=== PATIENT | female | born 1970 | race Caucasian/White ===

== ENCOUNTER 2017-07-05 11:29 | Emergency (ER) | payer BC, OTHER ==
[~2017-07-05 11:29] MED LIST: GARL400T4 PO; GLC/500 PO; LEVO1INJ13 PO; LISI-729 PO; LPT20 PO; MULT-506 PO; VALA500T60 PO
[2017-07-05 11:33] VITALS: TEMP 36.8
[2017-07-05] MEDS ORDERED: ACETAMINOPHEN 500 MG TAB PO STA (11:54)
[2017-07-05] MEDS ORDERED: SODIUM CHLORIDE 0.9% 1000ML 1,000 ML IV STA (11:54)
[2017-07-05] MEDS ORDERED: LISI-729 PO (12:00)
[2017-07-05] MEDS ORDERED: FOLI1TAB8 PO (12:01)
[2017-07-05] MEDS ORDERED: LEVO100T PO (12:01)
[2017-07-05] MEDS ORDERED: ASPCH81X PO (12:01)
[2017-07-05 12:15] LABS: BASO % 0.4 %; BASO ABS # 0.05 K/uL (0-0.2); EOS % 0.8 %; EOS ABS # 0.09 K/uL (0-0.5); HEMATOCRIT 42.1 % (37-47); HEMOGLOBIN 14.3 g/dL (12.0-16.0); IG# 0.04 K/uL (0.00-0.02); LYMPH % 15.7 %; LYMPH ABS # 1.85 K/uL (1.2-3.4); MEAN CELL VOLUME 88.1 fL (80-100); MEAN CORPUSCULAR HEMOGLOBIN 29.9 pg (25-34); MEAN PLATELET VOLUME 10.2 fL (7.4-10.4); MONO % 5.1 %; NEUT % 77.7 %; NEUT ABS # 9.19 K/uL (1.4-6.5); PLATELET COUNT 314 K/uL (130-400); RED CELL DISTRIBUTION WIDTH SD 45.4 fL (36.4-46.3); WHITE BLOOD COUNT 11.82 K/uL (4.8-10.8)
[2017-07-05 12:22] LABS: ALBUMIN 3.8 gm/dl (3.4-5.0); ALT/SGPT 35 U/L (12-78); AST/SGOT 23 U/L (15-37); BLOOD UREA NITROGEN 13 mg/dl (7-18); CARBON DIOXIDE 26 mmol/L (21-32); CREATININE 0.96 mg/dl (0.60-1.20); GLUCOSE 140 mg/dl (70-99); POTASSIUM 3.9 mmol/L (3.5-5.1); SODIUM 136 mmol/L (136-145)
[2017-07-05 12:23] LABS: INR 0.9 (0.9-1.1)
--- NOTE | 2017-07-05 12:31 | DIAGNOSTIC IMAGING REPORT ---
CT HEAD WITHOUT CONTRAST (CT) CLINICAL HISTORY: Head pain status post trauma COMPARISON STUDY: 02/21/2014 TECHNIQUE: Axial CT of the brain is performed from the vertex to the skull base. IV contrast was not administered for this examination. A dose lowering technique was utilized adhering to the principles of ALARA. CT DOSE: FINDINGS: No intra or extra-axial mass lesions are visualized. There is no CT evidence of acute cortical infarction. There is no evidence of midline shift. There is no acute hemorrhage. No calvarial fractures are visualized. There are postsurgical changes of an occipital craniotomy. Multiple surgical clips are visualized within the region of the foramen magnum. There are postsurgical changes of a midline cerebellar resection. There is no evidence of pathologic ventricular dilatation. There is a nasal bone fracture. IMPRESSION: 1. No acute intracranial findings. 2. Postsurgical changes within the posterior fossa with evidence of midline cerebellar resection/encephalomalacia 3. Nasal bone fracture Electronically signed by: Daniel Farah M.D. 07/05/2017 12:29 PM Dictated Date/Time: 07/05/2017 12:25 PM
[2017-07-05 12:33] LABS: ALKALINE PHOSPHATASE 77 U/L (45-117); PHOSPHORUS 3.3 mg/dl (2.5-4.9); TOTAL PROTEIN 7.8 gm/dl (6.4-8.2)
--- NOTE | 2017-07-05 12:33 | DIAGNOSTIC IMAGING REPORT ---
CT OF THE CERVICAL SPINE CLINICAL HISTORY: Neck pain status post trauma COMPARISON STUDY: No previous studies for comparison. CT DOSE: 1498.17 mGy.cm TECHNIQUE: CT scan of the cervical spine was performed from the skull base to the thoracic inlet. Images are reviewed in the axial, sagittal, and coronal planes. IV contrast was not administered for this examination. A dose lowering technique was utilized adhering to the principles of ALARA. FINDINGS: There are postsurgical changes within the posterior fossa. There is evidence for prior occipital craniotomy and midline cerebellar resection. The visualized portions of the lung apices reveal no evidence of pneumothorax. There is a reversal of the normal cervical lordosis. 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 There are multilevel degenerative changes. No acute fractures or traumatic subluxations are visualized. IMPRESSION: 1. No acute fractures or traumatic subluxations 2. Postsurgical changes in the posterior fossa 3. 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 Moderate multilevel degenerative change Electronically signed by: Daniel Farah M.D. 07/05/2017 12:32 PM Dictated Date/Time: 07/05/2017 12:30 PM
--- NOTE | 2017-07-05 12:37 | DIAGNOSTIC IMAGING REPORT ---
CT FACIAL BONES-MXILLOFAC WITHOUT CT DOSE: CLINICAL HISTORY: Facial pain status post trauma COMPARISON STUDY: No previous studies for comparison. TECHNIQUE: Helical images were acquired in the transverse plane. The study was reviewed and analyzed on the independent 3-D workstation. A dose lowering technique was utilized adhering to the principles of ALARA. The pterygoid plates appear intact. The zygomatic arches appear intact. The globes appear intact. There is no evidence of orbital emphysema. The orbital de la rosa and floor appear intact. The mandibular condyles appear intact. There is a nasal septal fracture. There is nasal septal deviation to the right. There are bilateral nasal bone fractures. The right nasal bone fracture demonstrates 2.5 mm of depression. IMPRESSION: 1. Nasal septal fracture. Nasal septal deviation to the right 2. Nasal bone fractures Electronically signed by: Daniel Farah M.D. 07/05/2017 12:35 PM Dictated Date/Time: 07/05/2017 12:32 PM
[2017-07-05] MEDS ORDERED: KETOROLAC TROMETHAMINE 30 MG/ML VIAL IV STA (13:09)
--- NOTE | 2017-07-05 13:33 | DIAGNOSTIC IMAGING REPORT ---
R ELBOW MIN 3 VIEWS ROUTINE CLINICAL HISTORY: Right elbow pain status post trauma COMPARISON: None DISCUSSION: There is displacement of the anterior humeral fat pad. There is a nondisplaced radial head fracture. There are small bony/calcific densities projected anterior to the distal humerus. These are of uncertain etiology and chronicity. There is an antecubital venous catheter. IMPRESSION: 1. Acute nondisplaced radial head fracture 2. Calcific/bony densities projected anterior to the distal humerus. These are of uncertain etiology and chronicity. Electronically signed by: Daniel Farah M.D. 07/05/2017 1:32 PM Dictated Date/Time: 07/05/2017 1:30 PM
--- NOTE | 2017-07-05 13:39 | DIAGNOSTIC IMAGING REPORT ---
L ELBOW MIN 3 VIEWS ROUTINE CLINICAL HISTORY: Left elbow pain status post trauma COMPARISON: None DISCUSSION: There is displacement of the anterior posterior humeral fat pads. There is an equivocal nondisplaced radial neck impaction. There is no evidence for soft tissue swelling. IMPRESSION: 1. Hemarthrosis 2. Equivocal nondisplaced radial neck impaction fracture Electronically signed by: Daniel Farah M.D. 07/05/2017 1:38 PM Dictated Date/Time: 07/05/2017 1:36 PM
[2017-07-05 14:22] VITALS: BP 188/111; PULSE 84; O2SAT 96
--- NOTE | 2017-07-05 15:23 | EMERGENCY ROOM VISIT NOTE ---
History First contact with patient: 11:47 Chief Complaint: FALL Stated Complaint: FALL ON FACE/NOSE History of Present Illness The patient is a 47 year old female who presents to the Emergency Room with complaints of injuries after she fell while walking to her mailbox. The patient does not recall if she lost consciousness. 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 The patient reports that she has been having increased balance problems over the past week. The patient complains mostly of nose/facial pain and bilateral elbow pain, left worse than right. Tetanus immunization is up-to-date. She denies any significant headache, neck pain or back pain. She rates her discomfort a 3 out of 10. Review of Systems HEENT: Denies dizziness, visual problems, hearing loss, tinnitus. Denies difficulty swallowing or oral lesions. PULMONARY: Denies cough, shortness of breath, sputum production or hemoptysis. CARDIOVASCULAR: Denies chest pain, palpitations, dyspnea on exertion, orthopnea or peripheral edema. GASTROINTESTINAL: Denies diarrhea, constipation, nausea, vomiting, or abdominal pain. GENITOURINARY: Denies dysuria, frequency, urgency or nocturia. NEUROLOGIC: See HPI. MUSCULOSKELETAL: Denies history of joint tenderness/swelling. SKIN: Denies rashes or lesions. PSYCHIATRIC: Denies history of depression or mental illness. ENDOCRINE: History of type 2 diabetes and hypothyroidism. Past Medical/Surgical History Medical Problems: (1) brain tumor surgery (2) Prediabetes Medical Problems: (1) brain tumor surgery (2) Hemangioma Intracranial (3) Hypertension Nos (4) Hypothyroidism Nos (5) Prediabetes (6) Type 2 diabetes mellitus Family History Cancer Diabetes mellitus Hypertension Kidney stones Social History Smoking Status: Never Smoker Alcohol Use: occasionally Marital Status: Housing Status: lives alone Occupation Status: employed Current/Historical Medications Scheduled Aspirin (Aspirin Chewable), 81 MG PO DAILY Folic Acid (Folvite), 1 MG PO DAILY Levothyroxine Sodium (Synthroid), 100 MCG PO DAILY Lisinopril (Prinivil), 5 MG PO DAILY Metformin Hcl (Glucophage), 500 MG PO DAILY Multivitamin (Multivitamin), 1 TAB PO DAILY Physical Exam Vital Signs Date Time Temp Pulse Resp B/P (MAP) Pulse Ox O2 Delivery O2 Flow Rate FiO2 07/05/17 14:22 84 16 188/111 96 07/05/17 13:39 83 18 182/96 95 Room Air 07/05/17 13:05 83 18 199/110 95 Room Air 07/05/17 13:03 85 18 222/111 95 Room Air 07/05/17 11:33 36.8 91 20 172/100 95 Room Air Physical Exam CONSTITUTIONAL: Healthy and well nourished. Alert and oriented X 3 with positive affect. GCS 15. Patient does not appear in any acute distress. HEENT: Examination shows notable edema and abrasions of the nose. Examination shows no septal hematomas. Mild septal deviation is noted. Pupils equal, round and reactive. No subconjunctival hemorrhage, raccoon's eyes, hemotympanum or branham sign. NECK: Full active range of motion without discomfort. RESPIRATORY: Clear to auscultation bilaterally with no wheezing, crackles, rhonchi or stridor. CARDIOVASCULAR: Regular rate and rhythm with no murmurs, rubs or gallops. GASTROINTESTINAL: Bowel sounds present in all quadrants. Soft and nontender to palpation. MUSCULOSKELETAL: Examination shows discomfort with range of motion of bilateral elbows, left worse than right. She has no focal tenderness through the shoulders or wrists. She has superficial abrasions to the hands. Patient has no tenderness to palpation through the thoracolumbar spine or lower extremities. Distal pulses are intact. INTEGUMENTARY: No rash or other significant dermatologic conditions noted. NEUROLOGIC: Cranial nerves II-XII grossly intact. No focal neurologic deficits noted. Negative pronator drift. Medical Decision & Procedures ER Provider Diagnostic Interpretation: My interpretation of an ECG shows a normal sinus rhythm of [address] elevation.. Noncontrast CT of the head, facial bones and cervical spine shows nasal bone and septum fractures. Prior craniotomy with surgical changes noted. There is no obvious evidence for intracranial bleed or cervical spine fractures. Radiologist reports are as follows: CT HEAD WITHOUT CONTRAST (CT) CLINICAL HISTORY: Head pain status post trauma COMPARISON STUDY: 02/21/2014 TECHNIQUE: Axial CT of the brain is performed from the vertex to the skull base. IV contrast was not administered for this examination. A dose lowering technique was utilized adhering to the principles of ALARA. CT DOSE: FINDINGS: No intra or extra-axial mass lesions are visualized. There is no CT evidence of acute cortical infarction. There is no evidence of midline shift. There is no acute hemorrhage. No calvarial fractures are visualized. There are postsurgical changes of an occipital craniotomy. Multiple surgical clips are visualized within the region of the foramen magnum. There are postsurgical changes of a midline cerebellar resection. There is no evidence of pathologic ventricular dilatation. There is a nasal bone fracture. IMPRESSION: 1. No acute intracranial findings. 2. Postsurgical changes within the posterior fossa with evidence of midline cerebellar resection/encephalomalacia 3. Nasal bone fracture CT OF THE CERVICAL SPINE CLINICAL HISTORY: Neck pain status post trauma COMPARISON STUDY: No previous studies for comparison. CT DOSE: 1498.17 mGy.cm TECHNIQUE: CT scan of the cervical spine was performed from the skull base to the thoracic inlet. Images are reviewed in the axial, sagittal, and coronal planes. IV contrast was not administered for this examination. A dose lowering technique was utilized adhering to the principles of ALARA. FINDINGS: There are postsurgical changes within the posterior fossa. There is evidence for prior occipital craniotomy and midline cerebellar resection. The visualized portions of the lung apices reveal no evidence of pneumothorax. There is a reversal of the normal cervical lordosis. 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 There are multilevel degenerative changes. No acute fractures or traumatic subluxations are visualized. IMPRESSION: 1. No acute fractures or traumatic subluxations 2. Postsurgical changes in the posterior fossa 3. 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 Moderate multilevel degenerative change CT FACIAL BONES-MXILLOFAC WITHOUT CT DOSE: CLINICAL HISTORY: Facial pain status post trauma COMPARISON STUDY: No previous studies for comparison. TECHNIQUE: Helical images were acquired in the transverse plane. The study was reviewed and analyzed on the independent 3-D workstation. A dose lowering technique was utilized adhering to the principles of ALARA. The pterygoid plates appear intact. The zygomatic arches appear intact. The globes appear intact. There is no evidence of orbital emphysema. The orbital de la rosa and floor appear intact. The mandibular condyles appear intact. There is a nasal septal fracture. There is nasal septal deviation to the right. There are bilateral nasal bone fractures. The right nasal bone fracture demonstrates 2.5 mm of depression. IMPRESSION: 1. Nasal septal fracture. Nasal septal deviation to the right 2. Nasal bone fractures My interpretation of right elbow x-ray shows a radial head fracture. No dislocation noted. Radiologist report is as follows: R ELBOW MIN 3 VIEWS ROUTINE CLINICAL HISTORY: Right elbow pain status post trauma COMPARISON: None DISCUSSION: There is displacement of the anterior humeral fat pad. There is a nondisplaced radial head fracture. There are small bony/calcific densities projected anterior to the distal humerus. These are of uncertain etiology and chronicity. There is an antecubital venous catheter. IMPRESSION: 1. Acute nondisplaced radial head fracture 2. Calcific/bony densities projected anterior to the distal humerus. These are of uncertain etiology and chronicity. My interpretation of left elbow x-ray shows an equivocal radial neck impaction fracture. No dislocation noted. Radiologist report is as follows: L ELBOW MIN 3 VIEWS ROUTINE CLINICAL HISTORY: Left elbow pain status post trauma COMPARISON: None DISCUSSION: There is displacement of the anterior posterior humeral fat pads. There is an equivocal nondisplaced radial neck impaction. There is no evidence for soft tissue swelling. IMPRESSION: 1. Hemarthrosis 2. Equivocal nondisplaced radial neck impaction fracture Laboratory Results 07/05/17 11:50 Red Blood Count 4.78, Mean Corpuscular Volume 88.1, Mean Corpuscular Hemoglobin 29.9, Mean Corpuscular Hemoglobin Concent 34.0, Mean Platelet Volume 10.2, Neutrophils (%) (Auto) 77.7, Lymphocytes (%) (Auto) 15.7, Monocytes (%) (Auto) 5.1, Eosinophils (%) (Auto) 0.8, Basophils (%) (Auto) 0.4, Neutrophils # (Auto) 9.19, Lymphocytes # (Auto) 1.85, Monocytes # (Auto) 0.60, Eosinophils # (Auto) 0.09, Basophils # (Auto) 0.05 07/05/17 11:50 Test 07/05/17 11:50 White Blood Count 11.82 K/uL (4.8-10.8) Red Blood Count 4.78 M/uL (4.2-5.4) Hemoglobin 14.3 g/dL (12.0-16.0) Hematocrit 42.1 % (37-47) Mean Corpuscular Volume 88.1 fL (80-100) Mean Corpuscular Hemoglobin 29.9 pg (25-34) Mean Corpuscular Hemoglobin Concent 34.0 g/dl (32-36) Platelet Count 314 K/uL (130-400) Mean Platelet Volume 10.2 fL (7.4-10.4) Neutrophils (%) (Auto) 77.7 % Lymphocytes (%) (Auto) 15.7 % Monocytes (%) (Auto) 5.1 % Eosinophils (%) (Auto) 0.8 % Basophils (%) (Auto) 0.4 % Neutrophils # (Auto) 9.19 K/uL (1.4-6.5) Lymphocytes # (Auto) 1.85 K/uL (1.2-3.4) Monocytes # (Auto) 0.60 K/uL (0.11-0.59) Eosinophils # (Auto) 0.09 K/uL (0-0.5) Basophils # (Auto) 0.05 K/uL (0-0.2) RDW Standard Deviation 45.4 fL (36.4-46.3) RDW Coefficient of Variation 14.0 % (11.5-14.5) Immature Granulocyte % (Auto) 0.3 % Immature Granulocyte # (Auto) 0.04 K/uL (0.00-0.02) Prothrombin Time 9.7 SECONDS (9.0-12.0) Prothromb Time International Ratio 0.9 (0.9-1.1) Activated Partial Thromboplast Time 25.0 SECONDS (21.0-31.0) Partial Thromboplastin Ratio 1.0 Anion Gap 6.0 mmol/L (3-11) Estimated GFR () 81.1 Estimated GFR (Non- 69.9 BUN/Creatinine Ratio 13.1 (10-20) Calcium Level 9.0 mg/dl (8.5-10.1) Phosphorus Level 3.3 mg/dl (2.5-4.9) Magnesium Level 1.9 mg/dl (1.8-2.4) Total Bilirubin 0.6 mg/dl (0.2-1) Direct Bilirubin 0.1 mg/dl (0-0.2) Aspartate Amino Transf (AST/SGOT) 23 U/L (15-37) Alanine Aminotransferase (ALT/SGPT) 35 U/L (12-78) Alkaline Phosphatase 77 U/L (45-117) Troponin I < 0.015 ng/ml (0-0.045) Total Protein 7.8 gm/dl (6.4-8.2) Albumin 3.8 gm/dl (3.4-5.0) Thyroid Stimulating Hormone (TSH) 2.870 uIu/ml (0.300-4.500) The above labs were reviewed. Medications Administered Medications (Trade) Dose Ordered Sig/John Route Start Time Stop Time Status Last Admin Dose Admin Acetaminophen (Tylenol Tab) 1,000 mg NOW STAT PO 07/05/17 11:54 07/05/17 11:57 DC 07/05/17 12:01 1,000 MG Sodium Chloride 1,000 ml @ 999 mls/hr Q1H1M STAT IV 07/05/17 11:54 07/05/17 12:54 DC 07/05/17 11:54 999 MLS/HR Ketorolac Tromethamine (Toradol Inj) 30 mg NOW STAT IV 07/05/17 13:09 07/05/17 13:11 DC 07/05/17 13:20 30 MG ED Course Patient history and physical exam were performed. Nurse's notes were reviewed. Vital signs were reviewed, showing an elevated blood pressure in triage. The patient was administered Tylenol for pain at her request. IV access was established, and labs were drawn, reviewed and grossly normal except for mild leukocytosis. An ECG was performed and was normal. CT of the head, facial bones and cervical spine shows nasal bone fractures with no other acute findings. Bilateral elbow x-rays were performed, showing a left radial neck fracture, and right radial head fracture. Findings were discussed with the patient. Because the patient will need her arms to use a walker for ambulation, and arm sling was applied as needed for comfort. The patient was administered Toradol 30 mg IVP for additional pain relief. The patient was encouraged to follow-up with ENT within the next 72 hours for recheck. She was also instructed to follow-up with orthopedics within the next 3-5 days for further orthopedic reevaluation. The patient is currently visiting from [place], and does not know when she will return home. She also reports that her insurance may not cover local follow-up. The patient was encouraged to call her insurance provider for further guidance. She was provided contact information for Dr. Bates, local ENT and Dr. 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 The patient refused any prescription analgesics, and was happy with plan of care, rating her pain a 4 out of 10 at the conclusion of my exam. The patient was also instructed to follow-up with her PCP for blood pressure recheck. The patient reports that she has had recent change in dosing of her lisinopril. Medical Decision Medication Reconcilliation Current Medication List: was personally reviewed by me Blood Pressure Screening Patient's blood pressure: Elevated blood pressure Blood pressure disposition: Referred to PCP Impression Primary Impression: Nasal bone fracture Additional Impressions: Fracture of radial neck, left, closed Fracture of radial head, right, closed Fall Departure Information Dispostion Home / Self-Care Forms HOME CARE DOCUMENTATION FORM, IMPORTANT VISIT INFORMATION Patient Instructions [facility] Problem Qualifiers Primary Impression: Nasal bone fracture Encounter type: initial encounter Fracture type: closed Qualified Codes: S02.2XXA - Fracture of nasal bones, initial encounter for closed fracture Additional Impressions: Fracture of radial neck, left, closed Encounter type: initial encounter Fracture alignment: nondisplaced Qualified Codes: S52.135A - Nondisplaced fracture of neck of left radius, initial encounter for closed fracture Fracture of radial head, right, closed Encounter type: initial encounter Fracture alignment: nondisplaced Qualified Codes: S52.124A - Nondisplaced fracture of head of right radius, initial encounter for closed fracture Fall Encounter type: initial encounter Qualified Codes: W19.XXXA - Unspecified fall, initial encounter
== END 2017-07-05 14:26 | disposition home or self-care (01) ==
LOC: C.EDB 11:30 → C.EDA 14:26
DX: S02.2XXA Fracture of nasal bones, initial encounter for closed fracture (principal); S52.132A Displaced fracture of neck of left radius, initial encounter for closed fracture; S52.124A Nondisplaced fracture of head of right radius, initial encounter for closed fracture; W18.30XA Fall on same level, unspecified, initial encounter; Y92.009 Unspecified place in unspecified non-institutional (private) residence as the place of occurrence of the external cause; S00.31XA Abrasion of nose, initial encounter; S60.512A Abrasion of left hand, initial encounter; S60.511A Abrasion of right hand, initial encounter; R03.0 Elevated blood-pressure reading, without diagnosis of hypertension; E11.9 Type 2 diabetes mellitus without complications; E03.9 Hypothyroidism, unspecified; Z85.841 Personal history of malignant neoplasm of brain; Z82.49 Family history of ischemic heart disease and other diseases of the circulatory system; Z79.82 Long term (current) use of aspirin; Z79.84 Long term (current) use of oral hypoglycemic drugs; Z79.899 Other long term (current) drug therapy

== ENCOUNTER 2022-11-19 21:18 | Inpatient (IN) ==
--- NOTE | 2022-11-19 22:37 | CT Scan Report ---
CT SCAN OF THE BRAIN WITHOUT IV CONTRAST CLINICAL HISTORY: Dizziness. Loss of balance. COMPARISON STUDY: CT of the brain dated 07/05/2017. TECHNIQUE: Unenhanced axial CT scan of the brain is performed from the vertex to the skull base. A d ose lowering technique was utilized adhering to the principles of ALARA. CT DOSE: 547.75 mGy.cm FINDINGS: Brain parenchyma: Postsurgical changes noted in the posterior fossa. Cerebellar encephalomalacia is u nchanged from previous. There is no hemorrhage, mass effect, or evidence of acute territorial ischemi a by CT criteria. Martinez-white matter differentiation is preserved. No extra-axial fluid collection is seen. Ventricles, sulci, cisterns: Normal in configuration. Intracranial vasculature: The visualized intracranial vasculature at the skull base is normal in appe arance. Calvarium: There is postoperative change from occipital craniectomy. No destructive calvarial lesion is seen. Sinuses and mastoids: The visualized paranasal sinuses are clear. The mastoid air cells are well pneu matized. Orbits: The bony orbits are grossly intact. IMPRESSION: Chronic/postsurgical changes as above with no hemorrhage, mass effect, or evidence of acu te territorial ischemia by CT criteria. ACT 112: Negative or not required by law. Electronically signed by: Star Jha M.D. 11/19/2022 10:35 PM
[2022-11-19 22:40] LABS: Basophils # (auto) 0.07 K/uL (0.00-0.20); Basophils % (auto) 0.6 %; Eosinophils # (auto) 0.15 K/uL (0.00-0.50); Eosinophils % (auto) 1.3 %; Hematocrit (blood only) 43.2 % (37.0-47.0); Hemoglobin 14.5 g/dl (12.0-16.0); Immature Granulocytes # (auto) 0.03 K/uL (0.01-0.20); Immature Granulocytes % (auto) 0.3 %; Lymphocytes # (auto) 4.34 K/uL (1.20-3.40); Mean Corpuscular Hemoglobin 28.8 pg (25.0-34.0); Mean Corpuscular Hgb Conc 33.6 g/dL (32.0-36.0); Mean Corpuscular Volume 85.9 fL (80.0-100.0); Mean Platelet Volume 10.6 fL (9.4-12.4); Monocytes # (auto) 0.67 K/uL (0.11-0.59); Monocytes % (auto) 5.9 %; Neutrophils # (auto) 6.16 K/uL (1.40-6.50); Neutrophils % (auto) 53.9 %; Platelet Count 298 K/uL (130-400); RDW Coefficient of Variation 14.2 % (11.5-14.5); RDW Standard Deviation 43.8 fL (36.4-46.3); Red Blood Count 5.03 M/uL (4.20-5.40); White Blood Count 11.42 K/ul (4.8-10.8)
[2022-11-19 22:52] LABS: Albumin Globulin Ratio 1.8 (0.9-2); Albumin Level 4.3 gm/dl (3.4-5.0); BUN Creatinine Ratio 27.7 (10-20); Bilirubin,Total 0.6 mg/dl (0.2-1.0); Calcium 9.5 mg/dl (8.6-10.3); Creatinine Clr Calc Pharmacy 86.1 ml/min; Est GFR (African American) 93.3 ml/min; Est GFR (Non-African American) 80.5 ml/min; Globulin 2.4 gm/dl (2.5-4.0); Potassium 3.6 mmol/L (3.5-5.1); Total Protein 6.7 gm/dl (6.0-8.3)
[2022-11-19 23:00] LABS: Troponin I High Sensitivity 4.7 pg/ml (0-14)
[2022-11-19] MEDS ORDERED: SODIUM CHLORIDE 0.9% 1000ML 1,000 ML IV SCH (23:00)
--- NOTE | 2022-11-19 23:07 | Emergency Department Note ---
History of Present Illness General Chief complaint: Dizziness Stated complaint: LIGHT HEADED, LOSS OF BALANCE Time Seen by Provider: 11/19/22 22:46 History of Present Illness This is a 52-year-old female presenting to the emergency department for evaluation of lightheadedness and difficulty ambulating. Patient states that her symptoms began yesterday morning, roughly 36 hours prior to arrival. She took a nap in the afternoon, and woke up last evening feeling fairly normal. When the patient woke today she had return of the lightheadedness. She has a fairly significant neurologic history in the past. When the patient was 9 years old she had surgery for brain cancer with subsequent radiation. She did have a stroke in 2016 and is on a baby aspirin. Patient had been living in the [facility] with her , until he 6 months ago. She is transitioning to the [facility] where she has additional family, and has yet to establish with a family doctor, although she is scheduled to see [facility]. Patient has not had fevers or chills. She did have a fall yesterday. There is some ambulatory dysfunction at baseline and she uses a walker. She feels some increased weakness in her left leg compared to normal. She is able to move as normal, although she does have some baseline dysfunction. No new medication changes. She rates her discomfort a 2/10. Home Medications Medication Instructions Recorded Confirmed Type valacyclovir 500 mg tablet 500 mg PO DAILY 07/30/18 11/19/22 History aspirin 81 mg tablet,delayed 81 mg PO DAILY 11/19/22 11/19/22 History release atorvastatin 40 mg tablet 40 mg PO DAILY 11/19/22 11/19/22 History donepezil 10 mg tablet 10 mg PO DAILY 11/19/22 11/19/22 History dulaglutide 4.5 mg/0.5 mL 3 mg subcut WK 11/19/22 11/19/22 History subcutaneous pen injector (Trulicity) empagliflozin 10 mg tablet 10 mg PO DAILY 11/19/22 11/19/22 History (Jardiance) escitalopram oxalate 20 mg tablet 20 mg PO DAILY 11/19/22 11/19/22 History levothyroxine 112 mcg tablet 112 mcg PO DAILYBB 11/19/22 11/19/22 History multivitamin 1 tab PO DAILY 11/19/22 11/19/22 History Allergies Allergy/AdvReac Type Severity Reaction Status Date / Time No Known Allergies Allergy Verified 11/19/22 23:51 Past Med/Surg History Medical History (Updated 11/20/22 @ 05:29 by Donnie Donahue PA-C) Acute CVA (cerebrovascular accident) Prediabetes Type 2 diabetes mellitus Surgical History H/O brain surgery Family History Other No pertinent family history Social History Smoking Status: Unknown if ever smoked Preferred Language: Citizen Of [place] Feels Safe at Home: Yes Review of Systems A total of 10 systems reviewed and were otherwise negative Physical Exam Vital Signs Vital Signs - 24 hr 11/19/22 21:20 11/19/22 22:13 11/19/22 22:37 Temperature 36.4 C L Temperature Source Temporal Artery Scan Pulse Rate 80 76 Pulse Rate from SpO2 Sensor Respiratory Rate 16 16 Respiratory Effort / Characteristics Non-Labored Spontaneous Respiratory Depth Normal Blood Pressure 149/102 H Blood Pressure Mean 117 Pulse Oximetry 95 94 95 Oxygen Delivery Method Room Air Room Air Room Air Sepsis Recent Fever Within 48 Hours No Sepsis New/Unexplained Change in Mental Status N/A Sepsis Action Taken by Nursing No Action Required 11/19/22 22:46 11/19/22 23:00 11/19/22 23:30 Temperature Temperature Source Pulse Rate 77 75 79 Pulse Rate from SpO2 Sensor Respiratory Rate 19 21 Respiratory Effort / Characteristics Respiratory Depth Blood Pressure Blood Pressure Mean Pulse Oximetry 97 95 Oxygen Delivery Method Room Air Room Air Sepsis Recent Fever Within 48 Hours Sepsis New/Unexplained Change in Mental Status Sepsis Action Taken by Nursing 11/20/22 00:39 11/20/22 01:00 11/20/22 01:30 Temperature Temperature Source Pulse Rate 77 71 73 Pulse Rate from SpO2 Sensor Respiratory Rate 19 18 17 Respiratory Effort / Characteristics Respiratory Depth Blood Pressure 132/86 157/86 H 158/92 H Blood Pressure Mean 101 109 114 Pulse Oximetry 91 93 Oxygen Delivery Method Room Air Room Air Sepsis Recent Fever Within 48 Hours Sepsis New/Unexplained Change in Mental Status Sepsis Action Taken by Nursing 11/20/22 02:58 11/20/22 03:00 Temperature Temperature Source Pulse Rate 70 66 Pulse Rate from SpO2 Sensor 69 68 Respiratory Rate 21 16 Respiratory Effort / Characteristics Respiratory Depth Blood Pressure 150/95 H 139/94 Blood Pressure Mean 113 109 Pulse Oximetry 93 93 Oxygen Delivery Method Room Air Room Air Sepsis Recent Fever Within 48 Hours Sepsis New/Unexplained Change in Mental Status Sepsis Action Taken by Nursing VITALS: Vitals are noted on the nurse's note and reviewed by myself. Vital signs stable. GENERAL: Chronically ill-appearing white female who is in no acute distress HEAD: Normocephalic atraumatic. HEART: Regular rate and rhythm without murmurs gallops or rubs. LUNGS: Clear to auscultation bilaterally without wheezes, rales or rhonchi. No retractions or accessory muscle use. ABDOMEN: Positive normal bowel sounds x 4. Soft, nontender, without masses or organomegaly. No guarding or rebound tenderness. MUSCULOSKELETAL: No muscle atrophy, erythema, or edema noted. NEURO: Patient was alert and oriented to person place and time. Course Administered Medications Discontinued Medications Gadobutrol (Gadobutrol 65ml Vial) 9 ml IV ONCE ONE Stop: 11/20/22 00:17 Last Admin: 11/20/22 00:16 Dose: 9 ml Documented By: ED Sodium Chloride (Nss 1000ml) 1,000 mls @ 999 mls/hr IV .Q1H1M QUITA Stop: 11/20/22 00:00 Last Infusion: 11/20/22 01:33 Dose: 0 mls/hr Documented By: Admin: 11/19/22 22:59 Dose: 999 mls/hr Documented By: NEGRO Lorazepam (Lorazepam 2 Mg/1 Ml Vial) 1 mg IV NOW STA Stop: 11/19/22 23:34 Last Admin: 11/19/22 23:46 Dose: 1 mg Documented By: NEGRO Medical Decision Making Differential Diagnosis Differential diagnosis: Etiologies such as benign positional vertigo, labrynthitis, dehydration, hypovolemia, anemia, tumor, infection, hypoglycemia, electrolyte abnormalities, cardiac sources, toxicological sources, central neurologic process, as well as others were entertained. Laboratory Data 11/19/22 21:59 11/19/22 21:59 Lab Results 11/19/22 11/19/22 11/19/22 Range/Units 21:59 21:59 21:59 WBC 11.42 H (4.8-10.8) K/ul RBC 5.03 (4.20-5.40) M/uL Hgb 14.5 (12.0-16.0) g/dl Hct 43.2 (37.0-47.0) % MCV 85.9 (80.0-100.0) fL MCH 28.8 (25.0-34.0) pg MCHC 33.6 (32.0-36.0) g/dL RDW Std Deviation 43.8 (36.4-46.3) fL RDW Coeff of Ananya 14.2 (11.5-14.5) % Plt Count 298 (130-400) K/uL MPV 10.6 (9.4-12.4) fL Immature Gran % (Auto) 0.3 % Neut % (Auto) 53.9 % Lymph % (Auto) 38.0 % Windsor % (Auto) 5.9 % Eos % (Auto) 1.3 % Baso % (Auto) 0.6 % Neut # (Auto) 6.16 (1.40-6.50) K/uL Lymph # (Auto) 4.34 H (1.20-3.40) K/uL Windsor # (Auto) 0.67 H (0.11-0.59) K/uL Eos # (Auto) 0.15 (0.00-0.50) K/uL Baso # (Auto) 0.07 (0.00-0.20) K/uL Immature Gran # (Auto) 0.03 (0.01-0.20) K/uL PT 9.9 (9.0-12.0) Seconds INR 0.9 (0.9-1.1) APTT 26.2 (21.0-31.0) Seconds PTT Ratio 0.9 Sodium 139 (136-145) mmol/L Potassium 3.6 (3.5-5.1) mmol/L Chloride 103 (98-107) mmol/L Carbon Dioxide 26 (21-32) mmol/L Anion Gap 10 (3-11) BUN 23 (6-23) mg/dl Creatinine 0.83 (0.6-1.2) mg/dl Est Cr Clr Drug Dosing 86.1 ml/min Est GFR ( Amer) 93.3 ml/min Est GFR (Non-Af Amer) 80.5 ml/min BUN/Creatinine Ratio 27.7 H (10-20) Glucose 128 H (70-99(Fasting)) mg/dl Calcium 9.5 (8.6-10.3) mg/dl Magnesium 2.2 (1.7-2.4) mg/dl Total Bilirubin 0.6 (0.2-1.0) mg/dl AST 18 (13-39) U/L ALT 14 (7-52) U/L Alkaline Phosphatase 89 (34-104) U/L Troponin I High Sens 4.7 (0-14) pg/ml Total Protein 6.7 (6.0-8.3) gm/dl Albumin 4.3 (3.4-5.0) gm/dl Globulin 2.4 L (2.5-4.0) gm/dl Albumin/Globulin Ratio 1.8 (0.9-2) TSH (0.300-4.500) uIu/ml Urine Color Urine Appearance (Clear) Urine pH (4.5-7.5) Ur Specific Sanford (1.000-1.030) Urine Protein (Negative) Urine Glucose (UA) (Negative) Urine Ketones (Negative) Urine Blood (Negative) Urine Nitrite (Negative) Urine Bilirubin (Negative) Urine Urobilinogen (Negative) Ur Leukocyte Esterase (Negative) Ethyl Alcohol mg/dL (<10.0) mg/dl Anaplasma Smear Babesia Smear Lyme Disease IgG Ab (Negative) Lyme Disease IgM Ab (Negative) 11/19/22 11/19/22 11/19/22 Range/Units 21:59 22:56 23:25 WBC (4.8-10.8) K/ul RBC (4.20-5.40) M/uL Hgb (12.0-16.0) g/dl Hct (37.0-47.0) % MCV (80.0-100.0) fL MCH (25.0-34.0) pg MCHC (32.0-36.0) g/dL RDW Std Deviation (36.4-46.3) fL RDW Coeff of Ananya (11.5-14.5) % Plt Count (130-400) K/uL MPV (9.4-12.4) fL Immature Gran % (Auto) % Neut % (Auto) % Lymph % (Auto) % [place] % (Auto) % Eos % (Auto) % Baso % (Auto) % Neut # (Auto) (1.40-6.50) K/uL Lymph # (Auto) (1.20-3.40) K/uL [place] # (Auto) (0.11-0.59) K/uL Eos # (Auto) (0.00-0.50) K/uL Baso # (Auto) (0.00-0.20) K/uL Immature Gran # (Auto) (0.01-0.20) K/uL PT (9.0-12.0) Seconds INR (0.9-1.1) APTT (21.0-31.0) Seconds PTT Ratio Sodium (136-145) mmol/L Potassium (3.5-5.1) mmol/L Chloride (98-107) mmol/L Carbon Dioxide (21-32) mmol/L Anion Gap (3-11) BUN (6-23) mg/dl Creatinine (0.6-1.2) mg/dl Est Cr Clr Drug Dosing ml/min Est GFR ( Amer) ml/min Est GFR (Non-Af Amer) ml/min BUN/Creatinine Ratio (10-20) Glucose (70-99(Fasting)) mg/dl Calcium (8.6-10.3) mg/dl Magnesium (1.7-2.4) mg/dl Total Bilirubin (0.2-1.0) mg/dl AST (13-39) U/L ALT (7-52) U/L Alkaline Phosphatase (34-104) U/L Troponin I High Sens (0-14) pg/ml Total Protein (6.0-8.3) gm/dl Albumin (3.4-5.0) gm/dl Globulin (2.5-4.0) gm/dl Albumin/Globulin Ratio (0.9-2) TSH (0.300-4.500) uIu/ml Urine Color Urine Appearance (Clear) Urine pH (4.5-7.5) Ur Specific [place] (1.000-1.030) Urine Protein (Negative) Urine Glucose (UA) (Negative) Urine Ketones (Negative) Urine Blood (Negative) Urine Nitrite (Negative) Urine Bilirubin (Negative) Urine Urobilinogen (Negative) Ur Leukocyte Esterase (Negative) Ethyl Alcohol mg/dL < 10.0 (<10.0) mg/dl Anaplasma Smear See Comment Babesia Smear See Comment Lyme Disease IgG Ab Negative (Negative) Lyme Disease IgM Ab Equivocal A (Negative) 11/19/22 11/20/22 Range/Units Unknown 02:47 WBC (4.8-10.8) K/ul RBC (4.20-5.40) M/uL Hgb (12.0-16.0) g/dl Hct (37.0-47.0) % MCV (80.0-100.0) fL MCH (25.0-34.0) pg MCHC (32.0-36.0) g/dL RDW Std Deviation (36.4-46.3) fL RDW Coeff of Ananya (11.5-14.5) % Plt Count (130-400) K/uL MPV (9.4-12.4) fL Immature Gran % (Auto) % Neut % (Auto) % Lymph % (Auto) % [place] % (Auto) % Eos % (Auto) % Baso % (Auto) % Neut # (Auto) (1.40-6.50) K/uL Lymph # (Auto) (1.20-3.40) K/uL [place] # (Auto) (0.11-0.59) K/uL Eos # (Auto) (0.00-0.50) K/uL Baso # (Auto) (0.00-0.20) K/uL Immature Gran # (Auto) (0.01-0.20) K/uL PT (9.0-12.0) Seconds INR (0.9-1.1) APTT (21.0-31.0) Seconds PTT Ratio Sodium (136-145) mmol/L Potassium (3.5-5.1) mmol/L Chloride (98-107) mmol/L Carbon Dioxide (21-32) mmol/L Anion Gap (3-11) BUN (6-23) mg/dl Creatinine (0.6-1.2) mg/dl Est Cr Clr Drug Dosing ml/min Est GFR ( Amer) ml/min Est GFR (Non-Af Amer) ml/min BUN/Creatinine Ratio (10-20) Glucose (70-99(Fasting)) mg/dl Calcium (8.6-10.3) mg/dl Magnesium (1.7-2.4) mg/dl Total Bilirubin (0.2-1.0) mg/dl AST (13-39) U/L ALT (7-52) U/L Alkaline Phosphatase (34-104) U/L Troponin I High Sens (0-14) pg/ml Total Protein (6.0-8.3) gm/dl Albumin (3.4-5.0) gm/dl Globulin (2.5-4.0) gm/dl Albumin/Globulin Ratio (0.9-2) TSH 2.061 (0.300-4.500) uIu/ml Urine Color Yellow Urine Appearance Clear (Clear) Urine pH 7.0 (4.5-7.5) Ur Specific Sanford 1.031 H (1.000-1.030) Urine Protein Negative (Negative) Urine Glucose (UA) 3+ H (Negative) Urine Ketones Negative (Negative) Urine Blood Negative (Negative) Urine Nitrite Negative (Negative) Urine Bilirubin Negative (Negative) Urine Urobilinogen Negative (Negative) Ur Leukocyte Esterase Negative (Negative) Ethyl Alcohol mg/dL (<10.0) mg/dl Anaplasma Smear Babesia Smear Lyme Disease IgG Ab (Negative) Lyme Disease IgM Ab (Negative) Imaging Data Radiologist's Impression: Head CT 11/19/22 21:24 CT SCAN OF THE BRAIN WITHOUT IV CONTRAST CLINICAL HISTORY: Dizziness. Loss of balance. COMPARISON STUDY: CT of the brain dated 07/05/2017. TECHNIQUE: Unenhanced axial CT scan of the brain is performed from the vertex to the skull base. A dose lowering technique was utilized adhering to the principles of ALARA. CT DOSE: 547.75 mGy.cm FINDINGS: Brain parenchyma: Postsurgical changes noted in the posterior fossa. Cerebellar encephalomalacia is unchanged from previous. There is no hemorrhage, mass effect, or evidence of acute territorial ischemia by CT criteria. Martinez-white matter differentiation is preserved. No extra-axial fluid collection is seen. Ventricles, sulci, cisterns: Normal in configuration. Intracranial vasculature: The visualized intracranial vasculature at the skull base is normal in appearance. Calvarium: There is postoperative change from occipital craniectomy. No d estructive calvarial lesion is seen. Sinuses and mastoids: The visualized paranasal sinuses are clear. The mastoid air cells are well pneumatized. Orbits: The bony orbits are grossly intact. IMPRESSION: Chronic/postsurgical changes as above with no hemorrhage, mass effect, or evidence of acute territorial ischemia by CT criteria. ACT 112: Negative or not required by law. Electronically signed by: Star Jha M.D. 11/19/2022 10:35 PM Brain MRI 11/19/22 23:03 Exam(s): MRI HEAD W/WO Contrast IV Amt: 9cc gadavist EXAM: MR Head Without and With Intravenous Contrast CLINICAL HISTORY: Reason for exam: Dizzy. Old hx Cancer and stroke. TECHNIQUE: Magnetic resonance images of the head/brain without and with intravenous contrast in multiple planes. CONTRAST: Patient received 9cc gadavist of IV contrast COMPARISON: CT brain 11/19/2022. MRI dated 02/22/2014. FINDINGS: Brain: Petechial hemorrhage demonstrated along the cerebellum, likely postsurgical. Small focus of hemorrhage within the left occipital lobe by the posterior corpus callosum, unchanged. Mild generalized brain atrophy. Redemonstrated encephalomalacia within the central portion of the cerebellum with posterior basilar postoperative changes. Ventricles: Unremarkable. No ventriculomegaly. Bones/joints: Unremarkable. Soft tissues: Unremarkable. No abnormal enhancement of intracranial structures to suggest intracranial lesion. Sinuses: Unremarkable as visualized. No acute sinusitis. Mastoid air cells: Unremarkable as visualized. No mastoid effusion. Orbits: Unremarkable as visualized. IMPRESSION: 1. Postoperative changes of the cerebellum with small petechial old hemorrhage at the level of the cerebellum and left occipital lobe, overall stable study in the interval. 2. No focally enhancing lesion to suggest recurrent neoplasm. Electronically signed by: Raisa Dempsey MD 11/20/22 01:16 AM MDM Narrative Physical exam and history were performed. Nursing notes, EMR, and Medication List were personally reviewed. No social concerns were identified as barriers to patients care. Patient appears to have dizziness bringing her to the ER. Patient has history of brain cancer and stroke in the past. IV access was established and labs were obtained. Patient was seen during a period of very high ER volume and acuity with extended wait times. Nursing protocol order have been performed and some of these are available for my review at the time of patient encounter. Patient's blood work is as above and was reviewed. She does not have a significantly elevated white blood cell count, gross anemia, bandemia, or significant electrolyte imbalance. Transaminases are not diagnostic. Alcohol is negative. Urine is with glucose but no distinct evidence of infection. TSH shows euthyroid state. Troponin x1 is negative. Magnesium is normal. CT scan of the head was performed and reviewed by myself and radiology showing no acute process. Case was discussed with my attending physician who remained involved in care decision making. Patient has concerning past history and is describing worsening dizziness and difficulty ambulating over the past 36 hours. MRI with and without was performed of the brain, and has results as above. She does not have distinct acute process, but does have chronic findings. Overall the patient does not appear well for discharge home. She does not have a strong baseline to begin with, and does not have outpatient resources as she recently moved to the area. Ambulatory status is difficult to determine as the patient has such difficulty with the dizziness. Case was discussed with the on- call hospitalist who agreed to evaluate the patient here in the ER. Please see their dictation for further patient course, plan, disposition. The chart was completed utilizing [employer] Speech Voice Recognition Software. Grammatical errors, random word insertions, pronoun errors, and incomplete sentences are an occasional consequence of this system due to software limitations, ambient noise, and hardware issues. Any formal questions or concerns about the content, text, or information contained within the body of this dictation should be directly addressed to the provider for clarification. . Impression & Plan Dizziness, Ambulatory dysfunction Discharge Plan Visit Data Chief Complaint: Dizziness Stated Complaint: LIGHT HEADED, LOSS OF BALANCE ED Provider: Hector Goode ED Midlevel Provider: Donnie Donahue Discharge Problem: Dizziness, Ambulatory dysfunction Patient Disposition: Admitted As Inpatient Discharge Instructions Interventions: ED Discharge Assessment Last Done: 11/20/22 04:04
[2022-11-19 23:08] LABS: INR 0.9 (0.9-1.1); Partial Thromboplastin Ratio 0.9; Partial Thromboplastin Time 26.2 Seconds (21.0-31.0); Prothrombin Time 9.9 Seconds (9.0-12.0)
[2022-11-19] MEDS ORDERED: LORazepam 2 MG/1 ML VIAL IV STA (23:33)
[2022-11-19 23:38] LABS: Lyme Ab IgG w/WB Rflx Negative (Negative)
[2022-11-19 23:43] LABS: Lyme Ab IgM w/WB Rflx Equivocal (Negative)
[2022-11-20] MEDS ORDERED: GADOBUTROL 65ML VIAL IV ONE (00:16)
--- NOTE | 2022-11-20 01:17 | Magnetic Resonance Report ---
Exam(s): MRI HEAD W/WO Contrast IV Amt: 9cc gadavist EXAM: MR Head Without and With Intravenous Contrast CLINICAL HISTORY: Reason for exam: Dizzy. Old hx Cancer and stroke. TECHNIQUE: Magnetic resonance images of the head/brain without and with intravenous contrast in multiple planes. CONTRAST: Patient received 9cc gadavist of IV contrast COMPARISON: CT brain 11/19/2022. MRI dated 02/22/2014. FINDINGS: Brain: Petechial hemorrhage demonstrated along the cerebellum, likely postsurgical. Small focus of hemorrhage within the left occipital lobe by the posterior corpus callosum, unchanged. Mild generalized brain atrophy. Redemonstrated encephalomalacia within the central portion of the cerebellum with posterior basilar postoperative changes. Ventricles: Unremarkable. No ventriculomegaly. Bones/joints: Unremarkable. Soft tissues: Unremarkable. No abnormal enhancement of intracranial structures to suggest intracranial lesion. Sinuses: Unremarkable as visualized. No acute sinusitis. Mastoid air cells: Unremarkable as visualized. No mastoid effusion. Orbits: Unremarkable as visualized. IMPRESSION: 1. Postoperative changes of the cerebellum with small petechial old hemorrhage at the level of the cerebellum and left occipital lobe, overall stable study in the interval. 2. No focally enhancing lesion to suggest recurrent neoplasm. Electronically signed by: Raisa Dempsey MD 11/20/22 01:16 AM
[2022-11-20 02:03] LABS: Magnesium 2.2 mg/dl (1.7-2.4)
[2022-11-20 03:01] LABS: Appearance Urine Clear (Clear); Bilirubin Urine Negative (Negative); Blood Urine Negative (Negative); Color Urine Yellow; Glucose Urine UA 3+ (Negative); Ketones Urine Negative (Negative); Leukocyte Esterase Urine Negative (Negative); Nitrite Urine Negative (Negative); Protein Urine Negative (Negative); Specific Gravity Urine 1.031 (1.000-1.030); Urobilinogen Urine Negative (Negative)
--- NOTE | 2022-11-20 03:11 | History & Physical Report ---
Date of Service November 20, 2022 Assessment & Plan (1) Dizziness: Plan: 52 year old female w/ PmHx brain tumor at age 9 s/p resection and radiation, CVA in 2016, T2DM, depression admitted for dizziness. Dizziness/Hx CVA/Hx brain surgery: -History of brain tumor, surgery + radiation at age 9. History of CVA 2016. -CT head and MRI brain without any acute abnormalities - less likely stroke. -Will order Tick panel to r/o infectious etiology. -Ordered EEG due to significant past neuro history. -PT/OT consulted for eval and treat. -blood work otherwise unremarkable. -Continue home baby aspirin, atorvastatin. -Continue to trend CBC, BMP. T2DM: -Unknown A1c status, patient on Jardiance and Trulicity. -Pending A1c. -Hold home meds. 15U lantus BID based on weight. SSI. -ACHS glucose checks. HTN: -BP within normal limits during stay. Continue to monitor. Hypothyroidism: -Continue home levothyroxine. Depression: -Continue home escitalopram. F/E/N/GI: T2DM carb count DVT Prophylaxis: SCD Code status: DNR/DNI Dispo: Med/tele (2) H/O brain surgery: (3) Type 2 diabetes mellitus: (4) Hypertension: (5) Depression: History of Present Illness Chief Complaint: dizziness lightheadedness Primary Care Provider: HERMAN PCP Kacey is a 52 year old female w/ PmHx brain tumor at age 9 s/p resection and radiation, CVA in 2016, T2DM, depression coming in to the ED for dizziness and lightheadedness for a few days. Patient states that on Friday she started to get dizzy and lightheaded out of no where. She was not doing anything in particular when it occurred. Friday she was okay but this morning she started feeling the dizziness and lightheadedness onset again. It has been constant for her since the recent onset. She denies fevers, chills, shortness of breath, chest pain, cough, congestion, diarrhea, nausea, vomiting, headaches, dysuria. She states that the dizziness and lightheadedness has caused her to fall a few times over the past few days however she did not lose consciousness or hit her head. In the ED she had a CT of the head which was negative for acute processes. Brain MRI was negative for any acute processes. WBC 11.42, otherwise unremarkable blood work. She was given 1mg ativan, 1L NSS in the ED. Allergies Allergy/AdvReac Type Severity Reaction Status Date / Time No Known Allergies Allergy Verified 11/19/22 23:51 Home Medications Medication Instructions Recorded Confirmed Type valacyclovir 500 mg tablet 500 mg PO DAILY 07/30/18 11/19/22 History aspirin 81 mg tablet,delayed 81 mg PO DAILY 11/19/22 11/19/22 History release atorvastatin 40 mg tablet 40 mg PO DAILY 11/19/22 11/19/22 History donepezil 10 mg tablet 10 mg PO DAILY 11/19/22 11/19/22 History dulaglutide 4.5 mg/0.5 mL 3 mg subcut WK 11/19/22 11/19/22 History subcutaneous pen injector (Trulicity) empagliflozin 10 mg tablet 10 mg PO DAILY 11/19/22 11/19/22 History (Jardiance) escitalopram oxalate 20 mg tablet 20 mg PO DAILY 11/19/22 11/19/22 History levothyroxine 112 mcg tablet 112 mcg PO DAILYBB 11/19/22 11/19/22 History multivitamin 1 tab PO DAILY 11/19/22 11/19/22 History Past Med/Surg History Medical History (Updated 11/20/22 @ 05:29 by Donnie Donahue PA-C) Acute CVA (cerebrovascular accident) Prediabetes Type 2 diabetes mellitus Surgical History H/O brain surgery Family History Other No pertinent family history Social History Smoking Status: Former smoker Hx Alcohol Use: Yes Alcohol type: wine Hx Substance Use: No Preferred Language: Cypriot 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 Physical Exam Constitutional: WD/WN, vitals as above Eyes: PERRL, conjunctivae normal, anicteric sclerae ENMT: external ear and nose normal, oropharynx normal TM normal bilaterally with good cone of light. Mild wax accumulation. Respiratory: normal respiratory effort, lungs clear to auscultation Cardiovascular: RRR, no murmur, no edema Gastrointestinal (Abdomen): normal bowel sounds, soft, nontender, no hepatosplenomegaly Musculoskeletal: no cyanosis or clubbing, extremities motor strength 5/5 Skin: no rashes, warm and dry Neurologic: PERRL, EOMI, accommodation nl, no face palsy, no dysarthria No sensory deficits. CN 2-12 in tact. Psychiatric: A+Ox3, euthymic affect Results & Data Results & Data Vital Signs (Past 12 Hours) Vital Signs Temp Pulse Resp BP Pulse Ox O2 Del Method 11/20/22 01:30 73 17 158/92 H 11/20/22 01:00 71 18 157/86 H 93 Room Air 11/20/22 00:39 77 19 132/86 91 Room Air 11/19/22 23:30 79 21 95 Room Air 11/19/22 23:00 75 19 97 Room Air 11/19/22 22:46 77 11/19/22 22:37 76 16 95 Room Air 11/19/22 22:13 94 Room Air 11/19/22 21:20 36.4 C L 80 16 149/102 H 95 Room Air Supervising Physician Co-Signing Physician Notes Attending addendum: I have physically seen this patient, have supervised the medical residents activities, and agree with the H&P unless as otherwise noted. Assessment and Plan: Dizziness/history of CVA in 2016/brain surgery at age 9- CT head NECK: No neck pain, stiffness, or limitation of motion. MRI brain negative for acute changes Order tick panel Order EEG Consult PT/OT Aspirin 81 mg daily Consult neurology Lyme serologies- IgM positive, IgG negative, with Western blot pending Doxycycline 100 mg p.o. twice daily until Western blot returns Diabetes mellitus continue Jardiance, hold Trulicity Check hemoglobin A1c Continue Lantus glargine 15 units subcu twice daily SSI Hypothyroidism- Continue levothyroxine Remaining orders and notations as noted Resident Activity Tracking Resident Involvement: Resident Care Provided Care Provided: Adult Hospital Medicine
[2022-11-20] MEDS ORDERED: CARBOHYDRATES FOR HYPOGLYCEMIA PO PRN (04:05)
[2022-11-20] MEDS ORDERED: ACETAMINOPHEN 325 MG TAB PO PRN (04:05)
[2022-11-20] MEDS ORDERED: DEXTROSE 50% 50 ML SYRINGE IV PRN (04:05)
[2022-11-20] MEDS ORDERED: GLUCOSE 10 TAB/TUBE PO PRN (04:05)
[2022-11-20] MEDS ORDERED: GLUCAGON FOR INJ 1 MG VIAL SQ PRN (04:05)
[2022-11-20] MEDS ORDERED: GLUCOSE 40% GEL 15 GM TUBE PO PRN (04:05)
[2022-11-20] MEDS ORDERED: ONDANSETRON INJ 2 MG/ML 2 ML VIAL IV PRN (04:05)
[2022-11-20 07:11] LABS: Basophils # (auto) 0.06 K/uL (0.00-0.20); Basophils % (auto) 0.6 %; Eosinophils # (auto) 0.21 K/uL (0.00-0.50); Eosinophils % (auto) 2.2 %; Hematocrit (blood only) 39.8 % (37.0-47.0); Hemoglobin 12.9 g/dl (12.0-16.0); Immature Granulocytes # (auto) 0.03 K/uL (0.01-0.20); Immature Granulocytes % (auto) 0.3 %; Lymphocytes # (auto) 3.92 K/uL (1.20-3.40); Lymphocytes % (auto) 40.8 %; Mean Corpuscular Hemoglobin 28.5 pg (25.0-34.0); Mean Corpuscular Hgb Conc 32.4 g/dL (32.0-36.0); Mean Corpuscular Volume 88.1 fL (80.0-100.0); Mean Platelet Volume 10.8 fL (9.4-12.4); Monocytes # (auto) 0.65 K/uL (0.11-0.59); Monocytes % (auto) 6.8 %; Neutrophils # (auto) 4.73 K/uL (1.40-6.50); Neutrophils % (auto) 49.3 %; Platelet Count 246 K/uL (130-400); RDW Coefficient of Variation 14.4 % (11.5-14.5); Red Blood Count 4.52 M/uL (4.20-5.40)
[2022-11-20 07:33] LABS: BUN Creatinine Ratio 26.7 (10-20); Calcium 8.9 mg/dl (8.6-10.3); Creatinine Clr Calc Pharmacy 95.3 ml/min; Est GFR (African American) 105.5 ml/min; Potassium 3.8 mmol/L (3.5-5.1)
[2022-11-20 07:38] LABS: Estimated Average Glucose 134 mg/dl; Hemoglobin A1C 6.3 % (4.5-5.6)
[2022-11-20] MEDS: INSULIN ASPART PER UNIT CHARGE SC SCH ×4 (07:46→20:39)
[2022-11-20] MEDS: LEVOTHYROXINE SODIUM 112 MCG TABLET PO SCH (07:48)
[2022-11-20] MEDS: ESCITALOPRAM OXALATE 20 MG TAB PO SCH (07:49)
[2022-11-20] MEDS: ATORVASTATIN 40 MG TAB PO SCH (07:49)
[2022-11-20] MEDS: valACYclovir HCL 500 MG TABLET PO SCH (07:49)
[2022-11-20] MEDS: ASPIRIN 81 MG ECTAB PO SCH (07:49)
[2022-11-20] MEDS: DONEPEZIL HCL 10 MG TAB PO SCH (08:00)
[2022-11-20] MEDS: LANTUS PER UNIT CHARGE SQ SCH ×2 (08:04→20:39)
--- OUTSIDE RECORDS SUMMARY | 2022-11-20 09:20 | External Medical Summary | Summary of Care ---
Author Name Unknown Organization [place] [address] Care Team Providers Care Cellar Worker Name Role Phone Elizabeth aBltazar MD Primary Care Provider Reason for Visit * Reason Onset Date Comments Insurance 11/15/2021 Insurance Referr al Encounter Details Date Type Department Care Team Description 11/15/2021 Telephone Neurology, [place] [address] [address] Alexia Solitario, Familia Covarrubias PA-C [address] [address] Insurance (Insurance Referral) Allergies No known active allergiesdocumented as of this encounter (statuses as of 11/15/2021) Medications Medication Sig Dispensed Refills Start Date End Date Status ISELA CONTOUR NEXT TEST STRP twice daily 60 Strip 11 03/02/2014 Active EASY TOUCH LANCING DEVICE MISC As directed 0 03/23/2014 Active EASY TOUCH LANCETS 30G/TWIST MISC As directed 0 03/23/2014 Active ASPIRIN EC LO-DOSE 81 MG PO TBECIndications:Bra instem stroke (HCC) 1 TABLET DAILY 1 Tab 0 03/29/2014 Active MULTIPLE VITAMIN PO TABS 1 tablet daily 0 Active Lisinopril-Hydrochl orothiazide 20-12.5 MG per tabletIndications:H TN, goal below 140/90 Take 1 Tab by mouth daily. 90 Tab 3 11/04/2017 Active metFORMIN (GLUCOPHAGE) 500 MG TabletIndications:T ype 2 diabetes mellitus with hemoglobin A1c goal of less than 7.0% (HCC) TAKE Two TABLETs BY MOUTH TWICE DAILY WITH MORNING AND EVENING MEALS 360 Tab 3 11/04/2017 Active Additional Information Patient not taking. Reported on 11/15/2021 valACYclovir (VALTREX) 500 MG TabletIndications:H erpes simplex virus infection Take 1 Tab by mouth daily. 90 Tab 3 11/04/2017 Active Additional Information Patient not taking. Reported on 11/15/2021 levothyroxine (LEVOXYL) 100 MCG TabletIndications:H ypothyroidism take 1 tablet by mouth once daily AT LEAST 30 MINUTES PRIOR TO BREAKFAST OR OTHER MEDICATIONS 90 Tab 3 11/04/2017 Active folic acid 1 MG Tablet 0 03/28/2019 Active Colestipol HCl (COLESTID) 1 g Tablet Take 2 g by mouth 2 times a day. 0 Active tolterodine (DETROL) 2 MG Tablet Take 1 Tab by mouth 2 times a day. 60 Tab 3 05/21/2019 Active Additional Information Patient not taking. Reported on 01/26/2020 Escitalopram Oxalate 20 MG Oral Tablet (Lexapro) Take 1 Tab by mouth daily. 90 Tab 3 07/25/2020 Active Donepezil HCl 10 MG Oral Tablet (Aricept) Take with largest meal of the day. 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 documented as of this encounter (statuses as of 11/15/2021) Resolved Problems Problem Noted Date Resolved Date Obesity, Class II, BMI 35-39.9, isolated (see ac tual BMI) 06/30/2012 12/26/2016 Overview: BMI= 38.27 06/30/12 Irritant hand dermatitis 06/30/2012 018 Elevated blood pressure, situational 06/30/2012 05/13/2017 Hypothyroidism 02/06/2004 06/30/2012 documented as of this encounter (statuses as of 11/15/2021) Immunizations Name Administration Dates Next Due Pneumococcal Polysaccharide PPV23 (Pneumovax) 04/09/2017 Seasonal Influenza, Quadriva lent, No Preserve, IM 01/06/2015 Seasonal Influenza, Split, I IV3, With Preserve, Inj 01/05/2017,12/29/2013,12/16/2012,11/27,02/18/2011 TD - Tetanus/Diptheria (ADULT) 02/06/2004 TDAP (age 10 and older)(Boostrix) 11/28/2011 documented as of this encounter Social History Tobacco Use Types Packs/Day Years Used Date Never Smoker Smokeless Tobacco: Never Used Alcohol Use Standard Drinks/Week Comments Yes 0 (1 standard drink = 0.6 oz pur e alcohol) very very rare Sex Assigned at Date Recorded Not on file Job Start Date Occupation Industry Not on file Not on file Not on file documented as of this encounter Functional Status Functional Status Response Date of Assess ment Are you deaf or do you have serious difficulty h earing? No 04/11/2014 Are you blind or do you have serious difficulty seeing, even when wearing glasses? No 04/11/2014 Do you have serious difficul ty walking or climbing stairs? (5 years old or older) No 04/11/2014 Do you have difficulty dress ing or bathing? (5 years old or older) No 04/11/2014 Because of a physical, menta l, or emotional condition, do you have difficulty doing errands alone such as visiting a doctor s office or shopping? (15 years old or older) No 04/11/19 15 Cognitive Status Response Date of Assessm ent Because of a physical, menta l, or emotional condition, do you have serious difficulty concentrating, remembering, or making decisions? (5 years old or older Yes 04/11/2014 documented as of this encounter Miscellaneous Notes * Telephone Encounter - ALLYSON Cabezas - 11/15/2021 2:20 PM EDT Kacey came into the office today and stated that she only had [employer]. I called #[phone] asked for a call back to see if we could get a referral for the patients appointment. If someone calls back please transfer them to me at ext. [phone] so I can ask them about how they found out she had Medicare since patient stated she does not have medicare. ALLYSON Cabezas 11/15/2021 2:22 PM * Telephone Encounter - ALLYSON Cabezas - 11/15/2021 11:08 AM EDT Received a phone call from [facility]. Angie let me know that Medicare was now her primary insurance so even if she was to place a referral it would be rejected. ALLYSON Cabezas 11/15/2021 11:09 AM * Telephone Encounter - ALLYSON Cabezas - 11/15/2021 10:21 AM EDT Faxed a request to [facility] for an expedited insurance referral for patients appointment on 11/15/2021. #[phone] ALLYSON Cabezas 11/15/2021 10:22 AM documented in this encounter Plan of Treatment Health Maintenance Due Date Last Done Comments COVID-19 Vaccine (#1) 1969 DIABETES-EYE EXAM 1987 Hepatitis C Screening 1987 Cologuard: Ages 45-75 2014 Colonoscopy: Ages 45-75 2014 Colorectal Cancer Screening (Colonoscopy 10 Years; Sigmoidoscopy 5 Years; Cologuard 3 Years; FOBT 1 Year): Ages 45-75 2014 FOBT: Ages 45-75 2014 Sigmoidoscopy: Ages 45-75 2014 DIABETES-HGBA1C EVERY 6 MONTHS 01/09/2018 07/10/2017, 04/11/2017, 06/10/2016, Additional history exists DIABETES-FOOT EXAM 04/09/2018 04/09/2017, 0 04/26/2014, 06/29/2013 Pneumococcal Vaccine: Pediatrics (0 to 5 Years) and At-Risk Patients (6 to 64 Years) (2 - PCV) 04/09/2018 04/09/2017 Alb / Creat Ratio 04/11/2018 04/11/2017, , 01/06/2015, Additional history exists TSH FOR THYROID MEDICATION MONITORING YEARLY 07/05/2018 07/05/2017, 04/11/2017, 09/18/2015, Additional history exists Yearly B-12 07/10/2018 07/10/2017 Depression Screening, Annual for Pts 12 and Over 09/19/2018 09/19/2017 Mammogram 2019 Zoster Vaccines (1 of 2) 2019 GFR - Renal Function 07/31/2019 07/30/2018, 08/01/2017, 07/05/2017, Additional history exists PAP SMEAR-EVERY 3 YRS,AGES 21-65 05/13/2020 05/13/2017, 04/20/2013, 12/18/2011 (Done elsewhere), Additional history exists Influenza Vaccine (FLU shot) (#1) 2021 01/05/2017, 01/06/2015, 12/29/2013, Additional history exists DTaP,Tdap,and Td Vaccines (2 - Td or Tdap) 11/27/2021 11/28/2011, 02/06/2004 GARDASIL-HPV IMMUNIZATION SERIES Aged Out No longer eligible based on patient's age to complete this topic MENINGOCOCCAL (MENACTRA/MENVEO) Aged Out No longer eligible based on patient's age to complete this topic documented as of this encounter Implants Not on filedocumented as of this encounter Advance Directives Documents on File Type Date Recorded 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
--- OUTSIDE RECORDS SUMMARY | 2022-11-20 09:20 | External Medical Summary | Summary of Care ---
Author Name Unknown Organization [place] [address] Care Team Providers Care Photoresist Contact Printer Name Role Phone Elizabeth Baltazar MD Primary Care Provider Reason for Visit * Reason Onset Date Comments Insurance 11/15/2021 Insurance Referr al Encounter Details Date Type Department Care Team Description 11/15/2021 Telephone Neurology, [place] [address] [address] Alexia Solitario, Familia Covarrubias PA-C [address] [address] Insurance (Insurance Referral) Allergies No known active [...] EVENING MEALS 360 Tab 3 11/04/2017 Active valACYclovir (VALTREX) 500 MG TabletIndications:H erpes simplex virus infection Take 1 Tab by mouth daily. 90 Tab 3 11/04/2017 Active levothyroxine (LEVOXYL) 100 MCG TabletIndications:H ypothyroidism take [...] goal below 140/90 04/26/2014 Heterozygous MTHFR mutation [id number] 04/25 Prothrombin gene mutation 03/29/2014 Heterozygous MTHFR [...] AM EDT Received a phone call from [facility]. Angie let me know that Medicare was now her primary insurance so even if she was to place a referral it would be rejected. ALLYSON Cabezas 11/15/2021 11:09 AM * Telephone Encounter - ALLYSON Cabezas - 11/15/2021 10:21 AM EDT Faxed a request to [facility] for an expedited insurance referral for patients appointment on 11/15/2021. 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 Expl anation Advanced Directive service a rizwan default Advanced Directive Advanced Directive Advanced Directive Advanced Directive Advanced Directive Advanced Directive Advanced Directive Advanced Directive Advanced Directive Advanced Directive Advanced Directive Advanced Directive Advanced Directive Advanced Directive Advanced Directive Advanced Directive Advanced Directive Advanced Directive Advanced Directive Care Teams Photoresist Contact Printer Relationship Specialty Start Date End Date Elizabeth Baltazar MD [address] [facility] [address] [address] PCP - General Internal Medicine 12/15/18 documented as of this encounter
--- OUTSIDE RECORDS SUMMARY | 2022-11-20 09:20 | External Medical Summary | Summary of Care ---
Author Name Unknown Organization [place] [address] Care Team Providers Care Heel Sander Name Role Phone Elizabeth Baltazar MD Primary Care Provider Reason for Visit * Reason Onset Date Comments Medication Refill 10/04/2021 Donepezil 10mg Encounter Details Date Type Department Care Team Description 10/04/2021 Refill NeurologyAlejandra [address] [address] Colopy, Anand Adhikari MD [address] [address] Allergies No known active allergiesdocumented as of this encounter (statuses as of 02/07/2022) Medications Medication Sig Dispensed Refills Start Date End Date Status ISELA CONTOUR NEXT TEST STRP twice daily 60 Strip 11 03/02/2014 Active EASY TOUCH LANCING DEVICE MISC As directed 0 03/23/2014 Active EASY TOUCH LANCETS 30G/TWIST MISC As directed 0 03/23/2014 Active ASPIRIN EC LO-DOSE 81 MG PO TBECIndications :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HCC) 1 TABLET DAILY 1 Tab 0 03/29/2014 Active MULTIPLE VITAMIN PO TABS 1 tablet daily 0 Activ e Lisinopril-Hydr ochlorothiazide 20-12.5 MG per tabletIndicatio ns:HTN, goal below 140/90 Take 1 Tab by mouth daily. 90 Tab 3 11/04/2017 Active metFORMIN (GLUCOPHAGE) 500 MG TabletIndicatio ns:Type 2 diabetes mellitus with hemoglobin A1c goal of less than 7.0% ([facility]) TAKE Two TABLETs BY MOUTH TWICE DAILY WITH MORNING AND EVENING MEALS 360 Tab 3 11/04/2017 Active Additional Information Patient not taking.Reported on 11/15/2021 valACYclovir (VALTREX) 500 MG TabletIndicatio ns:Herpes simplex virus infection Take 1 Tab by mouth daily. 90 Tab 3 11/04/2017 Active Additional Information Patient not taking.Reported on 11/15/2021 levothyroxine (LEVOXYL) 100 MCG TabletIndicatio ns:Hypothyroidi sm take 1 tablet by mouth once daily [...] 3 05/21/2019 Active Additional Information Patient not taking.Reported on 01/26/2020 Escitalopram Oxalate 20 MG Oral Tablet (Lexapro) Take 1 Tab by mouth daily. 90 Tab 3 07/25/2020 Active Donepezil HCl 10 MG Oral Tablet (Aricept) Take with largest meal of the day. 90 Tab 3 07/25/2020 10/05/19 22 Discontinued Donepezil HCl 10 MG Oral Tablet (Aricept) Take with largest meal of the day. 90 Tablet 3 10/04/2021 11/16/19 22 Discontinued(Ref ill) documented as of this encounter (statuses as of 02/07/2022) Active Problems Problem Noted Date Gait instability 08/04/2017 Repeated falls 08/04/2017 Deviated nasal septum 07/11/2017 Nasal bone fracture 07/11/2017 Adjustment disorder with depressed mood 10/24/2015 HTN, goal below 140/90 04/26/2014 Heterozygous MTHFR mutation [id number] 04/25 Prothrombin gene mutation 03/29/2014 Heterozygous MTHFR [...] as of this encounter (statuses as of 02/07/2022) Resolved Problems Problem Noted Date Resolved Date Obesity, Class II, BMI 35-39.9, isolated (see ac tual BMI) 06/30/2012 12/26/2016 Overview: BMI= 38.27 06/30/12 Irritant hand dermatitis 06/30/2012 018 Elevated blood pressure, situational 06/30/2012 05/13/2017 Hypothyroidism 02/06/2004 06/30/2012 documented as of this encounter (statuses as of 02/07/2022) Immunizations Name Administration Dates Next Due Pneumococcal Polysaccharide PPV23 (Pneumovax) 04/09/2017 Seasonal Influenza, Quadriva lent, No Preserve, IM 01/06/2015 Seasonal Influenza, Split, I IV3, With Preserve, Inj 01/05/2017,12/29/2013,12/16/2012,11/27,02/18/2011 TDAP (age 10 and older)(Boostrix) 11/28/2011 documented as of this encounter Social History Tobacco Use Types Packs/Day Years Used Date Smoking Tobacco: Never Smokeless Tobacco: Never Alcohol Use Standard Drinks/Week Comments Yes 0 [...] encounter Miscellaneous Notes * Telephone Encounter - Miller Cobb PA-C - 10/04/2021 11:35 AM EDTSigned Prescriptions: Disp Refills Donepezil HCl 10 MG Oral Tablet (Aricept) 90 Tab*3 Sig: Take with largest meal of the day. Authorizing Provider: MILLER COBB * Telephone Encounter - Selena Thomas [facility] - 10/04/2021 11:01 AM EDT Did you pend patient's preferred pharmacy and medication before forwarding?yes Pharmacy: [facility] [address] Pending Prescriptions: Disp Refills Donepezil HCl 10 MG Oral Tablet (Aricept) 90 Tab*3 Sig: Take with largest meal of the day. Last Visit: 01/26/2020 (in office), 07/25/2020 (telemedicine) Next Visit: 11/15/2021 If no future appointments scheduled, and last appointment is greater than a year ago, please schedule patient for a follow-up appointment Last date the medication was ordered: 07/25/2020 Is this request for a controlled substance?No Urine Drug Screen:No results found for this or any previous visit. Patient Phone Numbers Labs: Lab Results Component Value Date/Time CREAT 0.90 07/30/2018 12:00 AM CREAT 0.8 08/01/2017 01:11 PM POTASSIUM 3.9 07/05/2017 12:00 AM POTASSIUM 4.1 04/11/2017 08:52 AM TSH 2.870 07/05/2017 12:00 AM TSH 4.65 (H) 04/11/2017 08:52 AM LDLCALC 136 (H) 04/11/2017 08:52 AM LDLDIRECT NOT APPLICABLE 04/11/2017 08:52 AM LDLDIRECT 128 11/28/2011 10:11 AM ALT 36 (H) 04/11/2017 08:52 AM HGBA1C 6.6 (H) 07/10/2017 11:13 AM * Telephone Encounter - ALLYSON Phillips - 10/04/2021 10:53 AM EDT Kacey called into the office today for a refill. She is out of medication. Donepezil HCl 10 MG Oral Tablet (Aricept) 90 Tab 3 07/25/2020 Sig: Take with largest meal of the day. Last visit: 07/25/2020 Next visit: 11/15/2021 - [facility] [address] ALLYSON Casey 10/04/2021 10:53 AM documented in this encounter Plan of [...] this topic documented as of this encounter Medical Devices Not on filedocumented as of this encounter Care Teams Heel Sander Relationship Specialty Start Date End Date Elizabeth Baltazar MD [address] [place] [address] PCP - General Internal Medicine 12/15/18 documented as of this encounter
--- OUTSIDE RECORDS SUMMARY | 2022-11-20 09:20 | External Medical Summary | Summary of Care ---
Author Name Unknown Organization [place] [address] Care Team Providers Care Coding Validator Name Role Phone Elizabeth Baltazar MD Primary Care Provider Reason for Visit * Reason Comments Return Neuro Encounter Details Date Type Department Care Team Description 11/15/2021 Office Visit Neurology, [address] [address] Alexia Solitario, Familia Covarrubias PA-C [address] [phone] Memory changes* Allergies No known active allergiesdocumented as of this encounter (statuses as of 11/15/2021) Medications Medication Sig Dispensed Refills Start Date End Date Status ISELA CONTOUR NEXT TEST STRP twice daily 60 Strip 11 03/02/2014 Active EASY TOUCH LANCING DEVICE MISC As directed 0 03/23/2014 Active EASY TOUCH LANCETS 30G/TWIST MISC As directed 0 03/23/2014 Active ASPIRIN EC LO-DOSE 81 MG PO TBECIndications:Br ainstem stroke (HCC) 1 TABLET DAILY 1 Tab 0 03/29/2014 Active MULTIPLE VITAMIN PO TABS 1 tablet daily 0 Active Lisinopril-Hydroch lorothiazide 20-12.5 MG per tabletIndications: HTN, goal below 140/90 Take 1 Tab by mouth daily. 90 Tab 3 11/04/2017 Active metFORMIN (GLUCOPHAGE) 500 MG TabletIndications: Type 2 diabetes mellitus with hemoglobin A1c goal of less than 7.0% ([facility]) TAKE Two TABLETs BY MOUTH TWICE DAILY WITH MORNING AND EVENING MEALS 360 Tab 3 11/04/2017 Active Additional Information Patient not taking. Reported on 11/15/2021 valACYclovir (VALTREX) 500 MG TabletIndications: Herpes simplex virus infection Take 1 Tab by mouth daily. 90 Tab 3 11/04/2017 Active Additional Information Patient not taking. Reported on 11/15/2021 levothyroxine (LEVOXYL) 100 MCG TabletIndications: Hypothyroidism take 1 tablet by mouth once daily [...] mouth daily. 90 Tab 3 07/25/2020 Active Jardiance 10 MG Oral Tablet 10 mg daily . 0 08/15/2021 Active Trulicity 3 MG/0.5ML Subcutaneous Solution Pen-injector 3 mg once a week . 0 10/16/2021 Active Atorvastatin Calcium 40 MG Oral Tablet (Lipitor) 40 mg in the morning. 0 09/04/2021 Active Donepezil HCl 10 MG Oral Tablet (Aricept)Indicatio ns:Memory changes Take with largest meal of the day. 90 Tablet 3 11/15/2021 Active Donepezil HCl 10 MG Oral Tablet (Aricept) Take with largest meal of the day. 90 Tablet 3 10/04/2021 2 Discontinue d(Refill) Synthroid 112 MCG Oral Tablet 112 mcg daily . 0 08/15/2021 2 Discontinue d(Medicatio n/Dose Changed) documented as of this encounter (statuses as of 11/15/2021) Active Problems Problem Noted Date Gait instability 08/04/2017 Repeated falls 08/04/2017 Deviated nasal septum 07/11/2017 Nasal bone fracture 07/11/2017 Adjustment disorder with depressed mood 10/24/2015 HTN, goal below 140/90 04/26/2014 Heterozygous MTHFR mutation [id number] 04/25 Prothrombin gene mutation 03/29/2014 Heterozygous MTHFR [...] on file documented as of this encounter Last Filed Vital Signs Vital Sign Reading Time Taken Comments Blood Pressure 124/86 11/15/2021 2:05 PM EDT Pulse 95 11/15/2021 2:05 PM EDT Temperature - - Respiratory Rate - - Oxygen Saturation 98% 11/15/2021 2:05 PM EDT Inhaled Oxygen Concentration - - Weight 106.3 kg (234 lb 6.4 oz) 11/15/2021 2:05 PM EDT Height - - Body Mass Index 40.23 01/26/2020 3:42 PM EST documented in this encounter Functional Status Functional Status Response [...] Yes 04/11/2014 documented as of this encounter Progress Notes * Familia Hale Jr., PA-C - 11/15/2021 2:38 PM EDT NEUROLOGY OUTPATIENT PROGRESS NOTE CC: " Follow up" HISTORY OF PRESENT ILLNESS: Kacey Jay is a 51 year old year old female with a past medical history of hypothyroidism, diabetes mellitus type 2, 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 Patient is present during this clinic visit without a family member. According to the patient she continues to have some memory issues but it is stable from a year ago. Patient states she does memorygames on her phone but does not do crossword puzzles or Sudoku. She continues to take Aricept 10 mgdaily with no side effects. 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 Diverticulosis DM type 2, goal A1c below 7 05/27/2013 Elevated blood pressure, situational 06/30/2012 Hypothyroidism Obstructive sleep apnea Prothrombin gene mutation (HCC) 03/29/2014 Stroke (HCC) Type 2 diabetes mellitus with hemoglobin A1c goal of less than 7.0% ([facility]) 05/27/2013 ICD-10 update of inactive term PAST SURGICAL HISTORY: Past Surgical History: Procedure Laterality Date ENDOMETRIAL CRYOABLATION US GUIDED nl bx MISCELLANEOUS ORDER ([facility] ONLY) 1979, 1980 removal of benign brain tumor MISCELLANEOUS ORDER ([facility] ONLY) 1987 removal of dermoid cyst left ovary PAP SCREEN 11/28 [facility] SOCIAL HISTORY: Social History Tobacco Use Smoking status: Never Smoker Smokeless tobacco: Never Used Vaping Use Vaping Use: Never used Substance Use Topics Alcohol use: Yes Comment: very very rare Drug use: No REVIEW OF SYSTEMS: Constitutional: No fatigue, No weight loss, No weight gain, No fever and No night sweats HEENT: No eye disease/injury, No vision loss, No hearing loss, No sore throat and No nasal drainage Respiratory: No cough, No shortness of breath, No sleep apnea, No wheezing and No exposure to TB Cardiovascular: No chest pain, No palpitations, No pain in extremities and No swelling of leg/feet Gastrointestinal: No abdominal pain, No constipation, No diarrhea, No rectal bleeding, No nausea, No vomiting and Positive for heartburn Musculoskeletal: No muscle weakness, No joint pain, No neck pain and Positive for back pain Dermatologic: No pruritis, No rash and No open sores/wounds Neuro/Psych: No unsteadiness, No insomnia, No anxiety/depression, No seizure, No tremors, No doublevision, No stroke, No head injury, No numbness and No headaches Endocrine: No extreme appetite, No excessive thirst, No excessive urination, No intolerance to heat/cold and No diabetes Hematologic: No easy bruising and No tendency to bleeding Immunologic: No environmental allergies CURRENT MEDICATIONS: Current Outpatient Medications Medication Sig Dispense Refill ISELA CONTOUR NEXT TEST STRP twice daily 60 Strip 11 EASY TOUCH LANCING DEVICE MISC As directed EASY TOUCH LANCETS 30G/TWIST MISC As directed ASPIRIN EC LO-DOSE 81 MG PO TBEC 1 TABLET DAILY 1 Tab 0 MULTIPLE VITAMIN PO TABS 1 tablet daily Lisinopril-Hydrochlorothiazide 20-12.5 MG per tablet Take 1 Tab by mouth daily. 90 Tab 3 levothyroxine (LEVOXYL) 100 MCG Tablet take 1 tablet by mouth once daily AT LEAST 30 MINUTES PRIOR TO BREAKFAST OR OTHER MEDICATIONS 90 Tab 3 folic acid 1 MG Tablet Colestipol HCl (COLESTID) 1 g Tablet Take 2 g by mouth 2 times a day. Escitalopram Oxalate 20 MG Oral Tablet (Lexapro) Take 1 Tab by mouth daily. 90 Tab 3 Jardiance 10 MG Oral Tablet 10 mg daily . Trulicity 3 MG/0.5ML Subcutaneous Solution Pen-injector 3 mg once a week . Atorvastatin Calcium 40 MG Oral Tablet (Lipitor) 40 mg in the morning. Donepezil HCl 10 MG Oral Tablet (Aricept) Take with largest meal of the day. 90 Tablet 3 metFORMIN (GLUCOPHAGE) 500 MG Tablet TAKE Two TABLETs BY MOUTH TWICE DAILY WITH MORNING AND EVENING MEALS (Patient not taking: Reported on 11/15/2021 ) 360 Tab 3 valACYclovir (VALTREX) 500 MG Tablet Take 1 Tab by mouth daily. (Patient not taking: Reported on 11/15/2021 ) 90 Tab 3 tolterodine (DETROL) 2 MG Tablet Take 1 Tab by mouth 2 times a day. (Patient not taking: Reported on 01/26/2020) 60 Tab 3 No current facility-administered medications for this visit. ALLERGIES: Review of patient's allergies indicates: No Known Allergies FAMILY HISTORY: Family History Problem Relation Age of Onset Cancer Grandmother (Maternal) colon Cancer Grandfather (Maternal) unknown type Diabetes Aunt (Unspecified) several great aunts Diabetes Aunt (Unspecified) maternal aunt Stroke Grandfather (Paternal) Other (aortic aneurysm) Grandmother (Paternal) PHYSICAL EXAMINATION: BP 124/86 | Pulse 95 | Wt 106.3 kg (234 lb 6.4 oz) | SpO2 98% | BMI 40.23 kg/m | BSA 2.19 m GENERAL EXAMINATION: The patient is alert, comfortable and cooperative with exam. Patient's appearance is consistent with stated age. Head is normocephalic and atraumatic. Neck is supple without bruits or lymphadenopathy. Lungs are clear. Heart rate and rhythm are regular. Abdomen is soft and non-tender. Extremities are without cyanosis or edema. Skin is intact without rashes or legions. NEUROLOGICAL EXAMINATION: MENTAL STATUS: Alert and orientated x3, well spoken, fluent and appropriate with no aphasia or dysarthria with also repetition intact. The patient follows all commands, simple crossed and complex. CRANIAL NERVES: Visual zayas are full to confrontation. Visual acuity is grossly intact. Pupils are equal and reactive to light and accomodation. EOM are intact. Sensation to V1-V3 is intact. Jaw movement is intact and symmetrical. Face appears symmetrical and bilaterally. Hearing is intact to finger rub bilaterally. Palate elevates symmetrically and tongue is midline. Trapezoids and SCM musclesare full power. MOTOR: Tone is normal. There is no pronator drift. Fine finger movements are intact and symmetrical. Strength is symmetrical and 5/5 bilaterally. SENSATION: Symmmetrical and intact to light touch UE and LE bilaterally. REFLEXES: Deep tendon reflexes are symmetrical. CEREBELLAR: [id number] and [id number] are intact. GAIT AND STATION: Gait is normal base. LABS AND IMAGING: All labs were reviewed in the EMR. IMPRESSION AND PLAN: Kacey Jay is a 51 year old year old female with a past medical history of hypothyroidism, diabetes mellitus type 2, 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 Memory changes (Primary) Stable. Etiology secondary to radiation for brain tumor. Radiological changes noted on MRI of the brain. Continue Aricept 10 mg daily to help improve memory. Follow-up in 1 year. - Donepezil HCl 10 MG Oral Tablet (Aricept); Take with largest meal of the day. Follow Up: Return in about 1 year (around 11/15/2022) for Clinic Visit. | For: Clinic Visit I spent 15 minutes with patient, [id number]. I spent , 15 minutes preparing to see the patient and review of the prior records that are available in the system. The majority of the time was spent, obtaining history, documenting in chart, reviewing medications, counseling and educating the patient. Reviewed medications that the patient had been on in past. I did medication reconciliation, ordered medication, updated treatment plan, I did coordinating of care. Total time spent in patient's caretoday - 30 minutes. documented in this encounter Nursing Notes * ALEJANDRO Pizano - 11/15/2021 2:10 PM EDT BP 124/86 | Pulse 95 | Wt 106.3 kg (234 lb 6.4 oz) | SpO2 98% | BMI 40.23 kg/m | BSA 2.19 m REVIEW OF SYSTEMS: Constitutional: No fatigue, No weight loss, No weight gain, No fever and No night sweats HEENT: No eye disease/injury, No vision loss, No hearing loss, No sore throat and No nasal drainage Respiratory: No cough, No shortness of breath, No sleep apnea, No wheezing and No exposure to TB Cardiovascular: No chest pain, No palpitations, No pain in extremities and No swelling of leg/feet Gastrointestinal: No abdominal pain, No constipation, No diarrhea, No rectal bleeding, No nausea, No vomiting and Positive for heartburn Musculoskeletal: No muscle weakness, No joint pain, No neck pain and Positive for back pain Dermatologic: No pruritis, No rash and No open sores/wounds Neuro/Psych: No unsteadiness, No insomnia, No anxiety/depression, No seizure, No tremors, No doublevision, No stroke, No head injury, No numbness and No headaches Endocrine: No extreme appetite, No excessive thirst, No excessive urination, No intolerance to heat/cold and No diabetes Hematologic: No easy bruising and No tendency to bleeding Immunologic: No environmental allergies ALEJANDRO Pizano 11/15/2021 2:14 PM documented in this encounter Plan of Treatment [...] Not on filedocumented as of this encounter Visit Diagnoses Diagnosis Memory changes- Primary Memory loss documented in this encounter Advance Directives Documents on File Type Date Recorded Patient Business Change Manager Expl anation Advanced Directive service a rizwan default Advanced Directive Advanced Directive Advanced Directive Advanced Directive Advanced Directive Advanced Directive Advanced Directive Advanced Directive Advanced Directive Advanced Directive Advanced Directive Advanced Directive Advanced Directive Advanced Directive Advanced Directive Advanced Directive Advanced Directive Advanced Directive Advanced Directive Care Teams Coding Validator Relationship Specialty Start Date End Date Elizabeth Baltazar MD [address] [place] [id number] PCP - General Internal Medicine 12/15/18 documented as of this encounter
--- OUTSIDE RECORDS SUMMARY | 2022-11-20 09:21 | External Medical Summary | Summary of Care ---
Author Name Unknown Organization [place] [address] Care Team Providers Care Tile Layer Name Role Phone Elizabeth Baltazar MD Primary Care Provider Reason for Visit * Reason Onset Date Comments Insurance 11/15/2021 Insurance Referr al Encounter Details Date Type Department Care Team Description 11/15/2021 Telephone Neurology, [place] [address] [address] Alexia Solitario, Familia Covarrubias PA-C [address] [phone] Insurance (Insurance Referral) Allergies No known active [...] goal below 140/90 04/26/2014 Heterozygous MTHFR mutation [id number] 04/25 Prothrombin gene mutation 03/29/2014 Heterozygous MTHFR [...] 10:21 AM EDT Faxed a request to [facility] for an expedited insurance referral for patients appointment on 11/15/2021. #[phone] ALLYSON Cabezas 11/15/2021 10:22 AM documented in this encounter Plan of Treatment Upcoming Encounters Date Type Specialty Care Team Description 11/15/2021 Office Visit Neurology Alexia Solitario, Familia Covarrubias PA-C [address] [place] [phone] Health Maintenance Due Date Last Done Comments [...] Documents on File Type Date Recorded Patient Law Firm Partner Expl anation Advanced Directive service a rizwan default Advanced Directive Advanced Directive Advanced Directive Advanced Directive Advanced Directive Advanced Directive Advanced Directive Advanced Directive Advanced Directive Advanced Directive Advanced Directive Advanced Directive Advanced Directive Advanced Directive Advanced Directive Advanced Directive Advanced Directive Advanced Directive Advanced Directive Care Teams Tile Layer Relationship Specialty Start Date End Date Elizabeth Baltazar MD [address] [place] [address] PCP - General Internal Medicine 12/15/18 documented as of this encounter
--- OUTSIDE RECORDS SUMMARY | 2022-11-20 09:21 | External Medical Summary | Summary of Care ---
Author Name Unknown Organization [place] [address] Care Team Providers Care Tool Drawing Checker Name Role Phone Elizabeth Baltazar MD Primary Care Provider Encounter Details Date Type Department Care Team Description 09/19/2020 Orders Only Outcomes Research Department [address] [place] [address] Iain Galdamez CHRA [facility] Other*[id number] Allergies No Known Active Allergiesdocumented as of this encounter (statuses as of 09/19/2020) Medications Medication Sig Dispensed Refills Start Date [...] Information Patient not taking. Reported on 01/26/2020 Donepezil HCl 10 MG Oral Tablet (Aricept) Take with largest meal of the day. 90 Tab 3 07/25/2020 Active Escitalopram Oxalate 20 MG Oral Tablet (Lexapro) Take 1 Tab by mouth daily. 90 Tab 3 07/25/2020 Active documented as of this encounter (statuses as of 09/19/2020) Active Problems Problem Noted Date Gait instability 08/04/2017 Repeated falls 08/04/2017 Deviated nasal septum 07/11/2017 Nasal bone fracture 07/11/2017 Adjustment disorder with depressed mood 10/24/2015 HTN, goal below 140/90 04/26/2014 Heterozygous MTHFR mutation [id number] 04/25 Prothrombin gene mutation 03/29/2014 Heterozygous MTHFR [...] as of this encounter (statuses as of 09/19/2020) Resolved Problems Problem Noted Date Resolved Date Obesity, Class II, BMI 35-39.9, isolated (see ac tual BMI) 06/30/2012 12/26/2016 Overview: BMI= 38.27 06/30/12 Irritant hand dermatitis 06/30/2012 018 Elevated blood pressure, situational 06/30/2012 05/13/2017 Hypothyroidism 02/06/2004 06/30/2012 documented as of this encounter (statuses as of 09/19/2020) Immunizations Name Administration Dates Next Due Pneumococcal Polysaccharide PPV23 (Pneumovax) 04/09/2017 Seasonal Influenza, Quadriva lent, No Preserve, IM 01/06/2015 Seasonal Influenza, Split, I IV3, With Preserve, Inj 01/05/2017,12/29/2013,12/16/2012,11/27,02/18/2011 TD - Tetanus/Diptheria (ADULT) 02/06/2004 TDAP (age 10 and older)(Boostrix) 11/28/2011 documented as of this encounter Social History Tobacco Use Types Packs/Day Years Used Date Never Smoker Smokeless Tobacco: Never Used Alcohol Use Drinks/Week oz/Week Comments Yes very very rare Sex Assigned at Date [...] Yes 04/11/2014 documented as of this encounter Plan of Treatment Scheduled Orders Name Type Priority Associated Diagnoses Orde r Schedule MYCODE SUBSEQUENT ADULT Lab Routine [facility] Other*[id number] Every 6 Months for 2 Occurrences starting 09/19/2020 until 10/09/2021 Health Maintenance Due Date Last Done Comments COVID-19 Vaccine (1) 1981 DIABETES-EYE EXAM 1987 BREAST CANCER SCREENING DISCUSSION YEARLY AGES 40-75 2009 *DEPRESSION SCREENING,ANNUAL FOR PTS 12 AND OVER 09/02/2017 DIABETES-HGBA1C EVERY 6 MONTHS 01/09/2018 07/10/2017, 04/11/2017, 06/10/2016, Additional history exists DIABETES-FOOT EXAM 04/09/2018 04/09/2017, 0 04/26/2014, 06/29/2013 Yearly B-12 07/10/2018 07/10/2017 *TSH FOR THYROID MEDICATION MONITORING YEARLY 07/11/2018 Zoster Vaccines (1 of 2) 2019 *COLORECTAL CANCER SCREENING (COLONOSCOPY 10 YEARS; SIGMOIDOSCOPY 5 YEARS; COLOGUARD 3 YEARS; FOBT 1 YEAR),AGES 50-75 04/09/2019 *BASIC METABOLIC PANEL (BMP) FOR HTN YEARLY 08/03/2019 PAP SMEAR-EVERY 3 YRS,AGES 21-65 05/13/2020 05/13/2017, 04/20/2013, 12/18/2011 (Done elsewhere), Additional history exists Influenza Vaccine (FLU shot) (Season Ended) 2020 01/05/2017, 01/06/2015, 12/29/2013, Additional history exists DTaP,Tdap,and Td Vaccines (2 - Td) 11/27/2021 11/28/2011, 02/06/2004 Pneumococcal Vaccine: Pediatrics (0 to 5 Years) and At-Risk Patients (6 to 64 Years) (2 of 2) 2034 04/09/2017 MENINGOCOCCAL (MENACTRA/MENVEO) Aged Out No longer eligible based on patient's age to complete this topic documented as of this encounter Implants Not on filedocumented as of this encounter Visit Diagnoses Diagnosis [facility] Other*[id number] documented in this encounter Advance Directives Documents on File Type Date Recorded Patient Analytical Data Scientist Expl anation Advanced Directive service a rizwan default Advanced Directive Advanced Directive Advanced Directive Advanced Directive Advanced Directive Advanced Directive Advanced Directive Advanced Directive Advanced Directive Advanced Directive Advanced Directive Advanced Directive Advanced Directive Advanced Directive Advanced Directive Advanced Directive Advanced Directive Advanced Directive
--- OUTSIDE RECORDS SUMMARY | 2022-11-20 09:21 | External Medical Summary | Summary of Care ---
Author Name Unknown Organization [place] [address] Care Team Providers Care Jewelry Maker Name Role Phone Elizabeth Baltazar MD Primary Care Provider Encounter Details Date Type Department Care Team Description 10/18/2021 Orders Only Outcomes Research Department [address] [place] [address] Jacklyn Flores CHRA [facility] Other*[id number] Allergies No known active allergiesdocumented as of this encounter (statuses as of 10/18/2021) Medications Medication Sig Dispensed Refills Start Date End Date Status IESLA CONTOUR NEXT TEST STRP twice daily 60 [...] as of this encounter (statuses as of 10/18/2021) Active Problems Problem Noted Date Gait instability 08/04/2017 Repeated falls 08/04/2017 Deviated nasal septum 07/11/2017 Nasal bone fracture 07/11/2017 Adjustment disorder with depressed mood 10/24/2015 HTN, goal below 140/90 04/26/2014 Heterozygous MTHFR mutation [id number] 04/25 Prothrombin gene mutation 03/29/2014 Heterozygous MTHFR [...] as of this encounter (statuses as of 10/18/2021) Resolved Problems Problem Noted Date Resolved Date Obesity, Class II, BMI 35-39.9, isolated (see ac tual BMI) 06/30/2012 12/26/2016 Overview: BMI= 38.27 06/30/12 Irritant hand dermatitis 06/30/2012 018 Elevated blood pressure, situational 06/30/2012 05/13/2017 Hypothyroidism 02/06/2004 06/30/2012 documented as of this encounter (statuses as of 10/18/2021) Immunizations Name Administration Dates Next Due Pneumococcal [...] as of this encounter Plan of Treatment Upcoming Encounters Date Type Specialty Care Team Description 11/15/2021 Office Visit Neurology Aleixa Solitario, Familia Covarrubias PA-C [address] [address] Scheduled Orders Name Type Priority Associated Diagnoses Orde r Schedule MYCODE SUBSEQUENT ADULT Lab Routine [facility] Other*[id number] Every 6 Months for 2 Occurrences starting 10/18/2021 until 11/07/2022 Health Maintenance Due Date Last Done Comments COVID-19 Vaccine (#1) 1970 DIABETES-EYE EXAM 1987 RETIRED - BREAST CANCER SCREENING DISCUSSION YEARLY AGES 40-75 2009 Cologuard: Ages 45-75 2014 Colonoscopy: Ages 45-75 [...] 64 Years) (2 - PCV) 04/09/2018 04/09/2017 DIABETES-URINE ALBUMIN/CREATININE EVERY 12 MONTHS 04/11/2018 04/11/2017, 09/18/2015, 01/06/2015, Additional history exists TSH FOR THYROID MEDICATION MONITORING YEARLY 07/05/2018 07/05/2017, 04/11/2017, 09/18/2015, Additional history exists Yearly B-12 07/10/2018 07/10/2017 Depression Screening, Annual for Pts 12 and Over 09/19/2018 09/19/2017 Zoster Vaccines (1 of 2) 2019 GFR [...] this encounter Visit Diagnoses Diagnosis [facility] Other*[id number] documented in this encounter Advance Directives Documents on File Type Date Recorded Patient Assistant Center Manager Expl anation Advanced Directive service a rizwan default Advanced Directive Advanced Directive Advanced Directive Advanced Directive Advanced Directive Advanced Directive Advanced Directive Advanced Directive Advanced Directive Advanced Directive Advanced Directive Advanced Directive Advanced Directive Advanced Directive Advanced Directive Advanced Directive Advanced Directive Advanced Directive Advanced Directive Care Teams Jewelry Maker Relationship Specialty Start Date End Date Elizabeth Baltazar MD [address] [facility] [place] [id number] PCP - General Internal Medicine 12/15/18 documented as of this encounter
--- OUTSIDE RECORDS SUMMARY | 2022-11-20 09:22 | External Medical Summary | Summary of Care ---
Author Name Unknown Organization [place] [address] Care Team Providers Care Visual Education Director Name Role Phone Elizabeth Baltazar MD Primary Care Provider Reason for Visit * Evaluate & Treat - Unlimited Visits (Within 10 days (routine)) Status Reason Specialty Diagnoses / Procedures Referred By Contact Referred To Contact Pending Review Ancillary Services Required Neurology Diagnoses Ataxic Gait Procedures Eval & Treat Elizabeth Baltazar MD [address] [place] [id number] Encounter Details Date Type Department Care Team Description 07/25/2020 [facility] [address] [address] ColopyAnand MD [address] [id number] Gait instability*; Memory changes Allergies No Known Active Allergiesdocumented as of this encounter (statuses as of 07/27/2020) Medications Medication Sig Dispensed Refills Start Date End Date Status ISELA CONTOUR NEXT TEST STRP twice daily 60 Strip 11 03/02/2014 Active EASY TOUCH LANCING DEVICE MISC As directed 0 03/23/2014 Active EASY TOUCH LANCETS 30G/TWIST MISC As directed 0 03/23/2014 Active ASPIRIN EC LO-DOSE 81 MG PO TBECIndications: 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HCC) 1 TABLET DAILY 1 Tab 0 03/29/2014 Active MULTIPLE VITAMIN PO TABS 1 tablet daily 0 Active Lisinopril-[place] chlorothiazide 20-12.5 MG per tabletIndication s:HTN, goal below 140/90 Take 1 Tab by mouth daily. 90 Tab 3 11/04/2017 Active metFORMIN (GLUCOPHAGE) 500 MG TabletIndication s:Type 2 diabetes mellitus with hemoglobin A1c goal of less than 7.0% (HCC) TAKE Two TABLETs BY MOUTH TWICE DAILY WITH MORNING AND EVENING MEALS 360 Tab 3 11/04/2017 Active valACYclovir (VALTREX) 500 MG TabletIndication s:Herpes simplex virus infection Take 1 Tab by mouth daily. 90 Tab 3 11/04/2017 Active levothyroxine (LEVOXYL) 100 MCG TabletIndication s:Hypothyroidism take 1 tablet by mouth once daily [...] mouth daily. 90 Tab 3 07/25/2020 Active Escitalopram Oxalate 20 MG Oral Tablet (LEXAPRO) Take 1 Tab by mouth daily. 90 Tab 3 01/26/2020 07/25/2020 Discontinued (Refill) Donepezil HCl 10 MG Oral Tablet (Aricept) Take with largest meal of the day. 90 Tab 3 01/26/2020 07/25/2020 Discontinued (Refill) documented as of this encounter (statuses as of 07/27/2020) Active Problems Problem Noted Date Gait instability 08/04/2017 Repeated falls 08/04/2017 Deviated nasal septum 07/11/2017 Nasal bone fracture 07/11/2017 Adjustment disorder with depressed mood 10/24/2015 HTN, goal below 140/90 04/26/2014 Heterozygous MTHFR mutation [id number] 04/25 Prothrombin gene mutation 03/29/2014 Heterozygous MTHFR [...] as of this encounter (statuses as of 07/27/2020) Resolved Problems Problem Noted Date Resolved Date Obesity, Class II, BMI 35-39.9, isolated (see ac tual BMI) 06/30/2012 12/26/2016 Overview: BMI= 38.27 06/30/12 Irritant hand dermatitis 06/30/2012 018 Elevated blood pressure, situational 06/30/2012 05/13/2017 Hypothyroidism 02/06/2004 06/30/2012 documented as of this encounter (statuses as of 07/27/2020) Immunizations Name Administration Dates Next Due Pneumococcal Polysaccharide PPV23 (Pneumovax) 04/09/2017 Seasonal Influenza, Quadriva lent, No Preserve, IM 01/06/2015 Seasonal Influenza, Trivalen t, with Preserve, 3yr & Above, Split 01/05/2017,12/29/2013,12/16/2012,11/27,02/18/2011 TD - Tetanus/Diptheria (ADULT) 02/06/2004 TDAP [...] as of this encounter Progress Notes * Colopy, Anand Adhikari MD - 07/25/2020 1:51 PM EDT I was in a hospital or clinic location. After connecting through televideo, patient was verified with two unique identifiers. Patient (or authorized legal renewals representative) was then informed that this was a Telemedicine visit and being conducted confidentially over secure lines. Methods to assure confidentiality were taken. Patient acknowledged consent and understanding of privacy and security of the Telemedicine visit. The patient agreed to participate. Chief complaint: This very pleasant 50-year-old woman with radiation induced cognitive and other deficits has not been able to work because of that. Fortunately her social security disability just came through, so she is happy in relieved about that. She feels that the combination of Aricept 10 mg and escitalopram 20 mg have helped her cognition and overall how she feels, so that is an improvement too. She does not want to try to change that. On the video, she is still somewhat cognitively slowed with perhaps a little bit of dysarthria now and then. Otherwise at least on the video I do not see any clear abnormalities but this medium does not allow for full assessment. Therefore I have refilled both of these medicines for 3/12 months and am requesting follow-up in about 6 months which is her preference. Including my detailed chart review, interaction with her today and my documentation, the total timeinvolved was 22 minutes, more than half of which was spent on the video with her in discussion and coordinating care. documented in this encounter Plan of Treatment Health Maintenance Due Date Last Done Comments DIABETES-EYE EXAM 1987 BREAST CANCER SCREENING DISCUSSION [...] as of this encounter Visit Diagnoses Diagnosis Gait instability- Primary Abnormality of gait Memory changes Memory loss documented in this encounter Advance Directives Documents on File Type Date Recorded Patient Supervisor Liquid Yeast Expl anation Advanced Directive service a rizwan default Advanced Directive Advanced Directive Advanced Directive Advanced Directive Advanced Directive Advanced Directive Advanced Directive Advanced Directive Advanced Directive Advanced Directive Advanced Directive Advanced Directive Advanced Directive Advanced Directive Advanced Directive Advanced Directive Advanced Directive Advanced Directive
--- OUTSIDE RECORDS SUMMARY | 2022-11-20 09:22 | External Medical Summary | Summary of Care ---
Author Name Unknown Organization [place] [address] Care Team Providers Care School Traffic Guard Name Role Phone Elizabeth Baltazar MD Primary Care Provider Reason for Visit * Reason Onset Date Comments Appointment 07/18/2020 Rescheduling 06/24 Encounter Details Date Type Department Care Team Description 07/18/2020 Telephone Neurology, [place] [address] [address] Kalli Abdalla MD [address] [place] [address] [phone] Appointment (Rescheduling 07/21/2020) Allergies No Known Active Allergiesdocumented as of this encounter (statuses as of 07/18/2020) Medications Medication Sig Dispensed Refills Start Date [...] 01/26/2020 Escitalopram Oxalate 20 MG Oral Tablet (LEXAPRO) Take 1 Tab by mouth daily. 90 Tab 3 01/26/2020 Active Donepezil HCl 10 MG Oral Tablet (Aricept) Take with largest meal of the day. 90 Tab 3 01/26/2020 Active documented as of this encounter (statuses as of 07/18/2020) Active Problems Problem Noted Date Gait instability 08/04/2017 Repeated falls 08/04/2017 Deviated nasal septum 07/11/2017 Nasal bone fracture 07/11/2017 Adjustment disorder with depressed mood 10/24/2015 HTN, goal below 140/90 04/26/2014 Heterozygous MTHFR mutation [id number] 04/25 Prothrombin gene mutation 03/29/2014 Heterozygous MTHFR [...] as of this encounter (statuses as of 07/18/2020) Resolved Problems Problem Noted Date Resolved Date Obesity, Class II, BMI 35-39.9, isolated (see ac tual BMI) 06/30/2012 12/26/2016 Overview: BMI= 38.27 06/30/12 Irritant hand dermatitis 06/30/2012 018 Elevated blood pressure, situational 06/30/2012 05/13/2017 Hypothyroidism 02/06/2004 06/30/2012 documented as of this encounter (statuses as of 07/18/2020) Immunizations Name Administration Dates Next Due Pneumococcal [...] encounter Miscellaneous Notes * Telephone Encounter - Rosaura Murdock OSA - 07/18/2020 10:47 AM EDT I called the patient's cell phone & left a message. I apologized to her but we are needing to reschedule her appt on 07/21/[address] Abdalla having an emergency. Please offer an appt on 08/02/2020 or 08/09/2020 ALLYSON Abdullahi 07/18/2020 10:48 AM documented in this encounter Plan of Treatment Upcoming Encounters Date Type Specialty Care Team Description 07/21/2020 Office Visit Neurology Kalli Abdalla MD [address] [place] [address] [phone] 07/25/2020 Office Visit Neurology Colopy, Anand Adhikari MD [address] [place] [address] [phone] Health Maintenance Due Date Last Done Comments [...] Documents on File Type Date Recorded Patient Educational Program Assistant Expl anation Advanced Directive service a rizwan default Advanced Directive Advanced Directive Advanced Directive Advanced Directive Advanced Directive Advanced Directive Advanced Directive Advanced Directive Advanced Directive Advanced Directive Advanced Directive Advanced Directive Advanced Directive Advanced Directive Advanced Directive Advanced Directive Advanced Directive
--- OUTSIDE RECORDS SUMMARY | 2022-11-20 09:22 | External Medical Summary | Summary of Care ---
Author Name Unknown Organization [place] [address] Care Team Providers Care Packing Line Worker Name Role Phone Elizabeth Baltazar MD Primary Care Provider Reason for Visit * Reason Onset Date Comments Forms Request 04/12/2020 Disability Encounter Details Date Type Department Care Team Description 04/12/2020 Telephone Neurology[facility]jandra [address] [address] ColopyAnand MD [address] [address] [phone] Forms Request (Disability ) Allergies No Known Active Allergiesdocumented as of this encounter (statuses as of 04/17/2020) Medications Medication Sig Dispensed Refills Start Date [...] hemoglobin A1c goal of less than 7.0% ([facility]) TAKE Two TABLETs BY MOUTH [...] as of this encounter (statuses as of 04/17/2020) Active Problems Problem Noted Date Gait instability 08/04/2017 Repeated falls 08/04/2017 Deviated nasal septum 07/11/2017 Nasal bone fracture 07/11/2017 Adjustment disorder with depressed mood 10/24/2015 HTN, goal below 140/90 04/26/2014 Heterozygous MTHFR mutation [id number] 04/25 Prothrombin gene mutation 03/29/2014 Heterozygous MTHFR [...] as of this encounter (statuses as of 04/17/2020) Resolved Problems Problem Noted Date Resolved Date Obesity, Class II, BMI 35-39.9, isolated (see ac tual BMI) 06/30/2012 12/26/2016 Overview: BMI= 38.27 06/30/12 Irritant hand dermatitis 06/30/2012 018 Elevated blood pressure, situational 06/30/2012 05/13/2017 Hypothyroidism 02/06/2004 06/30/2012 documented as of this encounter (statuses as of 04/17/2020) Immunizations Name Administration Dates Next Due Pneumococcal [...] encounter Miscellaneous Notes * Telephone Encounter - Leia Wolff OSA - 04/17/2020 12:56 PM EST Form copied and in scan folder along with ALISON. Original form placed in envelope and mailed to: Halle Candyla nena NAVARRO [address] [place] [address] ALLYSON Mensah 04/17/2020 12:58 PM * Telephone Encounter - Anand Xiong MD - 04/17/2020 12:25 PM EST Residual Functional Capacity form, and social Security Disability forms completed. * Telephone Encounter - Breana Bhat MED ASSIST - 04/13/2020 11:30 AM EST I can do that form and whatever other forms are in the folder for me when I drive up to get my first coronavirus immunization shot on Friday the , so I'll be seeing you guys then. Message text * Telephone Encounter - Breana Bhat MED ASSIST - 04/12/2020 4:41 PM EST I have scanned the forms in for your review. Is this something you can complete or does she need togo for a formal Functional Capacity Eval? Please advise. Breana Bhat MED ASSIST 04/12/2020 4:42 PM * Telephone Encounter - Tricia Loco OSA - 04/12/2020 3:12 PM EST Patient stopped in the office today with a form that needs completed. Had the patient sign a ALISON. Forms placed in the Neurology folder for review. ALLYSON Parker 04/12/2020 3:14 PM documented in this encounter Plan of Treatment Upcoming Encounters Date Type Specialty Care Team Description 07/21/2020 Office Visit Neurology Kalli Abdalla MD [address] [place] [address] [phone] 07/25/2020 Office Visit Neurology Colopy, Anand Adhikari MD [address] [place] [address] [phone] Health Maintenance Due Date Last Done Comments [...] METABOLIC PANEL (BMP) FOR HTN YEARLY 08/03/2019 Influenza Vaccine (FLU shot) (#1) 2019 01/05/2017, 01/06/2015, 12/29/2013, Additional history exists PAP SMEAR-EVERY 3 YRS,AGES 21-65 05/13/2020 05/13/2017, 04/20/2013, 12/18/2011 (Done elsewhere), Additional history exists DTaP,Tdap,and Td Vaccines (2 - Td) 11/27/2021 11/28/2011, 02/06/2004 Pneumococcal Vaccine: Pediatrics (0 to 5 Years) and At-Risk Patients (6 to 64 Years) Completed 04/09/2017 MENINGOCOCCAL (MENACTRA/MENVEO) Aged Out No longer eligible based on patient's age to complete this topic documented as of this encounter Implants Not on filedocumented as of this encounter Advance Directives Documents on File Type Date Recorded Patient Tactical/Mobile Watch Officer Expl anation Advanced Directive service a rizwan default Advanced Directive Advanced Directive Advanced Directive Advanced Directive Advanced Directive Advanced Directive Advanced Directive Advanced Directive Advanced Directive Advanced Directive Advanced Directive Advanced Directive Advanced Directive Advanced Directive Advanced Directive Advanced Directive Advanced Directive
--- OUTSIDE RECORDS SUMMARY | 2022-11-20 09:22 | External Medical Summary | Summary of Care ---
Author Name Unknown Organization [place] [address] Care Team Providers Care Ramp And Cargo Supervisor Name Role Phone Elizabeth Baltazar MD Primary Care Provider Reason for Visit * Reason Onset Date Comments Appointment 07/18/2020 Rescheduling 06/24 Encounter Details Date Type Department Care Team Description 07/18/2020 Telephone Neurology, [place] [address] [address] Kalli Abdalla MD [address] [place] [address] [phone] Appointment (Rescheduling 07/21/2020) Allergies No Known Active Allergiesdocumented as of this encounter (statuses as of 07/20/2020) Medications Medication Sig Dispensed Refills Start Date [...] as of this encounter (statuses as of 07/20/2020) Active Problems Problem Noted Date Gait instability 08/04/2017 Repeated falls 08/04/2017 Deviated nasal septum 07/11/2017 Nasal bone fracture 07/11/2017 Adjustment disorder with depressed mood 10/24/2015 HTN, goal below 140/90 04/26/2014 Heterozygous MTHFR mutation [id number] 04/25 Prothrombin gene mutation 03/29/2014 Heterozygous MTHFR [...] as of this encounter (statuses as of 07/20/2020) Resolved Problems Problem Noted Date Resolved Date Obesity, Class II, BMI 35-39.9, isolated (see ac tual BMI) 06/30/2012 12/26/2016 Overview: BMI= 38.27 06/30/12 Irritant hand dermatitis 06/30/2012 018 Elevated blood pressure, situational 06/30/2012 05/13/2017 Hypothyroidism 02/06/2004 06/30/2012 documented as of this encounter (statuses as of 07/20/2020) Immunizations Name Administration Dates Next Due Pneumococcal [...] Telephone Encounter - Rosaura Murdock OSA - 07/20/2020 9:25 AM EDT I called the patient's cell phone & left a detailed message. I let Kacey know that we are needing to cancel her appt on 07/21/2020 at 11:45am as Dr. Abdalla has an emergency that he will need to be out of the office. I asked her to call the office to reschedule this appt. ALLYSON Abdullahi 07/20/2020 9:26 AM * Telephone Encounter - Rosaura Murdock, ALLYSON - 07/19/2020 10:31 AM EDT I called the patient's cell phone & left a message. I apologized to the patient but let her know that Dr. Abdalla has an emergency that he will need to be out of the office for. So we are calling toget her appt on 07/21/2020 rescheduled. ALLYSON Abdullahi 07/19/2020 10:32 AM * Telephone Encounter - Rosaura Murdock OSA [...] Encounters Date Type Specialty Care Team Description 07/25/2020 Telemedicine Neurology Colopy, Anand Adhikari MD [address] [place] [address] Health Maintenance Due Date Last Done Comments [...] Documents on File Type Date Recorded Patient Heel Blacker Expl anation Advanced Directive service a rizwan default Advanced Directive Advanced Directive Advanced Directive Advanced Directive Advanced Directive Advanced Directive Advanced Directive Advanced Directive Advanced Directive Advanced Directive Advanced Directive Advanced Directive Advanced Directive Advanced Directive Advanced Directive Advanced Directive Advanced Directive Advanced Directive
--- OUTSIDE RECORDS SUMMARY | 2022-11-20 09:22 | External Medical Summary | Summary of Care ---
Author Name Unknown Organization [place] [address] Care Team Providers Care Atmospheric Scientist Name Role Phone Elizabeth Baltazar MD Primary Care Provider Reason for Visit * Reason Onset Date Comments Appointment 07/25/2020 Follow up appoin tment Encounter Details Date Type Department Care Team Description 07/25/2020 Telephone Neurology[facility]andra [address] [address] Colopy, Anand Adhikari MD [address] [address] [phone] Appointment (Follow up appointment) Allergies No Known Active Allergiesdocumented as of this encounter (statuses as of 07/25/2020) Medications Medication Sig Dispensed Refills Start Date [...] as of this encounter (statuses as of 07/25/2020) Active Problems Problem Noted Date Gait instability 08/04/2017 Repeated falls 08/04/2017 Deviated nasal septum 07/11/2017 Nasal bone fracture 07/11/2017 Adjustment disorder with depressed mood 10/24/2015 HTN, goal below 140/90 04/26/2014 Heterozygous MTHFR mutation [id number] 04/25 Prothrombin gene mutation 03/29/2014 Heterozygous MTHFR [...] as of this encounter (statuses as of 07/25/2020) Resolved Problems Problem Noted Date Resolved Date Obesity, Class II, BMI 35-39.9, isolated (see ac tual BMI) 06/30/2012 12/26/2016 Overview: BMI= 38.27 06/30/12 Irritant hand dermatitis 06/30/2012 018 Elevated blood pressure, situational 06/30/2012 05/13/2017 Hypothyroidism 02/06/2004 06/30/2012 documented as of this encounter (statuses as of 07/25/2020) Immunizations Name Administration Dates Next Due Pneumococcal [...] encounter Miscellaneous Notes * Telephone Encounter - Jessica Robledo OSA - 07/25/2020 3:29 PM EDT Called and left a voicemail on patients phone asking for a call back so we can schedule her for a 6month follow up appointment with Dr. Xiong. ALLYSON Cabezas 07/25/2020 3:31 PM documented in this encounter Plan of [...] Documents on File Type Date Recorded Patient Instructional Leader Expl anation Advanced Directive service a rizwan default Advanced Directive Advanced Directive Advanced Directive Advanced Directive Advanced Directive Advanced Directive Advanced Directive Advanced Directive Advanced Directive Advanced Directive Advanced Directive Advanced Directive Advanced Directive Advanced Directive Advanced Directive Advanced Directive Advanced Directive Advanced Directive
--- OUTSIDE RECORDS SUMMARY | 2022-11-20 09:22 | External Medical Summary | Summary of Care ---
Author Name Unknown Organization [place] [address] Care Team Providers Care Pumping Supervisor Name Role Phone Elizabeth Baltazar MD Primary Care Provider Reason for Visit * Evaluate & Treat - Unlimited Visits (Within 10 days (routine)) Status Reason Specialty Diagnoses / Procedures Referred By Contact Referred To Contact Pending Review Ancillary Services Required Neurology Diagnoses Ataxic Gait Procedures Eval & Treat Elizabeth Baltazar MD [address] [place] [address] Encounter Details Date Type Department Care Team Description 07/25/2020 [facility] [address] [address] ColopyAnand MD [address] [id number] Gait instability*; Memory changes Allergies No Known [...] PO TABS 1 tablet daily 0 Active Lisinopril-[place] chlorothiazide 20-12.5 MG per tabletIndication s:HTN, goal [...] goal below 140/90 04/26/2014 Heterozygous MTHFR mutation [id number] 04/25 Prothrombin gene mutation 03/29/2014 Heterozygous MTHFR [...] as of this encounter Progress Notes * Anand Xiong MD - 07/25/2020 1:51 PM EDT Chief complaint: This very pleasant 50-year-old woman [...] Documents on File Type Date Recorded Patient Bead Stringer Expl anation Advanced Directive service a rizwan default Advanced Directive Advanced Directive Advanced Directive Advanced Directive Advanced Directive Advanced Directive Advanced Directive Advanced Directive Advanced Directive Advanced Directive Advanced Directive Advanced Directive Advanced Directive Advanced Directive Advanced Directive Advanced Directive Advanced Directive Advanced Directive
--- OUTSIDE RECORDS SUMMARY | 2022-11-20 09:22 | External Medical Summary | Summary of Care ---
Author Name Unknown Organization [place] [address] Care Team Providers Care Cash Register Operator Name Role Phone Elizabeth Baltazar MD Primary Care Provider Reason for Visit * Reason Onset Date Comments Appointment 07/18/2020 Rescheduling 06/24 Encounter Details Date Type Department Care Team Description 07/18/2020 Telephone Neurology, [place] [address] [address] Kalli Abdalla MD [address] [place] [address] [phone] Appointment (Rescheduling 07/21/2020) Allergies No Known Active Allergiesdocumented as of this encounter (statuses as of 07/19/2020) Medications Medication Sig Dispensed Refills Start Date [...] as of this encounter (statuses as of 07/19/2020) Active Problems Problem Noted Date Gait instability 08/04/2017 Repeated falls 08/04/2017 Deviated nasal septum 07/11/2017 Nasal bone fracture 07/11/2017 Adjustment disorder with depressed mood 10/24/2015 HTN, goal below 140/90 04/26/2014 Heterozygous MTHFR mutation [id number] 04/25 Prothrombin gene mutation 03/29/2014 Heterozygous MTHFR [...] as of this encounter (statuses as of 07/19/2020) Resolved Problems Problem Noted Date Resolved Date Obesity, Class II, BMI 35-39.9, isolated (see ac tual BMI) 06/30/2012 12/26/2016 Overview: BMI= 38.27 06/30/12 Irritant hand dermatitis 06/30/2012 018 Elevated blood pressure, situational 06/30/2012 05/13/2017 Hypothyroidism 02/06/2004 06/30/2012 documented as of this encounter (statuses as of 07/19/2020) Immunizations Name Administration Dates Next Due Pneumococcal [...] Telephone Encounter - Rosaura Murdock OSA - 07/19/2020 10:31 AM EDT I called [...] Visit Neurology Kalli Abdalla MD [address] [place] [address] [phone] 07/25/2020 Telemedicine Neurology Colopy, Anand Adhikari MD [address] [place] [address] [phone] Health Maintenance Due Date Last Done Comments [...] Documents on File Type Date Recorded Patient Tire Shop Mechanic Expl anation Advanced Directive service a rizwan default Advanced Directive Advanced Directive Advanced Directive Advanced Directive Advanced Directive Advanced Directive Advanced Directive Advanced Directive Advanced Directive Advanced Directive Advanced Directive Advanced Directive Advanced Directive Advanced Directive Advanced Directive Advanced Directive Advanced Directive Advanced Directive
--- OUTSIDE RECORDS SUMMARY | 2022-11-20 09:22 | External Medical Summary | Summary of Care ---
Author Name Unknown Organization [place] [address] Care Team Providers Care Director Dermatology Name Role Phone Elizabeth Baltazar MD Primary Care Provider Reason for Visit * Reason Onset Date Comments Durable Medical Equipment 09/30/2019 Faxed DME order with repeat mask fitting to CPO[facility] today. Encounter Details Date Type Department Care Team Description 09/30/2019 Telephone Neurology, [place] [address] [address] Kalli Abdalla MD [address] [place] [address] [phone] Durable Medical Equipment (Faxed DME order... Allergies No Known Active Allergiesdocumented as of this encounter (statuses as of 05/08/2020) Medications Medication Sig Dispensed Refills Start Date [...] PO TABS 1 tablet daily 0 Active Lisinopril-[place] chlorothiazide 20-12.5 MG per tabletIndication s:HTN, goal [...] Information Patient not taking. Reported on 01/26/2020 escitalopram (LEXAPRO) 10 MG Tablet 1 and 1/2 tabs daily 45 Tab 6 05/21/2019 0 Discontinued documented as of this encounter (statuses as of 05/08/2020) Active Problems Problem Noted Date Gait instability 08/04/2017 Repeated falls 08/04/2017 Deviated nasal septum 07/11/2017 Nasal bone fracture 07/11/2017 Adjustment disorder with depressed mood 10/24/2015 HTN, goal below 140/90 04/26/2014 Heterozygous MTHFR mutation [id number] 04/25 Prothrombin gene mutation 03/29/2014 Heterozygous MTHFR [...] as of this encounter (statuses as of 05/08/2020) Resolved Problems Problem Noted Date Resolved Date Obesity, Class II, BMI 35-39.9, isolated (see ac tual BMI) 06/30/2012 12/26/2016 Overview: BMI= 38.27 06/30/12 Irritant hand dermatitis 06/30/2012 018 Elevated blood pressure, situational 06/30/2012 05/13/2017 Hypothyroidism 02/06/2004 06/30/2012 documented as of this encounter (statuses as of 05/08/2020) Immunizations Name Administration Dates Next Due Pneumococcal [...] file Not on file Not on file COVID-19 Exposure Response Date Recorded In the last month, have you been in contact with someone who was confirmed or suspected to have Coronavirus / COVID-19? No / Unsure 10/29/2019 9:06 AM EDT documented as of this encounter Functional Status [...] encounter Miscellaneous Notes * Telephone Encounter - Selena Kinney OSA - 05/08/2020 1:58 PM EST Rc'd word from [facility] via [place] spread sheet that pt was not eligible for a mask fitting at the time of the order but pt rc'd a new mask on 02/09/20. ALLYSON Bartholomew 05/08/2020 1:59 PM * Telephone Encounter - Viviana Del Rio OSA - 09/30/2019 2:58 PM EDT Faxed DME order with repeat mask fitting to [facility]PO[facility] today. Order placed in [facility] folder for review. 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
--- OUTSIDE RECORDS SUMMARY | 2022-11-20 09:23 | External Medical Summary | Summary of Care ---
Author Name Unknown Organization [place] [address] Care Team Providers Care Ring Facer Name Role Phone Elizabeth Baltazar MD Primary Care Provider Reason for Visit * Reason Onset Date Comments Forms Request 04/12/2020 Disability Encounter Details Date Type Department Care Team Description 04/12/2020 Telephone NeurologyAlejandra [address] [address] ColopyAnand MD [address] [address] [phone] Forms Request (Disability ) Allergies No Known Active Allergiesdocumented as of this encounter (statuses as of 04/12/2020) Medications Medication Sig Dispensed Refills Start Date [...] goal of less than 7.0% ([facility]) TAKE Two TABLETs BY MOUTH TWICE [...] as of this encounter (statuses as of 04/12/2020) Active Problems Problem Noted Date Gait instability 08/04/2017 Repeated falls 08/04/2017 Deviated nasal septum 07/11/2017 Nasal bone fracture 07/11/2017 Adjustment disorder with depressed mood 10/24/2015 HTN, goal below 140/90 04/26/2014 Heterozygous MTHFR mutation [id number] 04/25 Prothrombin gene mutation 03/29/2014 Heterozygous MTHFR [...] as of this encounter (statuses as of 04/12/2020) Resolved Problems Problem Noted Date Resolved Date Obesity, Class II, BMI 35-39.9, isolated (see ac tual BMI) 06/30/2012 12/26/2016 Overview: BMI= 38.27 06/30/12 Irritant hand dermatitis 06/30/2012 018 Elevated blood pressure, situational 06/30/2012 05/13/2017 Hypothyroidism 02/06/2004 06/30/2012 documented as of this encounter (statuses as of 04/12/2020) Immunizations Name Administration Dates Next Due Pneumococcal [...] encounter Miscellaneous Notes * Telephone Encounter - Tricia Loco OSA [...] Visit Neurology Kalli Abdalla MD [address] [place] [address] [phone] 07/25/2020 Office Visit Neurology Colopy, Anand Adhikari MD [address] [place] [address] [phone] Health Maintenance Due Date Last Done Comments [...] Documents on File Type Date Recorded Patient Finisher Card Tender Expl anation Advanced Directive service a rizwan default Advanced Directive Advanced Directive Advanced Directive Advanced Directive Advanced Directive Advanced Directive Advanced Directive Advanced Directive Advanced Directive Advanced Directive Advanced Directive Advanced Directive Advanced Directive Advanced Directive Advanced Directive Advanced Directive Advanced Directive
--- OUTSIDE RECORDS SUMMARY | 2022-11-20 09:23 | External Medical Summary | Summary of Care ---
Author Name Unknown Organization [place] [address] Care Team Providers Care Automotive Sales Associate Name Role Phone Elizabeth Baltazar MD Primary Care Provider Reason for Visit * Reason Onset Date Comments Forms Request 04/12/2020 Disability Encounter Details Date Type Department Care Team Description 04/12/2020 Telephone NeurologyAlejandra [address] [address] ColopyAnand MD [address] [address] [phone] Forms Request (Disability ) Allergies No Known [...] hemoglobin A1c goal of less than 7.0% ([facility]) TAKE Two TABLETs BY MOUTH TWICE DAILY [...] goal below 140/90 04/26/2014 Heterozygous MTHFR mutation [id number] 04/25 Prothrombin gene mutation 03/29/2014 Heterozygous MTHFR [...] and mailed to: Halle Candyla nena NAVARRO [address] [place] [address] ALLYSON Mensah 04/17/2020 12:58 PM * Telephone [...] Visit Neurology Kalli Abdalla MD [address] [place] [address] [phone] 07/25/2020 Office Visit Neurology Colopy, Anand Adhikari MD [address] [place] [address] [phone] Health Maintenance Due Date Last Done Comments [...] Documents on File Type Date Recorded Patient Wire Drawer Expl anation Advanced Directive service a rizwan default Advanced Directive Advanced Directive Advanced Directive Advanced Directive Advanced Directive Advanced Directive Advanced Directive Advanced Directive Advanced Directive Advanced Directive Advanced Directive Advanced Directive Advanced Directive Advanced Directive Advanced Directive Advanced Directive Advanced Directive
--- OUTSIDE RECORDS SUMMARY | 2022-11-20 09:23 | External Medical Summary | Summary of Care ---
Author Name Unknown Organization [place] [address] Care Team Providers Care Yeast Distiller Name Role Phone Elizabeth Baltazar MD Primary Care Provider Reason for Visit * Reason Onset Date Comments Medical Records Request 04/06/2020 ReleaseP oint Encounter Details Date Type Department Care Team Description 04/06/2020 Telephone Neu[facility]Alejandra [address] [address] Colopy, Anand Adhikari MD [address] [address] [phone] Medical Records Request ([facility]) Allergies No Known Active Allergiesdocumented as of this encounter (statuses as of 04/06/2020) Medications Medication Sig Dispensed Refills Start Date [...] as of this encounter (statuses as of 04/06/2020) Active Problems Problem Noted Date Gait instability 08/04/2017 Repeated falls 08/04/2017 Deviated nasal septum 07/11/2017 Nasal bone fracture 07/11/2017 Adjustment disorder with depressed mood 10/24/2015 HTN, goal below 140/90 04/26/2014 Heterozygous MTHFR mutation [id number] 04/25 Prothrombin gene mutation 03/29/2014 Heterozygous MTHFR [...] as of this encounter (statuses as of 04/06/2020) Resolved Problems Problem Noted Date Resolved Date Obesity, Class II, BMI 35-39.9, isolated (see ac tual BMI) 06/30/2012 12/26/2016 Overview: BMI= 38.27 06/30/12 Irritant hand dermatitis 06/30/2012 018 Elevated blood pressure, situational 06/30/2012 05/13/2017 Hypothyroidism 02/06/2004 06/30/2012 documented as of this encounter (statuses as of 04/06/2020) Immunizations Name Administration Dates Next Due Pneumococcal [...] Telephone Encounter - Rosaura Murdock OSA - 04/06/2020 1:00 PM EST We received a medical records request faxed to us from [facility]. I faxed the request to [facility] medical records dept to process. Faxed to [phone] ALLYSON Abdullahi 04/06/2020 1:05 PM documented in this encounter Plan of Treatment Upcoming Encounters Date Type Specialty Care Team Description 07/21/2020 Office Visit Neurology Kalli Abdalla MD [address] [place] [address] [phone] 07/25/2020 Office Visit Neurology Colopy, Anand Adhikari MD [address] [place] [address] [phone] Health Maintenance Due Date Last Done Comments [...] Documents on File Type Date Recorded Patient Mitten Stitcher Expl anation Advanced Directive service a rizwan default Advanced Directive Advanced Directive Advanced Directive Advanced Directive Advanced Directive Advanced Directive Advanced Directive Advanced Directive Advanced Directive Advanced Directive Advanced Directive Advanced Directive Advanced Directive Advanced Directive Advanced Directive Advanced Directive Advanced Directive
--- OUTSIDE RECORDS SUMMARY | 2022-11-20 09:23 | External Medical Summary | Summary of Care ---
Author Name Unknown Organization [place] [address] Care Team Providers Care Blunger Machine Operator Name Role Phone Elizabeth Baltazar MD Primary Care Provider Reason for Visit * Reason Onset Date Comments Forms Request 04/12/2020 Disability Encounter Details Date Type Department Care Team Description 04/12/2020 Telephone NeurologyAlejandra [address] [address] ColopyAnand MD [address] [address] [phone] Forms Request (Disability ) Allergies No Known [...] goal of less than 7.0% ([facility]) TAKE Two TABLETs BY MOUTH TWICE [...] goal below 140/90 04/26/2014 Heterozygous MTHFR mutation [id number] 04/25 Prothrombin gene mutation 03/29/2014 Heterozygous MTHFR [...] encounter Miscellaneous Notes * Telephone Encounter - Breana Bhat MED [...] Visit Neurology Kalli Abdalla MD [address] [place] [address] [phone] 07/25/2020 Office Visit Neurology Colopy, Anand Adhikari MD [address] [place] [address] [phone] Health Maintenance Due Date Last Done Comments [...] Documents on File Type Date Recorded Patient Barrel Rifler Hook Expl anation Advanced Directive service a rizwan default Advanced Directive Advanced Directive Advanced Directive Advanced Directive Advanced Directive Advanced Directive Advanced Directive Advanced Directive Advanced Directive Advanced Directive Advanced Directive Advanced Directive Advanced Directive Advanced Directive Advanced Directive Advanced Directive Advanced Directive
--- OUTSIDE RECORDS SUMMARY | 2022-11-20 09:23 | External Medical Summary | Summary of Care ---
Author Name Unknown Organization [place] [address] Care Team Providers Care Coremaker Pipe Name Role Phone Elizabeth Baltazar MD Primary Care Provider Reason for Visit * Reason Onset Date Comments Forms Request 04/12/2020 Disability Encounter Details Date Type Department Care Team Description 04/12/2020 Telephone NeurologyAlejandra [address] [address] ColopyAnand MD [address] [address] [phone] Forms Request (Disability ) Allergies No Known [...] hemoglobin A1c goal of less than 7.0% ([facility]) TAKE Two TABLETs BY MOUTH [...] goal below 140/90 04/26/2014 Heterozygous MTHFR mutation [id number] 04/25 Prothrombin gene mutation 03/29/2014 Heterozygous MTHFR [...] encounter Miscellaneous Notes * Telephone Encounter - Anand Xiong MD [...] Abdalla MD [address] [place] [address] [phone] 07/25/2020 Office Visit Neurology Anand Xiong MD [address] [place] [address] [phone] Health Maintenance Due Date Last Done Comments [...] Documents on File Type Date Recorded Patient Premium Representative Expl anation Advanced Directive service a rizwan default Advanced Directive Advanced Directive Advanced Directive Advanced Directive Advanced Directive Advanced Directive Advanced Directive Advanced Directive Advanced Directive Advanced Directive Advanced Directive Advanced Directive Advanced Directive Advanced Directive Advanced Directive Advanced Directive Advanced Directive
--- OUTSIDE RECORDS SUMMARY | 2022-11-20 09:23 | External Medical Summary | Summary of Care ---
Author Name Unknown Organization [place] [address] Care Team Providers Care Groover And Turner Name Role Phone Elizabeth Baltazar MD Primary Care Provider Reason for Visit * Reason Onset Date Comments Forms Request 04/12/2020 Disability Encounter Details Date Type Department Care Team Description 04/12/2020 Telephone NeurologyAlejandra [address] [address] ColopyAnand MD [address] [address] [phone] Forms Request (Disability ) Allergies No Known Active Allergiesdocumented as of this encounter (statuses as of 04/13/2020) Medications Medication Sig Dispensed Refills Start Date [...] as of this encounter (statuses as of 04/13/2020) Active Problems Problem Noted Date Gait instability 08/04/2017 Repeated falls 08/04/2017 Deviated nasal septum 07/11/2017 Nasal bone fracture 07/11/2017 Adjustment disorder with depressed mood 10/24/2015 HTN, goal below 140/90 04/26/2014 Heterozygous MTHFR mutation [id number] 04/25 Prothrombin gene mutation 03/29/2014 Heterozygous MTHFR [...] as of this encounter (statuses as of 04/13/2020) Resolved Problems Problem Noted Date Resolved Date Obesity, Class II, BMI 35-39.9, isolated (see ac tual BMI) 06/30/2012 12/26/2016 Overview: BMI= 38.27 06/30/12 Irritant hand dermatitis 06/30/2012 018 Elevated blood pressure, situational 06/30/2012 05/13/2017 Hypothyroidism 02/06/2004 06/30/2012 documented as of this encounter (statuses as of 04/13/2020) Immunizations Name Administration Dates Next Due Pneumococcal [...] a formal Functional Capacity Eval? Please advise. MART Johnson 04/12/2020 4:42 PM * Telephone Encounter - [...] Visit Neurology Kalli Abdalla MD [address] [place] [address] [phone] 07/25/2020 Office Visit Neurology Colopy, Anand Adhikari MD [address] [place] [address] [place] [address] [phone] Health Maintenance Due Date Last Done Comments [...] Documents on File Type Date Recorded Patient Transportation Department Head Expl anation Advanced Directive service a rizwan default Advanced Directive Advanced Directive Advanced Directive Advanced Directive Advanced Directive Advanced Directive Advanced Directive Advanced Directive Advanced Directive Advanced Directive Advanced Directive Advanced Directive Advanced Directive Advanced Directive Advanced Directive Advanced Directive Advanced Directive
--- OUTSIDE RECORDS SUMMARY | 2022-11-20 09:23 | External Medical Summary | Summary of Care ---
Author Name Unknown Organization [place] [address] Care Team Providers Care Elementary Educator Name Role Phone Elizabeth Baltazar MD Primary Care Provider Reason for Visit * Reason Comments Follow Up * Evaluate & Treat - Unlimited Visits (Within 10 days (routine)) Status Reason Specialty Diagnoses / Procedures Referred By Contact Referred To Contact Authorized Specialty Services Required Diagnoses Ataxic Gait, Personal History of Benign Neoplasm of T Procedures Eval & Treat Elizabeth Baltazar MD [address] [place] [address] Anand Xiong MD [address] [address] Encounter Details Date Type Department Care Team Description 01/26/2020 Office Visit NeurologyAlejandra [address] [address] Anand Xiong MD [address] [address] [phone] Repeated falls*; Gait instability; Memory loss Allergies No Known Active Allergiesdocumented as of this encounter (statuses as of 01/26/2020) Medications Medication Sig Dispensed Refills Start Date [...] PO TABS 1 tablet daily 0 Active Lisinopril-[place] chlorothiazide 20-12.5 MG per tabletIndication s:HTN, goal [...] the day. 90 Tab 3 01/26/2020 Active escitalopram (LEXAPRO) 10 MG Tablet 1 and 1/2 tabs daily 45 Tab 6 05/21/2019 0 Discontinued documented as of this encounter (statuses as of 01/26/2020) Active Problems Problem Noted Date Gait instability 08/04/2017 Repeated falls 08/04/2017 Deviated nasal septum 07/11/2017 Nasal bone fracture 07/11/2017 Adjustment disorder with depressed mood 10/24/2015 HTN, goal below 140/90 04/26/2014 Heterozygous MTHFR mutation [id number] 04/25 Prothrombin gene mutation 03/29/2014 Heterozygous MTHFR [...] as of this encounter (statuses as of 01/26/2020) Resolved Problems Problem Noted Date Resolved Date Obesity, Class II, BMI 35-39.9, isolated (see ac tual BMI) 06/30/2012 12/26/2016 Overview: BMI= 38.27 06/30/12 Irritant hand dermatitis 06/30/2012 018 Elevated blood pressure, situational 06/30/2012 05/13/2017 Hypothyroidism 02/06/2004 06/30/2012 documented as of this encounter (statuses as of 01/26/2020) Immunizations Name Administration Dates Next Due Pneumococcal [...] Sign Reading Time Taken Comments Blood Pressure 136/84 01/26/2020 3:42 PM EST Pulse 96 01/26/2020 3:42 PM EST Temperature 36.6 C (97.9 F) 01/26/2020 3:42 PM ES T Respiratory Rate - - Oxygen Saturation 95% 01/26/2020 3:42 PM EST Inhaled Oxygen Concentration - - Weight 108.5 kg (239 lb 4.8 oz) 01/26/2020 3:42 PM EST Height 162.6 cm (5' 4") 01/26/2020 3:42 PM EST Body Mass Index 41.08 01/26/2020 3:42 PM EST documented in this [...] Notes * Colopy, Anand Adhikari MD - 01/26/2020 4:12 PM EST This very pleasant very depressed very forgetful 49-year-old woman just had detailed neuropsychological testing which showed 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 Those radiation changes are highly visible on her brain MRIs. These changes as stated previously cause her to have the inability to hold ajob because she cannot remember which he needs to remember and in addition to that she has trouble writing and speaking and of course with her balance and has trouble with bladder control all due to the same reason. I am going to try increasing her Lexapro to 20 mg daily from 15 mg and see if that helps her because evidently 15 mg has not helped her depression. Secondly for her memory I am going to try her on Aricept 10 mg because of her weight of 239 lb rather than 5 mg, but I do not out much hope of helping her post radiation problems, because scarring has resulted in her brain, and no one has any solutionto that. I asked her to print out my dictations including this 1 because it clear to me that if anyone qualifies for disability on the basis of neurological disease she is certainly such a person. Plan to see her back in about 6 months to see what if any benefit has resulted. documented in this encounter Nursing Notes * Breana Bhat MED ASSIST - 01/26/2020 3:45 PM EST Blood Pressure 136/84 (BP Site: Right Arm, BP Position: Sitting, BP Cuff Size: Regular) | Pulse 96 | Temperature 36.6 C (97.9 F) | Height (Abnormal) 1.626 m (5' 4") | Weight 108.5 kg (239 lb 4.8 oz) | Oxygen Saturation 95% | Body Mass Index 41.08 kg/m | Body Surface Area 2.21 m MART Johnson ASSIST 01/26/2020 3:46 PM documented in this encounter Plan of Treatment Upcoming Encounters Date Type Specialty Care Team Description 07/21/2020 Office Visit Neurology Kalli Abdalla MD [address] [place] [address] [phone] 07/25/2020 Office Visit Neurology Anand Xiong MD [address] [place] [address] [phone] Health Maintenance Due Date Last Done Comments [...] as of this encounter Visit Diagnoses Diagnosis Repeated falls- Primary Other symptoms involving nervous and musculoskeletal systems Gait instability Abnormality of gait Memory loss documented in this encounter Advance Directives Documents on File Type Date Recorded Patient Occupational Therapy Program Director Expl anation Advanced Directive service a rizwan default Advanced Directive Advanced Directive Advanced Directive Advanced Directive Advanced Directive Advanced Directive Advanced Directive Advanced Directive Advanced Directive Advanced Directive Advanced Directive Advanced Directive Advanced Directive Advanced Directive Advanced Directive Advanced Directive Advanced Directive
--- OUTSIDE RECORDS SUMMARY | 2022-11-20 09:24 | External Medical Summary | Summary of Care ---
Author Name Unknown Organization [facility] [address] Care Team Providers Care Gas System Operator Name Role Phone Elizabeth Baltazar MD Primary Care Provider Reason for Visit * Reason Comments NEW PATIENT Encounter Details Date Type Department Care Team Description 05/21/2019 Office Visit Neurology, [place] [address] [address] ColopyAnand MD [address] [address] [phone] Gait instability*; Adjustment disorder with depressed mood Allergies No Known Active Allergiesdocumented as of this encounter (statuses as of 01/25/2020) Medications Medication Sig Dispensed Refills Start Date [...] 3 11/04/2017 Active valACYclovir (VALTREX) 500 MG TabletIndicatio ns:Herpes simplex virus infection Take 1 Tab by mouth daily. 90 Tab 3 11/04/2017 Active levothyroxine (LEVOXYL) 100 MCG TabletIndicatio ns:Hypothyroidi sm take 1 tablet by mouth once daily AT LEAST 30 MINUTES PRIOR TO BREAKFAST OR OTHER MEDICATIONS 90 Tab 3 11/04/2017 Active folic acid 1 MG Tablet 0 03/28/2019 Active Colestipol HCl (COLESTID) 1 g Tablet Take 2 g by mouth 2 times a day. 0 Active escitalopram (LEXAPRO) 10 MG Tablet 1 and 1/2 tabs daily 45 Tab 6 05/21/2019 Active tolterodine (DETROL) 2 MG Tablet Take 1 Tab by mouth 2 times a day. 60 Tab 3 05/21/2019 Active Meloxicam 15 MG TabletIndicatio ns:Hip pain, right take 1 tablet by mouth once daily if needed for pain 90 Tab 3 11/04/2017 0 Discontinued(Pat ient preference/disco ntinuation) escitalopram (LEXAPRO) 10 MG TabletIndicatio ns:Adjustment disorder with depressed mood Take 1 Tab by mouth daily. 90 Tab 3 11/04/2017 0 Discontinued documented as of this encounter (statuses as of 01/25/2020) Active Problems Problem Noted Date Gait instability 08/04/2017 Repeated falls 08/04/2017 Deviated nasal septum 07/11/2017 Nasal bone fracture 07/11/2017 Adjustment disorder with depressed mood 10/24/2015 HTN, goal below 140/90 04/26/2014 Heterozygous MTHFR mutation [id number] 04/25 Prothrombin gene mutation 03/29/2014 Heterozygous MTHFR [...] as of this encounter (statuses as of 01/25/2020) Resolved Problems Problem Noted Date Resolved Date Obesity, Class II, BMI 35-39.9, isolated (see ac tual BMI) 06/30/2012 12/26/2016 Overview: BMI= 38.27 06/30/12 Irritant hand dermatitis 06/30/2012 018 Elevated blood pressure, situational 06/30/2012 05/13/2017 Hypothyroidism 02/06/2004 06/30/2012 documented as of this encounter (statuses as of 01/25/2020) Immunizations Name Administration Dates Next Due Pneumococcal [...] AM EDT documented as of this encounter Last Filed Vital Signs Vital Sign Reading Time Taken Comments Blood Pressure 126/80 05/21/2019 8:05 AM EST Pulse 90 05/21/2019 8:05 AM EST Temperature 37.2 C (98.9 F) 05/21/2019 8:05 AM ES T Respiratory Rate - - Oxygen Saturation 97% 05/21/2019 8:05 AM EST Inhaled Oxygen Concentration - - Weight 107 kg (236 lb) 05/21/2019 8:05 AM EST Height 162.6 cm (5' 4") 05/21/2019 8:05 AM EST Body Mass Index 40.51 05/21/2019 8:05 AM EST documented in this encounter Functional Status [...] Progress Notes * Anand Xiong MD - 05/21/2019 9:32 AM EST HISTORY OF PRESENT ILLNESS: 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 However these changes have not progressed at least from 2013 to the present with the last MRI being in last year. The manifestations of these changes consist of considerable trouble with recent memory, as well as ataxia. By virtue of great caution she has been able to avoid injuring herself in falls. However the tragedy here is that she has lost 2 jobs as a nurse and now cannot work as a nurse because her forgetfulness caused her to not renew her license in July of last year. 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 Understandably this has made her quite tearful and depressed which is evident today. She wassupposed to have neuropsych testing ordered a month ago but this was not done and she does not evenremember that that had been considered. Her significant other problems are NIDDM hypertension hyperlipidemia. 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 In addition to this she also has bioccipital headaches about every couple of days with photo and sonophobia and even occasional osmophobia with frequent nausea but no vomiting. As a young adult she used to have even more severe migraines in the same distribution. She does not have any known family history of headaches. She is followed in the [facility] here for obstructive sleep apnea and was last seen for this purpose earlier this month. Shecomplains of considerable brain fog and also feels orthostatically lightheaded/dizzy every morning after arising which gradually improves throughout the day. She is reluctant to adequately hydrate, because the radiation has also caused her to have urinary urgency, incontinence and frequency. She has never been on any inhibitory medicine for this problem. She certainly is interested in trying however. 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 Diverticulosis DM type 2, goal A1c below 7 05/27/2013 Elevated blood pressure, situational 06/30/2012 Hypothyroidism Prothrombin gene mutation ([facility]) 03/29/2014 Stroke ([facility]) Type 2 diabetes mellitus with hemoglobin A1c goal of less than 7.0% ([facility]) 05/27/2013 ICD-10 update of inactive term PAST SURGICAL HISTORY: Past Surgical History: Procedure Laterality Date ENDOMETRIAL CRYOABLATION US GUIDED nl bx MISCELLANEOUS ORDER 1979, 1980 removal of benign brain tumor MISCELLANEOUS ORDER 1987 removal of dermoid cyst left ovary PAP SCREEN 11/28 [facility] SOCIAL HISTORY: Social History Tobacco Use Smoking status: Never Smoker Smokeless tobacco: Never Used Substance Use Topics Alcohol use: Yes Comment: very very rare Drug use: No REVIEW OF SYSTEMS: Otherwise negative for headaches, dizziness, significant visual changes, substantial hearing loss, chest pain, respiratory difficulties, weakness, numbness, tingling in the extremities, constipation,diarrhea, change in stool color, urinary retention, incontinence, dysuria or hematuria. CURRENT MEDICATIONS: Current Outpatient Medications Medication Sig Dispense Refill escitalopram (LEXAPRO) 10 MG Tablet 1 and 1/2 tabs daily 45 Tab 6 tolterodine (DETROL) 2 MG Tablet Take 1 Tab by mouth 2 times a day. 60 Tab 3 Colestipol HCl (COLESTID) 1 g Tablet Take 2 g by mouth 2 times a day. folic acid 1 MG Tablet levothyroxine (LEVOXYL) 100 MCG Tablet take 1 tablet by mouth once daily AT LEAST 30 MINUTES PRIOR TO BREAKFAST OR OTHER MEDICATIONS 90 Tab 3 Lisinopril-Hydrochlorothiazide 20-12.5 MG per tablet Take 1 Tab by mouth daily. 90 Tab 3 metFORMIN (GLUCOPHAGE) 500 MG Tablet TAKE Two TABLETs BY MOUTH TWICE DAILY WITH MORNING AND EVENING MEALS 360 Tab 3 valACYclovir (VALTREX) 500 MG Tablet Take 1 Tab by mouth daily. 90 Tab 3 MULTIPLE VITAMIN PO TABS 1 tablet daily ASPIRIN EC LO-DOSE 81 MG PO TBEC 1 TABLET DAILY 1 Tab 0 EASY TOUCH LANCETS 30G/TWIST MISC As directed EASY TOUCH LANCING DEVICE MISC As directed ISELA CONTOUR NEXT TEST STRP twice daily 60 Strip 11 ALLERGIES: Review of patient's allergies indicates: No Known Allergies FAMILY HISTORY: Family History Problem Relation Age of Onset Cancer Grandmother (Maternal) colon Cancer Grandfather (Maternal) unknown type Diabetes Aunt (Unspecified) several great aunts Diabetes Aunt (Unspecified) maternal aunt Stroke Grandfather (Paternal) Other (aortic aneurysm) Grandmother (Paternal) PHYSICAL EXAMINATION: BP 126/80 | Pulse 90 | Temp 98.9 | Ht 5' 4" (1.626m) | Wt 236 lbs (107.049kg) | BMI 40.51 kg/m | BSA 2.2 m | SaO2 97% GENERAL EXAMINATION: The patient is alert, comfortable and cooperative. She has a mild URI. Patient's appearance is consistent with chronological age. Head is normocephalic and atraumatic. Neck is supple to normal head movement range of motion. extremities are without evident cyanosis or edema. Skin is intact without observed rashes or lesions. NEUROLOGICAL EXAMINATION: MENTAL STATUS: Alert and oriented x3, sufficiently well spoken, fluent and appropriate with no formof aphasia or dysarthria. The patient follows all requests, simple and complex. CRANIAL NERVES: Evidently normal to inspection. MOTOR: No evident abnormalities. SENSATION: No gross deficits. REFLEXES: Unchanged from a month ago. CEREBELLAR: The patient has no evident dysmetria. GAIT AND STATION: Gait is wide-based and clearly unstable. She has also some degree of wall directed ataxia. LABS AND IMAGING: No orders to display IMPRESSION AND PLAN: She had questions about whether not she might actually have MS rather than radiation acute and lateeffects because a lot of the symptoms do seem to overlap with those sometimes seen in multiple sclerosis. I explained to her therefore about the effects on the white matter such radiation which can mimic the chronic effects of MS. 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 She is quite tearful todayand so in order to try to improve this and also improve her memory, with the assumption being that there may be some degree of serotonergic deficit affecting her memory, then I will try increasing her Lexapro from 10 mg to 15 mg and then after 2 weeks possibly to 20 mg daily. I have carefully explained to her the need for hydration every morning and the exact reasons why this is so particularly with regard to the small vessel flow resistance that she has due to the radiation in the only part ofthe body above the heart when standing, and his relevance here. To try to assist this though I willstart her on Detrol rather than other choices, because of its lack of anticholinergic mechanism of action which in turn could cause her further memory problems while helping her bladder. At some point I will definitely want to try another medication to see if we can help the headaches and the associated brain fog that may be multifactorial in origin, but we need take no more than 1 or 2 steps at a time. She expressed understanding and satisfaction with this detailed empathic approach, which hopefully will start helping soon. Despite the occasional trouble with memory that can be seen when topiramate is a mismatch for a patient, it may be be a good choice for her to try for several reasons sp ecific to her circumstances. She had no further questions. Hopefully we will gradually be able to improve things for her. Gait instability (Primary) Adjustment disorder with depressed mood Other orders - escitalopram (LEXAPRO) 10 MG Tablet; 1 and 1/2 tabs daily - tolterodine (DETROL) 2 MG Tablet; Take 1 Tab by mouth 2 times a day. Follow Up: Return in about 4 weeks (around 06/18/2019). This chart was completed in part utilizing [employer] Speech Voice Recognition Software. Grammatical errors, random word or phrase insertions including in the middle of words, pronoun errors, and incomplete sentences are occasional occurrences in the use of this system due to software limitations, hardware issues, ambient noise or user causes. Any concerns about the content contained within the bodyof this dictation should be directly addressed to the neurologist for clarification. 45 minutes was spent for this visit. More than half of the time was spent for counseling and coordination of care. documented in this encounter Nursing Notes * Caty Clarke MED ASSIST - 05/21/2019 8:06 AM EST BP 126/80 | Pulse 90 | Temp 98.9 | Ht 5' 4" (1.626m) | Wt 236 lbs (107.049kg) | BMI 40.51 kg/m | BSA 2.2 m | SaO2 97% Patient here for gait instability. MART Cota 05/21/2019 8:07 AM documented in this encounter Plan of Treatment Upcoming Encounters Date Type Specialty Care Team Description 01/26/2020 Office Visit Neurology Anand Xiong MD [address] [place] [address] [phone] 07/21/2020 Office Visit Neurology Kalli Abdalla MD [address] [place] [address] [phone] Health Maintenance Due Date Last Done Comments [...] Diagnosis Gait instability- Primary Abnormality of gait Adjustment disorder with depressed mood documented in this encounter Advance Directives Documents on File Type Date Recorded Patient Cvicu Rn Expl anation Advanced Directive service a rizwan default Advanced Directive Advanced Directive Advanced Directive Advanced Directive Advanced Directive Advanced Directive Advanced Directive Advanced Directive Advanced Directive Advanced Directive Advanced Directive Advanced Directive Advanced Directive Advanced Directive Advanced Directive Advanced Directive
--- OUTSIDE RECORDS SUMMARY | 2022-11-20 09:24 | External Medical Summary | Summary of Care ---
Author Name Unknown Organization [place] [address] Care Team Providers Care Salesperson Pets And Pet Supplies Name Role Phone Elizabeth Baltazar MD Primary Care Provider Reason for Visit * Reason Comments Outpatient Testing Encounter Details Date Type Department Care Team Description 10/30/2019 Telephone [facility] NEUROLOGY [address] [place] [address] [id number] Ingrid Keenan MD [address] [place] [address] [phone] Outpatient Testing Allergies No Known Allergiesdocumented as of this encounter (statuses as of 11/01/2019) Medications Medication Sig Dispensed Refills Start Date [...] a day. 60 Tab 3 05/21/2019 Active documented as of this encounter (statuses as of 11/01/2019) Active Problems Problem Noted Date Gait instability 08/04/2017 Repeated falls 08/04/2017 Deviated nasal septum 07/11/2017 Nasal bone fracture 07/11/2017 Adjustment disorder with depressed mood 10/24/2015 HTN, goal below 140/90 04/26/2014 Heterozygous MTHFR mutation [id number] 04/25 Prothrombin gene mutation 03/29/2014 Heterozygous MTHFR [...] as of this encounter (statuses as of 11/01/2019) Resolved Problems Problem Noted Date Resolved Date Obesity, Class II, BMI 35-39.9, isolated (see ac tual BMI) 06/30/2012 12/26/2016 Overview: BMI= 38.27 06/30/12 Irritant hand dermatitis 06/30/2012 018 Elevated blood pressure, situational 06/30/2012 05/13/2017 Hypothyroidism 02/06/2004 06/30/2012 documented as of this encounter (statuses as of 11/01/2019) Immunizations Name Administration Dates Next Due Pneumococcal [...] file Not on file Not on file Travel History Travel Start Travel End COVID-19 Exposure Response Date Recorded In the [...] encounter Miscellaneous Notes * Telephone Encounter - Caty Clarke MED ASSIST - 11/01/2019 9:06 AM EDT Left message for patient to return call. Please relay message for patient from Dr. Krisnhan below. Thank you, Caty Clarke MED ASSIST 11/01/2019 9:08 AM * Telephone Encounter - Ingrid Keenan MD - 10/30/2019 3:15 PM EDT Please let the pt know that EEG did not show any seizures or abnormal activities. Some slowing ( which means brain generates brain wave at a slower speed) on the left was seen and could be related toprior surgery. No concerns. Thank you Ingrid Keenan MD 10/30/2019 3:16 PM documented in this encounter Plan of Treatment Upcoming Encounters Date Type Specialty Care Team Description 07/21/2020 Office Visit Neurology Kalli Abdalla MD [address] [place], [place] [id number] Health Maintenance Due Date Last Done Comments [...] Documents on File Type Date Recorded Patient Community Placement Worker Expl anation Advanced Directive service a rizwan default Advanced Directive Advanced Directive Advanced Directive Advanced Directive Advanced Directive Advanced Directive Advanced Directive Advanced Directive Advanced Directive Advanced Directive Advanced Directive Advanced Directive Advanced Directive Advanced Directive Advanced Directive
--- OUTSIDE RECORDS SUMMARY | 2022-11-20 09:24 | External Medical Summary | Summary of Care ---
Author Name Unknown Organization [place] [address] Care Team Providers Care Sales Order Clerk Name Role Phone Elizabeth Baltazar MD Primary Care Provider Reason for Visit * Reason Comments Appointment called to schedule e eg appt, lmam Encounter Details Date Type Department Care Team Description 10/13/2019 Telephone Neurophysiology, [place] [address] [place] [address] Specified, [facility] [address] [place] [address] Appointment (called to schedule eeg appt, ... Allergies No Known Allergiesdocumented as of this encounter (statuses as of 10/13/2019) Medications Medication Sig Dispensed Refills Start Date [...] hemoglobin A1c goal of less than 7.0% ([facility]) TAKE Two TABLETs BY MOUTH TWICE DAILY [...] as of this encounter (statuses as of 10/13/2019) Active Problems Problem Noted Date Gait instability 08/04/2017 Repeated falls 08/04/2017 Deviated nasal septum 07/11/2017 Nasal bone fracture 07/11/2017 Adjustment disorder with depressed mood 10/24/2015 HTN, goal below 140/90 04/26/2014 Heterozygous MTHFR mutation [id number] 04/25 Prothrombin gene mutation 03/29/2014 Heterozygous MTHFR [...] as of this encounter (statuses as of 10/13/2019) Resolved Problems Problem Noted Date Resolved Date Obesity, Class II, BMI 35-39.9, isolated (see ac fernandez BMI) 06/30/2012 12/26/2016 Overview: BMI= 38.27 06/30/12 Irritant hand dermatitis 06/30/2012 018 Elevated blood pressure, situational 06/30/2012 05/13/2017 Hypothyroidism 02/06/2004 06/30/2012 documented as of this encounter (statuses as of 10/13/2019) Immunizations Name Administration Dates Next Due Pneumococcal [...] have Coronavirus / COVID-19? No / Unsure 09/30/2019 2:18 PM EDT documented as of this encounter Functional [...] encounter Miscellaneous Notes * Telephone Encounter - Sharon Lima OSA - 10/13/2019 10:34 AM EDT called to schedule eeg appt, lmam documented in this encounter Plan of Treatment Upcoming Encounters Date Type Specialty Care Team Description 07/21/2020 Office Visit Neurology Kalli Abdalla MD [address] [place] [address] [phone] Health Maintenance Due Date Last Done Comments [...] Documents on File Type Date Recorded Patient Cooling Pipe Inspector Expl anation Advanced Directive service a rizwan default Advanced Directive Advanced Directive Advanced Directive Advanced Directive Advanced Directive Advanced Directive Advanced Directive Advanced Directive Advanced Directive Advanced Directive Advanced Directive Advanced Directive Advanced Directive Advanced Directive
--- OUTSIDE RECORDS SUMMARY | 2022-11-20 09:24 | External Medical Summary | Summary of Care ---
Author Name Unknown Organization [place] [address] Care Team Providers Care Coal Carrier Name Role Phone Elizabeth Baltazar MD Primary Care Provider Reason for Visit * Reason Onset Date Comments Outpatient Testing 10/30/2019 Encounter Details Date Type Department Care Team Description 10/30/2019 Telephone [facility] NEUROLOGY [address] [place], [place] [id number] Ingrid Keenan MD [address] [place] [address] [phone] Outpatient Testing Allergies No Known Active Allergiesdocumented as of this encounter (statuses as of 01/04/2020) Medications Medication Sig Dispensed Refills Start Date [...] goal of less than 7.0% ([facility]) TAKE Two TABLETs BY MOUTH [...] as of this encounter (statuses as of 01/04/2020) Active Problems Problem Noted Date Gait instability 08/04/2017 Repeated falls 08/04/2017 Deviated nasal septum 07/11/2017 Nasal bone fracture 07/11/2017 Adjustment disorder with depressed mood 10/24/2015 HTN, goal below 140/90 04/26/2014 Heterozygous MTHFR mutation [id number] 04/25 Prothrombin gene mutation 03/29/2014 Heterozygous MTHFR [...] as of this encounter (statuses as of 01/04/2020) Resolved Problems Problem Noted Date Resolved Date Obesity, Class II, BMI 35-39.9, isolated (see ac tual BMI) 06/30/2012 12/26/2016 Overview: BMI= 38.27 06/30/12 Irritant hand dermatitis 06/30/2012 018 Elevated blood pressure, situational 06/30/2012 05/13/2017 Hypothyroidism 02/06/2004 06/30/2012 documented as of this encounter (statuses as of 01/04/2020) Immunizations Name Administration Dates Next Due Pneumococcal [...] Assigned at Date Recorded Not on file COVID-19 Exposure Response Date [...] Encounter - Caty Clarke MED ASSIST - 01/04/2020 4:05 PM EDT Sent letter. Caty Clarke MED ASSIST 01/04/2020 4:05 PM * Telephone Encounter - Caty Clarke MED ASSIST - 12/31/2019 4:45 PM EDT Left message for patient to return call. MART Cota 12/31/2019 4:46 PM * Telephone Encounter - Caty Clarke MED ASSIST - 11/01/2019 9:06 AM EDT Left message for patient to return call. Please relay message for patient from Dr. Krishnan below. Thank you, Caty Clarke MED ASSIST [...] Visit Neurology Kalli Abdalla MD [address] [place] [address] [phone] Health Maintenance Due Date Last Done Comments [...] Documents on File Type Date Recorded Patient Control Clerk Food And Beverage Expl anation Advanced Directive service a rizwan default Advanced Directive Advanced Directive Advanced Directive Advanced Directive Advanced Directive Advanced Directive Advanced Directive Advanced Directive Advanced Directive Advanced Directive Advanced Directive Advanced Directive Advanced Directive Advanced Directive Advanced Directive
--- OUTSIDE RECORDS SUMMARY | 2022-11-20 09:24 | External Medical Summary | Summary of Care ---
Author Name Unknown Organization [place] [address] Care Team Providers Care Postdoctoral Fellow Name Role Phone Elizabeth Baltazar MD Primary Care Provider Reason for Visit * Reason Onset Date Comments Outpatient Testing 10/30/2019 Encounter Details Date Type Department Care Team Description 10/30/[address] [facility] NEUROLOGY [address] [place], [place] [id number] Ingrid Keenan MD [address] [place] [address] [phone] Outpatient Testing Allergies No Known Active Allergiesdocumented [...] goal below 140/90 04/26/2014 Heterozygous MTHFR mutation [id number] 04/25 Prothrombin gene mutation 03/29/2014 Heterozygous MTHFR [...] patient from Dr. Krishnan below. Thank you, MART Cota ASSIST 11/01/2019 9:08 AM * Telephone Encounter [...] Visit Neurology Kalli Abdalla MD [address] [place] [address] [phone] Health Maintenance Due Date Last Done Comments [...] Documents on File Type Date Recorded Patient Certified Registered Nurse Practitioner Expl anation Advanced Directive service a rizwan default Advanced Directive Advanced Directive Advanced Directive Advanced Directive Advanced Directive Advanced Directive Advanced Directive Advanced Directive Advanced Directive Advanced Directive Advanced Directive Advanced Directive Advanced Directive Advanced Directive Advanced Directive
--- OUTSIDE RECORDS SUMMARY | 2022-11-20 09:24 | External Medical Summary | Summary of Care ---
Author Name Unknown Organization [place] [address] Care Team Providers Care Telecom Manager Name Role Phone Elizabeth Baltazar MD Primary Care Provider Reason for Visit * Reason Onset Date Comments Outpatient Testing 10/30/2019 Encounter Details Date Type Department Care Team Description 10/30/2019 Telephone [facility] [address] [place], [place] [id number] Ingrid Keenan MD [address] [place] [address] [phone] Outpatient Testing Allergies No Known Active Allergiesdocumented as of this encounter (statuses as of 12/31/2019) Medications Medication Sig Dispensed Refills Start Date [...] A1c goal of less than 7.0% ([facility]) TAKE Two TABLETs BY MOUTH [...] as of this encounter (statuses as of 12/31/2019) Active Problems Problem Noted Date Gait instability 08/04/2017 Repeated falls 08/04/2017 Deviated nasal septum 07/11/2017 Nasal bone fracture 07/11/2017 Adjustment disorder with depressed mood 10/24/2015 HTN, goal below 140/90 04/26/2014 Heterozygous MTHFR mutation [id number] 04/25 Prothrombin gene mutation 03/29/2014 Heterozygous MTHFR [...] as of this encounter (statuses as of 12/31/2019) Resolved Problems Problem Noted Date Resolved Date Obesity, Class II, BMI 35-39.9, isolated (see ac tual BMI) 06/30/2012 12/26/2016 Overview: BMI= 38.27 06/30/12 Irritant hand dermatitis 06/30/2012 018 Elevated blood pressure, situational 06/30/2012 05/13/2017 Hypothyroidism 02/06/2004 06/30/2012 documented as of this encounter (statuses as of 12/31/2019) Immunizations Name Administration Dates Next Due Pneumococcal [...] Left message for patient to return call. MRAT Cota 12/31/2019 4:46 PM * Telephone Encounter [...] Visit Neurology Kalli Abdalla MD [address] [place] [address] [phone] Health Maintenance Due Date Last Done Comments [...] Documents on File Type Date Recorded Patient Color Mixer Expl anation Advanced Directive service a rizwan default Advanced Directive Advanced Directive Advanced Directive Advanced Directive Advanced Directive Advanced Directive Advanced Directive Advanced Directive Advanced Directive Advanced Directive Advanced Directive Advanced Directive Advanced Directive Advanced Directive Advanced Directive
--- OUTSIDE RECORDS SUMMARY | 2022-11-20 09:24 | External Medical Summary | Summary of Care ---
Author Name Unknown Organization [place] [address] Care Team Providers Care Index Clerk Name Role Phone Elizabeth Baltazar MD Primary Care Provider Reason for Visit * Reason Comments EEG Encounter Details Date Type Department Care Team Description 10/29/2019 NeuroDiagnostic Study Neurophysiology, [facility] [address] [place] [address] [address], Neurophys Tech2 [address] [place] [address] [phone] Arrived Allergies No Known Allergiesdocumented as of this encounter (statuses as of 10/29/2019) Medications Medication Sig Dispensed Refills Start Date [...] hemoglobin A1c goal of less than 7.0% ([facility]) TAKE Two TABLETs BY MOUTH [...] as of this encounter (statuses as of 10/29/2019) Active Problems Problem Noted Date Gait instability 08/04/2017 Repeated falls 08/04/2017 Deviated nasal septum 07/11/2017 Nasal bone fracture 07/11/2017 Adjustment disorder with depressed mood 10/24/2015 HTN, goal below 140/90 04/26/2014 Heterozygous MTHFR mutation [id number] 04/25 Prothrombin gene mutation 03/29/2014 Heterozygous MTHFR [...] as of this encounter (statuses as of 10/29/2019) Resolved Problems Problem Noted Date Resolved Date Obesity, Class II, BMI 35-39.9, isolated (see ac tual BMI) 06/30/2012 12/26/2016 Overview: BMI= 38.27 06/30/12 Irritant hand dermatitis 06/30/2012 018 Elevated blood pressure, situational 06/30/2012 05/13/2017 Hypothyroidism 02/06/2004 06/30/2012 documented as of this encounter (statuses as of 10/29/2019) Immunizations Name Administration Dates Next Due Pneumococcal [...] Visit Neurology Kalli Abdalla MD [address] [facility] [place] [address] Health Maintenance Due Date Last Done [...] Not on filedocumented as of this encounter Procedures Procedure Name Priority Date/Time Associated Diagnosis Comments EEG; AWAKE AND ASLEEP Routine 10/29/2019 Transient alteration of awareness documented in this encounter Results * EEG; AWAKE AND ASLEEP (10/29/2019) Impressions Performed At ELECTROENCEPHALOGRAM REPORT Patient: Kacey Jay Age: [age] year old Referring Provider: Anand Xiong MD Date of Study: 10/29/2019 Indication for Testin49 year old female with cognitive dysfunction; EEG to evaluate for epileptiform abnormalities and/or seizures Neuroactive Medications: Lexapro Conditions of Recording: The EEG was performed using scalp surface recording electrodes placed according to the 10/20 international system. Referential and bipolar montages were employed. Cardiac rhythm was monitored. Photic stimulation and hyperventilation were performed. Findings: The background was continuous and reactive. In the most wakeful state, the anterior posterior gradient was well-organized with a posterior dominant rhythm of 10 Hz. Background activity consisted of normal voltage alpha with intermixed faster frequencies. Drowsiness produced attenuation and diffuse slowing of the background. Stage II sleep was not achieved. During drowsiness there were several instances of subtle polymorphic theta slowing over the left mid-temporal region. There were no persistent asymmetries. There were no interictal epileptiform discharges or electrographic seizures. Activating Procedures: Photic stimulation and hyperventilation did not produce any changes in the background activity. Impression: This was a mildly abnormal EEG with the patient in the awake and drowsy states due to: 1. Subtle intermittent left temporal slowing raising the possibility of focal cerebral dysfunction in that region of non-specific etiology. No interictal epileptiform discharges or electrographic seizures were captured. 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
--- OUTSIDE RECORDS SUMMARY | 2022-11-20 09:25 | External Medical Summary | Summary of Care ---
Author Name Unknown Organization [place] [address] Care Team Providers Care Track Leader Name Role Phone Elizabeth Baltazar MD Primary Care Provider Reason for Visit * Reason Comments Other covid screening Encounter Details Date Type Department Care Team Description 09/29/2019 Telephone Neurology, [facility] [address] [address] Kalli Abdalla MD [address] [place] [address] [phone] Other (covid screening ) Allergies No Known Allergiesdocumented as of this encounter (statuses as of 09/29/2019) Medications Medication Sig Dispensed Refills Start Date [...] hemoglobin A1c goal of less than 7.0% ([facility]) TAKE Two TABLETs BY MOUTH TWICE DAILY [...] as of this encounter (statuses as of 09/29/2019) Active Problems Problem Noted Date Gait instability 08/04/2017 Repeated falls 08/04/2017 Deviated nasal septum 07/11/2017 Nasal bone fracture 07/11/2017 Adjustment disorder with depressed mood 10/24/2015 HTN, goal below 140/90 04/26/2014 Heterozygous MTHFR mutation [id number] 04/25 Prothrombin gene mutation 03/29/2014 Heterozygous MTHFR [...] as of this encounter (statuses as of 09/29/2019) Resolved Problems Problem Noted Date Resolved Date Obesity, Class II, BMI 35-39.9, isolated (see ac tual BMI) 06/30/2012 12/26/2016 Overview: BMI= 38.27 06/30/12 Irritant hand dermatitis 06/30/2012 018 Elevated blood pressure, situational 06/30/2012 05/13/2017 Hypothyroidism 02/06/2004 06/30/2012 documented as of this encounter (statuses as of 09/29/2019) Immunizations Name Administration Dates Next Due Pneumococcal [...] file Travel History Travel Start Travel End documented as of this encounter Functional Status [...] encounter Miscellaneous Notes * Telephone Encounter - Iraida Faria OSA - 09/29/2019 4:41 PM EDT Left message on voice mail asking for a call back to answer the covid screening questions. Date, time and location of appointment were left on voicemail as well as instructions. ALLYSON Mejía 09/29/2019 4:41 PM documented in this encounter Plan of Treatment Upcoming Encounters Date Type Specialty Care Team Description 09/30/2019 Office Visit Neurology Kalli Abdalla MD [address] [place] [address] Health Maintenance Due Date Last [...] Documents on File Type Date Recorded Patient Candy Counter Clerk Expl anation Advanced Directive service a rizwan default Advanced Directive Advanced Directive Advanced Directive Advanced Directive Advanced Directive Advanced Directive Advanced Directive Advanced Directive Advanced Directive Advanced Directive Advanced Directive Advanced Directive Advanced Directive Advanced Directive
--- OUTSIDE RECORDS SUMMARY | 2022-11-20 09:25 | External Medical Summary | Summary of Care ---
Author Name Unknown Organization [place] [address] Care Team Providers Care Spot Welder Body Assembly Name Role Phone Elizabeth Baltazar MD Primary Care Provider Reason for Visit * Reason Comments NEW PATIENT * Evaluate & Treat - Unlimited Visits (Within 10 days (routine)) Status Reason Specialty Diagnoses / Procedures Referred By Contact Referred To Contact Authorized Specialty Services Required Neurology Diagnoses Sleep apnea, unspecified Procedures eval and treat Kalli Abdalla MD [address] [place] [address] Encounter Details Date Type Department Care Team Description 09/30/2019 Office Visit [facility] Co[facility] [address] [place] [address] Kalli Abdalla MD [address] [place] [address] [phone] ALLYSON (obstructive sleep apnea)* Allergies No Known Allergiesdocumented as of this encounter (statuses as of 09/30/2019) Medications Medication Sig Dispensed Refills Start Date [...] as of this encounter (statuses as of 09/30/2019) Active Problems Problem Noted Date Gait instability 08/04/2017 Repeated falls 08/04/2017 Deviated nasal septum 07/11/2017 Nasal bone fracture 07/11/2017 Adjustment disorder with depressed mood 10/24/2015 HTN, goal below 140/90 04/26/2014 Heterozygous MTHFR mutation [id number] 04/25 Prothrombin gene mutation 03/29/2014 Heterozygous MTHFR [...] as of this encounter (statuses as of 09/30/2019) Resolved Problems Problem Noted Date Resolved Date Obesity, Class II, BMI 35-39.9, isolated (see ac tual BMI) 06/30/2012 12/26/2016 Overview: BMI= 38.27 06/30/12 Irritant hand dermatitis 06/30/2012 018 Elevated blood pressure, situational 06/30/2012 05/13/2017 Hypothyroidism 02/06/2004 06/30/2012 documented as of this encounter (statuses as of 09/30/2019) Immunizations Name Administration Dates Next Due Pneumococcal [...] PM EDT documented as of this encounter Last Filed Vital Signs Vital Sign Reading Time Taken Comments Blood Pressure 132/84 09/30/2019 2:33 PM EDT Pulse 77 09/30/2019 2:33 PM EDT Temperature 36.6 C (97.9 F) 09/30/2019 2:33 PM ED T Respiratory Rate - - Oxygen Saturation - - Inhaled Oxygen Concentration - - Weight 108.4 kg (239 lb) 09/30/2019 2:33 PM EDT Height 162.6 cm (5' 4") 09/30/2019 2:33 PM EDT Body Mass Index 41.02 09/30/2019 2:33 PM EDT documented in this encounter Functional Status Functional [...] as of this encounter Progress Notes * Kalli Abdalla MD - 09/30/2019 2:22 PM EDT SLEEP CLINIC [place] PAT[place] ( with [place] study [place] [address] Name: Kacey Jay Date and Time Patient was seen: 09/30/2019 at 220 p.m. CHIEF COMPLAINT Kacey Jay is a 49 year old. Patient was seen today for evaluation of Obstructive sleep apnea. Patient also sees General Neurology in our clinic for memory issues/ataxia - history of brain tumor, status post radiation therapy Patient is 20 minutes late for her appointment. Patient is current CPAP user Previous sleep studies : Because of symptoms of excessive daytime sleepiness and snorning in the past, Kacey Jay underwent diagnostic sleep study on May 07, 2019 As ordered by PCP, which showed moderate obstructive sleep apnea with an AHI of 18.4 and SPO2 Desat 85 %. CPAP titration study was recommended but canceled due to COVID 19 pandemic, patient was put on auto CPAP. Patient was set up on auto CPAP in June 2019, here for 31-90 days follow-up. Patient has been using CPAP therapy, slowly getting used to it. Using full face mask, mask leak is a major issue. She got the CPAP in mail, never got fitted for mask in person due to Covid 19 pandemic. No more snoring through the machine, notice some improvement in sleep quality and feeling more rested during the day. Denying a problem with pressure tolerability. Review of Compliance data Most recent download data showed :- Data range from August 16 to September 15, 2019 Percent days with device usage - 96.7 % Percent days with usage more than 4 hours - 73.3 % CPAP pressure - 5-20 Average AHI - 3.1 Large leak noted, average leak per day 4 hours 37 minutes She goes to bed around 10 p.m. and wake up 9 to 10 a.m. Spending a lot of time in bed. It takes 1 to 2 hours before she be able to fall sleep but once she fall sleep, no problem with maintenance. Shehas good sleep hygiene, no TV watching her eating or reading in bed, may play on phone sometimes though. She sleeps with her . Not taking any sleep medication. Feels tired during the day but no naps. No drowsy driving. Patient was screened negative for restless legs symptoms Nothing suggestive of narcolepsy either, denying any sleep attacks or sleep paralysis, no evidence of cataplexy Denying any parasomnia behaviors No concerns related to acting out in dreams No sleep walking, talking or any other sleep related behaviors Current Outpatient Medications Medication Sig Dispense Refill [...] TEST STRP twice daily 60 Strip 11 Allergies: Patient has no known allergies. 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 Diverticulosis DM type 2, goal A1c below 7 05/27/2013 Elevated blood pressure, situational 06/30/2012 Hypothyroidism Obstructive sleep apnea Prothrombin gene mutation (HCC) 03/29/2014 Stroke ([facility]) Type 2 diabetes mellitus with hemoglobin A1c goal of less than 7.0% ([facility]) 05/27/2013 ICD-10 update of inactive term Past Surgical History: Procedure Laterality Date ENDOMETRIAL CRYOABLATION US GUIDED nl bx MISCELLANEOUS ORDER 1979, 1980 removal of benign brain tumor MISCELLANEOUS ORDER 1987 removal of dermoid cyst left ovary PAP SCREEN 11/28 nl CMSA FAMILY HISTORY: Family history of sleeping disorder: Mother has restless legs and obstructive sleep apnea SOCIAL HISTORY: Marital status: Occupation: Not working No alcohol, no smoking MEDICAL REVIEW OF SYSTEMS: CONSTITUTIONAL: No weakness and No fevers, sweats, or chills , Positive for fatigue HEENT: No Eye disease, no eye injury, no vision loss, no hearing loss, no sore throat or nasal drainage PULMONARY: No cough, shortness of breath, wheezing CARDIOVASCULAR: No chest pain, palpitations, swelling in extremities GENITOURINARY: No blood in urine, no pain with urination MUSCULOSKELETAL: no Muscle weakness, no joint pain, no back pain, Positive for neck pain DERMATOLOGIC: No pruritus, no rash, no open sores/wounds NEURO/PSYCH: Positive for headaches/unsteadiness, history of stroke ENDOCRINE: No extreme appetite, no excessive thirst, intolerance to heat and cold, no excessive urination HEMATOLOGIC: Positive for easy bruising IMMUNOLOGIC: No environmental allergies PHYSICAL EXAM: Filed Vitals: 09/30/19 1433 BP: 132/84 Pulse: 77 Temp: 36.6 C (97.9 F) Weight: 108.4 kg (239 lb) Height: (Abnormal) 1.626 m (5' 4") Alert, oriented in no acute distress Constitutional: normal: well nourished, well developed, no acute distress HEENT: normal: normocephalic, atraumatic; no masses, tenderness, or adenopathy Eyes: sclera and conjunctiva normal Neck: supple, normal range of motion Oral cavity: No erythema, no exudate, narrow oropharynx with lateral narrowing, modified Mallampati3 . CV: Regular rate and rhythm Chest: Normal respiratory effort at rest, no chest wall tenderness, breath sounds, clear to auscultation. Abdomen: normal: soft, bowel sounds normal, no masses, tenderness or organomegaly Extremities: no clubbing, cyanosis, or edema, otherwise grossly normal, warm, and dry Lymph Nodes: no adenopathy, no cervical adenopathy noted Skin: warm, dry, intact Neuro: alert and oriented DIAGNOSIS ALLYSON (obstructive sleep apnea) (Primary) - DURABLE MEDICAL EQUIPMENT PLAN: Patient presented a sleep clinic for evaluation of obstructive sleep apnea. We discussed the sleep study results in details, all of her questions were answered. Patient recently started using CPAP, notice some benefits but not significant yet. Mask leak is a major concern. Advised To continue with CPAP therapy. Ordering repeat mask fitting to bring leak under control. In regards insomnia, patient has been spending too much time in bed, she was educated on principlesof sleep restriction and stimulus control, advised not to go to bed until sleepy, not to spend too much time awake in bed.Try to fall asleep schedule between midnight to 9 a.m. Follow-up in 6 months, call earlier if needed History of brain tumor, neurosurgery in 1979, Had to go through surgery again in 1980, as per patient report part of cerebellar was also resected - so struggling with gait. Also underwent radiation therapy. Stroke in 2013 - struggling with memory/balance/speech issues, not able to write legibly Patient follows general neurology in our clinic Kalli Abdalla MD 09/30/2019 2:23 PM documented in this encounter Nursing Notes * Art KelsiLENA - 09/30/2019 2:33 PM EDT BP 132/84 | Pulse 77 | Temp 97.9 | Ht 5' 4" (1.626m) | Wt 239 lbs (108.410kg) | BMI 41.02 kg/m | BSA 2.21 m Kelsi Art LPN 09/30/2019 2:23 PM documented in this encounter Plan of Treatment Upcoming Encounters Date Type Specialty Care Team Description 07/21/2020 Office Visit Neurology Kalli Abdalla MD [address] [place] [address] Health Maintenance Due Date Last [...] as of this encounter Visit Diagnoses Diagnosis ALLYSON (obstructive sleep apnea)- Primary Obstructive sleep apnea (adult) (pediatric) documented in this encounter Advance Directives Documents on File Type Date Recorded 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
--- OUTSIDE RECORDS SUMMARY | 2022-11-20 09:25 | External Medical Summary | Summary of Care ---
Author Name Unknown Organization [place] [address] Care Team Providers Care Paperboard Box Maker Name Role Phone Elizabeth Baltazar MD Primary Care Provider Reason for Visit * Reason Comments Referral Neuropsych Encounter Details Date Type Department Care Team Description 03/31/[address] [address] Ulises Cristina MD Referral (Neuropsych) Allergies No Known Allergiesdocumented as of this encounter (statuses as of 09/17/2019) Medications Medication Sig Dispensed Refills Start Date [...] mouth 2 times a day. 0 Active Meloxicam 15 MG TabletIndicatio ns:Hip pain, right take 1 tablet by mouth once daily if needed for pain 90 Tab 3 11/04/2017 0 Discontinued(Pat ient preference/disco ntinuation) escitalopram (LEXAPRO) 10 MG TabletIndicatio ns:Adjustment disorder with depressed mood Take 1 Tab by mouth daily. 90 Tab 3 11/04/2017 0 Discontinued documented as of this encounter (statuses as of 09/17/2019) Active Problems Problem Noted Date Gait instability 08/04/2017 Repeated falls 08/04/2017 Deviated nasal septum 07/11/2017 Nasal bone fracture 07/11/2017 Adjustment disorder with depressed mood 10/24/2015 HTN, goal below 140/90 04/26/2014 Heterozygous MTHFR mutation [id number] 04/25 Prothrombin gene mutation 03/29/2014 Heterozygous MTHFR [...] as of this encounter (statuses as of 09/17/2019) Resolved Problems Problem Noted Date Resolved Date Obesity, Class II, BMI 35-39.9, isolated (see ac tual BMI) 06/30/2012 12/26/2016 Overview: BMI= 38.27 06/30/12 Irritant hand dermatitis 06/30/2012 018 Elevated blood pressure, situational 06/30/2012 05/13/2017 Hypothyroidism 02/06/2004 06/30/2012 documented as of this encounter (statuses as of 09/17/2019) Immunizations Name Administration Dates Next Due Pneumococcal [...] have Coronavirus / COVID-19? No / Unsure 06/16/2019 12:17 PM EDT documented as of this encounter [...] encounter Miscellaneous Notes * Telephone Encounter - Viviana Del Rio, ALLYSON - 09/17/2019 12:51 PM EDT [phone] [facility] Neurology JOSE ROBERTO Timmons today in scheduling @ [facility], checking on appointment for patient in the Neuropsych Dept. She stated that 2 calls have been made with no response to scheduling an appointment, within a few days a letter will be sent and then records will be destroyed, records are kept for 2 months until destroyed when the patient make no attempt to schedule appointment. Notes state [place] uses [facility] for Neuropsych testing. ALLYSON Ramires 09/17/2019 12:53 PM * Telephone Encounter - Tricia Loco OSA - 07/13/2019 10:58 AM EDT Faxed a referral for Neuropsychology to [facility]. Included demographics, office notes and insurance cards. Referral sent to [facility] due to Dr Scott office being closed indefinitely due to Covid-19 ALLYSON Parker 07/13/2019 10:58 AM * Telephone Encounter - Tricia Loco OSA - 04/01/2019 10:44 AM EST I faxed the order for the barium swallow study to [facility] and the referral for Neuropsych to Dr Prescott. The pt may go where she pleases for PT, I did let her know that when she checked out the other day. ALLYSON Parker 04/01/2019 10:47 AM * Telephone Encounter - Iraida Faria OSA - 03/31/2019 2:40 PM EST Lizeth the nurse telehealth case manager at [facility] called stating that Dr Cristina ordered the patient to have PT, Barium Swallow and Cognitive testing. Lizeth states that they also referred the patient to PT at their clinic. The patient is having financial difficulties and if she goes to [facility] she will not have to pay a copay for the PT. Lizeth is also asking where the patient was referred for the cognitive testing and the barium swallow. Please call Lizeth back at [phone]. Lizeth states that they refer patients to Dr Prescott for thecognitive testing. 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
--- OUTSIDE RECORDS SUMMARY | 2022-11-20 09:25 | External Medical Summary | Summary of Care ---
Author Name Unknown Organization [place] [address] Care Team Providers Care Corporate Training Manager Name Role Phone Elizabeth Baltazar MD Primary Care Provider Reason for Visit * Reason Comments Durable Medical Equipment Faxed DME orde r with repeat mask fitting to CPO2 today. Encounter Details Date Type Department Care Team Description 09/30/2019 Telephone Neurology, [place] [address] [address] Kalli Abdalla MD [address] [place] [address] [phone] Durable Medical Equipment (Faxed DME order... Allergies No Known Allergiesdocumented as of this [...] goal below 140/90 04/26/2014 Heterozygous MTHFR mutation [id number] 04/25 Prothrombin gene mutation 03/29/2014 Heterozygous MTHFR [...] Notes * Telephone Encounter - Viviana Del Rio OSA - 09/30/2019 2:58 PM EDT Faxed DME order with repeat mask fitting to CPO2 today. Order placed in [employer] folder for review. ALLYSON Ramires 09/30/2019 2:59 PM documented in this encounter Plan of Treatment Upcoming Encounters Date Type Specialty Care Team Description 07/21/2020 Office Visit Neurology Kalli Abdalla MD [address] [facility] [id number] Health Maintenance Due Date Last Done Comments [...] Documents on File Type Date Recorded Patient Separator Tender Expl anation Advanced Directive service a rizwan default Advanced Directive Advanced Directive Advanced Directive Advanced Directive Advanced Directive Advanced Directive Advanced Directive Advanced Directive Advanced Directive Advanced Directive Advanced Directive Advanced Directive Advanced Directive Advanced Directive
--- OUTSIDE RECORDS SUMMARY | 2022-11-20 09:25 | External Medical Summary | Summary of Care ---
Author Name Unknown Organization [place] [address] Care Team Providers Care Folder Tier Name Role Phone Elizabeth Baltazar MD Primary Care Provider Reason for Visit * Reason Comments Referral Neuropsych Encounter Details Date Type Department Care Team Description 03/31/[address] [address] Ulises Cristina MD Referral (Neuropsych) [...] goal below 140/90 04/26/2014 Heterozygous MTHFR mutation [id number] 04/25 Prothrombin gene mutation 03/29/2014 Heterozygous MTHFR [...] Rio, ALLYSON - 09/17/2019 12:51 PM EDT Patient has an appointment scheduled @ [facility] on 09/30/2019. ALLYSON Ramires 09/17/2019 12:53 PM * Telephone Encounter - Tricia Loco OSA - 07/13/2019 10:58 AM EDT Faxed a referral for Neuropsychology to [facility]. Included demographics, office notes and insurance cards. Referral sent to [facility] due to Dr [place] office being closed [...] 03/31/2019 2:40 PM EST Lizeth the nurse telephonic case manager at [facility] called stating that Dr Cristina ordered the patient to have PT, Barium Swallow and Cognitive testing. Lizeth states that they also referred the patient to PT at their clinic. The patient is having financial difficulties and if she goes to [facility] she will not have to pay a copay for the PT. Lizeth is also asking where the patient was referred for the cognitive testing and the barium swallow. Please call Lizeth back at [phone]. Lizeth states that they refer patients to Dr [place] for thecognitive testing. ALLYSON Mejía 03/31/2019 2:44 PM documented in this encounter Plan of Treatment Upcoming Encounters Date Type Specialty Care Team Description 09/30/2019 Office Visit Neurology Kalli Abdalla MD [address] [place], [place] [id number] Health Maintenance Due Date Last Done Comments [...] Documents on File Type Date Recorded Patient Customer Service Representative Teacher Expl anation Advanced Directive service a rizwan default Advanced Directive Advanced Directive Advanced Directive Advanced Directive Advanced Directive Advanced Directive Advanced Directive Advanced Directive Advanced Directive Advanced Directive Advanced Directive Advanced Directive Advanced Directive Advanced Directive
--- OUTSIDE RECORDS SUMMARY | 2022-11-20 09:25 | External Medical Summary | Summary of Care ---
Author Name Unknown Organization [place] [address] Care Team Providers Care Rubber Stamp Dies Inspector Name Role Phone Elizabeth Baltazar MD Primary Care Provider Reason for Visit * Reason Comments Durable Medical Equipment download Encounter Details Date Type Department Care Team Description 08/04/2019 Telephone Neurology, [place] [address] [address] Kalli Abdalla MD [address] [place] [address] [phone] Durable Medical Equipment (download ) Allergies No Known Allergiesdocumented as of this encounter (statuses as of 09/16/2019) Medications Medication Sig Dispensed Refills Start Date [...] goal of less than 7.0% ([facility]) TAKE Two TABLETs BY MOUTH [...] as of this encounter (statuses as of 09/16/2019) Active Problems Problem Noted Date Gait instability 08/04/2017 Repeated falls 08/04/2017 Deviated nasal septum 07/11/2017 Nasal bone fracture 07/11/2017 Adjustment disorder with depressed mood 10/24/2015 HTN, goal below 140/90 04/26/2014 Heterozygous MTHFR mutation [id number] 04/25 Prothrombin gene mutation 03/29/2014 Heterozygous MTHFR [...] as of this encounter (statuses as of 09/16/2019) Resolved Problems Problem Noted Date Resolved Date Obesity, Class II, BMI 35-39.9, isolated (see ac tual BMI) 06/30/2012 12/26/2016 Overview: BMI= 38.27 06/30/12 Irritant hand dermatitis 06/30/2012 018 Elevated blood pressure, situational 06/30/2012 05/13/2017 Hypothyroidism 02/06/2004 06/30/2012 documented as of this encounter (statuses as of 09/16/2019) Immunizations Name Administration Dates Next Due Pneumococcal [...] encounter Miscellaneous Notes * Telephone Encounter - Kelsi Art LPN - 09/16/2019 12:08 PM EDT Download printed for upcoming appt 09/30/2019. Kelsi Art LPN 09/16/2019 12:08 PM * Telephone Encounter - Venus Brooks OSA - 08/19/2019 12:51 PM EDT Printed download from [employer] ([facility])for upcoming appointment 08/30/19; given to Leia. ALLYSON Hernandez 08/19/2019 12:51 PM * Telephone Encounter - Kay Napoles OSA - 08/04/2019 9:58 AM EDT Request for DL faxed to [facility] for pts upcoming appt 08/30/2019. ALLYSON Mehta 08/04/2019 9:58 AM documented in this encounter Plan of Treatment Upcoming Encounters Date Type Specialty Care Team Description 09/30/2019 Office Visit Neurology Kalli Abdalla MD [address] [facility] [place] [id number] Health Maintenance Due Date Last Done Comments [...] Documents on File Type Date Recorded Patient Operations/Dispatch Expl anation Advanced Directive service a rizwan default Advanced Directive Advanced Directive Advanced Directive Advanced Directive Advanced Directive Advanced Directive Advanced Directive Advanced Directive Advanced Directive Advanced Directive Advanced Directive Advanced Directive Advanced Directive Advanced Directive
--- OUTSIDE RECORDS SUMMARY | 2022-11-20 09:25 | External Medical Summary | Summary of Care ---
Author Name Unknown Organization [place] [address] Care Team Providers Care Tile And Marble Installer Name Role Phone Elizabeth Baltazar MD Primary Care Provider Reason for Visit * Reason Comments Other day f/u ov not es Encounter Details Date Type Department Care Team Description 10/04/2019 Telephone Neurology, [place] [address] [address] Kalli Abdalla MD [address] [place] [address] [phone] Other ( day f/u ov notes) Allergies No Known Allergiesdocumented as of this encounter (statuses as of 10/04/2019) Medications Medication Sig Dispensed Refills Start Date [...] as of this encounter (statuses as of 10/04/2019) Active Problems Problem Noted Date Gait instability 08/04/2017 Repeated falls 08/04/2017 Deviated nasal septum 07/11/2017 Nasal bone fracture 07/11/2017 Adjustment disorder with depressed mood 10/24/2015 HTN, goal below 140/90 04/26/2014 Heterozygous MTHFR mutation [id number] 04/25 Prothrombin gene mutation 03/29/2014 Heterozygous MTHFR [...] as of this encounter (statuses as of 10/04/2019) Resolved Problems Problem Noted Date Resolved Date Obesity, Class II, BMI 35-39.9, isolated (see ac tual BMI) 06/30/2012 12/26/2016 Overview: BMI= 38.27 06/30/12 Irritant hand dermatitis 06/30/2012 018 Elevated blood pressure, situational 06/30/2012 05/13/2017 Hypothyroidism 02/06/2004 06/30/2012 documented as of this encounter (statuses as of 10/04/2019) Immunizations Name Administration Dates Next Due Pneumococcal [...] Telephone Encounter - Selena Kinney OSA - 10/04/2019 2:37 PM EDT Faxing f/u ov notes dtd 09/30/19 since pt was set up on cpap 07/08/19 to CPO2. Faxing to: [phone] ALLYSON Bartholomew 10/04/2019 2:38 PM documented in this encounter Plan of Treatment Upcoming Encounters Date Type Specialty Care Team Description 07/21/2020 Office Visit Neurology Kalli Abdalla MD [address] [facility] [place] [address] Health Maintenance Due Date Last [...] Documents on File Type Date Recorded Patient Getter Filler Expl anation Advanced Directive service a rizwan default Advanced Directive Advanced Directive Advanced Directive Advanced Directive Advanced Directive Advanced Directive Advanced Directive Advanced Directive Advanced Directive Advanced Directive Advanced Directive Advanced Directive Advanced Directive Advanced Directive
--- OUTSIDE RECORDS SUMMARY | 2022-11-20 09:26 | External Medical Summary | Summary of Care ---
Author Name Unknown Organization [place] [address] Care Team Providers Care Construction Safety Manager Name Role Phone Elizabeth Baltazar MD Primary Care Provider Reason for Visit * Reason Comments Durable Medical Equipment download Encounter Details Date Type Department Care Team Description 08/04/2019 Telephone Neurology, [place] [address] [address] Kalli Abdalla MD [address] [place] [address] [phone] Durable Medical Equipment (download ) Allergies No Known Allergiesdocumented as of this encounter (statuses as of 08/19/2019) Medications Medication Sig Dispensed Refills Start Date [...] hemoglobin A1c goal of less than 7.0% ([facility]) TAKE Two TABLETs BY MOUTH TWICE DAILY [...] as of this encounter (statuses as of 08/19/2019) Active Problems Problem Noted Date Gait instability 08/04/2017 Repeated falls 08/04/2017 Deviated nasal septum 07/11/2017 Nasal bone fracture 07/11/2017 Adjustment disorder with depressed mood 10/24/2015 HTN, goal below 140/90 04/26/2014 Heterozygous MTHFR mutation [id number] 04/25 Prothrombin gene mutation 03/29/2014 Heterozygous MTHFR [...] as of this encounter (statuses as of 08/19/2019) Resolved Problems Problem Noted Date Resolved Date Obesity, Class II, BMI 35-39.9, isolated (see ac tual BMI) 06/30/2012 12/26/2016 Overview: BMI= 38.27 06/30/12 Irritant hand dermatitis 06/30/2012 018 Elevated blood pressure, situational 06/30/2012 05/13/2017 Hypothyroidism 02/06/2004 06/30/2012 documented as of this encounter (statuses as of 08/19/2019) Immunizations Name Administration Dates Next Due Pneumococcal [...] encounter Miscellaneous Notes * Telephone Encounter - Venus Brooks OSA - 08/19/2019 12:51 PM EDT Printed download from [employer] ([facility])for upcoming appointment 08/30/19; given to Leia. ALLYSON Hernandez 08/19/2019 12:51 PM * Telephone Encounter - Kay Napoles OSA - 08/04/2019 9:58 AM EDT Request for DL faxed to [facility] for pts upcoming appt 08/30/2019. ALLYSON Mehta 08/04/2019 9:58 AM documented in this encounter Plan of Treatment Upcoming Encounters Date Type Specialty Care Team Description 08/30/2019 Office Visit Neurology Kalli Abdalla MD [address] [facility] [address] [phone] Health Maintenance Due Date Last Done Comments [...] Documents on File Type Date Recorded Patient Autographer Expl anation Advanced Directive service a rizwan default Advanced Directive Advanced Directive Advanced Directive Advanced Directive Advanced Directive Advanced Directive Advanced Directive Advanced Directive Advanced Directive Advanced Directive Advanced Directive Advanced Directive Advanced Directive Advanced Directive
--- OUTSIDE RECORDS SUMMARY | 2022-11-20 09:26 | External Medical Summary | Summary of Care ---
Author Name Unknown Organization [place] [address] Care Team Providers Care Header Dock Name Role Phone Elizabeth Baltazar MD Primary Care Provider Encounter Details Date Type Department Care Team Description 08/25/2019 Orders Only Outcomes Research Department [address] [place] [address] Iain Galdamez CHRA [facility] Other*[id number] Allergies No Known Allergiesdocumented as of this encounter (statuses as of 08/25/2019) Medications Medication Sig Dispensed Refills Start Date [...] as of this encounter (statuses as of 08/25/2019) Active Problems Problem Noted Date Gait instability 08/04/2017 Repeated falls 08/04/2017 Deviated nasal septum 07/11/2017 Nasal bone fracture 07/11/2017 Adjustment disorder with depressed mood 10/24/2015 HTN, goal below 140/90 04/26/2014 Heterozygous MTHFR mutation [id number] 04/25 Prothrombin gene mutation 03/29/2014 Heterozygous MTHFR [...] as of this encounter (statuses as of 08/25/2019) Resolved Problems Problem Noted Date Resolved Date Obesity, Class II, BMI 35-39.9, isolated (see ac tual BMI) 06/30/2012 12/26/2016 Overview: BMI= 38.27 06/30/12 Irritant hand dermatitis 06/30/2012 018 Elevated blood pressure, situational 06/30/2012 05/13/2017 Hypothyroidism 02/06/2004 06/30/2012 documented as of this encounter (statuses as of 08/25/2019) Immunizations Name Administration Dates Next Due Pneumococcal [...] Visit Neurology Kalli Abdalla MD [address] [facility] [place] [address] Scheduled Orders Name Type Priority Associated Diagnoses Orde r Schedule MYCODE SUBSEQUENT ADULT Lab Routine [facility] Other*[id number] Every 6 Months for 2 Occurrences starting 08/25/2019 until 09/13/2020 Health Maintenance Due Date Last Done Comments [...] this encounter Visit Diagnoses Diagnosis [facility] Other*[id number] documented in this encounter Advance Directives Documents on File Type Date Recorded Patient It Security Project Manager Expl anation Advanced Directive service a rizwan default Advanced Directive Advanced Directive Advanced Directive Advanced Directive Advanced Directive Advanced Directive Advanced Directive Advanced Directive Advanced Directive Advanced Directive Advanced Directive Advanced Directive Advanced Directive Advanced Directive
--- OUTSIDE RECORDS SUMMARY | 2022-11-20 09:26 | External Medical Summary | Summary of Care ---
Author Name Unknown Organization [place] [address] Care Team Providers Care Excavating Machine Operator Name Role Phone Elizabeth Baltazar MD Primary Care Provider Reason for Visit * Reason Comments Durable Medical Equipment download Encounter Details Date Type Department Care Team Description 08/04/2019 Telephone Neurology, [place] [address] [address] Kalli Abdalla MD [address] [place] [address] [phone] Durable Medical Equipment (download ) Allergies No Known Allergiesdocumented as of this encounter (statuses as of 08/04/2019) Medications Medication Sig Dispensed Refills Start Date [...] hemoglobin A1c goal of less than 7.0% ([facility]) TAKE Two TABLETs BY MOUTH [...] as of this encounter (statuses as of 08/04/2019) Active Problems Problem Noted Date Gait instability 08/04/2017 Repeated falls 08/04/2017 Deviated nasal septum 07/11/2017 Nasal bone fracture 07/11/2017 Adjustment disorder with depressed mood 10/24/2015 HTN, goal below 140/90 04/26/2014 Heterozygous MTHFR mutation [id number] 04/25 Prothrombin gene mutation 03/29/2014 Heterozygous MTHFR [...] as of this encounter (statuses as of 08/04/2019) Resolved Problems Problem Noted Date Resolved Date Obesity, Class II, BMI 35-39.9, isolated (see ac tual BMI) 06/30/2012 12/26/2016 Overview: BMI= 38.27 06/30/12 Irritant hand dermatitis 06/30/2012 018 Elevated blood pressure, situational 06/30/2012 05/13/2017 Hypothyroidism 02/06/2004 06/30/2012 documented as of this encounter (statuses as of 08/04/2019) Immunizations Name Administration Dates Next Due Pneumococcal [...] encounter Miscellaneous Notes * Telephone Encounter - Kay Napoles OSA - 08/04/2019 9:58 AM EDT Request for DL faxed to [facility] for pts upcoming appt 08/30/2019. ALLYSON Mehta 08/04/2019 9:58 AM documented in this encounter Plan of Treatment Upcoming Encounters Date Type Specialty Care Team Description 08/30/2019 Office Visit Neurology Kalli Abdalla MD [address] [place] [address] [phone] Health Maintenance Due Date Last Done Comments [...] Documents on File Type Date Recorded Patient Stock Mixer Expl anation Advanced Directive service a rizwan default Advanced Directive Advanced Directive Advanced Directive Advanced Directive Advanced Directive Advanced Directive Advanced Directive Advanced Directive Advanced Directive Advanced Directive Advanced Directive Advanced Directive Advanced Directive Advanced Directive
--- OUTSIDE RECORDS SUMMARY | 2022-11-20 09:26 | External Medical Summary | Summary of Care ---
Author Name Unknown Organization [place] [address] Care Team Providers Care Expeditionary Force Combat Skills Name Role Phone Elizabeth Baltazar MD Primary Care Provider Reason for Visit * Reason Comments Advice dizziness and blurre d vision Encounter Details Date Type Department Care Team Description 08/02/2019 Telephone [place] [address] [address] Colopy, Anand Adhikari MD [address] [address] [phone] Advice (dizziness and blurred vision ) Allergies No Known Allergiesdocumented as of this encounter (statuses as of 08/10/2019) Medications Medication Sig Dispensed Refills Start Date [...] hemoglobin A1c goal of less than 7.0% ([facility]) TAKE Two TABLETs BY MOUTH TWICE DAILY [...] as of this encounter (statuses as of 08/10/2019) Active Problems Problem Noted Date Gait instability 08/04/2017 Repeated falls 08/04/2017 Deviated nasal septum 07/11/2017 Nasal bone fracture 07/11/2017 Adjustment disorder with depressed mood 10/24/2015 HTN, goal below 140/90 04/26/2014 Heterozygous MTHFR mutation [id number] 04/25 Prothrombin gene mutation 03/29/2014 Heterozygous MTHFR [...] as of this encounter (statuses as of 08/10/2019) Resolved Problems Problem Noted Date Resolved Date Obesity, Class II, BMI 35-39.9, isolated (see ac fernandez BMI) 06/30/2012 12/26/2016 Overview: BMI= 38.27 06/30/12 Irritant hand dermatitis 06/30/2012 018 Elevated blood pressure, situational 06/30/2012 05/13/2017 Hypothyroidism 02/06/2004 06/30/2012 documented as of this encounter (statuses as of 08/10/2019) Immunizations Name Administration Dates Next Due Pneumococcal [...] encounter Miscellaneous Notes * Telephone Encounter - Bianca Lerner OSA - 08/10/2019 2:31 PM EDT Pt called stating she received a VM from Breana Rascon asking that she call her back which she believes may be an old message that she did not delete from last week (pt is deleting the message today). Pt is asking if Breana Rascon left her a message today that she call her back otherwise she'll assume it was last weeks message. [phone] ALLYSON Mcmullen 08/10/2019 2:33 PM * Telephone Encounter - Iraida Faria OSA - 08/04/2019 9:27 AM EDT Kacey called back and I relayed the message below. She will wait to hear from scheduling to get theEEG scheduled. ALLYSON Mejía 08/04/2019 9:27 AM * Telephone Encounter - Breana Bhat MED ASSIST - 08/04/2019 8:27 AM EDT Left a message asking patient to return a call to the office , when she calls back please relay Dr Welch's message below, once thet start scheduling outpatient testing she will receive the call to schedule the EEG. MART Johnson 08/04/2019 8:30 AM No, the brain MRI from 12/10 showed it CANNOT be a brain tumor. Instead, I'll order an EEG. * Addendum Note - Anand Welch MD - 08/03/2019 5:32 PM EDT Addended by: ANAND WELCH on: 08/03/2019 05:32 PM Modules accepted: Orders * Telephone Encounter - Iraida Faria OSA - 08/02/2019 2:22 PM EDT Patient called stating that she has been feeling dizzy in the mornings and also having blurred vision. She states that these symptoms are the same as before her brain tumor surgery back in 1979. She called her PCP and they recommend going to the ER. The patient states now that she has been up for afew hours she is feeling better. She would like to know what Dr Welch recommends. Please call [phone] is [address] that Dr Welch is not in the office. ALLYSON Mejía 08/02/2019 2:25 PM documented in this encounter Plan of Treatment Upcoming Encounters Date Type Specialty Care Team Description 08/30/2019 Office Visit Neurology Kalli Abdalla MD [address] [place] [address] [phone] Scheduled Orders Name Type Priority Associated Diagnoses Orde r Schedule EEG; AWAKE AND ASLEEP Procedures Routine Dizziness Ordered: 08/03/2019 Health Maintenance Due Date Last Done Comments [...] as of this encounter Visit Diagnoses Diagnosis Dizziness- Primary Dizziness and giddiness documented in this encounter Advance Directives Documents on File Type Date Recorded Patient Mailing Specialist Expl anation Advanced Directive service a rizwan default Advanced Directive Advanced Directive Advanced Directive Advanced Directive Advanced Directive Advanced Directive Advanced Directive Advanced Directive Advanced Directive Advanced Directive Advanced Directive Advanced Directive Advanced Directive Advanced Directive
--- OUTSIDE RECORDS SUMMARY | 2022-11-20 09:26 | External Medical Summary | Summary of Care ---
Author Name Unknown Organization [place] [address] Care Team Providers Care Dragger Out Name Role Phone Elizabeth Baltazar MD Primary Care Provider Reason for Visit * Reason Comments Other Covid screening Encounter Details Date Type Department Care Team Description 08/27/2019 Telephone Neurology, [place] [address] [address] Kalli Abdalla MD [address] [place] [address] [phone] Other (Covid screening ) Allergies No Known Allergiesdocumented as of this encounter (statuses as of 08/27/2019) Medications Medication Sig Dispensed Refills Start Date [...] hemoglobin A1c goal of less than 7.0% ([facility]) TAKE Two TABLETs BY MOUTH [...] as of this encounter (statuses as of 08/27/2019) Active Problems Problem Noted Date Gait instability 08/04/2017 Repeated falls 08/04/2017 Deviated nasal septum 07/11/2017 Nasal bone fracture 07/11/2017 Adjustment disorder with depressed mood 10/24/2015 HTN, goal below 140/90 04/26/2014 Heterozygous MTHFR mutation [id number] 04/25 Prothrombin gene mutation 03/29/2014 Heterozygous MTHFR [...] as of this encounter (statuses as of 08/27/2019) Resolved Problems Problem Noted Date Resolved Date Obesity, Class II, BMI 35-39.9, isolated (see ac tual BMI) 06/30/2012 12/26/2016 Overview: BMI= 38.27 06/30/12 Irritant hand dermatitis 06/30/2012 018 Elevated blood pressure, situational 06/30/2012 05/13/2017 Hypothyroidism 02/06/2004 06/30/2012 documented as of this encounter (statuses as of 08/27/2019) Immunizations Name Administration Dates Next Due Pneumococcal [...] Telephone Encounter - Iraida Faria OSA - 08/27/2019 5:05 PM EDT Called patient and left a message on voice mail stating that I was calling to ask the covid screening questions prior to her appointment on 08/29. I asked for a call back. ALLYSON Mejía 08/27/2019 5:07 PM documented in this encounter Plan of Treatment Upcoming Encounters Date Type Specialty Care Team Description 08/30/2019 Office Visit Neurology Kalli Abdalla MD [address] [facility] [place] [address] Health Maintenance Due Date Last Done [...] Documents on File Type Date Recorded Patient Golf Professional Expl anation Advanced Directive service a rizwan default Advanced Directive Advanced Directive Advanced Directive Advanced Directive Advanced Directive Advanced Directive Advanced Directive Advanced Directive Advanced Directive Advanced Directive Advanced Directive Advanced Directive Advanced Directive Advanced Directive
--- OUTSIDE RECORDS SUMMARY | 2022-11-20 09:26 | External Medical Summary | Summary of Care ---
Author Name Unknown Organization [place] [address] Care Team Providers Care Fire Supervisor Name Role Phone Elizabeth Baltazar MD Primary Care Provider Reason for Visit * Reason Comments Referral request [employer] /Hum[employer] ins referral david Kimberly @ [facility] Encounter Details Date Type Department Care Team Description 08/19/2019 Telephone Neurology, [place] [address] [address] Kalli Abdalla MD [address] [place] [address] [phone] Referral (request [employer]/Humana Phyllis... Allergies No Known Allergiesdocumented as of this [...] goal below 140/90 04/26/2014 Heterozygous MTHFR mutation [id number] 04/25 Prothrombin gene mutation 03/29/2014 Heterozygous MTHFR [...] Encounter - Viviana Del Rio, ALLYSON - 08/19/2019 11:15 AM EDT DAVID Harris RN @ [facility] @ [phone] requesting an insurance referral [facility] CX for appt with Dr Abdalla for Sleep Apnea on 08/30/2019. She stated she was putting in the request today. 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
--- OUTSIDE RECORDS SUMMARY | 2022-11-20 09:27 | External Medical Summary | Summary of Care ---
Author Name Unknown Organization [place] [address] Care Team Providers Care Principal Law Clerk Name Role Phone Elizabeth Baltazar MD Primary Care Provider Reason for Visit * Reason Comments Advice dizziness and blurre d vision Encounter Details Date Type Department Care Team Description 08/02/2019 Telephone NeurologyAlejandra [address] [address] Colopy, Anand Adhikari MD [address] [address] [phone] Advice (dizziness and blurred vision ) Allergies [...] hemoglobin A1c goal of less than 7.0% ([facility]) TAKE Two TABLETs BY MOUTH TWICE [...] goal below 140/90 04/26/2014 Heterozygous MTHFR mutation [id number] 04/25 Prothrombin gene mutation 03/29/2014 Heterozygous MTHFR [...] when she calls back please relay Dr Xiong's message below, once thet start scheduling outpatient testing she will receive the call to schedule the EEG. MART Johnson ASSIST 08/04/2019 8:30 AM No, the brain MRI from 12/10 showed it CANNOT be a brain tumor. Instead, I'll order an EEG. * Addendum Note - Anand Xiong MD - 08/03/2019 5:32 PM EDT Addended by: ANAND XIONG on: 08/03/2019 05:32 PM Modules accepted: Orders [...] She would like to know what Dr Xiong recommends. Please call [phone] Xiong is not in the office. 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
--- OUTSIDE RECORDS SUMMARY | 2022-11-20 09:27 | External Medical Summary | Summary of Care ---
Author Name Unknown Organization [place] [address] Care Team Providers Care Business Law Instructor Name Role Phone Elizabeth Baltazar MD Primary Care Provider Reason for Visit * Reason Comments Advice dizziness and blurre d vision Encounter Details Date Type Department Care Team Description 08/02/2019 Telephone NeurologyAlejandra [address] [address] Colopy, Anand Adhikari MD [address] [address] [phone] Advice (dizziness and blurred vision ) Allergies [...] goal below 140/90 04/26/2014 Heterozygous MTHFR mutation [id number] 04/25 Prothrombin gene mutation 03/29/2014 Heterozygous MTHFR [...] as of this encounter Miscellaneous Notes * Addendum Note - Colopy, Anand Adhikari MD - 08/03/2019 5:32 PM EDT Addended [...] know what Dr Xiong recommends. Please call [phone] is [address] Xiong is not in the office. ALLYSON Mejía 08/02/2019 2:25 PM documented in this encounter Plan of Treatment Upcoming Encounters Date Type Specialty Care Team Description 08/30/2019 Office Visit Neurology Kalli Abdalla MD [address] [place], [place] [id number] Scheduled Orders Name Type Priority Associated Diagnoses [...] Documents on File Type Date Recorded Patient Technical Staff Assistant Expl anation Advanced Directive service a rizwan default Advanced Directive Advanced Directive Advanced Directive Advanced Directive Advanced Directive Advanced Directive Advanced Directive Advanced Directive Advanced Directive Advanced Directive Advanced Directive Advanced Directive Advanced Directive Advanced Directive
--- OUTSIDE RECORDS SUMMARY | 2022-11-20 09:27 | External Medical Summary | Summary of Care ---
Author Name Unknown Organization [facility] [address] Care Team Providers Care Regulatory Scientist Name Role Phone Elizabeth Baltazar MD Primary Care Provider Reason for Visit * Reason Comments Advice dizziness and blurre d vision Encounter Details Date Type Department Care Team Description 08/02/2019 Telephone NeurologyAle[facility]andra [address] [address] Colopy, Anand Adhikari MD [address] [address] [phone] Advice (dizziness and blurred vision ) Allergies [...] hemoglobin A1c goal of less than 7.0% ([facility]) TAKE Two TABLETs BY MOUTH [...] goal below 140/90 04/26/2014 Heterozygous MTHFR mutation [id number] 04/25 Prothrombin gene mutation 03/29/2014 Heterozygous MTHFR [...] Miscellaneous Notes * Telephone Encounter - Breana Bhat, MED ASSIST - 08/04/2019 8:27 AM EDT Left a message asking patient to return a call to the office , when she calls back please relay Dr Xiong's message below, once thet start scheduling outpatient testing she will receive the call to schedule the EEG. Breana Bhat MED ASSIST 08/04/2019 8:30 AM No, the brain [...] know what Dr Xiong recommends. Please call [phone] Patient is aware that [address] Xiong is not in the office. 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
--- OUTSIDE RECORDS SUMMARY | 2022-11-20 09:27 | External Medical Summary | Summary of Care ---
Author Name Unknown Organization [place] [address] Care Team Providers Care Smoked Meat Preparer Name Role Phone Elizabeth Baltazar MD Primary Care Provider Reason for Visit * Reason Comments Advice dizziness and blurre d vision Encounter Details Date Type Department Care Team Description 08/02/2019 Telephone NeurologyAle[facility]andra [address] [address] Colopy, Anand Adhikari MD [address] [address] [phone] Advice (dizziness and blurred vision ) Allergies [...] hemoglobin A1c goal of less than 7.0% ([facility]) TAKE Two TABLETs BY MOUTH [...] goal below 140/90 04/26/2014 Heterozygous MTHFR mutation [id number] 04/25 Prothrombin gene mutation 03/29/2014 Heterozygous MTHFR [...] Class II, BMI 35-39.9, isolated (see ac fenrandez BMI) 06/30/2012 12/26/2016 Overview: BMI= 38.27 06/30/12 [...] know what Dr Xiong recommends. Please call [phone] Patient is aware that Dr Xiong is not in the office. 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
--- OUTSIDE RECORDS SUMMARY | 2022-11-20 09:27 | External Medical Summary | Summary of Care ---
Author Name Unknown Organization [place] [address] Care Team Providers Care Centrifugal Spinner Name Role Phone Elizabeth Baltazar MD Primary Care Provider Reason for Visit * Reason Comments Advice dizziness and blurre d vision Encounter Details Date Type Department Care Team Description 08/02/2019 Telephone NeurologyAlejandra [address] [address] Colopy, Anand Adhikari MD [address] [address] [phone] Advice (dizziness and blurred vision ) Allergies No Known Allergiesdocumented as of this encounter (statuses as of 08/02/2019) Medications Medication Sig Dispensed Refills Start Date [...] goal of less than 7.0% ([facility]) TAKE Two TABLETs BY MOUTH TWICE [...] as of this encounter (statuses as of 08/02/2019) Active Problems Problem Noted Date Gait instability 08/04/2017 Repeated falls 08/04/2017 Deviated nasal septum 07/11/2017 Nasal bone fracture 07/11/2017 Adjustment disorder with depressed mood 10/24/2015 HTN, goal below 140/90 04/26/2014 Heterozygous MTHFR mutation [id number] 04/25 Prothrombin gene mutation 03/29/2014 Heterozygous MTHFR [...] as of this encounter (statuses as of 08/02/2019) Resolved Problems Problem Noted Date Resolved Date Obesity, Class II, BMI 35-39.9, isolated (see ac fernandez BMI) 06/30/2012 12/26/2016 Overview: BMI= 38.27 06/30/12 Irritant hand dermatitis 06/30/2012 018 Elevated blood pressure, situational 06/30/2012 05/13/2017 Hypothyroidism 02/06/2004 06/30/2012 documented as of this encounter (statuses as of 08/02/2019) Immunizations Name Administration Dates Next Due Pneumococcal [...] know what Dr Xiong recommends. Please call [phone] Patient is aware that [address] Xiong is not in the office. ALLYSON Mejía 08/02/2019 2:25 PM documented in this encounter Plan of Treatment Upcoming Encounters Date Type Specialty Care Team Description 08/30/2019 Office Visit Neurology Kalli Abdalla MD [address] [place] [address] [phone] Health Maintenance Due Date Last Done Comments [...] 3 YEARS; FOBT 1 YEAR),AGES 50-75 04/09/2019 Influenza Vaccine (FLU shot) (Season Ended) 2019 [...] Documents on File Type Date Recorded Patient Artifacts Conservator Expl anation Advanced Directive service a rizwan default Advanced Directive Advanced Directive Advanced Directive Advanced Directive Advanced Directive Advanced Directive Advanced Directive Advanced Directive Advanced Directive Advanced Directive Advanced Directive Advanced Directive Advanced Directive Advanced Directive
--- OUTSIDE RECORDS SUMMARY | 2022-11-20 09:27 | External Medical Summary | Summary of Care ---
Author Name Unknown Organization [place] [address] Care Team Providers Care Red Lead Burner Name Role Phone Elizabeth Baltazar MD Primary Care Provider Reason for Visit * Reason Comments Advice dizziness and blurre d vision Encounter Details Date Type Department Care Team Description 08/02/2019 Telephone NeurologyAlejandra [address] [address] Colopy, Anand Adhikari MD [address] [address] [phone] Advice (dizziness and blurred vision ) Allergies No Known Allergiesdocumented as of this encounter (statuses as of 08/03/2019) Medications Medication Sig Dispensed Refills Start Date [...] as of this encounter (statuses as of 08/03/2019) Active Problems Problem Noted Date Gait instability 08/04/2017 Repeated falls 08/04/2017 Deviated nasal septum 07/11/2017 Nasal bone fracture 07/11/2017 Adjustment disorder with depressed mood 10/24/2015 HTN, goal below 140/90 04/26/2014 Heterozygous MTHFR mutation [id number] 04/25 Prothrombin gene mutation 03/29/2014 Heterozygous MTHFR [...] as of this encounter (statuses as of 08/03/2019) Resolved Problems Problem Noted Date Resolved Date Obesity, Class II, BMI 35-39.9, isolated (see ac fernandez BMI) 06/30/2012 12/26/2016 Overview: BMI= 38.27 06/30/12 Irritant hand dermatitis 06/30/2012 018 Elevated blood pressure, situational 06/30/2012 05/13/2017 Hypothyroidism 02/06/2004 06/30/2012 documented as of this encounter (statuses as of 08/03/2019) Immunizations Name Administration Dates Next Due Pneumococcal [...] know what Dr Xiong recommends. Please call [phone] Patient is aware that [address] Xiong is not in the office. ALLYSON Mejía 08/02/2019 2:25 PM documented in this encounter Plan of Treatment Upcoming Encounters Date Type Specialty Care Team Description 08/30/2019 Office Visit Neurology Kalli Abdalla MD [address] [place], [place] [id number] Scheduled Orders Name Type Priority Associated Diagnoses [...] Documents on File Type Date Recorded Patient Town Planner Expl anation Advanced Directive service a rizwan default Advanced Directive Advanced Directive Advanced Directive Advanced Directive Advanced Directive Advanced Directive Advanced Directive Advanced Directive Advanced Directive Advanced Directive Advanced Directive Advanced Directive Advanced Directive Advanced Directive
--- OUTSIDE RECORDS SUMMARY | 2022-11-20 09:27 | External Medical Summary | Summary of Care ---
Author Name Unknown Organization [place] [address] Care Team Providers Care Filter Washer Name Role Phone Elizabeth Baltazar MD Primary Care Provider Reason for Visit * Reason Comments Referral referrals Encounter Details Date Type Department Care Team Description 03/31/[address] [address] Ulises Cristina MD Referral (referrals) Allergies No Known Allergiesdocumented as of this encounter (statuses as of 07/13/2019) Medications Medication Sig Dispensed Refills Start Date [...] as of this encounter (statuses as of 07/13/2019) Active Problems Problem Noted Date Gait instability 08/04/2017 Repeated falls 08/04/2017 Deviated nasal septum 07/11/2017 Nasal bone fracture 07/11/2017 Adjustment disorder with depressed mood 10/24/2015 HTN, goal below 140/90 04/26/2014 Heterozygous MTHFR mutation [id number] 04/25 Prothrombin gene mutation 03/29/2014 Heterozygous MTHFR [...] as of this encounter (statuses as of 07/13/2019) Resolved Problems Problem Noted Date Resolved Date Obesity, Class II, BMI 35-39.9, isolated (see ac tual BMI) 06/30/2012 12/26/2016 Overview: BMI= 38.27 06/30/12 Irritant hand dermatitis 06/30/2012 018 Elevated blood pressure, situational 06/30/2012 05/13/2017 Hypothyroidism 02/06/2004 06/30/2012 documented as of this encounter (statuses as of 07/13/2019) Immunizations Name Administration Dates Next Due Pneumococcal [...] EDT Faxed a referral for Neuropsychology to [facility] [place]. Included demographics, office notes and insurance cards. Referral sent to [facility] [place] due to Dr Scott office being closed [...] 03/31/2019 2:40 PM EST Lizeth the nurse case resolution specialist at [facility] called stating that Dr Cristina ordered the patient to have PT, Barium Swallow and Cognitive testing. Lizeth states that they also referred the patient to PT at their clinic. The patient is having financial difficulties and if she goes to [facility] she will not have to pay a copay for the PT. Lizeth is also asking where the patient was referred for the cognitive testing and the barium swallow. Please call Lizeth back at [phone]. Lizeth states that they refer patients to Dr Prescott for thecognitive testing. ALLYSON Mejía 03/31/2019 2:44 PM documented in this encounter Plan of Treatment Upcoming Encounters Date Type Specialty Care Team Description 08/30/2019 Office Visit Neurology Kalli Abdalla MD [address] [place] [address] [phone] Health Maintenance Due Date Last Done Comments DIABETES-EYE EXAM 1987 BREAST CANCER SCREENING DISCUSSION YEARLY AGES 40-75 2009 *DEPRESSION SCREENING,ANNUAL FOR PTS 12 AND OVER 09/02/2017 DIABETES-HGBA1C EVERY 6 MONTHS 01/09/2018 07/10/2017, 04/11/2017, 06/10/2016, Additional history exists DIABETES-FOOT EXAM 04/09/2018 04/09/2017, 0 04/26/2014, 06/29/2013 Yearly B-12 07/10/2018 07/10/2017 *TSH FOR THYROID MEDICATION MONITORING YEARLY 07/11/2018 Influenza Vaccine (FLU shot) (#1) 2018 01/05/2017, 01/06/2015, 12/29/2013, Additional history exists Zoster Vaccines (1 of 2) 2019 *COLORECTAL CANCER SCREENING (COLONOSCOPY 10 YEARS; SIGMOIDOSCOPY 5 YEARS; COLOGUARD 3 YEARS; FOBT 1 YEAR),AGES 50-75 04/09/2019 PAP SMEAR-EVERY 3 YRS,AGES 21-65 05/13/2020 05/13/2017, [...] Documents on File Type Date Recorded Patient Platinumsmith Expl anation Advanced Directive service a rizwan default Advanced Directive Advanced Directive Advanced Directive Advanced Directive Advanced Directive Advanced Directive Advanced Directive Advanced Directive Advanced Directive Advanced Directive Advanced Directive Advanced Directive Advanced Directive Advanced Directive
--- OUTSIDE RECORDS SUMMARY | 2022-11-20 09:27 | External Medical Summary | Summary of Care ---
Author Name Unknown Organization [place] [address] Care Team Providers Care Web Production Designer Name Role Phone Elizabeth Baltazar MD Primary Care Provider Reason for Visit * Reason Comments Advice dizziness and blurre d vision Encounter Details Date Type Department Care Team Description 08/02/2019 Telephone NeurologyAlejandra [address] [address] Colopy, Anand Adhikari MD [address] [address] [phone] Advice (dizziness and blurred vision ) Allergies No Known Allergiesdocumented as of this encounter (statuses as of 08/02/2019) Medications Medication Sig Dispensed Refills Start Date End Date Status ISEAL CONTOUR NEXT TEST STRP twice daily 60 [...] A1c goal of less than 7.0% ([facility]) TAKE Two TABLETs BY [...] goal below 140/90 04/26/2014 Heterozygous MTHFR mutation [id number] 04/25 Prothrombin gene mutation 03/29/2014 Heterozygous MTHFR [...] know what Dr Xiong recommends. Please call [phone] Patient is [address] Xiong is not in the office. ALLYSON Mejía 08/02/2019 2:25 PM documented in this encounter Plan of Treatment Upcoming Encounters Date Type Specialty Care Team Description 08/30/2019 Office Visit Neurology Kalli Abdalla MD [address] [place] [address] [phone] Health Maintenance Due Date Last Done Comments [...] Documents on File Type Date Recorded Patient Project Manager/Design Manager Expl anation Advanced Directive service a rizwan default Advanced Directive Advanced Directive Advanced Directive Advanced Directive Advanced Directive Advanced Directive Advanced Directive Advanced Directive Advanced Directive Advanced Directive Advanced Directive Advanced Directive Advanced Directive Advanced Directive
--- OUTSIDE RECORDS SUMMARY | 2022-11-20 09:27 | External Medical Summary | Summary of Care ---
Author Name Unknown Organization [place] [address] Care Team Providers Care Loading Dock Helper Name Role Phone lEizabeth Baltazar MD Primary Care Provider Reason for Visit * Reason Comments Order Request ata/juventino Encounter Details Date Type Department Care Team Description 06/30/2019 Telephone Neurology, [place] [address] [place] [address] [facility], [facility] [address] [place] [address] Order Request (ata/juventino) Allergies No Known Allergiesdocumented as of this encounter (statuses as of 07/02/2019) Medications Medication Sig Dispensed Refills Start Date [...] as of this encounter (statuses as of 07/02/2019) Active Problems Problem Noted Date Gait instability 08/04/2017 Repeated falls 08/04/2017 Deviated nasal septum 07/11/2017 Nasal bone fracture 07/11/2017 Adjustment disorder with depressed mood 10/24/2015 HTN, goal below 140/90 04/26/2014 Heterozygous MTHFR mutation [id number] 04/25 Prothrombin gene mutation 03/29/2014 Heterozygous MTHFR [...] as of this encounter (statuses as of 07/02/2019) Resolved Problems Problem Noted Date Resolved Date Obesity, Class II, BMI 35-39.9, isolated (see ac tual BMI) 06/30/2012 12/26/2016 Overview: BMI= 38.27 06/30/12 Irritant hand dermatitis 06/30/2012 018 Elevated blood pressure, situational 06/30/2012 05/13/2017 Hypothyroidism 02/06/2004 06/30/2012 documented as of this encounter (statuses as of 07/02/2019) Immunizations Name Administration Dates Next Due Pneumococcal [...] encounter Miscellaneous Notes * Telephone Encounter - Stephanie Brown OSA - 07/02/2019 11:58 AM EDT Pt returning call. Pt has been seeing Dr. Xiong. Pt stated she is not seeing Dr. Lewis's team anymore * Telephone Encounter - Rosy Ley PA-C - 06/30/2019 1:42 PM EDT Appears that patient had MRI brain in November 2018 for an acute issues which was noted to be stable. Won't need another MRI until 2 years from that date. Patient can be reached out to in order to see if she would like to be scheduled for a visit, but noimaging needed at this time. Rosy Ley PA-C 06/30/19 1:43 PM * Telephone Encounter - Melba Frye OSA - 06/30/2019 1:35 PM EDT Pt due for 2 year f/u with mango ley - please advise if MRI order is needed and place if neededprior to scheduling. 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
--- OUTSIDE RECORDS SUMMARY | 2022-11-20 09:28 | External Medical Summary | Summary of Care ---
Author Name Unknown Organization [place] [address] Care Team Providers Care Facilities Operator Name Role Phone Elizabeth Baltazar MD Primary Care Provider Reason for Visit * Reason Comments Other Advising of Sleep St udy Cancellation/Recommendation of Beginning Auto Cpap Therapy Encounter Details Date Type Department Care Team Description 06/16/2019 Telephone NeurologyAlejandra [address] [id number] Maricel Abdalla MD [address] [place], [place] [id number] Other (Advising of Sleep Study Cancellatio... 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 04/25 Prothrombin gene mutation 03/29/2014 Heterozygous MTHFR [...] as of this encounter (statuses as of 06/17/2019) Resolved Problems Problem Noted Date Resolved Date Obesity, Class II, BMI 35-39.9, isolated (see ac tual BMI) 06/30/2012 12/26/2016 Overview: BMI= 38.27 06/30/12 Irritant hand dermatitis 06/30/2012 018 Elevated blood pressure, situational 06/30/2012 05/13/2017 Hypothyroidism 02/06/2004 06/30/2012 documented as of this encounter (statuses as of 06/17/2019) Immunizations Name Administration Dates Next Due Pneumococcal [...] Telephone Encounter - Selena Kinney OSA - 06/17/2019 9:46 AM EDT Faxing DME order for new auto cpap set up, DME company flow sheet, demographics, insurance information, ov notes dtd 06/03/18 (prior to sleep study-provided by pt's PCP-Dr Baltazar) & diagnostic sleep study dtd 05/07/19 to [facility]. ALLYSON Bartholomew 06/17/2019 9:49 AM * Addendum Note - Maricel Abdalla MD - 06/16/2019 3:10 PM EDT Addended by: MARICEL ABDALLA on: 06/16/2019 03:10 PM Modules accepted: Orders * Telephone Encounter - Selena Kinney OSA - 06/16/2019 1:56 PM EDT Pt returned my call and we were able to discuss that the sleep study that is scheduled for 06/23/19 will be cancelled to the COVID-[address] Abdalla is recommending that she begin auto cpap therapy, skipping the recommended sleep study. Pt was ok with this. We discussed DME companies that are par with her insurance company. Pt selected [facility]. Advised that an order would be written and that order along with all the necessary documents would be faxed to [facility] where they will do insurance verification/authorization. Pt verified her insurance as [employer]. Pt understood and will wait to hear from [facility]. I will request that an order be written for pt to begin auto cpap therapy at [facility]. I will let our sleep lab know to cancel the scheduled sleep study on 06/23/19. ALLYSON Bartholomew 06/16/2019 2:10 PM * Telephone Encounter - Selena Kinney OSA - 06/16/2019 10:45 AM EDT Called and left a message for pt. Calling pt about the sleep study that is scheduled on 06/23/19 at our sleep study. I also want to discuss with pt the recommendation of provider who read her first study for her to begin auto cpap therapy. Basically skipping this recommended study and beginning auto cpap therapy. Did not give any details so I just gave my # for pt to return my call. 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
--- OUTSIDE RECORDS SUMMARY | 2022-11-20 09:28 | External Medical Summary | Summary of Care ---
Author Name Unknown Organization [place] [address] Care Team Providers Care Can Machine Operator Name Role Phone Elizabeth Baltazar MD Primary Care Provider Reason for Visit * Reason Comments FYI DME set-up Encounter Details Date Type Department Care Team Description 06/21/2019 Telephone Sleep Lab, [place] [address] [facility], [address] [place] [address] [place], [facility] [address] [place] [address] [phone] FYI (DME set-up) Allergies No Known Allergiesdocumented as of this encounter (statuses as of 06/21/2019) Medications Medication Sig Dispensed Refills Start Date [...] as of this encounter (statuses as of 06/21/2019) Active Problems Problem Noted Date Gait instability 08/04/2017 Repeated falls 08/04/2017 Deviated nasal septum 07/11/2017 Nasal bone fracture 07/11/2017 Adjustment disorder with depressed mood 10/24/2015 HTN, goal below 140/90 04/26/2014 Heterozygous MTHFR mutation [id number] 04/25 Prothrombin gene mutation 03/29/2014 Heterozygous MTHFR [...] as of this encounter (statuses as of 06/21/2019) Resolved Problems Problem Noted Date Resolved Date Obesity, Class II, BMI 35-39.9, isolated (see ac tual BMI) 06/30/2012 12/26/2016 Overview: BMI= 38.27 06/30/12 Irritant hand dermatitis 06/30/2012 018 Elevated blood pressure, situational 06/30/2012 05/13/2017 Hypothyroidism 02/06/2004 06/30/2012 documented as of this encounter (statuses as of 06/21/2019) Immunizations Name Administration Dates Next Due Pneumococcal [...] encounter Miscellaneous Notes * Telephone Encounter - Reshma Moore OSA - 06/21/2019 7:32 AM EDT Pt LM on sleep lab VM on Saturday 06/17 regarding her DME set-up. She stated that her mother received a phone call and wanted to make sure that we had the correct phone # for her. The phone number on her chart is matching. Not sure how her mother would have received a call, but just wanted to give youthe heads up. 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
--- OUTSIDE RECORDS SUMMARY | 2022-11-20 09:28 | External Medical Summary | Summary of Care ---
Author Name Unknown Organization [place] [address] Care Team Providers Care Stand In Name Role Phone Elizabeth Baltazar MD Primary Care Provider Reason for Visit * Reason Comments Order Request ata/[email or web address] Encounter Details Date Type Department Care Team Description 06/30/2019 Telephone Neurology, [place] [address] [place] [address] [facility], [facility] [address] [place] [address] Order Request (ata/juventino) Allergies No Known Allergiesdocumented as of this encounter (statuses as of 06/30/2019) Medications Medication Sig Dispensed Refills Start Date [...] as of this encounter (statuses as of 06/30/2019) Active Problems Problem Noted Date Gait instability 08/04/2017 Repeated falls 08/04/2017 Deviated nasal septum 07/11/2017 Nasal bone fracture 07/11/2017 Adjustment disorder with depressed mood 10/24/2015 HTN, goal below 140/90 04/26/2014 Heterozygous MTHFR mutation [id number] 04/25 Prothrombin gene mutation 03/29/2014 Heterozygous MTHFR [...] as of this encounter (statuses as of 06/30/2019) Resolved Problems Problem Noted Date Resolved Date Obesity, Class II, BMI 35-39.9, isolated (see ac tual BMI) 06/30/2012 12/26/2016 Overview: BMI= 38.27 06/30/12 Irritant hand dermatitis 06/30/2012 018 Elevated blood pressure, situational 06/30/2012 05/13/2017 Hypothyroidism 02/06/2004 06/30/2012 documented as of this encounter (statuses as of 06/30/2019) Immunizations Name Administration Dates Next Due Pneumococcal [...] encounter Miscellaneous Notes * Telephone Encounter - Rosy Ley PA-C [...] Visit Neurology Kalli Abdalla MD [address] [facility] [place] [phone] Health Maintenance Due Date Last Done Comments [...] on File Type Date Recorded Patient It Support Consultant Expl anation Advanced Directive service a rizwan default Advanced Directive Advanced Directive Advanced Directive Advanced Directive Advanced Directive Advanced Directive Advanced Directive Advanced Directive Advanced Directive Advanced Directive Advanced Directive Advanced Directive Advanced Directive Advanced Directive
--- OUTSIDE RECORDS SUMMARY | 2022-11-20 09:28 | External Medical Summary | Summary of Care ---
Author Name Unknown Organization [place] [address] Care Team Providers Care Alum Plant Operator Name Role Phone Elizabeth Baltazar MD Primary Care Provider Reason for Visit * Reason Comments Appointment Encounter Details Date Type Department Care Team Description 06/25/2019 Telephone NeurologyAlejandra [address] [address] ColopyAnand MD [address] [address] Appointment Allergies No Known Allergiesdocumented as of this encounter (statuses as of 06/25/2019) Medications Medication Sig Dispensed Refills Start Date [...] as of this encounter (statuses as of 06/25/2019) Active Problems Problem Noted Date Gait instability 08/04/2017 Repeated falls 08/04/2017 Deviated nasal septum 07/11/2017 Nasal bone fracture 07/11/2017 Adjustment disorder with depressed mood 10/24/2015 HTN, goal below 140/90 04/26/2014 Heterozygous MTHFR mutation [id number] 04/25 Prothrombin gene mutation 03/29/2014 Heterozygous MTHFR [...] as of this encounter (statuses as of 06/25/2019) Resolved Problems Problem Noted Date Resolved Date Obesity, Class II, BMI 35-39.9, isolated (see ac tual BMI) 06/30/2012 12/26/2016 Overview: BMI= 38.27 06/30/12 Irritant hand dermatitis 06/30/2012 018 Elevated blood pressure, situational 06/30/2012 05/13/2017 Hypothyroidism 02/06/2004 06/30/2012 documented as of this encounter (statuses as of 06/25/2019) Immunizations Name Administration Dates Next Due Pneumococcal [...] encounter Miscellaneous Notes * Telephone Encounter - Ayah Chery OSA - 06/25/2019 10:27 AM EDT Patient returned office call to reschedule 07/05/[address] Xiong to a phone appointment. She asked that we cancel her appointment for now. She has no concerns. She will call in the future if anything new comes up. ALLYSON Villagomez 06/25/2019 10:28 AM documented in this encounter Plan of Treatment Upcoming Encounters Date Type Specialty Care Team Description 08/30/2019 Office Visit Neurology Kalli Abdalla MD [address] [facility] [place] [address] [phone] Health Maintenance Due Date Last Done Comments [...] Documents on File Type Date Recorded Patient District Or District Office Director Expl anation Advanced Directive service a rizwan default Advanced Directive Advanced Directive Advanced Directive Advanced Directive Advanced Directive Advanced Directive Advanced Directive Advanced Directive Advanced Directive Advanced Directive Advanced Directive Advanced Directive Advanced Directive Advanced Directive
--- OUTSIDE RECORDS SUMMARY | 2022-11-20 09:29 | External Medical Summary | Summary of Care ---
Author Name Unknown Organization [place] [address] Care Team Providers Care Supervisor Prep Name Role Phone Elizabeth Baltazar MD Primary Care Provider Reason for Visit * Reason Comments Test Results PSG results Encounter Details Date Type Department Care Team Description 05/10/2019 Telephone Sleep Lab, [place] [address] [facility], [address] [place] [address] [place], [facility] [address] [facility] [address] [place] [address] [phone] Test Results (PSG results) Allergies No Known Allergiesdocumented as of this encounter (statuses as of 05/10/2019) Medications Medication Sig Dispensed Refills Start Date [...] EVENING MEALS 360 Tab 3 11/04/2017 Active Meloxicam 15 MG TabletIndications:H ip pain, right take 1 tablet by mouth once daily if needed for pain 90 Tab 3 11/04/2017 Active valACYclovir (VALTREX) 500 MG TabletIndications:H erpes simplex virus infection Take 1 Tab by mouth daily. 90 Tab 3 11/04/2017 Active levothyroxine (LEVOXYL) 100 MCG TabletIndications:H ypothyroidism take 1 tablet by mouth once daily AT LEAST 30 MINUTES PRIOR TO BREAKFAST OR OTHER MEDICATIONS 90 Tab 3 11/04/2017 Active escitalopram (LEXAPRO) 10 MG TabletIndications:A djustment disorder with depressed mood Take 1 Tab by mouth daily. 90 Tab 3 11/04/2017 Active folic acid 1 MG Tablet 0 03/28/2019 Active Colestipol HCl (COLESTID) 1 g Tablet Take 2 g by mouth 2 times a day. 0 Active documented as of this encounter (statuses as of 05/10/2019) Active Problems Problem Noted Date Gait instability 08/04/2017 Repeated falls 08/04/2017 Deviated nasal septum 07/11/2017 Nasal bone fracture 07/11/2017 Adjustment disorder with depressed mood 10/24/2015 HTN, goal below 140/90 04/26/2014 Heterozygous MTHFR mutation [id number] 04/25 Prothrombin gene mutation 03/29/2014 Heterozygous MTHFR [...] as of this encounter (statuses as of 05/10/2019) Resolved Problems Problem Noted Date Resolved Date Obesity, Class II, BMI 35-39.9, isolated (see ac tual BMI) 06/30/2012 12/26/2016 Overview: BMI= 38.27 06/30/12 Irritant hand dermatitis 06/30/2012 018 Elevated blood pressure, situational 06/30/2012 05/13/2017 Hypothyroidism 02/06/2004 06/30/2012 documented as of this encounter (statuses as of 05/10/2019) Immunizations Name Administration Dates Next Due Pneumococcal [...] Telephone Encounter - Reshma Moore OSA - 05/10/2019 9:03 AM EST PSG results faxed Attn: Lizeth [phone]. 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
--- OUTSIDE RECORDS SUMMARY | 2022-11-20 09:29 | External Medical Summary | Summary of Care ---
Author Name Unknown Organization [place] [address] Care Team Providers Care Bindery Machine Setter/Set Up Operator Name Role Phone Elizabeth Baltazar MD Primary Care Provider Reason for Visit * Reason Comments Other MTHFR mutation Encounter Details Date Type Department Care Team Description 05/21/2019 Telephone NeurologyAlejandra [address] [address] Colopy, Anand Adhikari MD [address] [address] Other (MTHFR mutation) Allergies No Known Allergiesdocumented as of this encounter (statuses as of 05/21/2019) Medications Medication Sig Dispensed Refills Start Date [...] goal of less than 7.0% ([facility]) TAKE Two TABLETs BY MOUTH TWICE [...] as of this encounter (statuses as of 05/21/2019) Active Problems Problem Noted Date Gait instability 08/04/2017 Repeated falls 08/04/2017 Deviated nasal septum 07/11/2017 Nasal bone fracture 07/11/2017 Adjustment disorder with depressed mood 10/24/2015 HTN, goal below 140/90 04/26/2014 Heterozygous MTHFR mutation [id number] 04/25 Prothrombin gene mutation 03/29/2014 Heterozygous MTHFR [...] as of this encounter (statuses as of 05/21/2019) Resolved Problems Problem Noted Date Resolved Date Obesity, Class II, BMI 35-39.9, isolated (see ac tual BMI) 06/30/2012 12/26/2016 Overview: BMI= 38.27 06/30/12 Irritant hand dermatitis 06/30/2012 018 Elevated blood pressure, situational 06/30/2012 05/13/2017 Hypothyroidism 02/06/2004 06/30/2012 documented as of this encounter (statuses as of 05/21/2019) Immunizations Name Administration Dates Next Due Pneumococcal [...] Telephone Encounter - Iraida Faria OSA - 05/21/2019 1:47 PM EST Patient called back and I relayed the message below from Dr Xiong. The patient said, okay. ALLYSON Mejía 05/21/2019 1:48 PM * Telephone Encounter - Caty Clarke MED ASSIST - 05/21/2019 1:37 PM EST Left message for patient to return call. MART Cota 05/21/2019 1:38 PM * Telephone Encounter - Caty Clarke MED ASSIST - 05/21/2019 1:36 PM EST Anand Xiong MD You 37 minutes ago (12:58 PM) Yes. I am aware of this from her record. thank you it is not affecting her symptoms at all. Routing comment * Telephone Encounter - Caty Clarke MED ASSIST - 05/21/2019 12:[address] Xiong Please advise. Thank you MART Cota 05/21/2019 12:12 PM * Telephone Encounter - Andria Vasquez OSA - 05/21/2019 10:59 AM EST Patient called stating she seen Dr. Xiong today and during her visit they were going over MS symptoms and she forgot to let him know that she carries MTHFR enzyme, gene mutation, she is asking for areturn call with his advice [phone]. 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
--- OUTSIDE RECORDS SUMMARY | 2022-11-20 09:29 | External Medical Summary | Summary of Care ---
Author Name Unknown Organization [place] [address] Care Team Providers Care Varnish Remover Name Role Phone Elizabeth Baltazar MD Primary Care Provider Reason for Visit * Reason Comments Other Advising of Sleep St udy Cancellation/Recommendation of Beginning Auto Cpap Therapy Encounter Details Date Type Department Care Team Description 06/16/2019 Telephone NeurologyAlejandra [address] [id number] Kalli Abdalla MD [address] [place], [place] [phone] Other (Advising of Sleep Study Cancellatio... Allergies No Known Allergiesdocumented as of this encounter (statuses as of 06/16/2019) Medications Medication Sig Dispensed Refills Start Date [...] as of this encounter (statuses as of 06/16/2019) Active Problems Problem Noted Date Gait instability 08/04/2017 Repeated falls 08/04/2017 Deviated nasal septum 07/11/2017 Nasal bone fracture 07/11/2017 Adjustment disorder with depressed mood 10/24/2015 HTN, goal below 140/90 04/26/2014 Heterozygous MTHFR mutation [id number] 04/25 Prothrombin gene mutation 03/29/2014 Heterozygous MTHFR [...] as of this encounter (statuses as of 06/16/2019) Resolved Problems Problem Noted Date Resolved Date Obesity, Class II, BMI 35-39.9, isolated (see ac tual BMI) 06/30/2012 12/26/2016 Overview: BMI= 38.27 06/30/12 Irritant hand dermatitis 06/30/2012 018 Elevated blood pressure, situational 06/30/2012 05/13/2017 Hypothyroidism 02/06/2004 06/30/2012 documented as of this encounter (statuses as of 06/16/2019) Immunizations Name Administration Dates Next Due Pneumococcal [...] par with her insurance company. Pt selected [facility]. Advised that an order would be written and that order along with all the necessary documents would be faxed to [facility] where they will do insurance verification/authorization. Pt verified her insurance as [employer]. Pt understood and will wait to hear from [facility]. I will request that an order be written for pt to begin auto cpap therapy at [facility]. 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
--- OUTSIDE RECORDS SUMMARY | 2022-11-20 09:29 | External Medical Summary | Summary of Care ---
Author Name Unknown Organization [place] [address] Care Team Providers Care Instructional Technology Facilitator Name Role Phone Elizabeth Baltazar MD Primary Care Provider Reason for Visit * Reason Comments Other Advising of Sleep St udy Cancellation/Recommendation of Beginning Auto Cpap Therapy Encounter Details Date Type Department Care Team Description 06/16/2019 Telephone NeurologyAlejandra [address] [id number] Kalli Abdalla MD [address] [place], [place] [phone] Other (Advising of Sleep Study Cancellatio... Allergies [...] goal below 140/90 04/26/2014 Heterozygous MTHFR mutation [id number] 04/25 Prothrombin gene mutation 03/29/2014 Heterozygous MTHFR [...] 06/23/2019 Sleep Lab Sleep Disorders [facility] [address] [address] [place] [address] [phone] 07/01/2019 Office Visit Neurology Colopy, Anand Adhikari MD [address] [place] [address] [phone] Health Maintenance Due Date Last Done Comments [...] Documents on File Type Date Recorded Patient Private Advisor Expl anation Advanced Directive service a rizwan default Advanced Directive Advanced Directive Advanced Directive Advanced Directive Advanced Directive Advanced Directive Advanced Directive Advanced Directive Advanced Directive Advanced Directive Advanced Directive Advanced Directive Advanced Directive Advanced Directive
--- OUTSIDE RECORDS SUMMARY | 2022-11-20 09:29 | External Medical Summary | Summary of Care ---
Author Name Unknown Organization [place] [address] Care Team Providers Care Tab Builder Name Role Phone Elizabeth Baltazar MD Primary Care Provider Reason for Visit * Reason Comments Other Advising of Sleep St udy Cancellation/Recommendation of Beginning Auto Cpap Therapy Encounter Details Date Type Department Care Team Description 06/16/2019 Telephone NeurologyAlejandra [address] [id number] Maricel Abdalla MD [address] [place], [place] [phone] Other (Advising of Sleep Study Cancellatio... Allergies [...] goal below 140/90 04/26/2014 Heterozygous MTHFR mutation [id number] 04/25 Prothrombin gene mutation 03/29/2014 Heterozygous MTHFR [...] encounter Miscellaneous Notes * Addendum Note - Maricel Abdalla MD [...] par with her insurance company. Pt selected [facility]. Advised that an order would be written and that order along with all the necessary documents would be faxed to [facility] where they will do insurance verification/authorization. Pt verified her insurance as [employer]. Pt understood and will wait to hear from [facility]. I will request that an order be written for pt to begin auto cpap therapy at [facility]. 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
--- OUTSIDE RECORDS SUMMARY | 2022-11-20 09:29 | External Medical Summary | Summary of Care ---
Author Name Unknown Organization [place] [address] Care Team Providers Care Filter Operator Name Role Phone Elizabeth Baltazar MD Primary Care Provider Reason for Visit * Reason Comments Test Results Sleep Study Results Encounter Details Date Type Department Care Team Description 05/13/2019 Telephone Neurology, Alejandra [address] [address] Kalli Abdalla MD [address] [place] [address] [phone] Test Results (Sleep Study Results) Allergies No Known Allergiesdocumented as of this encounter (statuses as of 05/13/2019) Medications Medication Sig Dispensed Refills Start Date [...] than 7.0% ([facility]) TAKE Two TABLETs BY MOUTH TWICE DAILY [...] as of this encounter (statuses as of 05/13/2019) Active Problems Problem Noted Date Gait instability 08/04/2017 Repeated falls 08/04/2017 Deviated nasal septum 07/11/2017 Nasal bone fracture 07/11/2017 Adjustment disorder with depressed mood 10/24/2015 HTN, goal below 140/90 04/26/2014 Heterozygous MTHFR mutation [id number] 04/25 Prothrombin gene mutation 03/29/2014 Heterozygous MTHFR [...] as of this encounter (statuses as of 05/13/2019) Resolved Problems Problem Noted Date Resolved Date Obesity, Class II, BMI 35-39.9, isolated (see ac tual BMI) 06/30/2012 12/26/2016 Overview: BMI= 38.27 06/30/12 Irritant hand dermatitis 06/30/2012 018 Elevated blood pressure, situational 06/30/2012 05/13/2017 Hypothyroidism 02/06/2004 06/30/2012 documented as of this encounter (statuses as of 05/13/2019) Immunizations Name Administration Dates Next Due Pneumococcal [...] encounter Miscellaneous Notes * Telephone Encounter - Andria Vasquez OSA - 05/13/2019 3:18 PM EST Patient called asking for Helena to return her call [phone]. ALLYSON Childers 05/13/2019 3:19 PM * Telephone Encounter - Selena Kinney OSA - 05/13/2019 2:42 PM EST Called and left a message for pt. Calling pt about the results of her recent sleep study and the recommendations of the reading provider since she was diagnosed with moderate ALLYSON. Provider states that a CPAP titration polysomnogram is indicated; dental appliances, and other modalities of treatment are also available. I did not leave a detailed message about this because I tried 3 x's only to be cut off before completing the message so I left a generic message just asking pt to return my call. Gave my # for pt to call back. ALLYSON Bartholomew 05/13/2019 2:47 PM documented in this encounter Plan of Treatment Upcoming Encounters Date Type Specialty Care Team Description 07/05/2019 Office Visit Neurology Colopy, Anand Adhikari MD [address] [place] [address] Health Maintenance Due Date Last [...] Documents on File Type Date Recorded Patient Noise Tester Expl anation Advanced Directive service a rizwan default Advanced Directive Advanced Directive Advanced Directive Advanced Directive Advanced Directive Advanced Directive Advanced Directive Advanced Directive Advanced Directive Advanced Directive Advanced Directive Advanced Directive Advanced Directive Advanced Directive
--- OUTSIDE RECORDS SUMMARY | 2022-11-20 09:29 | External Medical Summary | Summary of Care ---
Author Name Unknown Organization [place] [address] Care Team Providers Care Security Dispatcher Name Role Phone Elizabeth Baltazar MD Primary Care Provider Reason for Visit * Reason Comments Test Results Sleep Study Results Encounter Details Date Type Department Care Team Description 05/13/2019 Telephone Neurology, Alejandra [address] [address] Kalli Abdalla MD [address] [place] [address] [phone] Test Results (Sleep Study Results) Allergies No Known Allergiesdocumented as of this encounter (statuses as of 05/14/2019) Medications Medication Sig Dispensed Refills Start Date [...] of less than 7.0% ([facility]) TAKE Two TABLETs BY MOUTH [...] as of this encounter (statuses as of 05/14/2019) Active Problems Problem Noted Date Gait instability 08/04/2017 Repeated falls 08/04/2017 Deviated nasal septum 07/11/2017 Nasal bone fracture 07/11/2017 Adjustment disorder with depressed mood 10/24/2015 HTN, goal below 140/90 04/26/2014 Heterozygous MTHFR mutation [id number] 04/25 Prothrombin gene mutation 03/29/2014 Heterozygous MTHFR [...] as of this encounter (statuses as of 05/14/2019) Resolved Problems Problem Noted Date Resolved Date Obesity, Class II, BMI 35-39.9, isolated (see ac tual BMI) 06/30/2012 12/26/2016 Overview: BMI= 38.27 06/30/12 Irritant hand dermatitis 06/30/2012 018 Elevated blood pressure, situational 06/30/2012 05/13/2017 Hypothyroidism 02/06/2004 06/30/2012 documented as of this encounter (statuses as of 05/14/2019) Immunizations Name Administration Dates Next Due Pneumococcal [...] Miscellaneous Notes * Telephone Encounter - Selena Kinney, ALLYSON - 05/14/2019 2:05 PM EST Called and left another message for pt. Apologized to pt for playing phone tag but ask her to return my call again. Stated to pt that I would be here until 4. Selena Kinney, ALLYSON 05/14/2019 2:06 PM * Telephone Encounter - Andria Vasquez, ALLYSON - 05/13/2019 3:18 PM EST Patient called asking for Helena to return her call [phone]. Andria Vasquez, ALLYSON 05/13/2019 3:19 PM * Telephone Encounter - Selena Kinney, ALLYSON - 05/13/2019 2:42 PM EST Called and [...] my # for pt to call back. 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
--- OUTSIDE RECORDS SUMMARY | 2022-11-20 09:29 | External Medical Summary | Summary of Care ---
Author Name Unknown Organization [place] [address] Care Team Providers Care Silk Folder Name Role Phone Elizabeth Baltazar MD Primary Care Provider Reason for Visit * Reason Comments Test Results Sleep Study Results Encounter Details Date Type Department Care Team Description 05/13/2019 Telephone Neurology, Alejandra [address] [address] Kalli Abdalla MD [address] [place] [address] [phone] Test Results (Sleep Study Results) Allergies No [...] goal below 140/90 04/26/2014 Heterozygous MTHFR mutation [id number] 04/25 Prothrombin gene mutation 03/29/2014 Heterozygous MTHFR [...] # for pt to call back. 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
--- OUTSIDE RECORDS SUMMARY | 2022-11-20 09:29 | External Medical Summary | Summary of Care ---
Author Name Unknown Organization [place] [address] Care Team Providers Care Track Supervisor Name Role Phone Elizabeth Baltazar MD Primary Care Provider Reason for Visit * Reason Comments Test Results Sleep Study Results Encounter Details Date Type Department Care Team Description 05/13/2019 Telephone Neurology, Alejandra [address] [address] Kalli Abdalla MD [address] [place] [address] [phone] Test Results (Sleep Study Results) Allergies No [...] hemoglobin A1c goal of less than 7.0% ([facility]) TAKE Two TABLETs BY MOUTH TWICE DAILY [...] goal below 140/90 04/26/2014 Heterozygous MTHFR mutation [id number] 04/25 Prothrombin gene mutation 03/29/2014 Heterozygous MTHFR [...] Telephone Encounter - Selena Kinney OSA - 05/14/2019 2:23 PM EST Pt called back and we were able to discuss the results of her sleep study and the recommendation tohave an in lab cpap titration. Pt wanted to know if she could schedule this study now but had to advise that there was no one in the sleep lab at this time. Gave her the # & option # of the sleeplab for pt to call on Friday. Pt will do that. ALLYSON Bartholomew 05/14/2019 2:26 PM * Telephone Encounter - Selena Kinney OSA - 05/14/2019 2:05 PM EST Called and left another message for pt. Apologized to pt for playing phone tag but ask her to return my call again. Stated to pt that I would be here until 4. ALLYSON Bartholomew 05/14/2019 2:06 PM * Telephone Encounter - Andria Vasquez OSA - 05/13/2019 3:18 PM EST Patient called asking for Helena to return her call [phone]. 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
--- OUTSIDE RECORDS SUMMARY | 2022-11-20 09:29 | External Medical Summary | Summary of Care ---
Author Name Unknown Organization [place] [address] Care Team Providers Care Aerial Sprayer Name Role Phone Elizabeth Baltazar MD Primary Care Provider Reason for Visit * Reason Comments NEW PATIENT Encounter Details Date Type Department Care Team Description 05/21/2019 Office Visit NeurologyAlejandra [address] [address] ColopyAnand MD [address] [address] [phone] Gait instability*; Adjustment disorder with depressed mood Allergies No Known Allergiesdocumented as of this [...] goal below 140/90 04/26/2014 Heterozygous MTHFR mutation [id number] 04/25 Prothrombin gene mutation 03/29/2014 Heterozygous MTHFR [...] Travel End documented as of this encounter Last Filed [...] Notes * Colopy, Anand Adhikari MD - 05/21/2019 9:32 AM EST HISTORY OF PRESENT ILLNESS: 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 4chin to have a brain tumor years ago in subsequently require considerable radiation which caused late effects on the white matter quite visible on her several MRIs. These changes have not progressed at least from 2013 to the present would last MRI being in November of last year. The manifestationsare of considerable trouble with recent memory, as well as ataxia. By virtue of caution she has been able to avoid injuring herself and falls. However the tragedy here is that she has lost 2 jobs as a nurse and now cannot work as a nurse because her forgetfulness caused her to not renew her licensein July of last year. She then worked briefly for a intermediate and then even at [employer] but her forgetfulness caused her to lose those jobs also. Understandably this has made her quite tearful he depressed evident today. She recently had a normal swallow study. She was supposed to have some neuropsych testing ordered a month ago but this was not done and she does not even remember that that hadbeen considered. She also has NIDDM hypertension hyperlipidemia. 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 In addition to this she also has bioccipital headaches about every couple of days with photo and sonophobia and even occasional oz move phobia with frequent nausea but no vomiting. As a young adult she used to get more severe migraines in the same distribution. She does not have any known family history of headaches. She is followed in the Sleep [facility] here for obstructive sleep apnea and was last seen for this purpose earlier this month. She complains of considerable brain fog and also feels orthostatic Nneka lightheaded/dizzy every morning after arising which gradually improved through the day. She is reluctant to adequately hydrate, because the radiation is also caused her to have urinary urgency, incontinence and frequency. She has never been on any medicine for this purpose. She certainly is interested in trying however. 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 Diverticulosis DM type 2, goal A1c below 7 05/27/2013 Elevated blood pressure, situational 06/30/2012 Hypothyroidism Prothrombin gene mutation (HCC) 03/29/2014 Stroke (HCC) Type 2 diabetes mellitus with hemoglobin A1c goal of less than 7.0% (HCC) 05/27/2013 ICD-10 update of inactive term PAST [...] whether not she might actually have MS because a lot of the symptoms do seem to overlap. I explained to her therefore about the effects on the white matter of the radiation which can mimic the chronic affects of MS. 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 She is quite tearful today and so in order to try to improve this and also improve her memory, with the assumption being that there is some degree of serotonergic deficit with regard to memory, then I will try increasing her Lexapro from 10 mg to 15 mg and then after 2 weeks possibly 20 mg daily. I have carefully explained to her the need for hydration every morning and the exact reasons why this is so particularly with regard to the small vessel flow resistance that she has due to the radiation in the only part of the body above the heart when standing, and his relevance here. To try to assist this though I will start her on Detrol rather than other choices, because of its lack of anticholinergic mechanism of action which in turn could cause her further memory problems while helping her bladder. At some pointI will definitely want to try another medication to see if we can help the headaches and the associated brain fog that may be multifactorial in origin, but we need take 1 step at a time. She expressed understanding and satisfaction with this detailed am empathic approach, which hopefully will starthelping soon. Despite the occasional trouble with memory that can be seen when topiramate has a mismatch, it may be be a good choice for her to try for several reasons specific to her circumstances. She had no further [...] This chart was completed in part utilizing [employer] Speech Voice Recognition Software. Grammatical errors, random [...] 06/23/2019 Sleep Lab Sleep Disorders 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
--- OUTSIDE RECORDS SUMMARY | 2022-11-20 09:30 | External Medical Summary | Summary of Care ---
Author Name Unknown Organization [facility] [place] [address] Care Team Providers Care Receiving Supervisor Name Role Phone Elizabeth Baltazar MD Primary Care Provider Reason for Visit * Reason Comments Order Request MRI Brain Encounter Details Date Type Department Care Team Description 04/13/2019 Telephone NeurologyAlejandra [address] [address] ColopyAnand MD [address] [address] Order Request (MRI Brain) Allergies No Known Allergiesdocumented as of this encounter (statuses as of 04/13/2019) Medications Medication Sig Dispensed Refills Start Date [...] hemoglobin A1c goal of less than 7.0% ([facility]) TAKE Two TABLETs BY MOUTH TWICE [...] as of this encounter (statuses as of 04/13/2019) Active Problems Problem Noted Date Gait instability 08/04/2017 Repeated falls 08/04/2017 Deviated nasal septum 07/11/2017 Nasal bone fracture 07/11/2017 Adjustment disorder with depressed mood 10/24/2015 HTN, goal below 140/90 04/26/2014 Heterozygous MTHFR mutation [id number] 04/25 Prothrombin gene mutation 03/29/2014 Heterozygous MTHFR [...] as of this encounter (statuses as of 04/13/2019) Resolved Problems Problem Noted Date Resolved Date Obesity, Class II, BMI 35-39.9, isolated (see ac tual BMI) 06/30/2012 12/26/2016 Overview: BMI= 38.27 06/30/12 Irritant hand dermatitis 06/30/2012 018 Elevated blood pressure, situational 06/30/2012 05/13/2017 Hypothyroidism 02/06/2004 06/30/2012 documented as of this encounter (statuses as of 04/13/2019) Immunizations Name Administration Dates Next Due Pneumococcal [...] Encounter - Breana Bhat, MED ASSIST - 04/13/2019 5:06 PM EST I tried returning Lolly's call, her voicemail is unable to receive messages at this time. I will try calling her back tomorrow. Breana Aguila Alicjadeangelo, MED ASSIST 04/13/2019 5:07 PM * Telephone Encounter - Anand Xiong MD - 04/13/2019 5:04 PM EST Please let patient know that there is no recurrent tumor. I have reviewed her record. The MRIs havenot changed since 2013 and have been repeated several times. There is no evidence whatsoever of anyprogression or any new problems. She does have the old radiation effects which have not changed. Sofortunately there is no need or benefit from a repeat brain MRI. Thank you. * Telephone Encounter - Kimberly Kwon OSA - 04/13/2019 2:47 PM EST Received a call from Lolly at the [facility]. Kacey contacted their office to see if her PCP would be able to order another MRI of her Brain. Kacey had her last MRI done in November, which was compared to the one she had done in July. Dr. Cristina told Kacey that there were changes in the MRI and Kacey thinks that she is getting worse and would like another MRI performed. She is having balance issues and cognitive changes. Kacey has just been fired for the second time from a job due to her symptoms. Lolly stated the Kacey's PCP at the clinic advised her that our office would need to order another MRI, so Lolly was calling to see if our office would be willing to order the testing. Lolly can be reached at [phone]. ALLYSON Phillips 04/13/2019 2:50 PM documented in this encounter Plan of Treatment Upcoming Encounters Date Type Specialty Care Team Description 07/05/2019 Office Visit Neurology Anand Xiong MD [address] [place] [address] Health Maintenance Due Date Last [...] Documents on File Type Date Recorded Patient Cold Roller Expl anation Advanced Directive service a rizwan default Advanced Directive Advanced Directive Advanced Directive Advanced Directive Advanced Directive Advanced Directive Advanced Directive Advanced Directive Advanced Directive Advanced Directive Advanced Directive Advanced Directive Advanced Directive
--- OUTSIDE RECORDS SUMMARY | 2022-11-20 09:30 | External Medical Summary | Summary of Care ---
Author Name Unknown Organization [place] [address] Care Team Providers Care Supervisor International Reservations Name Role Phone Elizabeth Baltazar MD Primary Care Provider Reason for Referral * Precert (Routine) Status Reason Specialty Diagnoses / Procedures Referred By Contact Referred To Contact Pending Review Precert Sleep Disorders Diagnoses ALLYSON (obstructive sleep apnea) Procedures SLEEP STUDY, W/O CPAP Kalli Abdalla MD [address] [place] [address] Reason for Visit * Reason Comments Sleep Problems * Precert (Within 10 days (routine)) Status Reason Specialty Diagnoses / Procedures Referred By Contact Referred To Contact Closed Precert Sleep Disorders Diagnoses Obstructive sleep apnea (adult) (pediatric) Procedures SLEEP STUDY, W/O CPAP Elizabeth Baltazar MD [address] [place] [address] Encounter Details Date Type Department Care Team Description 05/07/2019 Sleep Lab Sleep [facility], [place] [address], [address] [place] [id number] [place], [facility] [address] [place], [place] [id number] ALLYSON (obstructive sleep apnea)* Allergies No Known Allergiesdocumented as of this encounter (statuses as of 05/09/2019) Medications Medication Sig Dispensed Refills Start Date [...] hemoglobin A1c goal of less than 7.0% ([facility]) TAKE Two TABLETs BY MOUTH [...] as of this encounter (statuses as of 05/09/2019) Active Problems Problem Noted Date Gait instability 08/04/2017 Repeated falls 08/04/2017 Deviated nasal septum 07/11/2017 Nasal bone fracture 07/11/2017 Adjustment disorder with depressed mood 10/24/2015 HTN, goal below 140/90 04/26/2014 Heterozygous MTHFR mutation [id number] 04/25 Prothrombin gene mutation 03/29/2014 Heterozygous MTHFR [...] as of this encounter (statuses as of 05/09/2019) Resolved Problems Problem Noted Date Resolved Date Obesity, Class II, BMI 35-39.9, isolated (see ac tual BMI) 06/30/2012 12/26/2016 Overview: BMI= 38.27 06/30/12 Irritant hand dermatitis 06/30/2012 018 Elevated blood pressure, situational 06/30/2012 05/13/2017 Hypothyroidism 02/06/2004 06/30/2012 documented as of this encounter (statuses as of 05/09/2019) Immunizations Name Administration Dates Next Due Pneumococcal [...] Sign Reading Time Taken Comments Blood Pressure - - Pulse - - Temperature - - Respiratory Rate - - Oxygen Saturation - - Inhaled Oxygen Concentration - - Weight 106.6 kg (235 lb) 05/07/2019 8:31 PM EST Height 162.6 cm (5' 4") 05/07/2019 8:31 PM EST Body Mass Index 40.34 05/07/2019 8:31 PM EST documented in this encounter Functional [...] Progress Notes * Kalli Abdalla MD - 05/09/2019 7:55 PM EST [facility] Polysomnogram Physician Report Name: Kacey Jay MR#: [id number] Date of : 1970 Study date: 05/07/2019 Report date: 05/08/2019 Study name: Adult Acquisition ID: [id number] Referring Physician: Elizabeth Baltazar Ordering Physician: ? Interpreting Sleep Physician: Kalli Abdalla Signature: Electronically Signed Testing Location: [place] Impression: 1. Moderate obstructive sleep apnea with an AHI of 18.4. REM AHI 16.8. Supine sleep AHI 30.9. supine predominant 2. Oxygen Saturation Brandon 85%. Time spent < 89%: 15.90 minutes. 3. No bruxism recorded. No parasomnias were recorded. 4. Periodic Limb Movement N/A 5. Periodic Limb Movement Arousal index N/A 6. Normal sinus rhythm 7. No electroencephalographic abnormalities. 8. Sleep architecture showed prolonged sleep onset latency with increased wake after sleep onset causing decrease in sleep efficiency. Sleep stage distribution showed 8.8% stage N1 sleep; 82.4% stageN2 sleep, 0.0% stage N3 sleep, 8.82% stage R sleep. Recommendations: 1. A CPAP titration polysomnogram is indicated; dental appliances, and other modalities of treatment are also available. 2. Weight loss is helpful when sleep apnea occurs in the setting of obesity. 3. Extreme caution with driving or operating heavy machinery if feeling sleepy, drowsy or otherwiseimpaired is advised. Clinical Background: 1. 49 year old Female with suspected sleep disordered breathing. 2. Weight 235.0 lbs & BMI 40.3 lb/in 3. [place] Sleepiness Scale 4. Neck Size 16.0 inches 5. Comorbidities: ? Past Medical History: Diagnosis Date Allergic rhinitis [...] (HCC) 05/27/2013 ICD-10 update of inactive term Sleep Architecture: Minutes TRT Total recording time 460.6 Sleep latency 44.3 SPT Sleep Period Time 389.5 WASO Wake time after sleep onset 93.3 TST Total Sleep Time 323.0 R Sleep latency minus wake 209.5 Sleep efficiency 70.1% TST Stage N1 28.5 8.8% Stage N2 266.3 82.4% Stage N3 0.0 0.0% Stage R 28.5 8.82% Respiratory Event Summary * TST NREM REM ~Supine Supine Prone Left Right Apneas Count 8 8 0 0.00 8 0 0 Index 1.5 1.6 0.0 0.00 2.5 0.0 0.0 Hypopneas Count 91 72 8 0.00 91 0 0 Index 16.9 14.7 16.8 0.00 28.4 0.0 0.0 AHI Count 99 80 8 0.00 99 0 0 Index 18.4 16.3 16.8 0.00 30.9 0.0 0.0 RDI (Professor Of Theatre+All Hyp+RERA) Count 101 82 8 0.00 101 0 0 Index 18.8 16.7 16.8 0.00 31.5 0.0 0.0 Respiratory Related Arousal Count 2 2 0 0.00 2 0 0 Index 0.4 0.4 0.0 0.00 0.6 0.0 0.0 Oxygen Desaturation Count 108 94 8 Index 20.0 19.1 16.8 Arousals: Index Respiratory related 12 2.2/hr PLM related 0 0.0/hr Spontaneous 52 9.7/hr Total 64 11.9/hr Movement Events: Index Total PLMs 0 N/A/hr PLMs associated with arousals 0 N/A/hr Respiratory Events: Index Central 0 0.0/hr Obstructive 8 1.5/hr Mixed 0 0.0/hr Hypopneas 91 16.9/hr RERAs 2 0.4/hr AHI = Apneas + Hypopneas 99 18.4/hr RDI = Apneas + Hypopneas +RERAs 101 18.8/hr no episodes of periodic breathing were found, loud snoring was recorded. Oxygenation: Min. Sat. Avg. Sat. Awake - 92% N sleep - 90% REM - 91% Overall 85% 91% Time spent ?88%: 15.90 minutes. Supplemental O2 not utilized. Body Position Analysis Supine Right Left Side Prone Vertical Total Sleep Time (min.) 192.4 130.6 130.60 0.0 0.0 Total Sleep Time (%) 59.57 40.43 0.00 40.43 0.00 0.00 Total Sleep Time REM (min.) 28.5 0.0 0.00 0.0 0.0 Total Sleep Time NREM (min.) 163.9 130.6 130.60 0.0 0.0 Total Sleep Period (min.) 225.9 156.7 156.70 0.3 0.1 Oximetry Data Min SpO2 value TST: 85% Average SpO2 (TIB): 91% Min SpO2 w/ Respiratory Event: 85% Average SpO2 (TST): 90.50% Desaturations #: 108 Desaturation Index: 20.0 /hr Oximetry Distribution WK NREM REM TIB TST Min % Min % Min % Min % Min % >90% 123.30 89.80 217.60 73.81 24.20 84.91 365.10 79.27 241.50 74.77 80 89% 5.60 4.08 77.20 26.19 4.30 15.09 87.10 18.91 81.50 25.23 70 79% 0.00 0.00 0.00 0.00 0.00 0.00 0.00 0.00 0.00 0.00 60 69% 0.00 0.00 0.00 0.00 0.00 0.00 0.00 0.00 0.00 0.00 50 59% 0.00 0.00 0.00 0.00 0.00 0.00 0.00 0.00 0.00 0.00 ?88%* 1.3 0.3 14.2 3.1 1.7 0.4 17.2 3.7 15.90 4.92 Fail (min) 8.4 6.12 0.0 0.00 0.0 0.00 8.4 1.82 0.00 0.00 Cardiac Events: Min bpm Average Pulse Rate During Sleep (TST): 81.5 bpm Highest Pulse Rate During Sleep (TST): 92 bpm Highest Pulse Rate During Recording (TIB): 101 bpm Comments / Artifact / Quality of the Study The polysomnographic recording quality was satisfactory for interpretation. No significant artifacts were found. Technical & Digital Specifications for the Recording and Scoring of Sleep and Associated Events: A standard polysomnogram with and/or without positive airway pressure (PAP) was performed monitoring EEG, EOG, EMG (chin and leg derivations), oxygen saturation, body position, digital video, respiratory effort and airflow. The Sleep Stage and Event scoring was based on the AASM Manual for the Scoring of Sleep and Associated Events, Version 2.5. Apnea in adults is scored when there is a drop in the peak signal excursion by ? 90% of pre-event baseline using an oronasal thermal sensor (diagnosticstudy), PAP device flow (titration study), or an alternative apnea sensor, for ? 10 seconds. Hypopnea in adults is scored when the peak signal excursions drop by ? 30% of pre-event baseline using nasal pressure (diagnostic study), PAP device flow (titration study), or an alternative hypopnea sensor, for ? 10 seconds in association with a >4% arterial oxygen desaturation from pre-event baseline. Respiratory effort-related arousals (RERAs) are defined as a sequence of breaths lasting at least 10 seconds characterized by increasing respiratory effort or flattening of the nasal pressure waveform leading to an arousal from sleep when the sequence of breaths which does not meet criteria belén apnea or hypopnea. Apnea Hypopnea Index (AHI) is defined as the number of apneas and hypopneas occurring in an hour of sleep. Respiratory Disturbance Index (RDI) is defined as the number of apneas, hypopneas, and RERAs occurring in an hour of sleep. . [facility] (phone) (fax) * Camelia Mathis RPSGT - 05/08/2019 4:13 AM EST Test: Completed Nocturnal Polysomnogram/NPSG without CPAP [place] total score: Neck Circumference: 16inches Patient received Drowsy Driving Information: Yes Patient here for an overnight sleep study. Patient did not take any sleep medication prior to startof study. Patient had some difficulty getting to sleep. Loud audible snoring noted. Events seen in the supine position. No significant leg movements. documented in this encounter Plan of Treatment Upcoming Encounters Date Type Specialty Care Team Description 07/05/2019 Office Visit Neurology Colopy, Anand Adhikari MD [address] [place] [address] Scheduled Orders Name Type Priority Associated Diagnoses Orde r Schedule SLEEP STUDY, W/O CPAP Procedures Routine ALLYSON (obstructive sleep apnea) Ordered: 05/09/2019 Health Maintenance Due Date Last Done Comments [...] Documents on File Type Date Recorded Patient Intranet Developer Expl anation Advanced Directive service a rizwan default Advanced Directive Advanced Directive Advanced Directive Advanced Directive Advanced Directive Advanced Directive Advanced Directive Advanced Directive Advanced Directive Advanced Directive Advanced Directive Advanced Directive Advanced Directive Advanced Directive
--- OUTSIDE RECORDS SUMMARY | 2022-11-20 09:30 | External Medical Summary | Summary of Care ---
Author Name Unknown Organization [place] [address] Care Team Providers Care Ambulatory Care Coordinator Name Role Phone Elizabeth Baltazar MD Primary Care Provider Reason for Visit * Reason Comments Appointment 3 month f/u for 2019 (scheudling off recall list) Encounter Details Date Type Department Care Team Description 04/08/2019 Telephone NeurologyAlejandra [address] [address] Colopy, Anand Adhikari MD [address] [address] [phone] Appointment (3 month f/u for June 2019 (s... Allergies No Known Allergiesdocumented as of this encounter (statuses as of 04/08/2019) Medications Medication Sig Dispensed Refills Start Date [...] as of this encounter (statuses as of 04/08/2019) Active Problems Problem Noted Date Gait instability 08/04/2017 Repeated falls 08/04/2017 Deviated nasal septum 07/11/2017 Nasal bone fracture 07/11/2017 Adjustment disorder with depressed mood 10/24/2015 HTN, goal below 140/90 04/26/2014 Heterozygous MTHFR mutation [id number] 04/25 Prothrombin gene mutation 03/29/2014 Heterozygous MTHFR [...] as of this encounter (statuses as of 04/08/2019) Resolved Problems Problem Noted Date Resolved Date Obesity, Class II, BMI 35-39.9, isolated (see ac tual BMI) 06/30/2012 12/26/2016 Overview: BMI= 38.27 06/30/12 Irritant hand dermatitis 06/30/2012 018 Elevated blood pressure, situational 06/30/2012 05/13/2017 Hypothyroidism 02/06/2004 06/30/2012 documented as of this encounter (statuses as of 04/08/2019) Immunizations Name Administration Dates Next Due Pneumococcal [...] encounter Miscellaneous Notes * Telephone Encounter - Kimberly Kwon OSA - 04/08/2019 9:25 AM EST Patient returned Pankaj's call today. Kacey has been scheduled to see Dr. Xiong on 07/05/2019 for her3 month follow up appointment. ALLYSON Phillips 04/08/2019 9:25 AM * Telephone Encounter - Jessica Mae OSA - 04/08/2019 9:15 AM EST Patient is on the recall list to be scheduled for a 3 month follow up in June [address] Steinberg. I called and left a message for the patient asking that she call into the office to get her 3 monthfollow up scheduled. I did make the patient aware that Dr. Cristina is no longer in our office so when she does call back to get this appointment scheduled we would be scheduling her with one of our other providers here in our office. When the patient calls back into the office please offer a follow up in June with Dr. Xiong.When the patient has been scheduled please remove off the recall list. ALLYSON Wall 04/08/2019 9:22 AM documented in this encounter Plan of Treatment Upcoming Encounters Date Type Specialty Care Team Description 07/05/2019 Office Visit Neurology Inga, Anand Adhikari MD [address] [place] [address] Health Maintenance Due Date Last [...] exists Zoster Vaccines (1 of 2) 2019 PAP SMEAR-EVERY 3 YRS,AGES 21-65 05/13/2020 05/13/2017, 04/20/2013, 12/18/2011 (Done elsewhere), Additional history exists DTaP,Tdap,and Td Vaccines (2 - Td) 11/27/2021 11/28/2011, 02/06/2004 Pneumococcal Vaccine: Pediatrics (0 to 5 Years) and At-Risk Patients (6 to 64 Years) Completed 04/09/2017 MENINGOCOCCAL (MENACTRA) Aged Out No longer eligible based on patient's age to complete this topic documented as of this encounter Implants Not on filedocumented as of this encounter Advance Directives Documents on File Type Date Recorded Patient Traffic Signal Supervisor Maintenance Expl anation Advanced Directive service a rizwan default Advanced Directive Advanced Directive Advanced Directive Advanced Directive Advanced Directive Advanced Directive Advanced Directive Advanced Directive Advanced Directive Advanced Directive Advanced Directive Advanced Directive Advanced Directive
--- OUTSIDE RECORDS SUMMARY | 2022-11-20 09:30 | External Medical Summary | Summary of Care ---
Author Name Unknown Organization [place] [address] Care Team Providers Care Cylinder Filler Name Role Phone Elizabeth Baltazar MD Primary Care Provider Reason for Visit * Reason Comments Appointment 3 month f/u for 2019 (scheudling off recall list) Encounter Details Date Type Department Care Team Description 04/08/2019 Telephone NeurologyAlejandra [address] [address] Colopy, Anand Adhikari MD [address] [address] [phone] Appointment (3 month f/u for June 2019 [...] goal below 140/90 04/26/2014 Heterozygous MTHFR mutation [id number] 04/25 Prothrombin gene mutation 03/29/2014 Heterozygous MTHFR [...] Inga, Anand Adhikari MD [address] [place] [address] Health Maintenance Due Date Last [...] on File Type Date Recorded Patient Customer Experience Analyst Expl anation Advanced Directive service a rizwan default Advanced Directive Advanced Directive Advanced Directive Advanced Directive Advanced Directive Advanced Directive Advanced Directive Advanced Directive Advanced Directive Advanced Directive Advanced Directive Advanced Directive Advanced Directive
--- OUTSIDE RECORDS SUMMARY | 2022-11-20 09:30 | External Medical Summary | Summary of Care ---
Author Name Unknown Organization [place] [address] Care Team Providers Care Dry Room Attendant Name Role Phone Elizabeth Baltazar MD Primary Care Provider Reason for Visit * Reason Comments Referral referrals Encounter Details Date Type Department Care Team Description 03/31/2019 Telephone NeurologyAlejandra [address] [address] Ulises Cristina MD [address] [address] [phone] Referral (referrals) Allergies No Known Allergiesdocumented as of this encounter (statuses as of 04/01/2019) Medications Medication Sig Dispensed Refills Start Date [...] hemoglobin A1c goal of less than 7.0% ([facility]) TAKE Two TABLETs BY [...] as of this encounter (statuses as of 04/01/2019) Active Problems Problem Noted Date Gait instability 08/04/2017 Repeated falls 08/04/2017 Deviated nasal septum 07/11/2017 Nasal bone fracture 07/11/2017 Adjustment disorder with depressed mood 10/24/2015 HTN, goal below 140/90 04/26/2014 Heterozygous MTHFR mutation [id number] 04/25 Prothrombin gene mutation 03/29/2014 Heterozygous MTHFR [...] as of this encounter (statuses as of 04/01/2019) Resolved Problems Problem Noted Date Resolved Date Obesity, Class II, BMI 35-39.9, isolated (see ac tual BMI) 06/30/2012 12/26/2016 Overview: BMI= 38.27 06/30/12 Irritant hand dermatitis 06/30/2012 018 Elevated blood pressure, situational 06/30/2012 05/13/2017 Hypothyroidism 02/06/2004 06/30/2012 documented as of this encounter (statuses as of 04/01/2019) Immunizations Name Administration Dates Next Due Pneumococcal [...] 2:40 PM EST Lizeth the nurse case liner at [facility] called stating that Dr Cristina ordered the patient to have PT, Barium Swallow and Cognitive testing. Lizeth states that they also referred the patient to PT at their clinic. The patient is having financial difficulties and if she goes to [facility] she will not have to pay a copay for the PT. Lizeth is also asking where the patient was referred for the cognitive testing and the barium swallow. Please call Lizeth back at [phone]. Lizeth states that they refer patients to [...] 2018 01/05/2017, 01/06/2015, 12/29/2013, Additional history exists PAP [...] Documents on File Type Date Recorded Patient Sales Forecast Analyst Expl anation Advanced Directive service a rizwan default Advanced Directive Advanced Directive Advanced Directive Advanced Directive Advanced Directive Advanced Directive Advanced Directive Advanced Directive Advanced Directive Advanced Directive Advanced Directive Advanced Directive
--- OUTSIDE RECORDS SUMMARY | 2022-11-20 09:30 | External Medical Summary | Summary of Care ---
Author Name Unknown Organization [place] [address] Care Team Providers Care High School Academic Coach Name Role Phone Elizabeth Baltazar MD Primary Care Provider Reason for Visit * Reason Comments Scheduling PSG appt Encounter Details Date Type Department Care Team Description 04/19/2019 Telephone Sleep Lab, [place] [address] [facility] [address], [address] [place] [address] Alejandra [facility] [address] [place] [address] [phone] Scheduling (PSG appt) Allergies No Known Allergiesdocumented as of this encounter (statuses as of 04/19/2019) Medications Medication Sig Dispensed Refills Start Date [...] as of this encounter (statuses as of 04/19/2019) Active Problems Problem Noted Date Gait instability 08/04/2017 Repeated falls 08/04/2017 Deviated nasal septum 07/11/2017 Nasal bone fracture 07/11/2017 Adjustment disorder with depressed mood 10/24/2015 HTN, goal below 140/90 04/26/2014 Heterozygous MTHFR mutation [id number] 04/25 Prothrombin gene mutation 03/29/2014 Heterozygous MTHFR [...] as of this encounter (statuses as of 04/19/2019) Resolved Problems Problem Noted Date Resolved Date Obesity, Class II, BMI 35-39.9, isolated (see ac tual BMI) 06/30/2012 12/26/2016 Overview: BMI= 38.27 06/30/12 Irritant hand dermatitis 06/30/2012 018 Elevated blood pressure, situational 06/30/2012 05/13/2017 Hypothyroidism 02/06/2004 06/30/2012 documented as of this encounter (statuses as of 04/19/2019) Immunizations Name Administration Dates Next Due Pneumococcal [...] Telephone Encounter - Reshma Moore OSA - 04/19/2019 3:12 PM EST LVM to schedule PSG appt ordered by Dr. Baltazar. Pt to return call to [phone] or [phone] toschedule. documented in this encounter Plan of Treatment Upcoming Encounters Date Type Specialty Care Team Description 07/05/2019 Office Visit Neurology Colopy, Anand Adhikari MD [address] [place] [address] [phone] Health Maintenance Due Date Last Done Comments [...] Documents on File Type Date Recorded Patient Supercharge Repair Supervisor Expl anation Advanced Directive service a rizwan default Advanced Directive Advanced Directive Advanced Directive Advanced Directive Advanced Directive Advanced Directive Advanced Directive Advanced Directive Advanced Directive Advanced Directive Advanced Directive Advanced Directive Advanced Directive
--- OUTSIDE RECORDS SUMMARY | 2022-11-20 09:30 | External Medical Summary | Summary of Care ---
Author Name Unknown Organization [place] [address] Care Team Providers Care Passenger Rate Clerk Name Role Phone Elizabeth Baltazar MD Primary Care Provider Reason for Referral * Precert (Routine) Status Reason Specialty Diagnoses / Procedures Referred By Contact Referred To Contact Pending Review Precert Sleep Disorders Diagnoses ALLYSON (obstructive sleep apnea) Procedures SLEEP STUDY, W/ CPAP (TREATMENT SETTINGS) Kalli Abdalla MD [address] [place] [address] Encounter Details Date Type Department Care Team Description 05/09/2019 Orders Only Neurology, [place] [address] [address] Kalli Abdalla MD [address] [place] [address] [phone] ALLYSON (obstructive sleep apnea)* Allergies No Known [...] goal below 140/90 04/26/2014 Heterozygous MTHFR mutation [id number] 04/25 Prothrombin gene mutation 03/29/2014 Heterozygous MTHFR [...] Colopy, Anand Adhikari MD [address] [place] [address] Scheduled Orders Name Type Priority Associated Diagnoses Orde r Schedule SLEEP STUDY, W/ CPAP (TREATMENT SETTINGS) Procedures Routine ALLYSON (obstructive sleep apnea) Ordered: [...] Documents on File Type Date Recorded Patient Motorman/Woman Expl anation Advanced Directive service a rizwan default Advanced Directive Advanced Directive Advanced Directive Advanced Directive Advanced Directive Advanced Directive Advanced Directive Advanced Directive Advanced Directive Advanced Directive Advanced Directive Advanced Directive Advanced Directive Advanced Directive
--- OUTSIDE RECORDS SUMMARY | 2022-11-20 09:30 | External Medical Summary | Summary of Care ---
Author Name Unknown Organization [place] [address] Care Team Providers Care Human Resources Manager Name Role Phone Elizabeth Baltazar MD Primary Care Provider Reason for Visit * Reason Comments Order Request MRI Brain Encounter Details Date Type Department Care Team Description 04/13/2019 Telephone NeurologyAlejandra [address] [address] ColopyAnand MD [address] [address] Order Request (MRI Brain) Allergies [...] goal below 140/90 04/26/2014 Heterozygous MTHFR mutation [id number] 04/25 Prothrombin gene mutation 03/29/2014 Heterozygous MTHFR [...] Received a call from Lolly at the [facility]. Kacey contacted their office to see if [...] the testing. Lolly can be reached at [phone]. ALLYSON Phillips 04/13/2019 2:50 PM documented in this encounter Plan of Treatment Upcoming Encounters Date Type Specialty Care Team Description 07/05/2019 Office Visit Neurology Anand Xiong MD [address] [place] [address] Health Maintenance Due Date Last [...] Documents on File Type Date Recorded Patient Interventional Radiology Technologist Expl anation Advanced Directive service a rizwan default Advanced Directive Advanced Directive Advanced Directive Advanced Directive Advanced Directive Advanced Directive Advanced Directive Advanced Directive Advanced Directive Advanced Directive Advanced Directive Advanced Directive Advanced Directive
--- OUTSIDE RECORDS SUMMARY | 2022-11-20 09:30 | External Medical Summary | Summary of Care ---
Author Name Unknown Organization [place] [address] Care Team Providers Care Tank Processor Name Role Phone Elizabeth Baltazar MD Primary Care Provider Reason for Visit * Reason Comments dysphagia Encounter Details Date Type Department Care Team Description 04/05/2019 [facility] [address] [id number] Lucie Olmos, [facility] [address] [address] [phone] Dysphagia, unspecified type*; 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HCC) Allergies No Known Allergiesdocumented as of this encounter (statuses as of 04/05/2019) Medications Medication Sig Dispensed Refills Start Date [...] as of this encounter (statuses as of 04/05/2019) Active Problems Problem Noted Date Gait instability 08/04/2017 Repeated falls 08/04/2017 Deviated nasal septum 07/11/2017 Nasal bone fracture 07/11/2017 Adjustment disorder with depressed mood 10/24/2015 HTN, goal below 140/90 04/26/2014 Heterozygous MTHFR mutation [id number] 04/25 Prothrombin gene mutation 03/29/2014 Heterozygous MTHFR [...] as of this encounter (statuses as of 04/05/2019) Resolved Problems Problem Noted Date Resolved Date Obesity, Class II, BMI 35-39.9, isolated (see ac tual BMI) 06/30/2012 12/26/2016 Overview: BMI= 38.27 06/30/12 Irritant hand dermatitis 06/30/2012 018 Elevated blood pressure, situational 06/30/2012 05/13/2017 Hypothyroidism 02/06/2004 06/30/2012 documented as of this encounter (statuses as of 04/05/2019) Immunizations Name Administration Dates Next Due Pneumococcal [...] as of this encounter Progress Notes * Lucie Olmos, [facility] - 04/05/2019 2:53 PM EST VIDEOFLUOROSCOPY SWALLOW EVALUATION Speech Therapy, [place] [address] [address] Name: Kacey Jay Date and Time of Procedure: 04/05/2019 at 1430 Insurance: Payor: / Plan: PRIME / Product Type: *No Product type* Patient Age: [age] year old Referring Physician: Dr. Cristina Pertinent Medical History includes CVA in 2013 and brain tumor in . 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 Diverticulosis DM type 2, goal A1c below 7 05/27/2013 Elevated blood pressure, situational 06/30/2012 Hypothyroidism Prothrombin gene mutation ([facility]) 03/29/2014 Stroke ([facility]) Type 2 diabetes mellitus with hemoglobin A1c goal of less than 7.0% ([facility]) 05/27/2013 ICD-10 update of inactive term Current Diet/Dysphagia History: Intermittent dysphagia, including occasional coughing with swallowing of liquids and sensation of "Food sticking at the back of my throat." She reports no nasopharyngeal regurgitation or choking. Very occasionally, she notes a large med "sticks." Cognitive-Communication: Pt has intermittent nasal emission errors of speech and nasal snorting upon deep inhalation. Pain: No complaints of pain ORAL EXAM Facial Symmetry: Within Functional Limits (WFL) Lingual Function: Within Functional Limits (WFL) Labial Function: Within Functional Limits (WFL) Velar Function: Did Not Test (DNT) Dentition: Natural Buccal Strength and Mobility: intact PROTECTIVE MECHANISMS Volitional Swallow: Within Functional Limits (WFL) Volitional Throat Clearing: Within Functional Limits (WFL) Volitional Cough: Within Functional Limits (WFL) Vocal Quality: Mildly hypernasality SWALLOWING FUNCTION: Patient Positioning: standing, supported by hand rail, due to reduced balance. "I've been falling." View During Study: Left Lateral: Viewed Radiologist: Alonso Meraz VIDEOFLUOROSCOPY Swallow Evaluation - Barium mixed applesauce, peaches and bread, followed by Thin Varibar liquid via cup: Mode of Presentation: self-fed Oral Preparation: functional. Mastication of solids is thorough. Good control of bolus securement from cup edge for Thin liquid. Oral Stage: WFL. No premature or piecemeal transfer. Complete oral clearance achieved upon primary transfer. Pharyngeal Phase: WFL. Prompt initiation of epiglottal inversion, which is complete. Contractility appears good bilaterally, with no retention of any bolus. No aspiration or laryngeal penetration. Good breath-swallow sequencing for taking successive sips thin liquid via cup. Esophageal Phase: Completed passage observed upon esophageal sweep. Diagnostic Statement: Oropharyngeal swallowing mechanism is WNL. There is no evidence, nor demonstrated risk, of aspiration. Bolus is formed and controlled adequately in the oral phase. Good pharyngeal contractility and clearance, as well as epiglottic inversion. Swallowing initiates promptly. Pt is appropriate for continuing her usual diet. Pt was cautioned to swallow liquids using a chin neutral position and to avoid drinking rapidly w/ head back. Given pt's report of dry mouth, begin each meal with a liquid. RECOMMENDATIONS: Diet Level: Regular Liquid Level: Thin Presentation of Medication: As tolerated Level of Supervision: None Compensatory Techniques to be Utilized During PO Intake: N/A PLAN: Swallowing Treatment: Not Indicated The above information was discussed with the patient. documented in this encounter Plan of Treatment Scheduled Orders Name Type Priority Associated Diagnoses Orde r Schedule MOTION FLOURO EVAL SWAL FUNC Procedures Routine Dysphagia, unspecified type Ordered: 04/05/2019 Health Maintenance Due Date Last Done Comments [...] as of this encounter Visit Diagnoses Diagnosis Dysphagia, unspecified type- Primary 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HCC) Unspecified cerebral artery occlusion with cerebral infarction documented in this encounter Advance Directives Documents on File Type Date Recorded Patient Field Pipe Lines Supervisor Expl anation Advanced Directive service a rizwan default Advanced Directive Advanced Directive Advanced Directive Advanced Directive Advanced Directive Advanced Directive Advanced Directive Advanced Directive Advanced Directive Advanced Directive Advanced Directive Advanced Directive Advanced Directive
--- OUTSIDE RECORDS SUMMARY | 2022-11-20 09:30 | External Medical Summary | Summary of Care ---
Author Name Unknown Organization [place] [address] Care Team Providers Care Utility System Repairer Name Role Phone Elizabeth Baltazar MD Primary Care Provider Reason for Referral * Precert (Routine) Status Reason Specialty Diagnoses / Procedures Referred By Contact Referred To Contact Pending Review Precert Sleep Disorders Diagnoses ALLYSON (obstructive sleep apnea) Procedures SLEEP STUDY, W/O CPAP Kalli Abdalla MD [address] [place] [address] Reason for Visit * Reason Comments Sleep Problems * Precert (Within 10 days (routine)) Status Reason Specialty Diagnoses / Procedures Referred By Contact Referred To Contact Closed Precert Sleep Disorders Diagnoses Obstructive sleep apnea (adult) (pediatric) Procedures SLEEP STUDY, W/O CPAP Elizabeth Baltazar MD [address] [place] [id number] Encounter Details Date Type Department Care Team Description 05/07/2019 Sleep Lab Sleep Lab, [place] [address] [facility], [address] [place] [id number] [place], [facility] [address] [place], [place] [id number] ALLYSON (obstructive sleep apnea)* Allergies No Known [...] than 7.0% ([facility]) TAKE Two TABLETs BY MOUTH TWICE DAILY [...] goal below 140/90 04/26/2014 Heterozygous MTHFR mutation [id number] 04/25 Prothrombin gene mutation 03/29/2014 Heterozygous MTHFR [...] Abdalla MD - 05/09/2019 7:55 PM EST [facility] Polysomnogram Physician Report Name: Kacey Jay MR#: [id number] Date of : 1970 Study date: 05/07/2019 Report date: 05/08/2019 Study name: Adult Acquisition ID: [id number] Referring Physician: Elizabeth Baltazar Ordering Physician: ? Interpreting Sleep Physician: Kalli Abdalla Signature: Electronically Signed Testing Location: [place] Impression: 1. Moderate obstructive sleep apnea with [...] 235.0 lbs & BMI 40.3 lb/in 3. Buffalo Sleepiness Scale 4. Neck Size 16.0 inches [...] 16.3 16.8 0.00 30.9 0.0 0.0 RDI (Statue Maker+All Hyp+RERA) Count 101 82 8 0.00 101 [...] occurring in an hour of sleep. . [facility] (phone) (fax) * Camelia Mathis RPSGT - 05/08/2019 4:13 AM EST Test: Completed Nocturnal Polysomnogram/NPSG without CPAP Buffalo total score: Neck Circumference: 16inches Patient received [...] Colopy, Anand Adhikari MD [address] [place] [address] Scheduled Orders Name Type Priority [...] Documents on File Type Date Recorded Patient Decision Analyst Expl anation Advanced Directive service a rizwan default Advanced Directive Advanced Directive Advanced Directive Advanced Directive Advanced Directive Advanced Directive Advanced Directive Advanced Directive Advanced Directive Advanced Directive Advanced Directive Advanced Directive Advanced Directive Advanced Directive
--- OUTSIDE RECORDS SUMMARY | 2022-11-20 09:30 | External Medical Summary | Summary of Care ---
Author Name Unknown Organization [place] [address] Care Team Providers Care Plywood Layup Line Back Feeder Name Role Phone Elizabeth Baltazar MD Primary Care Provider Reason for Visit * Reason Comments Appointment PSG- approval Encounter Details Date Type Department Care Team Description 04/16/2019 Telephone Sleep Lab, [place] [address] [facility], [address] [place] [address] Alej[facility] [address] [facility] [address] [place] [address] [phone] Appointment (PSG- approval) Allergies No Known Allergiesdocumented as of this encounter (statuses as of 04/16/2019) Medications Medication Sig Dispensed Refills Start Date [...] hemoglobin A1c goal of less than 7.0% ([facility]) TAKE Two TABLETs BY MOUTH [...] as of this encounter (statuses as of 04/16/2019) Active Problems Problem Noted Date Gait instability 08/04/2017 Repeated falls 08/04/2017 Deviated nasal septum 07/11/2017 Nasal bone fracture 07/11/2017 Adjustment disorder with depressed mood 10/24/2015 HTN, goal below 140/90 04/26/2014 Heterozygous MTHFR mutation [id number] 04/25 Prothrombin gene mutation 03/29/2014 Heterozygous MTHFR [...] as of this encounter (statuses as of 04/16/2019) Resolved Problems Problem Noted Date Resolved Date Obesity, Class II, BMI 35-39.9, isolated (see ac tual BMI) 06/30/2012 12/26/2016 Overview: BMI= 38.27 06/30/12 Irritant hand dermatitis 06/30/2012 018 Elevated blood pressure, situational 06/30/2012 05/13/2017 Hypothyroidism 02/06/2004 06/30/2012 documented as of this encounter (statuses as of 04/16/2019) Immunizations Name Administration Dates Next Due Pneumococcal [...] Telephone Encounter - Reshma Moore OSA - 04/16/2019 12:49 PM EST PSG ordered by a non [facility] provider. All info scanned into [employer]. Need phlebotomist medical lab assistant approval to proceed. Thank you! documented in this encounter Plan of Treatment Upcoming Encounters Date Type Specialty Care Team Description 07/05/2019 Office Visit Neurology Colopy, Anand Adhikari MD [address] [place] [address] Health Maintenance Due Date Last [...] Documents on File Type Date Recorded Patient Almond Grinder Expl anation Advanced Directive service a rizwan default Advanced Directive Advanced Directive Advanced Directive Advanced Directive Advanced Directive Advanced Directive Advanced Directive Advanced Directive Advanced Directive Advanced Directive Advanced Directive Advanced Directive Advanced Directive
--- OUTSIDE RECORDS SUMMARY | 2022-11-20 09:30 | External Medical Summary | Summary of Care ---
Author Name Unknown Organization [place] [address] Care Team Providers Care Lithograph Press Feeder Name Role Phone Elizabeth Baltazar MD Primary Care Provider Reason for Visit * Reason Comments Appointment PSG- approval Encounter Details Date Type Department Care Team Description 04/16/2019 Telephone Sleep Lab, [place] [address] [facility], [address] [place] [address] Alejandra [facility] [address] [facility] [address] [place] [address] [phone] Appointment (PSG- approval) Allergies No Known Allergiesdocumented [...] goal of less than 7.0% ([facility]) TAKE Two TABLETs BY MOUTH [...] goal below 140/90 04/26/2014 Heterozygous MTHFR mutation [id number] 04/25 Prothrombin gene mutation 03/29/2014 Heterozygous MTHFR [...] encounter Miscellaneous Notes * Telephone Encounter - Kalli Abdalla MD - 04/16/2019 1:41 PM EST Proceed * Telephone Encounter - Reshma Moore OSA - 04/16/2019 12:49 PM EST PSG ordered by a non [facility] provider. All info scanned into [employer]. Need medical claims specialist approval to proceed. Thank you! documented in this encounter Plan of Treatment Upcoming Encounters Date Type Specialty Care Team Description 07/05/2019 Office Visit Neurology Colopy, Anand Adhikari MD [address] [place] [address] Health Maintenance Due Date Last [...] Documents on File Type Date Recorded Patient Artist Representative Expl anation Advanced Directive service a rizwan default Advanced Directive Advanced Directive Advanced Directive Advanced Directive Advanced Directive Advanced Directive Advanced Directive Advanced Directive Advanced Directive Advanced Directive Advanced Directive Advanced Directive Advanced Directive
--- OUTSIDE RECORDS SUMMARY | 2022-11-20 09:30 | External Medical Summary | Summary of Care ---
Author Name Unknown Organization [place] [address] Care Team Providers Care Dry Placer Machine Operator Name Role Phone Elizabeth Baltazar MD Primary Care Provider Reason for Visit * Reason Comments Order Request MRI Brain Encounter Details Date Type Department Care Team Description 04/13/2019 Telephone NeurologyAlejandra [address] [address] ColopyAnand MD [address] [address] Order Request (MRI Brain) Allergies No Known Allergiesdocumented as of this encounter (statuses as of 04/14/2019) Medications Medication Sig Dispensed Refills Start Date [...] as of this encounter (statuses as of 04/14/2019) Active Problems Problem Noted Date Gait instability 08/04/2017 Repeated falls 08/04/2017 Deviated nasal septum 07/11/2017 Nasal bone fracture 07/11/2017 Adjustment disorder with depressed mood 10/24/2015 HTN, goal below 140/90 04/26/2014 Heterozygous MTHFR mutation [id number] 04/25 Prothrombin gene mutation 03/29/2014 Heterozygous MTHFR [...] as of this encounter (statuses as of 04/14/2019) Resolved Problems Problem Noted Date Resolved Date Obesity, Class II, BMI 35-39.9, isolated (see ac tual BMI) 06/30/2012 12/26/2016 Overview: BMI= 38.27 06/30/12 Irritant hand dermatitis 06/30/2012 018 Elevated blood pressure, situational 06/30/2012 05/13/2017 Hypothyroidism 02/06/2004 06/30/2012 documented as of this encounter (statuses as of 04/14/2019) Immunizations Name Administration Dates Next Due Pneumococcal [...] Encounter - Breana Bhat, MED ASSIST - 04/14/2019 12:17 PM EST I spoke to Lolly and Francisco and relayed Dr Xiong's recommendations. She is going to reach out to the patient and advise she keep her appt for the neuropsych testing and her follow up here on 07-05-[address] Xiong. No further questions or concerns. Breana Bhat, MED ASSIST 04/14/2019 12:19 PM * Telephone Encounter - Breana Bhat [place] MED ASSIST - 04/13/2019 5:06 PM EST I tried returning Lolly's call, her voicemail is unable to receive messages at this time. I will try calling her back tomorrow. Breana Bhat MED ASSIST 04/13/2019 5:07 PM * Telephone [...] Received a call from Lolly at the [facility]. Kacey contacted their office to see if [...] the testing. Lolly can be reached at [phone]. ALLYSON Phillips 04/13/2019 2:50 PM documented in this encounter Plan of Treatment Upcoming Encounters Date Type Specialty Care Team Description 07/05/2019 Office Visit Neurology Colopy, Anand Adhikari MD [address] [place] [address] Health Maintenance Due Date Last [...] Documents on File Type Date Recorded Patient Bondactor Machine Operator Expl anation Advanced Directive service a rizwan default Advanced Directive Advanced Directive Advanced Directive Advanced Directive Advanced Directive Advanced Directive Advanced Directive Advanced Directive Advanced Directive Advanced Directive Advanced Directive Advanced Directive Advanced Directive
--- OUTSIDE RECORDS SUMMARY | 2022-11-20 09:31 | External Medical Summary | Summary of Care ---
Author Name Unknown Organization [place] [address] Care Team Providers Care Analyst Sales Name Role Phone Elizabeth Baltazar MD Primary Care Provider Reason for Referral * Opinion/Recommendation - 1 Visit Only (Within 30 days (routine)) Status Reason Specialty Diagnoses / Procedures Referred By Contact Referred To Contact Pending Review Specialty Services Required Physical Therapy Diagnoses History of brain tumor Gait instability 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HCC) Ulises Cristina MD [address] [place] [id number] Reason for Visit * Reason Comments NEW PATIENT Gait instability, f/ u stroke * Evaluate & Treat - Unlimited Visits (Within 10 days (routine)) Status Reason Specialty Diagnoses / Procedures Referred By Contact Referred To Contact Authorized Specialty Services Required Neurology Diagnoses benign brain tumor TIA gait instability dysphagia Procedures eval and treat Elizabeth Baltazar MD [address] [place] [id number] Encounter Details Date Type Department Care Team Description 03/30/2019 Office Visit Alejandra Cochran [address] [place] [id number] Ulises Cristina MD [address] [place] [id number] History of brain tumor*; Gait instability; 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HCC) Allergies No Known Allergiesdocumented as of this encounter (statuses as of 03/30/2019) Medications Medication Sig Dispensed Refills Start Date [...] PO TABS 1 tablet daily 0 Active Lisinopril-[place] chlorothiazide 20-12.5 MG per tabletIndication s:HTN, goal below 140/90 Take 1 Tab by mouth daily. 90 Tab 3 11/04/2017 Active metFORMIN (GLUCOPHAGE) 500 MG TabletIndication s:Type 2 diabetes mellitus with hemoglobin A1c goal of less than 7.0% ([facility]) TAKE Two TABLETs BY MOUTH TWICE DAILY WITH MORNING AND EVENING MEALS 360 Tab 3 11/04/2017 Active Meloxicam 15 MG TabletIndication s:Hip pain, right take 1 tablet by mouth [...] 3 11/04/2017 Active escitalopram (LEXAPRO) 10 MG TabletIndication s:Adjustment disorder with depressed mood Take 1 Tab by mouth daily. 90 Tab 3 11/04/2017 Active folic acid 1 MG Tablet 0 03/28/2019 Active Colestipol HCl (COLESTID) 1 g Tablet Take 2 g by mouth 2 times a day. 0 Active lisinopril (PRINIVIL) 20 MG TabletIndication s:HTN, goal below 140/90 Take 1 Tab by mouth daily. 90 Tab 3 11/04/2017 03/30/2019 Discontinued (Patient preference/d iscontinuati on) documented as of this encounter (statuses as of 03/30/2019) Active Problems Problem Noted Date Gait instability 08/04/2017 Repeated falls 08/04/2017 Deviated nasal septum 07/11/2017 Nasal bone fracture 07/11/2017 Adjustment disorder with depressed mood 10/24/2015 HTN, goal below 140/90 04/26/2014 Heterozygous MTHFR mutation [id number] 04/25 Prothrombin gene mutation 03/29/2014 Heterozygous MTHFR [...] as of this encounter (statuses as of 03/30/2019) Resolved Problems Problem Noted Date Resolved Date Obesity, Class II, BMI 35-39.9, isolated (see ac tual BMI) 06/30/2012 12/26/2016 Overview: BMI= 38.27 06/30/12 Irritant hand dermatitis 06/30/2012 018 Elevated blood pressure, situational 06/30/2012 05/13/2017 Hypothyroidism 02/06/2004 06/30/2012 documented as of this encounter (statuses as of 03/30/2019) Immunizations Name Administration Dates Next Due Pneumococcal [...] Sign Reading Time Taken Comments Blood Pressure 152/98 03/30/2019 3:00 PM EST Pulse 87 03/30/2019 3:00 PM EST Temperature 36.5 C (97.7 F) 03/30/2019 3:00 PM ES T Respiratory Rate - - Oxygen Saturation 94% 03/30/2019 3:00 PM EST Inhaled Oxygen Concentration - - Weight 106.9 kg (235 lb 11.2 oz) 03/30/2019 3:00 PM EST Height 162.6 cm (5' 4") 03/30/2019 3:00 PM EST Body Mass Index 40.46 03/30/2019 3:00 PM EST documented in this encounter Functional [...] Yes 04/11/2014 documented as of this encounter Patient Instructions * Patient Instructions* Ulises Cristina MD - 03/30/2019 3:17 PM EST ASSESSMENT: 1. Patient reports declining cognitive capability. 2. Patient reports declined inability to maintain balance and has increased falls. 3. Patient reports gait abnormality. 4. 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 MRI shows midline defect at cerebellum vermian location. Secondary white matter changes which appear to be progressive identified. Progression is my opinion of images rather than radiology's. 5. Patient has multiple medical issues including diabetes, hypertension, hypercoagulable state had diverticulosis. PLAN: 1. Neuro cognitive testing to document cognitive impairment. 2. Modified barium swallow to assess for brainstem dysfunction. 3. PT assessment for gait stability. Follow up: in 3 month(s) documented in this encounter Progress Notes * Ulsies Cristina MD - 03/30/2019 3:15 PM EST Subjective: Kacey Jay is a 48 year old female. Chief Complaint Patient presents with NEW PATIENT Gait instability, f/u stroke HPI: This 48-year-old right-hand lady presents by herself for evaluation of loss of balance and cognitive capabilities. 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 She received radiotherapy following that. Surgeries took place in 1979 1980. Patient is said to have had a stroke in 2013. She was evaluated [facility] in [facility]. At that time was determine that late radiation effects likely produced a certain amount of vascular fragility resulting in her stroke. She has had a gradual decline in function since that time. MRI of brain from 2013, 2017 and 12/15/2018 demonstrate postsurgical post radiotherapy changes in the posterior fossa involving the cerebellum cerebral peduncles and midbrain. Although radiology reports indicates stability I a.m. uncertain that on my review that there has been no change. In my viewthere has been change mostly as manifested by increased black holes in areas of myelin changefollowing radiotherapy. Patient's clinical progression includes ataxia frequent falls as manifested by several falls per week and cognitive decline with recent memory defect. Arms and legs are functional but there's delayedmovement. She is currently unable to maintain a job. Delayed ease in performance impaired cognition seemed jonathan the problem. I've been asked evaluate the patient from neurological point of view. Her lab note last neurology visit was in [facility] 2 years ago. 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 folic acid 1 MG Tablet escitalopram (LEXAPRO) 10 MG Tablet Take 1 Tab by mouth daily. 90 Tab 3 levothyroxine (LEVOXYL) 100 MCG Tablet take 1 tablet by mouth once daily AT LEAST 30 MINUTES PRIOR TO BREAKFAST OR OTHER MEDICATIONS 90 Tab 3 Lisinopril-Hydrochlorothiazide 20-12.5 MG per tablet Take 1 Tab by mouth daily. 90 Tab 3 Meloxicam 15 MG Tablet take 1 tablet by mouth once daily if needed for pain 90 Tab 3 metFORMIN (GLUCOPHAGE) 500 MG [...] TEST STRP twice daily 60 Strip 11 Review of patient's allergies indicates: No Known Allergies Family history stroke, diabetes, cancer, aortic aneurysm Social history rare smoker in the past. Minimal alcohol intake in the past. New patient being seen today for gait instability and f/u to a stroke in 2013. Patient states no pain upon today's visit. Patient states she is experiencing a lot of lightheadedness and dizziness. REVIEW OF SYSTEMS: CONSTITUTIONAL: No loss, No weight gain, No fever and Positive for fatigue and night sweats HEENT: No eye disease/injury, No vision loss, No hearing loss, No sore throat and No nasal drainage RESPIRATORY: No cough, No wheezing, No exposure to TB and Positive for shortness of breath and sleep apnea CARDIOVASCULAR: No chest pain, No palpitations, No pain in extremities and No swelling of leg/feet GASTROINTESTINAL: No abdominal pain, No constipation, No rectal bleeding, No heartburn, No nausea, No vomiting and Positive for diarrhea GENITOURINARY: No blood in urine, No pain with urination, No irregular menses MUSCULOSKELETAL: No joint pain, No back pain and Positive for muscle weakness and neck pain DERMATOLOGIC: No pruritis, No rash and No open sores/wounds NEURO/PSYCH: No insomnia, No seizure, No tremors and Positive for unsteadiness and anxiety/depression ENDOCRINE: No extreme appetite, No excessive thirst, No excessive urination and No intolerance to heat/cold HEMATOLOGIC: No tendency to bleeding and Positive for easy bruising IMMUNOLOGIC: No enviromental allergies I have reviewed the patients controlled substance dispensing history in the Prescription Drug Monitoring Program in compliance with the [facility] regulations before prescribing a controlled substance. Last Tox Screen Results: No results found for this or any previous visit. Rama Thomas, MED ASSIST 03/30/2019 3:06 PM OBJECTIVE: BP 152/98 | Pulse 87 | Temp 97.7 | Ht 5' 4" (1.626m) | Wt 235 lbs 11.2 oz (106.913kg) | BMI 40.46 kg/m | BSA 2.2 m | SaO2 94% Neurologic examination Mental status awake alert orient x3. 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 Insight andjudgment appears to be adequate. Mood is cooperative. No delusions or hallucinations noted. Memory is 3/3. Cranial nerves 2-12 PERRL 3 mm bilaterally. Visual zayas full to confrontation. EOMI. Saccadic pursuit noted. No ptosis. No nystagmus. Normal facial sensation. Symmetric facial expression. Hearing swallowing appear to be intact. Tongue protrudes midline. Motor examination demonstrates what appears to be normal bulk tone and strength. Grasp is equal bilaterally. She can raise both hands briskly up overhead without difficulty. She can arise from a seated position without a [place] sign. Walking appears to be adequate but perhaps slightly off balance. Cerebellar testing shows minimal tremor on finger-nose maneuvers. Minimal resting tremor. Slightly worse on the left than the right Reflexes 3+ at biceps 1+ triceps 4+ knees. Sensory exam intact to tactile stimuli, pinprick and vibration. Gait described above. Romberg shows wavering. No pronator drift. ASSESSMENT: 1. Patient reports declining cognitive capability. 2. Patient reports declined inability to maintain balance and has increased falls. 3. Patient reports gait abnormality. 4. 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 MRI shows midline defect at cerebellum vermian location. Secondary white matter changes which appear to be progressive identified. Progression is my opinion of images rather than radiology's. 5. Patient has multiple medical issues including diabetes, hypertension, hypercoagulable state had diverticulosis. PLAN: 1. Neuro cognitive testing to document cognitive impairment. 2. Modified barium swallow to assess for brainstem dysfunction. 3. PT assessment for gait stability. Follow up: in 3 month(s) Ulises Cristina MD documented in this encounter Nursing Notes * Rama Thomas, MED ASSIST - 03/30/2019 3:02 PM EST BP 152/98 | Pulse 87 | Temp 97.7 | Ht 5' 4" (1.626m) | Wt 235 lbs 11.2 oz (106.913kg) | BMI 40.46 kg/m | BSA 2.2 m | SaO2 94% New patient being seen today for gait instability and f/u to a stroke in 2013. Patient states no pain upon today's visit. Patient states she is experiencing a lot of lightheadedness and dizziness. REVIEW OF SYSTEMS: CONSTITUTIONAL: No loss, No weight gain, No fever and Positive for fatigue and night sweats HEENT: No eye disease/injury, No vision loss, No hearing loss, No sore throat and No nasal drainage RESPIRATORY: No cough, No wheezing, No exposure to TB and Positive for shortness of breath and sleep apnea CARDIOVASCULAR: No chest pain, No palpitations, No pain in extremities and No swelling of leg/feet GASTROINTESTINAL: No abdominal pain, No constipation, No rectal bleeding, No heartburn, No nausea, No vomiting and Positive for diarrhea GENITOURINARY: No blood in urine, No pain with urination, No irregular menses MUSCULOSKELETAL: No joint pain, No back pain and Positive for muscle weakness and neck pain DERMATOLOGIC: No pruritis, No rash and No open sores/wounds NEURO/PSYCH: No insomnia, No seizure, No tremors and Positive for unsteadiness and anxiety/depression ENDOCRINE: No extreme appetite, No excessive thirst, No excessive urination and No intolerance to heat/cold HEMATOLOGIC: No tendency to bleeding and Positive for easy bruising IMMUNOLOGIC: No enviromental allergies I have reviewed the patients controlled substance dispensing history in the Prescription Drug Monitoring Program in compliance with the [facility] regulations before prescribing a controlled substance. Last Tox Screen Results: No results found for this or any previous visit. Rama Thomas MED ASSIST 03/30/2019 3:06 PM . documented in this encounter Plan of Treatment Scheduled Orders Name Type Priority Associated Diagnoses Orde r Schedule PSYCH OR NEUROPSYCH TEST WITH AUTOMATED RESULT Procedures Routine History of brain tumor 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HCC) Ordered: 03/30/2019 FLUORO SWALLOWING FUNCTION W VIDEO CINE Medical Imaging Routine History of brain tumor 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HCC) Ordered: 03/30/2019 Scheduled Referrals Name Type Priority Associated Diagnoses Orde r Schedule PHYSICAL THERAPY REFERRAL OP Referral Within 30 days (routine) History of brain tumor Gait instability 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HCC) Ordered: 03/30/2019 Health Maintenance Due Date Last Done Comments [...] as of this encounter Visit Diagnoses Diagnosis History of brain tumor- Primary Personal history of other disorders of nervous system and sense organs Gait instability Abnormality of gait 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HCC) Unspecified cerebral artery occlusion with cerebral infarction documented in this encounter Advance Directives Documents on File Type Date Recorded 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
--- OUTSIDE RECORDS SUMMARY | 2022-11-20 09:31 | External Medical Summary | Summary of Care ---
Author Name Unknown Organization [place] [address] Care Team Providers Care Director Retail Brand Development Name Role Phone Elizabeth Baltazar MD Primary Care Provider Reason for Visit * Reason Comments Referral referrals Encounter Details Date Type Department Care Team Description 03/31/2019 Telephone NeurologyAlejandra [address] [address] Ulises Cristina MD [address] [id number] Referral (referrals) Allergies No Known Allergiesdocumented as of this encounter (statuses as of 03/31/2019) Medications Medication Sig Dispensed Refills Start Date [...] as of this encounter (statuses as of 03/31/2019) Active Problems Problem Noted Date Gait instability 08/04/2017 Repeated falls 08/04/2017 Deviated nasal septum 07/11/2017 Nasal bone fracture 07/11/2017 Adjustment disorder with depressed mood 10/24/2015 HTN, goal below 140/90 04/26/2014 Heterozygous MTHFR mutation [id number] 04/25 Prothrombin gene mutation 03/29/2014 Heterozygous MTHFR [...] as of this encounter (statuses as of 03/31/2019) Resolved Problems Problem Noted Date Resolved Date Obesity, Class II, BMI 35-39.9, isolated (see ac tual BMI) 06/30/2012 12/26/2016 Overview: BMI= 38.27 06/30/12 Irritant hand dermatitis 06/30/2012 018 Elevated blood pressure, situational 06/30/2012 05/13/2017 Hypothyroidism 02/06/2004 06/30/2012 documented as of this encounter (statuses as of 03/31/2019) Immunizations Name Administration Dates Next Due Pneumococcal [...] 03/31/2019 2:40 PM EST Lizeth the nurse rehabilitation caseworker at [facility] called stating that Dr Cristina ordered the patient to have PT, Barium Swallow and Cognitive testing. Lizeth states that they also referred the patient to PT at their clinic. The patient is having financial difficulties and if she goes to [facility] she will not have to pay a copay for the PT. Lizeth is also asking where the patient was referred for the cognitive testing and the barium swallow. Please call Lizeth back at [phone]. 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
--- OUTSIDE RECORDS SUMMARY | 2022-11-20 09:31 | External Medical Summary | Summary of Care ---
Author Name Unknown Organization [place] [address] Care Team Providers Care Linker Up Name Role Phone Bran Hernandes MD Primary Care Provider Unavaila ble Reason for Referral * Precert (Routine) Status Reason Specialty Diagnoses / Procedures Referred By Contact Referred To Contact Pending Review Precert Radiology Diagnoses Ataxia, post-stroke Abnormality of gait Headache, unspecified headache type Brain tumor (HCC) Procedures MRI BRAIN W WO CONTRAST [facility] [address] [place] [address] Encounter Details Date Type Department Care Team Description 12/11/2018 Orders Only [facility] [address] [place] [address] Requisition, External Radiology [address] [place] [address] Ataxia, post-stroke*; Abnormality of gait; Headache, unspecified headache type; Brain tumor (HCC) Allergies No Known Allergiesdocumented as of this encounter (statuses as of 12/11/2018) Medications Medication Sig Dispensed Refills Start Date [...] mouth daily. 90 Tab 3 11/04/2017 Active lisinopril (PRINIVIL) 20 MG TabletIndications:H TN, goal below 140/90 Take 1 Tab [...] mouth daily. 90 Tab 3 11/04/2017 Active documented as of this encounter (statuses as of 12/11/2018) Active Problems Problem Noted Date Gait instability 08/04/2017 Repeated falls 08/04/2017 Deviated nasal septum 07/11/2017 Nasal bone fracture 07/11/2017 Adjustment disorder with depressed mood 10/24/2015 HTN, goal below 140/90 04/26/2014 Heterozygous MTHFR mutation [id number] 04/25 Prothrombin gene mutation 03/29/2014 Heterozygous MTHFR [...] as of this encounter (statuses as of 12/11/2018) Resolved Problems Problem Noted Date Resolved Date Obesity, Class II, BMI 35-39.9, isolated (see ac tual BMI) 06/30/2012 12/26/2016 Overview: BMI= 38.27 06/30/12 Irritant hand dermatitis 06/30/2012 018 Elevated blood pressure, situational 06/30/2012 05/13/2017 Hypothyroidism 02/06/2004 06/30/2012 documented as of this encounter (statuses as of 12/11/2018) Immunizations Name Administration Dates Next Due Pneumococcal [...] Encounters Date Type Specialty Care Team Description 12/15/2018 Imaging Radiology Scheduled Orders Name Type Priority Associated Diagnoses Orde r Schedule MRI BRAIN W WO CONTRAST Medical Imaging Routine Ataxia, post-stroke Abnormality of gait Headache, unspecified headache type Brain tumor (HCC) Ordered: 12/11/2018 Health Maintenance Due Date Last Done Comments [...] as of this encounter Visit Diagnoses Diagnosis Ataxia, post-stroke- Primary Ataxia, late effect of cerebrovascular disease Abnormality of gait Headache, unspecified headache type Brain tumor (HCC) Neoplasm of unspecified nature of brain documented in this encounter Advance Directives Documents on File Type Date 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
--- OUTSIDE RECORDS SUMMARY | 2022-11-20 09:31 | External Medical Summary | Summary of Care ---
Author Name Unknown Organization [place] [address] Care Team Providers Care Auricular Acupuncturist Name Role Phone Elizabeth Baltazar MD Primary Care Provider Reason for Visit * Reason Comments Wait List Offer sooner appoint ment Encounter Details Date Type Department Care Team Description 03/26/2019 Telephone Neurology, [place] [address] [address] Ulises Cristina MD [address] [address] [phone] Wait List (Offer sooner appointment) Allergies No Known Allergiesdocumented as of this encounter (statuses as of 03/26/2019) Medications Medication Sig Dispensed Refills Start Date [...] as of this encounter (statuses as of 03/26/2019) Active Problems Problem Noted Date Gait instability 08/04/2017 Repeated falls 08/04/2017 Deviated nasal septum 07/11/2017 Nasal bone fracture 07/11/2017 Adjustment disorder with depressed mood 10/24/2015 HTN, goal below 140/90 04/26/2014 Heterozygous MTHFR mutation [id number] 04/25 Prothrombin gene mutation 03/29/2014 Heterozygous MTHFR [...] as of this encounter (statuses as of 03/26/2019) Resolved Problems Problem Noted Date Resolved Date Obesity, Class II, BMI 35-39.9, isolated (see ac tual BMI) 06/30/2012 12/26/2016 Overview: BMI= 38.27 06/30/12 Irritant hand dermatitis 06/30/2012 018 Elevated blood pressure, situational 06/30/2012 05/13/2017 Hypothyroidism 02/06/2004 06/30/2012 documented as of this encounter (statuses as of 03/26/2019) Immunizations Name Administration Dates Next Due Pneumococcal [...] Telephone Encounter - Kimberly Kwon OSA - 03/26/2019 9:34 AM EST Left message for patient to offer sooner appointment with Dr. Cristina on 03/30/2019 @ 3:00pm or 04/01/2019 @ 3:00pm. 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
--- OUTSIDE RECORDS SUMMARY | 2022-11-20 09:31 | External Medical Summary | Summary of Care ---
Author Name Unknown Organization [place] [address] Care Team Providers Care Circular Sawyer Helper Name Role Phone Elizabeth Baltazar MD Primary Care Provider Reason for Visit * Reason Comments Wait List Offer sooner appoint ment Encounter Details Date Type Department Care Team Description 03/26/2019 Telephone Neurology, [place] [address] [address] Ulises Cristina MD [address] [address] [phone] Wait List (Offer sooner appointment) Allergies No Known Allergiesdocumented as of this encounter (statuses as of 03/29/2019) Medications Medication Sig Dispensed Refills Start Date [...] as of this encounter (statuses as of 03/29/2019) Active Problems Problem Noted Date Gait instability 08/04/2017 Repeated falls 08/04/2017 Deviated nasal septum 07/11/2017 Nasal bone fracture 07/11/2017 Adjustment disorder with depressed mood 10/24/2015 HTN, goal below 140/90 04/26/2014 Heterozygous MTHFR mutation 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 04/25 Prothrombin gene mutation 03/29/2014 Heterozygous MTHFR [...] as of this encounter (statuses as of 03/29/2019) Resolved Problems Problem Noted Date Resolved Date Obesity, Class II, BMI 35-39.9, isolated (see ac tual BMI) 06/30/2012 12/26/2016 Overview: BMI= 38.27 06/30/12 Irritant hand dermatitis 06/30/2012 018 Elevated blood pressure, situational 06/30/2012 05/13/2017 Hypothyroidism 02/06/2004 06/30/2012 documented as of this encounter (statuses as of 03/29/2019) Immunizations Name Administration Dates Next Due Pneumococcal [...] Telephone Encounter - Iraida Faria OSA - 03/29/2019 11:39 AM EST Caller from Dr Baltazar office called stating that they were able to get the date changed on the [employer] referral. They cannot fax us a copy. Caller states that we can contact [employer] if we need a copy. ALLYSON Mejía 03/29/2019 11:40 AM * Telephone Encounter - Jessica Mae, ALLYSON - 03/29/2019 10:32 AM EST I called and spoke to Mary from Dr. Baltazar office who then gave me the number to speak with Marva who does the referrals and she stated that she would need to contact [employer] to get the dates changed.She stated that once she gets the dates changed for me she will fax over the new insurance referral. ALLYSON Wall 03/29/2019 10:33 AM * Telephone Encounter - Jessica Mae, ALLYSON - 03/26/2019 10:55 AM EST Patient has [employer] and I did see we do have a insurance referral but that date for that insurance does not start till 05/05/[address] Baltazar office and spoke to Annemarie to get a new insurance referral. Annemarie said to check the [employer] web site for the referral and that she will also fax oneto us when completed. ALLYSON Wall 03/26/2019 10:57 AM * Telephone Encounter - Andria Vasquez OSA - 03/26/2019 10:14 AM EST Patient returned Kimberly's call and was able to one of the offered appointments on 03/30@3:[address] Cristina. ALLYSON Childers 03/26/2019 10:15 AM * Telephone Encounter - Kimberly Kwon OSA - 03/26/2019 9:34 AM EST Left message for patient to offer sooner appointment with Dr. Cristina on 03/30/2019 @ 3:00pm or 04/01/2019 @ 3:00pm. 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
--- OUTSIDE RECORDS SUMMARY | 2022-11-20 09:31 | External Medical Summary | Summary of Care ---
Author Name Unknown Organization [place] [address] Care Team Providers Care Pipe Changer Name Role Phone Elizabeth Baltazar MD Primary Care Provider Reason for Visit * Reason Comments Wait List Offer sooner appoint ment Encounter Details Date Type Department Care Team Description 03/26/2019 Telephone Neurology, [place] [address] [address] Ulises Cristian MD [address] [address] [phone] Wait List (Offer sooner appointment) Allergies No [...] goal below 140/90 04/26/2014 Heterozygous MTHFR mutation [id number] 04/25 Prothrombin gene mutation 03/29/2014 Heterozygous MTHFR [...] Miscellaneous Notes * Telephone Encounter - Jessica Mae OSA - 03/29/2019 10:32 AM EST I called and spoke to Mary from Dr. Baltazar office who then gave me the number to speak with Marva who does the referrals and she stated that she would need to contact [facility] to get the dates changed.She stated that once she gets the dates changed for me she will fax over the new insurance referral. ALLYSON Wall 03/29/2019 10:33 AM * Telephone Encounter - Jessica Mae OSA - 03/26/2019 10:55 AM EST Patient has [employer] and I did see we do have a insurance referral but that date for that insurance does not start till 05/05/[address] Baltazar office and spoke to Annemarie to get a new insurance referral. Annemarie said to check the [employer] web site for the referral and that [...] Neurology Ulises Cristina MD [address] [place] [address] [phone] Health Maintenance Due Date Last Done Comments [...] Documents on File Type Date Recorded Patient Manager Air Expl anation Advanced Directive service a rizwan default Advanced Directive Advanced Directive Advanced Directive Advanced Directive Advanced Directive Advanced Directive Advanced Directive Advanced Directive Advanced Directive Advanced Directive Advanced Directive
--- OUTSIDE RECORDS SUMMARY | 2022-11-20 09:31 | External Medical Summary | Summary of Care ---
Author Name Unknown Organization [place] [address] Care Team Providers Care Coal Drier Operator Name Role Phone Elizabeth Batlazar MD Primary Care Provider Reason for Referral * Opinion/Recommendation - 1 Visit Only (Within 30 days (routine)) Status Reason Specialty Diagnoses / Procedures Referred By Contact Referred To Contact Pending Review Specialty Services Required Physical Therapy Diagnoses History of brain tumor Gait instability 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HCC) Ulises Cristina MD [address] [place] [address] Reason for Visit * Reason Comments NEW PATIENT Gait instability, f/ u stroke * Evaluate & Treat - Unlimited Visits (Within 10 days (routine)) Status Reason Specialty Diagnoses / Procedures Referred By Contact Referred To Contact Authorized Specialty Services Required Neurology Diagnoses benign brain tumor TIA gait instability dysphagia Procedures eval and treat Elizabeth Baltazar MD [address] [place] [id number] Encounter Details Date Type Department Care Team Description 03/30/2019 Office Visit Alejandra Cochran [address] [place] [address] Ulises Cristina MD [address] [place] [address] History of brain tumor*; Gait instability; [...] PO TABS 1 tablet daily 0 Active Lisinopril-[place] chlorothiazide 20-12.5 MG per tabletIndication s:HTN, goal below 140/90 Take 1 Tab by mouth daily. 90 Tab 3 11/04/2017 Active metFORMIN (GLUCOPHAGE) 500 MG TabletIndication s:Type 2 diabetes mellitus with hemoglobin A1c goal of less than 7.0% ([facility]) TAKE Two TABLETs BY [...] goal below 140/90 04/26/2014 Heterozygous MTHFR mutation [id number] 04/25 Prothrombin gene mutation 03/29/2014 Heterozygous MTHFR [...] documented in this encounter Progress Notes * Ulises Cristina MD - 03/30/2019 3:15 PM EST [...] a stroke in 2013. She was evaluated [facility] in [facility]. At that time was determine that [...] lab note last neurology visit was in [facility] 2 years ago. 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 [...] awake alert orient x3. Language shows no reception centre manager expression repetition. Insight andjudgment appears to be [...] arise from a seated position without a [place] sign. Walking appears to be adequate but [...] Drug Monitoring Program in compliance with the [facility] regulations before prescribing a controlled substance. 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
--- OUTSIDE RECORDS SUMMARY | 2022-11-20 09:31 | External Medical Summary | Summary of Care ---
Author Name Unknown Organization [place] [address] Care Team Providers Care Liaison Planner Name Role Phone Elizabeth Baltazar MD Primary Care Provider Reason for Visit * Reason Comments Wait List Offer sooner appoint ment Encounter Details Date Type Department Care Team Description 03/26/2019 Telephone Neurology, [place] [address] [address] Ulises Cristina MD [address] [address] [phone] Wait List (Offer sooner appointment) Allergies No [...] goal below 140/90 04/26/2014 Heterozygous MTHFR mutation [id number] 04/25 Prothrombin gene mutation 03/29/2014 Heterozygous MTHFR [...] Neurology Ulises Cristina MD [address] [place], [place] [id number] Health Maintenance Due Date Last Done Comments [...] Documents on File Type Date Recorded 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
--- OUTSIDE RECORDS SUMMARY | 2022-11-20 09:31 | External Medical Summary | Summary of Care ---
Author Name Unknown Organization [place] [address] Care Team Providers Care Representative Government Relations Name Role Phone Bran Hernandes MD Primary Care Provider Unavaila ble Encounter Details Date Type Department Care Team Description 07/30/2018 Result Scan Unspecified Department <No scans attached> Allergies No Known Allergiesdocumented as of this encounter (statuses as of 08/03/2018) Medications Medication Sig Dispensed Refills Start Date [...] goal of less than 7.0% ([facility]) TAKE Two TABLETs BY MOUTH TWICE [...] as of this encounter (statuses as of 08/03/2018) Active Problems Problem Noted Date Gait instability 08/04/2017 Repeated falls 08/04/2017 Deviated nasal septum 07/11/2017 Nasal bone fracture 07/11/2017 Adjustment disorder with depressed mood 10/24/2015 HTN, goal below 140/90 04/26/2014 Heterozygous MTHFR mutation [id number] 04/25 Prothrombin gene mutation 03/29/2014 Heterozygous MTHFR [...] as of this encounter (statuses as of 08/03/2018) Resolved Problems Problem Noted Date Resolved Date Obesity, Class II, BMI 35-39.9, isolated (see ac tual BMI) 06/30/2012 12/26/2016 Overview: BMI= 38.27 06/30/12 Irritant hand dermatitis 06/30/2012 018 Elevated blood pressure, situational 06/30/2012 05/13/2017 Hypothyroidism 02/06/2004 06/30/2012 documented as of this encounter (statuses as of 08/03/2018) Immunizations Name Dates Previously Given Next Due Pneumococcal Polysaccharide PPV23 (Pneumovax) 04/09/2017 Seasonal Influenza, Quadriva lent, No Preserve, IM 01/06/2015 Seasonal Influenza, Trivalen t, with Preserve, 3yr & Above, Split 01/05/2017,12/29/2013,12/16/2012,08/2011,02/18/2011 TD - Tetanus/Diptheria (ADULT) 02/06/2004 TDAP (age [...] as of this encounter Plan of Treatment Health Maintenance Due Date Last Done Comments DIABETES-EYE EXAM 1987 BREAST CANCER SCREENING DISCUSSION YEARLY AGES 40-75 2009 *DEPRESSION SCREENING, ANNUAL FOR PTS 18 AND OVER 09/02/2017 DIABETES-HGBA1C EVERY 6 MONTHS 01/09/2018 07/10/2017, 04/11/2017, 06/10/2016, Additional history exists DIABETES-FOOT EXAM 04/09/2018 04/09/2017, 0 04/26/2014, 06/29/2013 Yearly B-12 07/10/2018 07/10/2017 *TSH FOR THYROID MEDICATION MONITORING YEARLY 07/11/2018 Influenza Vaccine (FLU shot) (Season Ended) 2018 01/05/2017, 01/06/2015, 12/29/2013, Additional history exists PAP SMEAR-EVERY 3 YRS,AGES 21-65 05/13/2020 05/13/2017, 04/20/2013, 12/18/2011 (Done elsewhere), Additional history exists DTaP,Tdap,and Td Vaccines (2 - Td) 11/27/2021 11/28/2011, 02/06/2004 PNEUMOCOCCAL 19-64 MEDIUM RISK Completed 04/09/2017 MENINGOCOCCAL (MENACTRA) Aged Out No longer eligible based on patient's age to complete this topic documented as of this encounter Implants Not on filedocumented as of this encounter Procedures Procedure Name Priority Date/Time Associated Diagnosis Comments OUTSIDE LAB RESULTS 07/30/2018 documented in this encounter Results * OUTSIDE LAB RESULTS (07/30/2018) Narrative Performed At documented in this encounter Advance Directives Patient has advance care planning documents on file. For more information, please contact: ELIUD Arteaga [phone]
--- OUTSIDE RECORDS SUMMARY | 2022-11-20 09:31 | External Medical Summary | Summary of Care ---
Author Name Unknown Organization [place] [address] Care Team Providers Care Core Baker Name Role Phone Elizabeth Baltazar MD Primary Care Provider Reason for Visit * Reason Comments Wait List Offer sooner appoint ment Encounter Details Date Type Department Care Team Description 03/26/2019 Telephone Neurology, [place] [address] [address] Ulises Cristina MD [address] [address] [phone] Wait List (Offer sooner appointment) Allergies No [...] goal below 140/90 04/26/2014 Heterozygous MTHFR mutation [id number] 04/25 Prothrombin gene mutation 03/29/2014 Heterozygous MTHFR [...] insurance referral. Annemarie said to check the [employer] web site for the referral and that [...] Neurology Ulises Cristina MD [address] [place] [address] [phone] Health Maintenance Due Date Last Done Comments [...] Documents on File Type Date Recorded Patient Drag Down Expl anation Advanced Directive service a rizwan default Advanced Directive Advanced Directive Advanced Directive Advanced Directive Advanced Directive Advanced Directive Advanced Directive Advanced Directive Advanced Directive Advanced Directive Advanced Directive
--- OUTSIDE RECORDS SUMMARY | 2022-11-20 09:31 | External Medical Summary | Summary of Care ---
Author Name Unknown Organization [place] [address] Care Team Providers Care Journeyman Pipe Welder Name Role Phone Elizabeth Baltazar MD Primary Care Provider Reason for Visit * Reason Comments Medical Records Request Encounter Details Date Type Department Care Team Description 12/22/[address] [facility] [address] [facility] [place] Son[place] [address] Brandon Bates II, MD [address] [place] [address] [phone] Medical Records Request Allergies No Known Allergiesdocumented as of this encounter (statuses as of 12/22/2018) Medications Medication Sig Dispensed Refills Start Date [...] as of this encounter (statuses as of 12/22/2018) Active Problems Problem Noted Date Gait instability 08/04/2017 Repeated falls 08/04/2017 Deviated nasal septum 07/11/2017 Nasal bone fracture 07/11/2017 Adjustment disorder with depressed mood 10/24/2015 HTN, goal below 140/90 04/26/2014 Heterozygous MTHFR mutation [id number] 04/25 Prothrombin gene mutation 03/29/2014 Heterozygous MTHFR [...] as of this encounter (statuses as of 12/22/2018) Resolved Problems Problem Noted Date Resolved Date Obesity, Class II, BMI 35-39.9, isolated (see ac tual BMI) 06/30/2012 12/26/2016 Overview: BMI= 38.27 06/30/12 Irritant hand dermatitis 06/30/2012 018 Elevated blood pressure, situational 06/30/2012 05/13/2017 Hypothyroidism 02/06/2004 06/30/2012 documented as of this encounter (statuses as of 12/22/2018) Immunizations Name Administration Dates Next Due Pneumococcal [...] encounter Miscellaneous Notes * Telephone Encounter - KnBong kerr OSA - 12/22/2018 11:12 AM EDT [employer] is requesting medical records from for insurance purposes. 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
--- OUTSIDE RECORDS SUMMARY | 2022-11-20 09:31 | External Medical Summary | Summary of Care ---
Author Name Unknown Organization [place] [address] Care Team Providers Care Auto Inspection Specialist Name Role Phone Elizabeth Baltazar MD Primary Care Provider Reason for Visit * Reason Comments Wait List Offer sooner appoint ment Encounter Details Date Type Department Care Team Description 03/26/2019 Telephone Neurology, [place] [address] [address] Ulises Cristina MD [address] [address] [phone] Wait List (Offer sooner appointment) Allergies No [...] goal below 140/90 04/26/2014 Heterozygous MTHFR mutation [id number] 04/25 Prothrombin gene mutation 03/29/2014 Heterozygous MTHFR [...] Encounter - Jessica Mae OSA - 03/29/2019 11:58 AM EST I did receive the new referral via fax and have put in the new information and scanned into the patients chart. ALLYSON Wall 03/29/2019 11:59 AM * Telephone Encounter - Iraida Faria OSA - 03/29/2019 11:39 AM EST Caller from Dr Baltazar office called stating that they were able to get the date changed on the [employer] referral. They cannot fax us a copy. Caller states that we can contact [facility] if we need a copy. ALLYSON Mejía 03/29/2019 11:40 AM * Telephone Encounter - Jessica Mae OSA - 03/29/2019 10:32 AM EST I called and spoke to Mary from Dr. Baltazar office who then gave me the number to speak with Marva who does the referrals and she stated that she would need to contact [facility] to get the dates changed.She stated that [...] insurance referral. 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
--- OUTSIDE RECORDS SUMMARY | 2022-11-20 09:32 | External Medical Summary | Summary of Care ---
Author Name Unknown Organization [facility] Address [facility] [place] [address] Phone Care Team Providers Care Marine Service Manager Name Role Phone Bran Hernandes MD Primary Care Provider Reason for Visit * Reason Comments FOLLOW UP Encounter Details Date Type Department Care Team Description 08/25/2017 Office Visit Orthopaedics [facility] [address] [place] [address] Oswaldo Bradford, [address] [facility] [place] [address] [phone] Closed nondisplaced fracture of head of radius, unspecified laterality, initial encounter*;Elbow fracture Allergies No Known Allergiesas of this encounter Medications Prescription Sig. Disp. Refills Start Date End Date Status ISELA CONTOUR NEXT TEST STRP twice daily 60 Strip 11 03/02/2014 Active EASY TOUCH LANCING DEVICE MISC As directed 03/23/2014 Active EASY TOUCH LANCETS 30G/TWIST MISC As directed 03/23/2014 Active ASPIRIN EC LO-DOSE 81 MG PO TBECIndications:Brai nstem stroke (HCC) 1 TABLET DAILY 1 Tab 0 03/29/2014 Active MULTIPLE VITAMIN PO TABS 1 tablet daily Active lisinopril (PRINIVIL) 10 MG TabletIndications:HT N, goal below 140/90 take 1 tablet by mouth once daily 60 Tab 5 04/24/2017 Active escitalopram (LEXAPRO) 10 MG TabletIndications:Ad justment disorder with depressed mood Take 1 Tab by mouth daily. 90 Tab 1 05/05/2017 Active levothyroxine (LEVOXYL) 100 MCG TabletIndications:Hy pothyroidism take 1 tablet by mouth once daily AT LEAST 30 MINUTES PRIOR TO BREAKFAST OR OTHER MEDICATIONS 90 Tab 1 06/10/2017 Active valACYclovir (VALTREX) 500 MG TabletIndications:He rpes simplex virus infection take 1 tablet by mouth once daily 30 Tab 3 06/11/2017 Active Meloxicam 15 MG TabletIndications:Hi p pain, right take 1 tablet by mouth once daily if needed for pain 30 Tab 3 06/11/2017 Active metFORMIN (GLUCOPHAGE) 500 MG TabletIndications:Ty pe 2 diabetes mellitus with hemoglobin A1c goal of less than 7.0% ([facility]) TAKE Two TABLETs BY MOUTH TWICE DAILY WITH MORNING AND EVENING MEALS 360 Tab 1 06/24/2017 Active lisinopril (PRINIVIL) 20 MG TabletIndications:HT N, goal below 140/90 Take 1 Tab by mouth daily. 90 Tab 3 08/22/2017 Active as of this encounter Active Problems Problem Noted Date Gait instability 08/04/2017 Repeated falls 08/04/2017 Deviated nasal septum 07/11/2017 Nasal bone fracture 07/11/2017 Adjustment disorder with depressed mood 10/24/2015 HTN, goal below 140/90 04/26/2014 Heterozygous MTHFR mutation [id number] ([facility]) 04/25/2014 Prothrombin gene mutation ([facility]) 03/29/19 15 Heterozygous MTHFR mutation C677T ([facility]) 03/29/2014 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[facility]) 03/29/2014 CVA, old, dysarthria 03/22/2014 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 Type 2 diabetes mellitus with hemoglobin A1c goal of less than 7.0% ([facility]) 05/27/2013 Overview: ICD-10 update of inactive term History of brain tumor 05/19/2013 Overview: Surgery: (1979) resection (1980) re-resection 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 Hypothyroidism 06/30/2012 Obesity, morbid (more than 100 lbs over ideal weight or BMI > 40) ([facility]) 09/05/2009 Overview: Per Obesity Protocol, #19 ICD-10 update of inactive term ADVANCE DIRECTIVE INFORMATION 01/07/2005 Overview: No, Advance Directive brochure given to patient. as of this encounter Resolved Problems Problem Noted Date Resolved Date Obesity, Class II, BMI 35-39.9, isolated (see ac fernandez BMI) 06/30/2012 12/26/2016 Overview: BMI= 38.27 06/30/12 Irritant hand dermatitis 06/30/2012 018 Elevated blood pressure, situational 06/30/2012 05/13/2017 Hypothyroidism 02/06/2004 06/30/2012 as of this encounter Immunizations Name Dates Previously Given Next Due Pneumococcal Polyvalent Vacc (Pneumovax) 04/09/2017 Seasonal Influenza, Quadriva lent, No Preserve, IM 01/06/2015 Seasonal Influenza, Trivalen t, with Preserve, 3yr & Above, Split 01/05/2017,12/29/2013,12/16/2012,08/2011,02/18/2011 TD - Tetanus/Diptheria (ADULT) 02/06/2004 TDAP (age 10 and older)(Boostrix) 11/28/2011 as of this encounter Social History Tobacco Use Types Packs/Day Years Used Date Never Smoker Smokeless Tobacco: Never Used Alcohol Use Drinks/Week oz/Week Comments Yes very very rare Sex Assigned at Date Recorded Not on file as of this encounter Functional Status Functional [...] (5 years old or older Yes 04/11/2014 as of this encounter Progress Notes * Oswaldo Bradford DO - 08/25/2017 3:54 PM EDT See dictation. in this encounter Nursing Notes * Shreya Jackson LPN - 08/25/2017 1:41 PM EDT Pt presents today for a three week return bilateral radius. in this encounter Plan of Treatment Upcoming Encounters Date Type Specialty Care Team Description 03/03/2018 Office Visit Family Medicine Bran Hernandes MD [address] [facility] [address] Pending Results Name Priority Associated Diagnoses Date/Ti me XR ELBOW 3 OR MORE VIEWS Routine Elbow fracture 08/25/2017 1:56 PM EDT Health Maintenance Due Date Last Done Comments DIABETES-EYE EXAM 1987 BREAST CANCER SCREENING DISC USSION YEARLY AGES 40-75 2009 *BASELINE EKG FOR HTN 04/28/2014 DIABETES-HGBA1C EVERY 6 MONTHS 01/09/2018 0 07/10/2017, 04/11/2017, 06/10/2016, Additional history exists DIABETES-FOOT EXAM 04/09/2018 04/09/2017, 0 04/26/2014, 06/29/2013 DIABETES-LDL EVERY 12 MONTHS 04/11/2018, 09/18/2015, 08/30/2014, Additional history exists DIABETES-URINE MICROALBUMIN EVERY 12 MONTHS 04/11/2018 04/11/2017, 09/18/2015, 01/06/2015, Additional history exists Yearly B-12 07/10/2018 07/10/2017 PAP SMEAR-EVERY 3 YRS,AGES 21-65 05/13/2020 05/13/2017, 04/20/2013, 12/18/2011 (Done elsewhere), Additional history exists DTaP,Tdap,and Td Vaccines (2 - Td) 11/27/20212011, 02/06/2004 Influenza Vaccine (FLU shot) Completed , 01/06/2015, 12/29/2013, Additional history exists PNEUMOCOCCAL 19-64 MEDIUM RISK Completed 04/09/2017 as of this encounter Implants Not on fileas of this encounter Visit Diagnoses Diagnosis Closed nondisplaced fracture of head of radius, unspecified laterality, initial encounter - Primary Elbow fracture Closed fracture of unspecified part of lower end of humerus in this encounter
--- OUTSIDE RECORDS SUMMARY | 2022-11-20 09:32 | External Medical Summary | Summary of Care ---
Author Name Unknown Organization [place] [address] Phone Care Team Providers Care Agricultural Economics Professor Name Role Phone Bran Hernandes MD Primary Care Provider [phone] Reason for Visit * Reason Comments APPOINTMENT Encounter Details Date Type Department Care Team Description 09/26/2017 Telephone [facility] [address] [place] [address] Bran Hernandes MD [address] [place] [address] [phone] APPOINTMENT Allergies No Known Allergiesas of this encounter [...] VITAMIN PO TABS 1 tablet daily Active escitalopram (LEXAPRO) 10 MG TabletIndications:Ad justment [...] mouth daily. 90 Tab 3 08/22/2017 Active Lisinopril-Hydrochlo rothiazide 20-12.5 MG per tabletIndications:HT N, goal below 140/90 Take 1 Tab by mouth daily. 90 Tab 3 09/19/2017 Active as of this encounter Active Problems Problem Noted Date Gait instability 08/04/2017 Repeated falls 08/04/2017 Deviated nasal septum 07/11/2017 Nasal bone fracture 07/11/2017 Adjustment disorder with depressed mood 10/24/2015 HTN, goal below 140/90 04/26/2014 Heterozygous MTHFR mutation [id number] ([facility]) 04/25/2014 Prothrombin gene mutation ([facility]) 03/29/19 15 Heterozygous MTHFR mutation C677T ([facility]) 03/29/2014 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[facility]) 03/29/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, old, dysarthria 03/22/2014 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 Type 2 diabetes mellitus with hemoglobin A1c goal of less than 7.0% ([facility]) 05/27/2013 Overview: ICD-10 update of inactive term History of brain tumor 05/19/2013 Overview: Surgery: (1979) resection (1980) re-resection 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 Hypothyroidism 06/30/2012 Obesity, morbid (more than 100 lbs over ideal weight or BMI > 40) ([facility]) 09/05/2009 Overview: Per Obesity Protocol, [...] older Yes 04/11/2014 as of this encounter Miscellaneous Notes * Telephone Encounter - Rachel Mackay OSA - 10/01/2017 2:37 PM EDT Unable to reach pt Letter sent * Telephone Encounter - Rachel Mackay OSA - 09/29/2017 3:31 PM EDT LMOM 09/29 [facility] * Telephone Encounter - Rachel Mackay, ALLYSON - 09/26/2017 11:57 AM EDT Pt needs to schedule with Orthopedics Pain in extremity, unspecified extremity [M79.609] - Primary Pt saw Karsten Hannon. LMOM 09/26/2017 in this encounter Plan of Treatment Upcoming Encounters Date Type Specialty Care Team Description 03/03/2018 Office Visit Family Medicine Bran Hernandes MD [address] [place] [address] [phone] Health Maintenance Due Date Last Done Comments DIABETES-EYE EXAM 1987 BREAST CANCER SCREENING DISC USSION YEARLY AGES 40-75 2009 *BASELINE EKG FOR HTN 04/28/2014 *DEPRESSION SCREENING, FRANK Aguila FOR PTS 18 AND OVER 09/02/2017 Influenza Vaccine (FLU shot) (#1) 2017 01/05/2017, 01/06/2015, 12/29/2013, Additional history exists DIABETES-HGBA1C EVERY 6 MONTHS 01/09/2018 0 07/10/2017, [...] Td Vaccines (2 - Td) 11/27/20212011, 02/06/2004 PNEUMOCOCCAL 19-64 MEDIUM RISK Completed 04/09/2017 as of this encounter Implants Not on fileas of this encounter
--- OUTSIDE RECORDS SUMMARY | 2022-11-20 09:32 | External Medical Summary | Summary of Care ---
Author Name Unknown Organization [place] [address] Phone Care Team Providers Care Collision Repairer Name Role Phone Bran Hernandes MD Primary Care Provider [phone] Reason for Visit * Reason Comments APPOINTMENT Encounter Details Date Type Department Care Team Description 09/26/2017 Telephone [facility] [address] [place] [address] Bran Hernandes MD [address] [place] [address] [phone] APPOINTMENT Allergies No Known Allergiesas of this [...] goal below 140/90 04/26/2014 Heterozygous MTHFR mutation [id number] ([facility]) 04/25/2014 Prothrombin gene mutation ([facility]) 03/29/19 15 Heterozygous MTHFR mutation C677T ([facility]) 03/29/2014 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/29/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, old, dysarthria 03/22/2014 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 Type 2 diabetes mellitus with hemoglobin A1c goal of less than 7.0% ([facility]) 05/27/2013 Overview: ICD-10 update of inactive term History of brain tumor 05/19/2013 Overview: Surgery: (1979) resection (1980) re-resection 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 Hypothyroidism 06/30/2012 Obesity, morbid (more than 100 lbs over ideal weight or BMI > 40) ([facility]) 09/05/2009 Overview: Per Obesity Protocol, [...] Miscellaneous Notes * Telephone Encounter - Rachel Mackay, ALLYSON - 09/26/2017 11:57 AM EDT Pt needs to schedule with Orthopedics Pain in extremity, unspecified extremity [M79.609] - Primary Pt saw Karsten Hannon. LMOM 09/26/2017 in this encounter Plan of Treatment Upcoming Encounters Date Type Specialty Care Team Description 03/03/2018 Office Visit Family Medicine Bran Hernandes MD [address] [place] [address] [phone] Health Maintenance Due Date Last Done Comments [...]
--- OUTSIDE RECORDS SUMMARY | 2022-11-20 09:32 | External Medical Summary | Summary of Care ---
Author Name Unknown Organization [place] [address] Care Team Providers Care Funnel Setter Name Role Phone Bran Hernandes MD Primary Care Provider Unavaila ble Encounter Details Date Type Department Care Team Description 07/31/2018 Orders Only [id number] [place] [address] Bran Hernandes MD [address] [place], [place] [id number] Allergies No Known Allergiesdocumented as of this encounter (statuses as of 07/31/2018) Medications Medication Sig Dispensed Refills Start Date [...] as of this encounter (statuses as of 07/31/2018) Active Problems Problem Noted Date Gait instability 08/04/2017 Repeated falls 08/04/2017 Deviated nasal septum 07/11/2017 Nasal bone fracture 07/11/2017 Adjustment disorder with depressed mood 10/24/2015 HTN, goal below 140/90 04/26/2014 Heterozygous MTHFR mutation [id number] 04/25 Prothrombin gene mutation 03/29/2014 Heterozygous MTHFR [...] as of this encounter (statuses as of 07/31/2018) Resolved Problems Problem Noted Date Resolved Date Obesity, Class II, BMI 35-39.9, isolated (see ac tual BMI) 06/30/2012 12/26/2016 Overview: BMI= 38.27 06/30/12 Irritant hand dermatitis 06/30/2012 018 Elevated blood pressure, situational 06/30/2012 05/13/2017 Hypothyroidism 02/06/2004 06/30/2012 documented as of this encounter (statuses as of 07/31/2018) Immunizations Name Dates Previously Given Next Due [...] 0 04/26/2014, 06/29/2013 Yearly B-12 07/10/2018 07/10/2017 *BASIC METABOLIC PANEL (BMP) FOR HTN YEARLY 07/11/2018 *TSH FOR THYROID MEDICATION MONITORING YEARLY 07/11/2018 [...] Procedure Name Priority Date/Time Associated Diagnosis Comments CHEMISTRY-OUTSIDE Routine 07/30/2018 documented in this encounter Results * CHEMISTRY-OUTSIDE (07/30/2018) CREATININE-OUTSIDE LAB 0.90 0.6 - 1.2 MG/DL OU TSIDE LAB (SEE SCANNED REPORT) GFR ESTIMATED-OUTSIDE LAB 75.1 ML/MIN OU TSIDE LAB (SEE SCANNED REPORT) POTASSIUM-OUTSIDE LAB MMOL/L OUTSID E LAB (SEE SCANNED REPORT) GLUCOSE-OUTSIDE LAB 117(A) 70 - 99 MG/DL OUTSIDE LAB (SEE SCANNED REPORT) HOURS FASTING OUTSIDE LAB (S EE SCANNED REPORT) TRIGLYCERIDES-OUTSIDE LAB OU TSIDE LAB (SEE SCANNED REPORT) CHOLESTEROL-OUTSIDE LAB OUTS LORRAINE LAB (SEE SCANNED REPORT) HDL-OUTSIDE LAB OUTSIDE LAB (SEE SCANNED REPORT) CHOL/HDL RATIO-OUTSIDE LAB O UTSIDE LAB (SEE SCANNED REPORT) LDL (CALCULATED)-OUTSIDE LAB OUTSIDE LAB (SEE SCANNED REPORT) LDL (DIRECT MEASURE)-OUTSIDE LAB OUTSIDE LAB (SEE SCANNED REPORT) HEMOGLOBIN, [id number] LAB OUTSIDE LAB (SEE SCANNED REPORT) PHOSPHORUS-OUTSIDE LAB OUTSI DE LAB (SEE SCANNED REPORT) PTH-OUTSIDE LAB OUTSIDE LAB (SEE SCANNED REPORT) MICROALBUMIN RATIO-OUTSIDE LAB OUTSIDE LAB (SEE SCANNED REPORT) PROTEIN, UA-OUTSIDE LAB OUTS LORRAINE LAB (SEE SCANNED REPORT) HEMOGLOBIN-OUTSIDE LAB OUTSI DE LAB (SEE SCANNED REPORT) CHEMISTRY COMMENT-OUTSIDE LAB Comment:ER LABS- HEPATIC PANEL, BMP, BLOOD TYPE OUTSIDE LAB (SEE SCANNED REPORT) Narrative Performed At Performing Organization Address City/State/Zipcod e Phone Number OUTSIDE LAB (SEE SCANNED REPORT) documented in this encounter Advance Directives Patient has advance care planning documents on file. For more information, please contact: [place] [phone]
--- OUTSIDE RECORDS SUMMARY | 2022-11-20 09:32 | External Medical Summary | Summary of Care ---
Author Name Unknown Organization [place] [address] Phone Care Team Providers Care Air Antisubmarine Officer Name Role Phone Bran Hernandes MD Primary Care Provider [phone] Reason for Visit * Reason Comments APPOINTMENT Encounter Details Date Type Department Care Team Description 09/26/2017 Telephone [facility] [address] [place] [address] Bran Hernandes MD [address] [place] [address] [phone] APPOINTMENT Allergies No Known Allergiesas of this [...] A1c goal of less than 7.0% ([facility]) TAKE Two TABLETs BY MOUTH TWICE [...] goal below 140/90 04/26/2014 Heterozygous MTHFR mutation [id number] ([facility]) 04/25/2014 Prothrombin gene mutation ([facility]) 03/29/19 15 Heterozygous MTHFR mutation C677T ([facility]) 03/29/2014 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[facility]) 03/29/2014 CVA, old, dysarthria 03/22/2014 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 Type 2 diabetes mellitus with hemoglobin A1c goal of less than 7.0% ([facility]) 05/27/2013 Overview: ICD-10 update of inactive term History of brain tumor 05/19/2013 Overview: Surgery: (1979) resection (1980) re-resection 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 Hypothyroidism 06/30/2012 Obesity, morbid (more than 100 lbs over ideal weight or BMI > 40) ([facility]) 09/05/2009 Overview: Per Obesity Protocol, #19 ICD-10 [...] Bran Hernandes MD [address] [place] [address] [phone] Health Maintenance Due Date Last Done Comments [...]
--- OUTSIDE RECORDS SUMMARY | 2022-11-20 09:32 | External Medical Summary | Summary of Care ---
Author Name Unknown Organization [place] [address] Care Team Providers Care Seat Nailer Name Role Phone Bran Hernandes MD Primary Care Provider Unavaila ble Encounter Details Date Type Department Care Team Description 07/31/2018 Orders Only [address] [place] [address] Bran Hernandes MD [address], [place] [id number] Allergies No Known Allergiesdocumented as of this [...] goal below 140/90 04/26/2014 Heterozygous MTHFR mutation [id number] 04/25 Prothrombin gene mutation 03/29/2014 Heterozygous MTHFR [...] encounter Results * CHEMISTRY-OUTSIDE (07/30/2018) CREATININE-OUTSIDE LAB OUTSI DE LAB (SEE SCANNED REPORT) GFR ESTIMATED-OUTSIDE LAB OU TSIDE LAB (SEE SCANNED REPORT) POTASSIUM-OUTSIDE LAB OUTSID E LAB (SEE SCANNED REPORT) GLUCOSE-OUTSIDE LAB OUTSIDE LAB (SEE SCANNED REPORT) HOURS FASTING OUTSIDE LAB (S EE SCANNED REPORT) TRIGLYCERIDES-OUTSIDE LAB OU TSIDE LAB (SEE SCANNED REPORT) CHOLESTEROL-OUTSIDE LAB OUTS LORRAINE LAB (SEE SCANNED REPORT) HDL-OUTSIDE LAB OUTSIDE LAB (SEE SCANNED REPORT) CHOL/HDL RATIO-OUTSIDE LAB O UTSIDE LAB (SEE SCANNED REPORT) LDL (CALCULATED)-OUTSIDE LAB OUTSIDE LAB (SEE SCANNED REPORT) LDL (DIRECT MEASURE)-OUTSIDE LAB OUTSIDE LAB (SEE SCANNED REPORT) HEMOGLOBIN, [id number] LAB OUTSIDE LAB (SEE SCANNED REPORT) PHOSPHORUS-OUTSIDE LAB OUTSI DE LAB (SEE SCANNED REPORT) PTH-OUTSIDE LAB OUTSIDE LAB (SEE SCANNED REPORT) MICROALBUMIN RATIO-OUTSIDE LAB OUTSIDE LAB (SEE SCANNED REPORT) PROTEIN, UA-OUTSIDE LAB OUTS LORRAINE LAB (SEE SCANNED REPORT) HEMOGLOBIN-OUTSIDE LAB 14.0 12.0 - 16.0 G/DL O UTSIDE LAB (SEE SCANNED REPORT) CHEMISTRY COMMENT-OUTSIDE LAB Comment:SEE SCAN, ER LABS, CBC/DIFF, PLT OUTSIDE LAB (SEE SCANNED REPORT) Narrative Performed At Performing Organization Address City/State/Zipcod e Phone Number OUTSIDE LAB (SEE SCANNED REPORT) documented in this encounter Advance Directives Patient has advance care planning documents on file. For more information, please contact: [place] [phone]
--- OUTSIDE RECORDS SUMMARY | 2022-11-20 09:32 | External Medical Summary | Summary of Care ---
Author Name Unknown Organization [place] [address] Phone Care Team Providers Care Hand Stripper Name Role Phone Bran Hernandes MD Primary Care Provider [phone] Reason for Visit * Reason Comments PAIN Encounter Details Date Type Department Care Team Description 09/19/2017 Office Visit [facility] [address] [place] [address] Bran Hernandes MD [address] [place] [address] [phone] HTN, goal below 140/90*;Achilles tendinitis, left leg;Type 2 diabetes mellitus with hemoglobin A1c goal of less than 7.0% ([facility]);History of brain tumor Allergies No Known Allergiesas of this encounter [...] tablet daily Active escitalopram (LEXAPRO) 10 MG TabletIndications: Adjustment disorder with depressed mood Take 1 Tab by mouth daily. 90 Tab 1 05/05/2017 Active levothyroxine (LEVOXYL) 100 MCG TabletIndications: Hypothyroidism take 1 tablet by mouth once daily AT LEAST 30 MINUTES PRIOR TO BREAKFAST OR OTHER MEDICATIONS 90 Tab 1 06/10/2017 Active valACYclovir (VALTREX) 500 MG TabletIndications: Herpes simplex virus infection take 1 tablet by mouth once daily 30 Tab 3 06/11/2017 Active Meloxicam 15 MG TabletIndications: Hip pain, right take 1 tablet by mouth once daily if needed for pain 30 Tab 3 06/11/2017 Active metFORMIN (GLUCOPHAGE) 500 MG TabletIndications: Type 2 diabetes mellitus with hemoglobin A1c goal of less than 7.0% ([facility]) TAKE Two TABLETs BY MOUTH TWICE DAILY WITH MORNING AND EVENING MEALS 360 Tab 1 06/24/2017 Active lisinopril (PRINIVIL) 20 MG TabletIndications: HTN, goal below 140/90 Take 1 Tab by mouth daily. 90 Tab 3 08/22/2017 Active Lisinopril-Hydroch lorothiazide 20-12.5 MG per tabletIndications: HTN, goal below 140/90 Take 1 Tab by mouth daily. 90 Tab 3 09/19/2017 Active lisinopril (PRINIVIL) 10 MG TabletIndications: HTN, goal below 140/90 take 1 tablet by mouth once daily 60 Tab 5 04/24/2017 8 Discontinued as of this encounter Active Problems Problem Noted Date Gait instability 08/04/2017 Repeated falls 08/04/2017 Deviated nasal septum 07/11/2017 Nasal bone fracture 07/11/2017 Adjustment disorder with depressed mood 10/24/2015 HTN, goal below 140/90 04/26/2014 Heterozygous MTHFR mutation [id number] ([facility]) 04/25/2014 Prothrombin gene mutation ([facility]) 03/29/19 15 Heterozygous MTHFR mutation C677T ([facility]) 03/29/2014 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, old, dysarthria 03/22/2014 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 Type 2 diabetes mellitus with hemoglobin A1c goal of less than 7.0% ([facility]) 05/27/2013 Overview: ICD-10 update of inactive term History of brain tumor 05/19/2013 Overview: Surgery: (1979) resection (1980) re-resection 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 Hypothyroidism 06/30/2012 Obesity, morbid (more than 100 lbs over ideal weight or BMI > 40) ([facility]) 09/05/2009 Overview: Per Obesity Protocol, [...] Not on file as of this encounter Last Filed Vital Signs Vital Sign Reading Time Taken Blood Pressure 138/76 09/19/2017 2:22 PM EDT Pulse 86 09/19/2017 2:22 PM EDT Temperature 37.2 C (98.9 F) 09/19/2017 2 :22 PM EDT Respiratory Rate 20 09/19/2017 2:22 PM EDT Oxygen Saturation - - Inhaled Oxygen Concentration - - Weight 104.8 kg (231 lb) 09/19/2017 2:2 2 PM EDT Height - - Body Mass Index 39.65 09/19/2017 2:22 PM EDT in this encounter Functional Status Functional Status [...] as of this encounter Progress Notes * Bran Hernandes MD - 09/19/2017 3:06 PM EDT Formatting of this note may be different from the original. Subjective: Kacey Jay is a 47 year old female. Chief Complaint Patient presents with PAIN HPI: 47-year-old is here today in large part as she has developed left heel pain but also, I was concerned the last time I saw her that her blood pressure was not optimally controlled. We increased her lisinopril from 10-20 mg a day which she has had no problems with. She now notes pain primarily over the posterior aspect of the left heel but to some degree the medial aspect and the plantar aspect of the heel. She does not recall any trauma. She is wearing a nonsupportive shoes that is almost aslipper. She is on chronic meloxicam. She is having some increased difficulty with left shoulder her. This may stem back to the fall thatlalito had a day where he in mid June. She has finished with orthopedic surgery. As I reviewed the records, as noted that she has a history of the M TH F are mutation as well as prothrombin gene mutation heterozygous. She is on folic acid as well as a baby aspirin. She did see hematology (Dr. Lindquist) in regards to these abnormalities. He did not feel that she was a significant risk and did not recommend anticoagulation therapy beyond the baby aspirin. Patient Active Problem List Diagnosis Code ADVANCE DIRECTIVE INFORMATION Obesity, morbid (more than 100 lbs over ideal weight or BMI > 40) ([facility]) E66.01 Hypothyroidism E03.9 History of brain tumor Z87.898 Type 2 diabetes mellitus with hemoglobin A1c goal of less than 7.0% ([facility]) E11.9 HSV-1 infection B00.9 CVA, old, dysarthria I69.322 Prothrombin gene mutation (HCC) D68.52 Heterozygous MTHFR mutation C677T (HCC) E72.12 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HCC) I63.9 Heterozygous MTHFR mutation I0023V (HCC) E72.12 HTN, goal below 140/90 I10 Adjustment disorder with depressed mood F43.21 Deviated nasal septum J34.2 Nasal bone fracture S02.2XXA Gait instability R26.81 Repeated falls R29.6 Current Outpatient Prescriptions Medication Sig Dispense Refill lisinopril (PRINIVIL) 20 MG Tablet Take 1 Tab by mouth daily. 90 Tab 3 metFORMIN (GLUCOPHAGE) 500 MG Tablet TAKE Two TABLETs BY MOUTH TWICE DAILY WITH MORNING AND EVENING MEALS 360 Tab 1 Meloxicam 15 MG Tablet take 1 tablet by mouth once daily if needed for pain 30 Tab 3 valACYclovir (VALTREX) 500 MG Tablet take 1 tablet by mouth once daily 30 Tab 3 levothyroxine (LEVOXYL) 100 MCG Tablet take 1 tablet by mouth once daily AT LEAST 30 MINUTES PRIOR TO BREAKFAST OR OTHER MEDICATIONS 90 Tab 1 escitalopram (LEXAPRO) 10 MG Tablet Take 1 Tab by mouth daily. 90 Tab 1 MULTIPLE VITAMIN PO TABS 1 tablet daily ASPIRIN EC LO-DOSE 81 MG PO TBEC 1 TABLET DAILY 1 Tab 0 EASY TOUCH LANCETS 30G/TWIST MISC As directed EASY TOUCH LANCING DEVICE MISC As directed ISELA CONTOUR NEXT TEST STRP twice daily 60 Strip 11 Review of patient's allergies indicates: No Known Allergies Objective: BP 138/76 | Pulse 86 | Temp (Src) 98.9 (Tympanic) | Resp 20 | Wt 231 lbs (104.781kg) | BMI 39.65 kg/m | BSA 2.18 m Physical Exam: CONST: alert, pleasant, no acute distress HEAD: normocephalic, atraumatic CV: regular rate and rhythm, no murmur CHEST: clear to auscultation bilaterally, no rales or wheezing ABD: soft, non tender, non distended, no masses or hepatosplenomegaly EXT left heel-no deformity. There is definite tenderness over the posterior aspect of the insertionsite of the Achilles. I do not appreciate any swelling or redness. There also is a less definitive tenderness over the plantar aspect of the heel and the medial aspect of the heel. She does not have any tenderness more proximally in the Achilles tendon or calf. MENTAL STATUS: no evidence of thoughtdisorder, no delusional thought, no evidence of paranoia, thought is non-tangential. SKIN: no rash or significant lesions ASSESSMENT/PLAN: I10 Htn, goal below 140/90 (primary encounter diagnosis)-suboptimal control new line stop the lisinopril. Start lisinopril 20/hydrochlorothiazide 12.51 a day. She will have a basic metabolic panel in1-2 weeks time. She can have this done at [facility] and can toe area M76.62 Achilles tendinitis, left leg-we talked about her seen Orthopedics or Podiatry. She would like to hold off. I suggested showed her some Achilles stretching exercises which she really should bedoing at least 3 times a day. Also ice to the affected areas for 10 minutes after any prolonged standing or walking Highly recommended high support shoes such as a running shoe E11.9 Type 2 diabetes mellitus with hemoglobin a1c goal of less than 7.0% (formerly [facility])- adequate control. No change in therapy Z87.898 History of brain tumor-little to offer at this time. See again 6 months Bran Hernandes MD in this encounter Nursing Notes * Ying ChildressLENA - 09/19/2017 2:23 PM EDT Left foot ankle pain in this encounter Plan of Treatment Upcoming Encounters Date Type Specialty Care Team Description 03/03/2018 Office Visit Family Medicine Bran Hernandes MD [address] [place] [address] Scheduled Tests Name Priority Associated Diagnoses Order S chedule BASIC METAB PANEL, BMP Routine HTN, goal below 140/90 Expected: 09/19/2017 (Approximate), Expires: 09/19/2018 Health Maintenance Due Date Last Done Comments DIABETES-EYE EXAM 1987 BREAST CANCER SCREENING DISC USSION YEARLY AGES 40-75 2009 *BASELINE EKG FOR HTN 04/28/2014 *DEPRESSION SCREENINGFRANK FOR PTS 18 AND OVER 09/02/2017 DIABETES-HGBA1C EVERY 6 MONTHS 01/09/2018 0 07/10/2017, [...] fileas of this encounter Visit Diagnoses Diagnosis HTN, goal below 140/90 - Amber bansal Unspecified essential hypertension Achilles tendinitis, left le g Type 2 diabetes mellitus wit h hemoglobin A1c goal of less than 7.0% (HCC) History of brain tumor Personal history of other disorders of nervous system and sense organs in this encounter"
--- OUTSIDE RECORDS SUMMARY | 2022-11-20 09:32 | External Medical Summary | Summary of Care ---
Author Name Unknown Organization [place] [address] Care Team Providers Care Environmental Health Officer Name Role Phone Bran Hernandes MD Primary Care Provider Unavaila ble Encounter Details Date Type Department Care Team Description 07/29/2018 Orders Only Outcomes Research Department [address] [place] [address] Familia Rand CHRA [facility] Research Other*[id number] Allergies No Known Allergiesdocumented as of this encounter (statuses as of 07/29/2018) Medications Medication Sig Dispensed Refills Start Date [...] A1c goal of less than 7.0% ([facility]) TAKE Two TABLETs BY MOUTH TWICE DAILY [...] as of this encounter (statuses as of 07/29/2018) Active Problems Problem Noted Date Gait instability 08/04/2017 Repeated falls 08/04/2017 Deviated nasal septum 07/11/2017 Nasal bone fracture 07/11/2017 Adjustment disorder with depressed mood 10/24/2015 HTN, goal below 140/90 04/26/2014 Heterozygous MTHFR mutation [id number] 04/25 Prothrombin gene mutation 03/29/2014 Heterozygous MTHFR [...] as of this encounter (statuses as of 07/29/2018) Resolved Problems Problem Noted Date Resolved Date Obesity, Class II, BMI 35-39.9, isolated (see ac tual BMI) 06/30/2012 12/26/2016 Overview: BMI= 38.27 06/30/12 Irritant hand dermatitis 06/30/2012 018 Elevated blood pressure, situational 06/30/2012 05/13/2017 Hypothyroidism 02/06/2004 06/30/2012 documented as of this encounter (statuses as of 07/29/2018) Immunizations Name Dates Previously Given Next Due [...] of this encounter Plan of Treatment Scheduled Tests Name Priority Associated Diagnoses Order S chedule MYCODE SUBSEQUENT ADULT Routine [facility] Research Other*[id number] Every 6 Months for 2 Occurrences starting 07/29/2018 until 08/18/2019 Health Maintenance Due Date Last Done Comments [...] this encounter Visit Diagnoses Diagnosis My[facility] Research Other*[id number] documented in this encounter Advance Directives Patient has advance care planning documents on file. For more information, please contact: [place] [phone]
--- OUTSIDE RECORDS SUMMARY | 2022-11-20 09:32 | External Medical Summary | Summary of Care ---
Author Name Unknown Organization [place] [address] Phone Care Team Providers Care Manager Global Communications Name Role Phone Bran Hernandes MD Primary Care Provider [phone] Reason for Visit * Reason Comments RECHECK Encounter Details Date Type Department Care Team Description 08/22/2017 Office Visit [facility] [address] [place] [address] Bran Hernandes MD [address] [place] [address] [phone] History of brain tumor*;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HCC);HTN, goal below 140/90;Type 2 diabetes mellitus with hemoglobin A1c goal of less than 7.0% (HCC) Allergies No Known Allergiesas of this encounter [...] goal below 140/90 04/26/2014 Heterozygous MTHFR mutation [id number] ([facility]) 04/25/2014 Prothrombin gene mutation ([facility]) 03/29/19 15 Heterozygous MTHFR mutation C677T ([facility]) 03/29/2014 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[facility]) 03/29/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, old, dysarthria 03/22/2014 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 Type 2 diabetes mellitus with hemoglobin A1c goal of less than 7.0% ([facility]) 05/27/2013 Overview: ICD-10 update of inactive term History of brain tumor 05/19/2013 Overview: Surgery: (1979) resection (1980) re-resection 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 Hypothyroidism 06/30/2012 Obesity, morbid (more than 100 lbs over ideal weight or BMI > 40) ([facility]) 09/05/2009 Overview: Per Obesity Protocol, #19 [...] Vital Sign Reading Time Taken Blood Pressure 146/92 08/22/2017 3:36 PM EDT Pulse 82 08/22/2017 3:36 PM EDT Temperature 37.1 C (98.8 F) 08/22/2017 3 :36 PM EDT Respiratory Rate 16 08/22/2017 3:36 PM EDT Oxygen Saturation - - Inhaled Oxygen Concentration - - Weight 103.4 kg (228 lb) 08/22/2017 3:3 6 PM EDT Height - - Body Mass Index 39.14 08/22/2017 3:36 PM EDT in this encounter Functional Status [...] Progress Notes * Bran Hernandes MD - 08/22/2017 4:20 PM EDT Formatting of this note may be different from the original. Subjective: Kacey Jay is a 47 year old female. Chief Complaint Patient presents with RECHECK HPI: 47-year-old is seen today as a scheduled appointment. 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 She was referred to Neurology because she noticed increased difficulties with balance and she had had some falls including severe fall in June which led to her fracturing both elbows and broken nose. Additionally she has had increaseddifficulty with speech-sluring. Neurology compared her more recent MRI with an older when and reviewed that with radiology and there was not felt to be a significant difference. No evidence of recurrent tumor. They recommended return visit in 2 years. She had seen Ortho in relationship to her elbow fractures in a recommended a course of physical therapy both for the elbows but I wanted her to do physical therapy because of the balance difficulties. Unfortunately her insurance is not paying for physical therapy so that was not doable. She has a oivnea-fd-hla who is a physical therapist surveillance camera technician who was able to give her some exercises and activities but it has not been a formal course. She has concerns the that her balance still remains poor. She does not have confidence in her balance is afraid that she is going to fall. 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 She also points out that there has not been proven the speech i.e. some continued slurring of the speech especially when she is tired. Patient Active Problem List Diagnosis Code ADVANCE DIRECTIVE INFORMATION Obesity, morbid (more than 100 lbs over ideal weight or BMI > 40) ([facility]) E66.01 Hypothyroidism E03.9 History of brain tumor Z87.898 Type 2 diabetes mellitus with hemoglobin A1c goal of less than 7.0% ([facility]) E11.9 HSV-1 infection B00.9 CVA, old, dysarthria I69.322 Prothrombin gene mutation (HCC) D68.52 Heterozygous MTHFR mutation C677T (HCC) E72.12 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HCC) I63.9 Heterozygous MTHFR mutation [id number] (HCC) E72.12 HTN, goal below 140/90 I10 Adjustment disorder with depressed mood F43.21 Deviated nasal septum J34.2 Nasal bone fracture S02.2XXA Gait instability R26.81 Repeated falls R29.6 Current Outpatient Prescriptions Medication Sig Dispense Refill ASPIRIN EC LO-DOSE 81 MG PO TBEC 1 TABLET DAILY 1 Tab 0 ISELA CONTOUR NEXT TEST STRP twice daily 60 Strip 11 EASY TOUCH LANCETS 30G/TWIST MISC As directed EASY TOUCH LANCING DEVICE MISC As directed escitalopram (LEXAPRO) 10 MG Tablet Take 1 Tab by mouth daily. 90 Tab 1 levothyroxine (LEVOXYL) 100 MCG Tablet take 1 tablet by mouth once daily AT LEAST 30 MINUTES PRIOR TO BREAKFAST OR OTHER MEDICATIONS 90 Tab 1 lisinopril (PRINIVIL) 10 MG Tablet take 1 tablet by mouth once daily 60 Tab 5 Meloxicam 15 MG Tablet take 1 tablet by mouth once daily if needed for pain 30 Tab 3 metFORMIN (GLUCOPHAGE) 500 MG Tablet TAKE Two TABLETs BY MOUTH TWICE DAILY WITH MORNING AND EVENING MEALS 360 Tab 1 MULTIPLE VITAMIN PO TABS 1 tablet daily valACYclovir (VALTREX) 500 MG Tablet take 1 tablet by mouth once daily 30 Tab 3 Review of patient's allergies indicates: No Known Allergies Objective: BP 146/92 | Pulse 82 | Temp (Src) 98.8 (Tympanic) | Resp 16 | Wt 228 lbs (103.420kg) | BMI 39.14 kg/m | BSA 2.16 m Physical Exam: CONST: alert, pleasant, no acute distress HEAD: normocephalic, atraumatic NECK: supple, soft, no adenopathy CV: regular rate and rhythm, no murmur CHEST: clear to auscultation bilaterally, no rales or wheezing ABD: soft, non tender, non distended, no masses or hepatosplenomegaly EXT trace bilateral ankle edema, no joint swelling or deformities, NEURO: AAOx3, no gross focal deficits, cerebellar signs normal, affect appropriate. I watch the patient the stands out of the exam exam chair and out of the exam room and then back in and sit back down. Her gait is slightly wide based and choppy (it is not smooth gait) MENTAL STATUS: no evidence of thought disorder, no delusional thought, no evidence of paranoia, thought is non-tangential. SKIN: no rash or significant lesions ASSESSMENT/PLAN: Hypertension-suboptimal control. Increase lisinopril from 10-20 mg a day Status post brainstem CVA-her speech articulation difficulties is almost certainly a consequence ofthis. Altered gait with balance problems. Probably combination of status post brain tumor excision as well as brainstem CVA. She might improve some with a aggressive therapy regimen but right now that is not financially feasible with her current insurance. I told her that she certainly could consider applying for disability consideration. Diabetes mellitus-last hemoglobin A1c is 6.6. Continue metformin. I will see back again a 6 months Bran Hernandes MD in this encounter Nursing Notes * Ying ChildressLENA - 08/22/2017 3:37 PM EDT Recheck in this encounter Plan of Treatment Upcoming Encounters Date Type Specialty Care Team Description 08/25/2017 Office Visit Orthopedics Oswaldo Bradford, DO [address] [facility] [place] [address] [phone] 10/08/2017 [facility] [address] [id number] Health Maintenance Due Date Last Done Comments DIABETES-EYE EXAM 1987 BREAST CANCER SCREENING DISC USSION YEARLY AGES 40-75 2009 *BASELINE EKG FOR HTN 04/28/2014 *DEPRESSION SCREENING, ANNUA L FOR PTS 18 AND OVER 06/03/2014 DIABETES-HGBA1C EVERY 6 MONTHS 01/09/2018 0 07/10/2017, [...] fileas of this encounter Visit Diagnoses Diagnosis History of brain tumor - Amber bansal Personal history of other disorders of nervous system and sense organs 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HCC) Unspecified cerebral artery occlusion with cerebral infarction HTN, goal below 140/90 Unspecified essential hypertension Type 2 diabetes mellitus wit h hemoglobin A1c goal of less than 7.0% (HCC) in this encounter"
--- OUTSIDE RECORDS SUMMARY | 2022-11-20 09:32 | External Medical Summary | Summary of Care ---
Author Name Unknown Organization [place] [address] Phone Care Team Providers Care In Processing Instructor Name Role Phone Bran Hernandes MD Primary Care Provider [phone] Reason for Visit * Reason Comments Encounter Created in Error Encounter Details Date Type Department Care Team Description 11/07/2017 Telephone [facility] [address] [place] [address] Bran Hernandes MD [address] [place] [address] [phone] Encounter Created in Error Allergies No Known Allergiesas of this encounter [...] VITAMIN PO TABS 1 tablet daily Active Lisinopril-Hydrochlo rothiazide 20-12.5 MG per tabletIndications:HT N, goal below 140/90 Take 1 Tab by mouth daily. 90 Tab 3 11/04/2017 Active lisinopril (PRINIVIL) 20 MG TabletIndications:HT N, goal below 140/90 Take 1 Tab by mouth daily. 90 Tab 3 11/04/2017 Active metFORMIN (GLUCOPHAGE) 500 MG TabletIndications:Ty pe 2 diabetes mellitus with hemoglobin A1c goal of less than 7.0% ([facility]) TAKE Two TABLETs BY MOUTH TWICE DAILY WITH MORNING AND EVENING MEALS 360 Tab 3 11/04/2017 Active Meloxicam 15 MG TabletIndications:Hi p pain, right take 1 tablet by mouth once daily if needed for pain 90 Tab 3 11/04/2017 Active valACYclovir (VALTREX) 500 MG TabletIndications:He rpes simplex virus infection Take 1 Tab by mouth daily. 90 Tab 3 11/04/2017 Active levothyroxine (LEVOXYL) 100 MCG TabletIndications:Hy pothyroidism take 1 tablet by mouth once daily AT LEAST 30 MINUTES PRIOR TO BREAKFAST OR OTHER MEDICATIONS 90 Tab 3 11/04/2017 Active escitalopram (LEXAPRO) 10 MG TabletIndications:Ad justment disorder with depressed mood Take 1 Tab by mouth daily. 90 Tab 3 11/04/2017 Active as of this encounter Active Problems Problem Noted Date Gait instability 08/04/2017 Repeated falls 08/04/2017 Deviated nasal septum 07/11/2017 Nasal bone fracture 07/11/2017 Adjustment disorder with depressed mood 10/24/2015 HTN, goal below 140/90 04/26/2014 Heterozygous MTHFR mutation [id number] ([facility]) 04/25/2014 Prothrombin gene mutation ([facility]) 03/29/19 15 Heterozygous MTHFR mutation C677T ([facility]) 03/29/2014 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[facility]) 03/29/2014 CVA, old, dysarthria 03/22/2014 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 Type 2 diabetes mellitus with hemoglobin A1c goal of less than 7.0% ([facility]) 05/27/2013 Overview: ICD-10 update of inactive term History of brain tumor 05/19/2013 Overview: Surgery: (1979) resection (1980) re-resection 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 Hypothyroidism 06/30/2012 Obesity, morbid (more than 100 lbs over ideal weight or BMI > 40) ([facility]) 09/05/2009 Overview: Per Obesity Protocol, #19 [...] older Yes 04/11/2014 as of this encounter Plan of Treatment Upcoming Encounters Date Type Specialty Care Team Description 03/03/2018 Office Visit Family Medicine Bran Hernandes MD [address] [place] [address] Health Maintenance Due Date Last Done Comments [...] MONTHS 04/11/2018, 09/18/2015, 08/30/2014, Additional history exists Yearly B-12 07/10/2018 07/10/2017 PAP SMEAR-EVERY 3 YRS,AGES 21-65 05/13/2020 05/13/2017, 04/20/2013, 12/18/2011 (Done elsewhere), Additional history exists DTaP,Tdap,and Td Vaccines (2 - Td) 11/27/20212011, 02/06/2004 PNEUMOCOCCAL 19-64 MEDIUM RISK Completed 04/09/2017 as of this encounter Implants Not on fileas of this encounter
--- OUTSIDE RECORDS SUMMARY | 2022-11-20 09:32 | External Medical Summary | Summary of Care ---
Author Name Unknown Organization [place] [address] Phone Care Team Providers Care Rolloff Driver Name Role Phone Elsa Hernandes MD Primary Care Provider [phone] Reason for Referral * Evaluate & Treat - Unlimited Visits (Within 10 days (routine)) Status Reason Specialty Diagnoses / Procedures Referred By Contact Referred To Contact Pending Review Specialty Services Required Physical Therapy Diagnoses 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HCC) History of brain tumor Gait instability Repeated falls Rosy Ley PA-C [address] [place] [address] Reason for Visit * Reason Comments Return Neuro hx ganglioglioma res ection and radiation * Evaluate & Treat - Unlimited Visits (Within 10 days (routine)) Status Reason Specialty Diagnoses / Procedures Referred By Contact Referred To Contact Pending Review Specialty Services Required Neurology Diagnoses History of brain tumor Balance disorder Elsa Hernandes MD [address] [place] [id number] Encounter Details Date Type Department Care Team Description 08/04/2017 Office Visit Neurology, [facility] [address] [place] [address] Rosy Ley PA-C [address] [place], [place] [id number] History of brain tumor*;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HCC);Gait instability;Repeated falls Allergies No Known Allergiesas of this encounter [...] EVENING MEALS 360 Tab 1 06/24/2017 Active as of this encounter Active Problems Problem Noted Date Gait instability 08/04/2017 Repeated falls 08/04/2017 Deviated nasal septum 07/11/2017 Nasal bone fracture 07/11/2017 Adjustment disorder with depressed mood 10/24/2015 HTN, goal below 140/90 04/26/2014 Heterozygous MTHFR mutation [id number] ([facility]) 04/25/2014 Prothrombin gene mutation ([facility]) 03/29/19 15 Heterozygous MTHFR mutation C677T ([facility]) 03/29/2014 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[facility]) 03/29/2014 CVA, old, dysarthria 03/22/2014 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 Type 2 diabetes mellitus with hemoglobin A1c goal of less than 7.0% ([facility]) 05/27/2013 Overview: ICD-10 update of inactive term History of brain tumor 05/19/2013 Overview: Surgery: (1979) resection (1980) re-resection 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 Hypothyroidism 06/30/2012 Obesity, morbid (more than 100 lbs over ideal weight or BMI > 40) (HCC) 09/05/2009 Overview: Per Obesity Protocol, #19 ICD-10 [...] Vital Sign Reading Time Taken Blood Pressure 152/90 08/04/2017 9:07 AM EDT Pulse 84 08/04/2017 9:07 AM EDT Temperature 37.5 C (99.5 F) 08/04/2017 9 :07 AM EDT Respiratory Rate 18 08/04/2017 9:07 AM EDT Oxygen Saturation - - Inhaled Oxygen Concentration - - Weight 106.7 kg (235 lb 4.8 oz) 018 9:07 AM EDT Height 162.6 cm (5' 4") 08/04/2017 9:07 AM EDT Body Mass Index 40.39 08/04/2017 9:07 AM EDT in this encounter Functional Status Functional [...] older Yes 04/11/2014 as of this encounter Instructions * Patient Instructions - Rosy Ley PA-C - 08/04/2017 9:58 AM EDT 1. History ganglioglioma -MRI from 08/01/17 was reviewed today with our radiologist, and noted as stable 2. History of infarct -stable -some mild dysarthria at times 3. Gait instability and repeated falls -referral placed for PT for gait evaluation -we discussed the possibility of using a gait assistance such as a cane or a walker Follow up in 2 years in this encounter Progress Notes * Rosy Ley PA-C - 08/04/2017 9:08 AM EDT Formatting of this note may be different from the original. NEURO-ONCOLOGY Progress Note [facility] Name: Kacey Jay PCP: ELSA HERNANDES Bill Mancini [place], [place] [id number] History provided by: Patient and Family (mother) Chief Complaint: Chief Complaint Patient presents with Return Neuro hx ganglioglioma resection and radiation HPI: 47 year old female with a history of ganglioglioma s/p resection in 1979 and cerebral peduncleinfarct in 2013 who is referred to Neuro-Oncology for further surveillance. The patient is alert and fully cooperative with the clinical interview and physical exam. See cancer treatment history below. INTERIM HISTORY: The patient was last seen by Dr. Castillo in 2014 when we addressed issues related to stable MRI and history of infarct. Since that time she notes that about 1 month ago she fell whilewalking down her parents driveway which is very steep. She fell face down and broke both her arms and broke her nose. She notes that she has had imbalance problems since after the surgery back in 1979, but she notes that it seems to have progressively worsening in the past 6 months. 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 She notes that she does pretty well with her walking/balance inside, but she notes that her falls occur when she is outside on uneven ground. Presently, Kacey Jay denies any changes in bladder or bowel habits. No syncope, no seizures or seizure-like activity, no complaints of focal weakness or sensory changes. She does feel like her legs are weak at times. No changes in vision, hearing, speech, or language. She notes that her speech getsa little slurred at times when she talks a lot or when she's tired. No excessive fatigue. There have been no issues with memory or confusion. No headaches. No issues with fever, chest pain, shortnessof breath. No weight changes >10lbs in past 3 months. Appetite is good. No concerns for psychosis, no new depression or suicidal ideation. CANCER TREATMENT HISTORY: Surgery: (1979) resection (1980) re-resection 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 PAST MEDICAL HISTORY: 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 DM type 2, goal A1c below 7 05/27/2013 Elevated blood pressure, situational 06/30/2012 Hypothyroidism Prothrombin gene mutation (HCC) 03/29/2014 Type 2 diabetes mellitus with hemoglobin A1c goal of less than 7.0% (HCC) 05/27/2013 ICD-10 update of inactive term PAST SURGICAL, FAMILY, and SOCIAL HISTORY: These have all been reviewed and found not to have changed in the interim Current Outpatient Medications: Current Outpatient Prescriptions Medication Sig Dispense Refill [...] by mouth once daily 30 Tab 3 ALLERGIES: Review of patient's allergies indicates no known allergies. ROS: 14 systems reviewed determined otherwise negative unless noted in HPI. PHYSICAL EXAMINATION: Most Recent Vital Signs: BMI: 40.39 kg/m Filed Vitals: 08/04/17 0907 BP: 152/90 Pulse: 84 Resp: 18 Temp: 37.5 C (99.5 F) TempSrc: Tympanic Weight: 106.7 kg (235 lb 4.8 oz) Height: 1.626 m (5' 4") BSA: 2.2 m General Exam: Constitutional: Appearance normally developed, well nourished, obese, no deformities and well groomed Head and face: normocephalic and atraumatic Eyes: normal lids, normal sclera, normal conjunctiva. Neck: supple, symmetrical Respiratory: normal effort, no audible wheezing Cardiovascular: normal rate and rhythm Abdomen: soft and nontender Skin: no rashes, lesions, or ulcers noted Extremities: no edema noted Psychiatric: normal judgement and insight, euthymic mood and congruent affect NEUROLOGIC EXAMINATION: Karnofsky Performance Score (KPS) 80-90 Cognitive Assessment and Mental Status Score = 0 (0 = normal, 1 = minor impairment, 2 = gross confusion) Orientation: Awake, Alert, and Oriented x 3 Mental status: Normal mentation Memory: Registration normal Attention: Normal General Appearance: No Acute Distress, No agitation Fund of Knowledge: Appropriate for age Language: No aphasia Speech: No dysarthria Cranial Nerves: 2 No Visual Defect on Confrontation; Pupils round, equal, reactive to light 3,4,6 Extraocular Movements Intact; no nystagmus 5 Facial Sensation Intact 7 No facial asymmetry 8 Intact hearing 9,10 Palate symmetric 11 Good shoulder shrug 12 Tongue Midline Gait: Normal rise from seated unassisted. Truncal ataxia, cautious gait. Tandem gait deferred. Coordination: Mild ataxia with finger to nose testing Movement: No abnormal movements noted Sensory: Intact, Symmetric to Pinprick, Light Touch Muscle Tone: Normal Muscle Bulk: Normal Strength exam (NT indicates Not Tested) Arm Right Left Leg Right Left Deltoid 5/5 5/5 Iliopsoas 5/5 5/5 Biceps 5/5 5/5 Quads 5/5 5/5 Triceps 5/5 5/5 Hamstrings 5/5 5/5 Ankle Dorsi Flexion 5/5 5/5 Ankle Plantar Flexion 5/5 5/5 Reflexes Brachioradialis Jerk Biceps Jerk Triceps Jerk Knee Jerk Ankle Jerk Right 3+ 3+ 3+ 3+ 3+ Left 3+ 3+ 3+ 3+ 3+ LABORATORY: Labs reviewed and pertinent findings are indicated below: BASIC METAB PANEL, BMP Bruno Dt/Tm Resulted Value Status BUN (mg/dL) 06/10/16 10:02A 06/10/16 10 F CREATININE (mg/dL) 06/10/16 10:02A 06/10/16 0.8 F SODIUM (mmol/L) 06/10/16 10:02A 06/10/16 141 F POTASSIUM (mmol/L) 06/10/16 10:02A 06/10/16 5.0 F CHLORIDE (mmol/L) 06/10/16 10:02A 06/10/16 99 F CO2 (mmol/L) 06/10/16 10:02A 06/10/16 28 F ANION GAP (mmol/L) 06/10/16 10:02A 06/10/16 14 F GLUCOSE (mg/dL) 06/10/16 10:02A 06/10/16 151* F CALCIUM (mg/dL) 06/10/16 10:02A 06/10/16 9.7 F E GLOM FILT RATE ( ) 06/10/16 10:02A 06/10/16 >60.0 F HEMOGLOBIN A1C [facility] Dt/ Resulted Value Status HEMOGLOBIN, A1C (%) 07/10/17 11:13A 07/10/17 6.6* F EST AVG GLUCOSE (MG/DL) 07/10/17 11:13A 07/10/17 143* F LIPID PANEL WITH DIRECT LDL IF TG ABOVE 400 MG/DL [facility] Dt/ Resulted Value Status HOURS FASTING (hours) 04/11/17 8:52A 04/11/17 14 F TRIGLYCERIDES (mg/dL) 04/11/17 8:52A 04/11/17 217* F CHOLESTEROL (mg/dL) 04/11/17 8:52A 04/11/17 222* F HDL (mg/dL) 04/11/17 8:52A 04/11/17 43 F CHOL/HDL RATIO ( ) 04/11/17 8:52A 04/11/17 5.2 F LDL (CALCULATED) (mg/dL) 04/11/17 8:52A 04/11/17 136* F LDL DIRECT(REFLEX) (mg/dL) 04/11/17 8:52A 04/11/17 F Value: NOT APPLICABLE TSH Bruno Dt/ Resulted Value Status TSH - OUTSIDE LAB (uIu/ml) 07/05/17 07/08/17 2.870 FINAL I personally reviewed the following images and diagnostic studies. (Impression copied from medical chart.) Diagnostic/Radiology Tests: MRI Brain with and without Gadolinium - 08/01/17 Reviewed today with radiologist -- stable no signs of any recurrence, no acute findings I am in agreement with the neuroradiologists interpretation for above noted studies. See the full dictated study document in the electronic medical record for further details. IMPRESSION: This is a 47 year old female with a history of ganglioglioma s/p resection in 1979 and cerebral peduncle infarct in 2013 who is referred to Neuro-Oncology for further surveillance. On examination there was noted truncal ataxia with gait evaluation. There was also mild ataxia with fingerto nose testing. Strength was 5/5 bilaterally throughout and reflexes were 3+ bilaterally throughout. Otherwise, there were no acute focal neurological deficits or abnormal findings. Imaging as reviewed above. RECOMMENDATIONS: 1. History ganglioglioma -MRI from 08/01/17 was reviewed today with our radiologist, and noted as stable 2. History of infarct -stable, no new infarcts -some mild dysarthria at times -- mostly noted when she's fatigued 3. Gait instability and repeated falls -referral placed for PT for gait evaluation -we discussed the possibility of using a gait assistance such as a cane or a walker RTC: She will follow up with me in 2 years. Also, if you have any symptoms of concern, you are encouraged to get in sooner to see me. My Neuro-Oncology partner and I reserve SAME DAY or appointments within 72 hours for you with the goal to minimize delays in your care or limit need to be seen in the ER. All questions were answered to the patient's/family's satisfaction. I am happy to have been involved in the care of Kacey Jay. Rosy Ley PA-C 08/04/2017 9:08 AM Attending Physician Addendum/Attestation In addition to the above nothing further I have discussed the patient Kacey Jay management with Rosy Ley PA-C and agree with the note. Please refer to the documented findings and plan of care. This patient's visit today consisted ofa service. I was readily available for immediate [id number] consultation and assistance. I have reviewed the medical history, physical examination, diagnosis, and plan. Reny Lewis MD, PhD I am happy to have been involved in the care of Kacey Jay. Reny Lewis MD, PhD, Attending Neurologist/Neuro-Oncologist, Department of Neurology. Date of my addendum: 08/06/2017 4:[address] [address] in this encounter Nursing Notes * Mary Ann Gardner, MED ASSIST - 08/04/2017 9:06 AM EDT I have reviewed the patient's medical record. Patient verified identity by spelling of last name and date. Patient is here for a return appointment. in this encounter Plan of Treatment Upcoming Encounters Date Type Specialty Care Team Description 08/22/2017 Office Visit Family Practice Elsa Hernandes MD [address] [place] [id number] 08/25/2017 Office Visit Orthopedics Oswaldo Bradford, DO [address] [facility] [place] [address] [phone] 10/08/2017 Office Visit Family Practice Elsa Hernandes MD [address] [place] [address] [phone] Scheduled Referrals Name Priority Associated Diagnoses Order S chedule PHYSICAL THERAPY REFERRAL OP Within 10 days (routine) 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HCC) History of brain tumor Gait instability Repeated falls Ordered: 08/04/2017 Health Maintenance Due Date Last Done Comments DIABETES-EYE EXAM 1987 BREAST CANCER SCREENING DISC USSION YEARLY AGES 40-75 2009 *BASELINE EKG FOR HTN 04/28/2014 *DEPRESSION SCREENING, JARETTUA Mingo FOR PTS 18 AND OVER 06/03/2014 DIABETES-HGBA1C [...] Unspecified cerebral artery occlusion with cerebral infarction Gait instability Abnormality of gait Repeated falls Other symptoms involving nervous and musculoskeletal systems in this encounter
--- OUTSIDE RECORDS SUMMARY | 2022-11-20 09:32 | External Medical Summary | Summary of Care ---
Author Name Unknown Organization [facility] [place] [address] Phone Care Team Providers Care Fourth Mate Name Role Phone Bran Hernandes MD Primary Care Provider [phone] Reason for Visit * Reason Comments Return To Work need clarification Encounter Details Date Type Department Care Team Description 08/05/2017 Telephone Orthopaedics [facility] [address] [place] [address] Oswaldo Bradford DO [address] [facility] [place] [address] [phone] Return To Work (need clarification) Allergies No Known Allergiesas of this encounter [...] goal of less than 7.0% ([facility]) TAKE Two TABLETs BY MOUTH TWICE DAILY WITH MORNING AND EVENING MEALS 360 Tab 1 06/24/2017 Active as of this encounter Active Problems Problem Noted Date Gait instability 08/04/2017 Repeated falls 08/04/2017 Deviated nasal septum 07/11/2017 Nasal bone fracture 07/11/2017 Adjustment disorder with depressed mood 10/24/2015 HTN, goal below 140/90 04/26/2014 Heterozygous MTHFR mutation [id number] ([facility]) 04/25/2014 Prothrombin gene mutation ([facility]) 03/29/19 15 Heterozygous MTHFR mutation C677T ([facility]) 03/29/2014 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[facility]) 03/29/2014 CVA, old, dysarthria 03/22/2014 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 Type 2 diabetes mellitus with hemoglobin A1c goal of less than 7.0% ([facility]) 05/27/2013 Overview: ICD-10 update of inactive term History of brain tumor 05/19/2013 Overview: Surgery: (1979) resection (1980) re-resection 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 Hypothyroidism 06/30/2012 Obesity, morbid (more than 100 lbs over ideal weight or BMI > 40) ([facility]) 09/05/2009 Overview: Per Obesity Protocol, #19 ICD-10 [...] encounter Miscellaneous Notes * Telephone Encounter - Adela Khalil OSA - 08/05/2017 11:42 AM EDT Patient left msg requesting clarification regarding weight restrictions for lifting, pushing, pulling, etc to be updated on return to work release. To be sent to [facility] at [facility]? in this encounter Plan of Treatment Upcoming Encounters Date Type Specialty Care Team Description 08/22/2017 Office Visit Family Medicine Bran Hernandes MD [address] [place] [address] [phone] 08/25/2017 Office Visit Orthopedics Oswaldo Bradford, [address] [place] [address] [phone] 10/08/2017 Office Visit Family Medicine Bran Hernandes MD [address] [place] [address] [phone] Health Maintenance Due Date Last Done Comments DIABETES-EYE EXAM 1987 BREAST CANCER SCREENING DISC USSION YEARLY AGES 40-75 2009 *BASELINE EKG FOR HTN 04/28/2014 *DEPRESSION SCREENING, FRANK Aguila FOR PTS 18 AND OVER 06/03/2014 DIABETES-HGBA1C [...]
--- OUTSIDE RECORDS SUMMARY | 2022-11-20 09:32 | External Medical Summary | Summary of Care ---
Author Name Unknown Organization [place] [address] Phone Care Team Providers Care Finance Controller Name Role Phone Bran Hernandes MD Primary Care Provider Reason for Visit * Reason Comments APPOINTMENT Encounter Details Date Type Department Care Team Description 09/26/2017 Telephone [facility] [address] [place] [address] Bran Hernandes MD [address] [place] [address] [phone] APPOINTMENT Allergies No Known Allergiesas of this [...] goal below 140/90 04/26/2014 Heterozygous MTHFR mutation [id number] ([facility]) 04/25/2014 Prothrombin gene mutation ([facility]) 03/29/19 15 Heterozygous MTHFR mutation C677T ([facility]) 03/29/2014 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[facility]) 03/29/2014 CVA, old, dysarthria 03/22/2014 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 Type 2 diabetes mellitus with hemoglobin A1c goal of less than 7.0% ([facility]) 05/27/2013 Overview: ICD-10 update of inactive term History of brain tumor 05/19/2013 Overview: Surgery: (1979) resection (1980) re-resection 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 Hypothyroidism 06/30/2012 Obesity, morbid (more than 100 lbs over ideal weight or BMI > 40) ([facility]) 09/05/2009 Overview: Per Obesity Protocol, [...] 09/29 [facility] * Telephone Encounter - Rachel Mackay OSA - 09/26/2017 11:57 AM EDT Pt needs to schedule with Orthopedics Pain in extremity, unspecified extremity [M79.609] - Primary Pt saw Karsten Hannon. LMOM 09/26/2017 in this encounter Plan of Treatment Upcoming Encounters Date Type Specialty Care Team Description 03/03/2018 Office Visit Family Medicine Bran Hernandes MD [address] [place] [address] [phone] Health Maintenance Due Date Last Done Comments DIABETES-EYE EXAM 1987 BREAST CANCER SCREENING DISC USSION YEARLY AGES 40-75 2009 *BASELINE EKG FOR HTN 04/28/2014 *DEPRESSION SCREENING, ANNUA L FOR PTS 18 AND OVER 09/02/2017 Influenza [...]
--- OUTSIDE RECORDS SUMMARY | 2022-11-20 09:33 | External Medical Summary | Summary of Care ---
Author Name Unknown Organization [place] [address] Phone Care Team Providers Care Defensive Line Coach Name Role Phone Bran Hernandes MD Primary Care Provider [phone] Reason for Visit * Reason Comments NEW PATIENT nasal fracture Encounter Details Date Type Department Care Team Description 07/11/2017 Office Visit Otolaryngology [facility] [address] [place] [address] Brandon Bates II, MD 132 [facility] [place] [address] [phone] Deviated nasal septum*;Closed fracture of nasal bone, initial encounter Allergies No Known Allergiesas of this encounter [...] this encounter Active Problems Problem Noted Date Deviated nasal septum 07/11/2017 Nasal bone fracture 07/11/2017 Adjustment disorder with depressed mood 10/24/2015 HTN, goal below 140/90 04/26/2014 Heterozygous MTHFR mutation [id number] ([facility]) 04/25/2014 Prothrombin [...] inactive term History of brain tumor 05/19/2013 Hypothyroidism 06/30/2012 Obesity, morbid (more than 100 [...] Vital Sign Reading Time Taken Blood Pressure - - Pulse - - Temperature 37.1 C (98.8 F) 07/11/2017 1 2:52 PM EDT Respiratory Rate - - Oxygen Saturation - - Inhaled Oxygen Concentration - - Weight 105.6 kg (232 lb 12.8 oz) 2017 12:52 PM EDT Height 163.8 cm (5' 4.49") 07/11/2017 1 2:52 PM EDT Body Mass Index 39.36 07/11/2017 12:52 PM EDT in this encounter Functional Status [...] as of this encounter Progress Notes * Brandon Bates II, MD - 07/11/2017 1:57 PM EDT Formatting of this note may be different from the original. NEW PATIENT nasal fracture Kacey Jay is a 47 year old female who presents today with a nasal fracture accompanied by her mother. She states that it happened on Friday07/05/2017 due to a fall in her driveway. She is having some minor pain and tenderness. She did have nosebleeds after the accident but she is not bleeding at this time. No other c/o. She had CT Head and CT Facial Bones done during her time at the [facility] ED on 07/05/17. CT Facial Bones confirmed a nasal septal fracture and right nasal bone fracture. +++++++ PATIENT DOES NOT APPRECIATE ANY CHANGE IN THE APPEARANCE OF HER NOSE, AND HER MOM ALSO HAD THE SAME OPINION. 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 Surgery and radiation DM type 2, goal A1c below 7 05/27/2013 Elevated blood pressure, situational 06/30/2012 Hypothyroidism Prothrombin gene mutation ([facility]) 03/29/2014 Type 2 diabetes mellitus with hemoglobin A1c goal of less than 7.0% ([facility]) 05/27/2013 ICD-10 update of inactive term Past Surgical History: Procedure Laterality Date ENDOMETRIAL CRYOABLATION US GUIDED nl bx MISCELLANEOUS ORDER 1979, 1980 removal of benign brain tumor MISCELLANEOUS ORDER 1987 removal of dermoid cyst left ovary PAP SCREEN 11/28 nl CMSA Medications Current Outpatient Prescriptions Medication Sig Dispense Refill [...] by mouth once daily 30 Tab 3 Allergies Review of patient's allergies indicates: No Known Allergies Family History Family History Problem Relation Age of Onset Cancer Maternal Grandmother colon Cancer Maternal Grandfather unknown type Diabetes Aunt several great aunts Diabetes Aunt maternal aunt Stroke Paternal Grandfather aortic aneurysm [OTHER] Paternal Grandmother Social History Social History Substance Use Topics Smoking status: Never Smoker Smokeless tobacco: Never Used Alcohol use Yes Comment: very very rare Occupational History 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 THIS WAS REVIEWED BY ME WITH THE PATIENT AND WILL BE SCANNED INTO THE PATIENT'S CHART. Areas covered were pulmonary","hepatic","renal"," digestive","hematologic","epileptic","syncopal","musculo-skeletal","mental health","integumentary","hypertensive","lipid","arthritic","diabetic", "thyroid", and "neurologic" disorders. Physical Examination: Temp (Src) 98.8 (Tympanic) | Ht 5' 4.488" (1.638m) | Wt 232 lbs 12.8 oz (105.597kg) | BMI 39.36 kg/m | BSA 2.19 m Exam of her face showed that she had infraorbital ecchymosis bilaterally. There was no subconjunctival hemorrhage. Exam of the external nose showed that the bony and cartilaginous dorsum were midline. Intranasal exam shows severely deviated septum to the right side with about 90 percent obstruction of her nasal airway. Her nasal mucosa was within normal limits. Given all of the above, the assessment and plan from today's visit is as follows. (J34.2) Deviated nasal septum (primary encounter diagnosis) Plan: She will consider returning if she is bothered by this. She was instructed in nasal saline irrigations. (S02.2XXA) Closed fracture of nasal bone, initial encounter Plan: Non-displaced. No need for reduction. in this encounter Nursing Notes * Rubio Viera, CAPTAIN ASSISTANT - 07/11/2017 12:52 PM EDT Formatting of this note may be different from the original. Chief Complaint Patient presents with NEW PATIENT nasal fracture Kacey Jay is a 47 year old female who presents today with a nasal fracture. She states that it happened on Friday07/05/2017 due to a fall in her driveway. She is having some minor pain and tenderness. She did have nosebleeds after the accident but she is not bleeding at this time. No other c/o. in this encounter Plan of Treatment Upcoming Encounters Date Type Specialty Care Team Description 07/31/2017 Office Visit [facility]aldo Bradford[facility] [address] [phone] 08/22/2017 Office Visit Family Practice Bran Hernandes MD [address] [place] [address] [phone] 10/08/2017 Office Visit Family Practice Bran Hernandes MD [address] [place] [address] [phone] Health Maintenance Due Date Last Done Comments [...] fileas of this encounter Visit Diagnoses Diagnosis Deviated nasal septum - Prim krystle Closed fracture of nasal bon e, initial encounter in this encounter Insurance Payer Benefit Plan / Group Subscriber ID Type Phone Address [employer] [id number] [place] [address] as of this encounter
--- OUTSIDE RECORDS SUMMARY | 2022-11-20 09:33 | External Medical Summary | Summary of Care ---
Author Name Unknown Organization [facility] [place] [address] Phone Care Team Providers Care Composition Stone Applicator Name Role Phone Bran Hernandes MD Primary Care Provider [phone] Reason for Visit * Reason Comments NEW PATIENT Fracture Encounter Details Date Type Department Care Team Description 07/10/2017 Office Visit Orthopaedics [facility] [address] [place] [address] Oswaldo Bradford, [address] [place] [address] [phone] Closed nondisplaced fracture of head of radius, unspecified laterality, initial encounter* Allergies No Known Allergiesas of this encounter [...] this encounter Active Problems Problem Noted Date Adjustment disorder with depressed mood 10/24/2015 HTN, goal below 140/90 04/26/2014 Heterozygous MTHFR mutation D5460L ([facility]) 04/25/2014 Prothrombin gene mutation [...] - Inhaled Oxygen Concentration - - Weight 106.1 kg (234 lb) 07/10/2017 1:2 9 PM EDT Height 163.8 cm (5' 4.5") 07/10/2017 1: 29 PM EDT Body Mass Index 39.55 07/10/2017 1:29 PM EDT in this encounter Functional Status [...] Progress Notes * Oswaldo Bradford DO - 07/10/2017 2:08 PM EDT See dictation. in this encounter Nursing Notes * Mamie Rodriguez TECH - 07/10/2017 1:26 PM EDT Pt present for b/l elbow fractures in this encounter Plan of Treatment Upcoming Encounters Date Type Specialty Care Team Description 07/11/2017 Office Visit Otolaryngology Brandon Bates II, MD [address] [place] [address] [phone] 07/31/2017 Office Visit Orthopedics [place] Oswaldo [address] [place] [address] [phone] 08/22/2017 Office Visit Family Practice Bran Hernandes MD [address] [place] [address] 10/08/2017 Office Visit Family [facility] Bran Hernandes MD [address] [place] [id number] Scheduled Tests Name Priority Associated Diagnoses Order S chedule DISTAL RADIAL FX/DISLOC, CLOSED TX, W/O MANIPULATION Routine Closed nondisplaced fracture of head of radius, unspecified laterality, initial encounter Ordered: 07/10/2017 Health Maintenance Due Date Last Done Comments Yearly B-12 1969 DIABETES-EYE EXAM 1987 BREAST CANCER SCREENING DISC USSION YEARLY AGES 40-75 2009 *BASELINE EKG FOR HTN 04/28/2014 *DEPRESSION SCREENING, FRANK Aguila FOR PTS 18 AND OVER 06/03/2014 DIABETES-HGBA1C EVERY 6 MONTHS 10/09/2017 0 04/11/2017, 06/10/2016, 09/18/2015, Additional history exists DIABETES-FOOT EXAM 04/09/2018 04/09/2017, 0 04/26/2014, 06/29/2013 DIABETES-LDL EVERY 12 MONTHS 04/11/2018, 09/18/2015, 08/30/2014, Additional history exists DIABETES-URINE MICROALBUMIN EVERY 12 MONTHS 04/11/2018 04/11/2017, 09/18/2015, 01/06/2015, Additional history exists PAP SMEAR-EVERY 3 YRS,AGES [...] radius, unspecified laterality, initial encounter - Primary in this encounter Insurance Payer Benefit Plan / Group Subscriber ID Type Phone Address [employer] [id number] [place] [address] as of this encounter
--- OUTSIDE RECORDS SUMMARY | 2022-11-20 09:33 | External Medical Summary ---
Author Name Unknown Address [facility] [place] [address] Phone Organization K01:[facility] [address] [id number] Laboratory Report Ordering Provider Test Date Status BRODIE AGUSTIN 08/01/2017 13:11:00 Final Observation Date Value Abnormality Reference Status Creatinine 08/01/2017 13:46 0.8 0.5-1.0 Fi nal Performing Location [facility] [address] [facility] [address]
--- OUTSIDE RECORDS SUMMARY | 2022-11-20 09:33 | External Medical Summary | Summary of Care ---
Author Name Unknown Organization [facility] Address [facility] [place] [address] Phone Care Team Providers Care Wildlife Forensic Geneticist Name Role Phone Bran Hernandes MD Primary Care Provider [phone] Reason for Referral * Evaluate & Treat - Unlimited Visits (Within 10 days (routine)) Status Reason Specialty Diagnoses / Procedures Referred By Contact Referred To Contact Pending Review Specialty Services Required Physical Therapy Diagnoses Elbow fracture Oswaldo Bradford, DO [address] [place] [address] Reason for Visit * Reason Comments FOLLOW UP Encounter Details Date Type Department Care Team Description 07/31/2017 Office Visit Orthopaedics [facility] [address] [place] [address] Oswaldo Bradford, [address] [place] [address] [phone] Closed nondisplaced fracture of head of radius, [...] goal of less than 7.0% ([facility]) TAKE Two TABLETs BY MOUTH TWICE DAILY WITH MORNING AND EVENING MEALS 360 Tab 1 06/24/2017 Active as of this encounter Active Problems Problem Noted Date Deviated nasal septum 07/11/2017 Nasal bone fracture 07/11/2017 Adjustment disorder with depressed mood 10/24/2015 HTN, goal below 140/90 04/26/2014 Heterozygous MTHFR mutation C9782S ([facility]) 04/25/2014 Prothrombin gene mutation ([facility]) 03/29/19 15 Heterozygous MTHFR mutation C677T ([facility]) 03/29/2014 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[facility]) 03/29/2014 CVA, old, dysarthria 03/22/2014 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 Type 2 diabetes mellitus with hemoglobin A1c goal of less than 7.0% ([facility]) 05/27/2013 Overview: ICD-10 update of inactive term History of brain tumor 05/19/2013 Hypothyroidism 06/30/2012 Obesity, morbid (more than 100 lbs over ideal weight or BMI > 40) ([facility]) 09/05/2009 Overview: Per Obesity Protocol, #19 ICD-10 [...] Progress Notes * Oswaldo Bradford DO - 07/31/2017 1:09 PM EDT See dictation. in this encounter Nursing Notes * Shreya Jackson LPN - 07/31/2017 12:59 PM EDT Pt presents today for a three week return of bilateral elbows but complains of left achilles pain. in this encounter Plan of Treatment Upcoming Encounters Date Type Specialty Care Team Description 08/01/2017 Laboratory Laboratory [facility] [address] [facility] [place] [address] 08/01/2017 Appointment Radiology 08/04/2017 Office Visit Neurology Rosy Ley PA-C [address] [facility] [place] [address] 08/22/2017 Office Visit Family Practice Bran Hernandes MD [address] [facility] [address] [phone] 08/25/2017 Office Visit Orthopedics Oswaldo Bradford, 132 [facility] [place] [address] [phone] 10/08/2017 Office Visit Family Practice Bran Hernandes MD [address] [place] [address] [phone] Pending Results Name Priority Associated Diagnoses Date/Ti me XR ELBOW 3 OR MORE VIEWS Routine Elbow fracture 07/31/2017 1:14 PM EDT Scheduled Referrals Name Priority Associated Diagnoses Order S chedule PHYSICAL THERAPY REFERRAL OP Within 10 days (routine) Elbow fracture Ordered: 07/31/2017 Health Maintenance Due Date Last Done Comments [...]
--- OUTSIDE RECORDS SUMMARY | 2022-11-20 09:33 | External Medical Summary | Summary of Care ---
Author Name Unknown Organization [place] [address] Phone Care Team Providers Care Auto Fleet Manager Name Role Phone Elsa Hernandes MD Primary Care Provider [phone] Reason for Referral * Evaluate & Treat - Unlimited Visits (Within 10 days (routine)) Status Reason Specialty Diagnoses / Procedures Referred By Contact Referred To Contact Pending Review Specialty Services Required Physical Therapy Diagnoses 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HCC) History of brain tumor Gait instability Repeated falls Rosy Ley PA-C [address] [place] [address] Reason for Visit * Reason Comments Return Neuro hx ganglioglioma res ection and radiation * Evaluate & Treat - Unlimited Visits (Within 10 days (routine)) Status Reason Specialty Diagnoses / Procedures Referred By Contact Referred To Contact Pending Review Specialty Services Required Neurology Diagnoses History of brain tumor Balance disorder Elsa Hernandes MD [address] [place] [address] Encounter Details Date Type Department Care Team Description 08/04/2017 Office Visit Neurology, [facility] [address] [place] [address] Rosy Ley PA-C [address] [place], [place] [id number] History of brain tumor*;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HCC);Gait instability;Repeated [...] hemoglobin A1c goal of less than 7.0% ([facility]) TAKE Two TABLETs BY MOUTH TWICE DAILY WITH MORNING AND EVENING MEALS 360 Tab 1 06/24/2017 Active as of this encounter Active Problems Problem Noted Date Gait instability 08/04/2017 Repeated falls 08/04/2017 Deviated nasal septum 07/11/2017 Nasal bone fracture 07/11/2017 Adjustment disorder with depressed mood 10/24/2015 HTN, goal below 140/90 04/26/2014 Heterozygous MTHFR mutation [id number] ([facility]) 04/25/2014 Prothrombin gene mutation ([facility]) 03/29/19 15 Heterozygous MTHFR mutation C677T ([facility]) 03/29/2014 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[facility]) 03/29/2014 CVA, old, dysarthria 03/22/2014 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 Type 2 diabetes mellitus with hemoglobin A1c goal of less than 7.0% ([facility]) 05/27/2013 Overview: ICD-10 update of [...] different from the original. 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 I was readily available for immediate [id number] consultation and assistance. I have reviewed the medical history, physical examination, diagnosis, and plan. Reny Lewis MD, PhD I am happy to have been involved in the care of Kacey Jay. Reny Lewis MD, PhD, Attending Neurologist/Neuro-Oncologist, Department of Neurology. Date of my addendum: 08/06/2017 4:[address] [address] in this encounter Nursing Notes * Mary [...] Elsa Hernandes MD [address] [place] [id number] 08/25/2017 Office Visit Orthopedics Oswaldo Bradford, DO [address] [facility] [place] [address] [phone] 10/08/2017 Office Visit Family Practice Elsa Hernandes MD [address] [place] [address] [phone] Scheduled Referrals Name Priority Associated Diagnoses Order [...]
--- OUTSIDE RECORDS SUMMARY | 2022-11-20 09:33 | External Medical Summary | Summary of Care ---
Author Name Unknown Organization [place] [address] Phone Care Team Providers Care Car Stereo Installer Name Role Phone Bran Hernandes MD Primary Care Provider Reason for Referral * Evaluate & Treat - Unlimited Visits (Within 10 days (routine)) Status Reason Specialty Diagnoses / Procedures Referred By Contact Referred To Contact Pending Review Specialty Services Required Physical Therapy Diagnoses 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HCC) History of brain tumor Gait instability Repeated falls Rosy Ley PA-C [address] [place] [address] Reason for Visit * Reason Comments Return Neuro hx ganglioglioma res ection and radiation * Evaluate & Treat - Unlimited Visits (Within 10 days (routine)) Status Reason Specialty Diagnoses / Procedures Referred By Contact Referred To Contact Pending Review Specialty Services Required Neurology Diagnoses History of brain tumor Balance disorder Bran Hernandes MD [address] [place] [address] Encounter Details Date Type Department Care Team Description 08/04/2017 Office Visit Neurology, [facility] [address] [place] [address] Rosy Ley PA-C [address] [place], [place] [phone] History of brain tumor*;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HCC);Gait instability;Repeated [...] goal of less than 7.0% ([facility]) TAKE Two TABLETs BY MOUTH TWICE DAILY WITH MORNING AND EVENING MEALS 360 Tab 1 06/24/2017 Active as of this encounter Active Problems Problem Noted Date Gait instability 08/04/2017 Repeated falls 08/04/2017 Deviated nasal septum 07/11/2017 Nasal bone fracture 07/11/2017 Adjustment disorder with depressed mood 10/24/2015 HTN, goal below 140/90 04/26/2014 Heterozygous MTHFR mutation N8031P ([facility]) 04/25/2014 Prothrombin gene mutation ([facility]) 03/29/19 15 Heterozygous MTHFR mutation C677T ([facility]) 03/29/2014 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[facility]) 03/29/2014 CVA, old, dysarthria 03/22/2014 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 Type 2 diabetes mellitus with hemoglobin A1c goal of less than 7.0% ([facility]) 05/27/2013 Overview: ICD-10 update of inactive term [...] up in 2 years in this encounter Nursing Notes * Mary Ann Gardner, MED ASSIST - 08/04/2017 9:06 AM EDT I have reviewed the patient's medical record. Patient verified identity by spelling of last name and date. Patient is here for a return appointment. in this encounter Plan of Treatment Upcoming Encounters Date Type Specialty Care Team Description 08/22/2017 Office Visit Family Practice Bran Hernandes MD [facility] [id number] 08/25/2017 Office Visit Orthopedics Oswaldo Bradford DO [address] [facility] [place] [address] [phone] 10/08/2017 Office Visit Family Practice Bran Hernandes MD [address] [place] [address] [phone] Scheduled Referrals Name Priority Associated Diagnoses Order [...]
--- OUTSIDE RECORDS SUMMARY | 2022-11-20 09:33 | External Medical Summary | Summary of Care ---
Author Name Unknown Organization [place] [address] Phone Care Team Providers Care Commercial Door Installer Name Role Phone Bran Hernandes MD Primary Care Provider [phone] Reason for Visit * Reason Comments APPOINTMENT Encounter Details Date Type Department Care Team Description 07/18/2017 Telephone [facility] [address] [place] [address] Bran Hernandes MD [address] [place] [address] [phone] APPOINTMENT Allergies No Known Allergiesas of this [...] goal of less than 7.0% ([facility]) TAKE Two TABLETs BY MOUTH TWICE DAILY WITH MORNING AND EVENING MEALS 360 Tab 1 06/24/2017 Active as of this encounter Active Problems Problem Noted Date Deviated nasal septum 07/11/2017 Nasal bone fracture 07/11/2017 Adjustment disorder with depressed mood 10/24/2015 HTN, goal below 140/90 04/26/2014 Heterozygous MTHFR mutation [id number] ([facility]) 04/25/2014 Prothrombin gene mutation ([facility]) 03/29/19 15 Heterozygous MTHFR mutation C677T ([facility]) 03/29/2014 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[facility]) 03/29/2014 CVA, old, dysarthria 03/22/2014 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 Type 2 diabetes mellitus with hemoglobin A1c goal of less than 7.0% ([facility]) 05/27/2013 Overview: ICD-10 update of inactive term History of brain tumor 05/19/2013 Hypothyroidism 06/30/2012 Obesity, morbid (more than 100 lbs over ideal weight or BMI > 40) ([facility]) 09/05/2009 Overview: Per Obesity Protocol, #19 ICD-10 [...] encounter Miscellaneous Notes * Telephone Encounter - Sallie Alemida RN - 07/22/2017 3:48 PM EDT Patient scheduled 08/04/17 * Telephone Encounter - Sallie Almeida RN - 07/22/2017 9:24 AM EDT From PCP office visit 07/10/17: History of brain tumor-unclear but long-term consequences of her surgery may be having a cerebellaraffect and Um the us causing balance issues.-refer to neurology. Were going to set that up but [facility] as it is likely she would be seen sooner there but she also would have access to the balance clinic and physiatry. Patient last seen by Dr Castillo 04/11/14 and was to return in one year with repeat MRI. Patient also seen prior to that by Dr Mae. 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 * Telephone Encounter - Beatrice Houston OSA - 07/19/2017 12:39 PM EDT Please review advise on scheduling,Ty * Telephone Encounter - Rachel Mackay ALYLSON - 07/18/2017 3:34 PM EDT Pt needs to schedule with Neurology in [facility] of surgical resection benign brain tumor (1979). Having increased difficulties with balance . Recent fall Please contact pt to schedule appointment Thank You in this encounter Plan of Treatment Upcoming Encounters Date Type Specialty Care Team Description 07/31/2017 Office Visit Orthopedics Oswaldo Bradford, [address] [facility] [place] [address] [phone] 08/04/2017 Office Visit Neurology Rosy Ley PA-C [address], [place] [id number] 08/22/2017 Office Visit Family Practice Bran Hernandes MD [address] [place] [address] 10/08/2017 Office Visit Family Practice Bran Hernandes MD [address], [place] [id number] Health Maintenance Due Date Last Done Comments [...] Implants Not on fileas of this encounter Insurance Payer Benefit Plan / Group Subscriber ID Type Phone Address [employer]CIAL INS [employer] INS [id number] [place] [address] as of this encounter
--- OUTSIDE RECORDS SUMMARY | 2022-11-20 09:33 | External Medical Summary | Summary of Care ---
Author Name Unknown Organization [facility] Address [place] [address] Phone Care Team Providers Care Market Researcher Name Role Phone Barn Hernandes MD Primary Care Provider [phone] Encounter Details Date Type Department Care Team Description 07/05/2017 Scan Encounter Unspecified Department <No scans attached> Allergies No Known Allergiesas of this encounter [...] goal below 140/90 04/26/2014 Heterozygous MTHFR mutation [id number] ([facility]) 04/25/2014 Prothrombin gene mutation ([facility]) 03/29/19 15 Heterozygous MTHFR mutation C677T ([facility]) 03/29/2014 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[facility]) 03/29/2014 CVA, old, dysarthria 03/22/2014 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 Type 2 diabetes mellitus with hemoglobin A1c goal of less than 7.0% ([facility]) 05/27/2013 Overview: ICD-10 update of inactive term History of brain tumor 05/19/2013 Hypothyroidism 06/30/2012 Obesity, morbid (more than 100 lbs over ideal weight or BMI > 40) ([facility]) 09/05/2009 Overview: Per Obesity Protocol, #19 [...] t, with Preserve, 3yr & Above, Split 01/05/2017,12/29/2013,12/16/2012,09/0 08/2011,02/18/2011 TD - Tetanus/Diptheria (ADULT) 02/06/2004 TDAP (age [...] 07/31/2017 Office Visit Orthopedics Oswaldo Bradford, [address] [facility] [place] [address] [phone] 08/01/2017 Laboratory Laboratory [facility], [address] [place] [address] 08/01/2017 Appointment Radiology 08/04/2017 Office Visit Neurology Rosy Ley PA-C [address] [place] [address] [phone] 08/22/2017 Office Visit Family Practice Bran Hernandes MD [address] [place] [address] [phone] 10/08/2017 Office Visit Family Practice Bran Hernandes MD [address] [place] [phone] Health Maintenance Due Date Last Done Comments [...]
--- OUTSIDE RECORDS SUMMARY | 2022-11-20 09:33 | External Medical Summary | Summary of Care ---
Author Name Unknown Organization [place] [address] Phone Care Team Providers Care Business Unit Leader Name Role Phone Bran Hernandes MD Primary Care Provider [phone] Reason for Visit * Reason Comments ADVICE Encounter Details Date Type Department Care Team Description 07/10/2017 Telephone Orthopaedics [facility] [address] [facility] [place] [address] Oswaldo Bradford [address] [facility] [place] [address] [phone] ADVICE Allergies No Known Allergiesas of this encounter [...] goal below 140/90 04/26/2014 Heterozygous MTHFR mutation [id number] ([facility]) 04/25/2014 Prothrombin gene mutation [...] encounter Miscellaneous Notes * Telephone Encounter - Mamie Rodriguez TECH - 07/10/2017 4:21 PM EDT Pt called in to ask about work status until her f/u in [address] Bradford took the phone call and told her to take the 3 wks off. 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 Pt seemed satisfied. in this encounter Plan of Treatment Upcoming Encounters Date Type Specialty Care Team Description 07/11/2017 Office Visit Otolaryngology Brandon Bates II, MD [address] [place] [address] [phone] 07/31/2017 Office Visit Orthopedics Oswaldo Bradford DO [address] [place] [address] [phone] 08/22/2017 Office Visit Family Practice Bran Hernandes MD [address] [place] [address] [phone] 10/08/2017 Office Visit [facility] Bran Hernandes MD [address] [place] [address] [phone] Health Maintenance Due Date Last Done Comments [...] Type Phone Address [employer]CIAL INS [employer] [id number] [place] [address] as of this encounter
--- OUTSIDE RECORDS SUMMARY | 2022-11-20 09:33 | External Medical Summary | Summary of Care ---
Author Name Unknown Organization [facility] Address [place] [address] Phone Care Team Providers Care Locker Room Clerk Name Role Phone Bran Hernandes MD Primary Care Provider [phone] Reason for Visit * Reason Comments NEW PATIENT Fracture Encounter Details Date Type Department Care Team Description 07/10/2017 Office Visit Orthopaedics [facility] [address] [place] [address] Oswaldo Bradford, [address] [place] [address] [phone] Closed nondisplaced fracture of head of radius, [...] of less than 7.0% ([facility]) TAKE Two TABLETs BY MOUTH TWICE DAILY WITH MORNING AND EVENING MEALS 360 Tab 1 06/24/2017 Active as of this encounter Active Problems Problem Noted Date Adjustment disorder with depressed mood 10/24/2015 HTN, goal below 140/90 04/26/2014 Heterozygous MTHFR mutation Q4262P ([facility]) 04/25/2014 Prothrombin gene mutation ([facility]) 03/29/19 15 Heterozygous MTHFR mutation C677T ([facility]) 03/29/2014 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[facility]) 03/29/2014 CVA, old, dysarthria 03/22/2014 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 Type 2 diabetes mellitus with hemoglobin A1c goal of less than 7.0% ([facility]) 05/27/2013 Overview: ICD-10 update of inactive term History of brain tumor 05/19/2013 Hypothyroidism 06/30/2012 Obesity, morbid (more than 100 lbs over ideal weight or BMI > 40) ([facility]) 09/05/2009 Overview: Per Obesity Protocol, #19 [...] Bates II, MD [address] [place] [address] [phone] 07/31/2017 Office Visit Orthopedics [place] [address]do [address] [place] [address] [phone] 08/22/2017 Office Visit Family Practice Bran Hernandes MD [address] [place] [address] 10/08/2017 Office Visit Family [facility] Bran Hernandes MD [address] [place] [phone] Scheduled Tests Name Priority Associated Diagnoses Order [...] Type Phone Address COMM[employer]CIAL INS COMM[employer]CIAL INS [id number] [place] [address] as of this encounter
--- OUTSIDE RECORDS SUMMARY | 2022-11-20 09:33 | External Medical Summary | Summary of Care ---
Author Name Unknown Organization [place] [address] Phone Care Team Providers Care Sample Maker Hand Name Role Phone Bran Hernandes MD Primary Care Provider [phone] Reason for Visit * Reason Comments APPOINTMENT Encounter Details Date Type Department Care Team Description 07/18/2017 Telephone [facility] [address] [place] [address] Bran Hernandes MD [address] [place] [address] [phone] APPOINTMENT Allergies No Known Allergiesas of this [...] A1c goal of less than 7.0% ([facility]) TAKE Two TABLETs BY MOUTH TWICE DAILY WITH MORNING AND EVENING MEALS 360 Tab 1 06/24/2017 Active as of this encounter Active Problems Problem Noted Date Deviated nasal septum 07/11/2017 Nasal bone fracture 07/11/2017 Adjustment disorder with depressed mood 10/24/2015 HTN, goal below 140/90 04/26/2014 Heterozygous MTHFR mutation C1411K ([facility]) 04/25/2014 Prothrombin gene mutation ([facility]) 03/29/19 15 Heterozygous MTHFR mutation C677T ([facility]) 03/29/2014 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[facility]) 03/29/2014 CVA, old, dysarthria 03/22/2014 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 * Telephone Encounter - Beatrice Houston ALLYSON - 07/19/2017 12:39 PM EDT Please review advise on scheduling,Ty * Telephone Encounter - Rachel Mackay, ALLYSON - 07/18/2017 3:34 PM EDT Pt needs to schedule with Neurology in [place] Hx of surgical resection benign brain tumor (1979). Having increased difficulties with balance . Recent fall Please contact pt to schedule appointment Thank You in this encounter Plan of Treatment Upcoming Encounters Date Type Specialty Care Team Description 07/31/2017 Office Visit Orthopedics Oswaldo Bradford, DO [address] [place] [address] [phone] 08/22/2017 Office Visit Family Practice Bran Hernandes MD [address] [place] [address] 10/08/2017 Office Visit Family Practice Bran Hernandes MD [address] [place] [address] Health Maintenance Due Date Last Done [...] Type Phone Address COMM[employer]CIAL INS COMM[employer]CIAL INS [id number] [place] [address] as of this encounter
--- OUTSIDE RECORDS SUMMARY | 2022-11-20 09:33 | External Medical Summary | Summary of Care ---
Author Name Unknown Organization [place] [address] Phone Care Team Providers Care Lead Application Architect Name Role Phone Bran Hernandes MD Primary Care Provider [phone] Reason for Referral * Evaluate & Treat - Unlimited Visits (Within 10 days (routine)) Status Reason Specialty Diagnoses / Procedures Referred By Contact Referred To Contact Pending Review Specialty Services Required Neurology Diagnoses History of brain tumor Balance disorder Bran Hernandes MD [address] [place] [address] Reason for Visit * Reason Comments EMERGENCY DEPARTMENT FOLLOW-UP Encounter Details Date Type Department Care Team Description 07/10/2017 Office Visit [facility] [address] [place] [address] Bran Hernandes MD [address] [place] [address] [phone] Closed fracture of right elbow, initial encounter*;Closed fracture of left elbow, initial encounter;Nasal septum fracture, closed, initial encounter;History of brain tumor;Type 2 diabetes mellitus with hemoglobin A1c goal of less than 7.0% ([facility]);Other specified hypothyroidism;Balance disorder Allergies No Known Allergiesas of this encounter [...] goal below 140/90 04/26/2014 Heterozygous MTHFR mutation P8532P ([facility]) 04/25/2014 Prothrombin gene mutation ([facility]) 03/29/19 15 Heterozygous MTHFR mutation C677T ([facility]) 03/29/2014 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[facility]) 03/29/2014 CVA, old, dysarthria 03/22/2014 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 Type 2 diabetes mellitus with hemoglobin A1c goal of less than 7.0% ([facility]) 05/27/2013 Overview: ICD-10 update of [...] Vital Sign Reading Time Taken Blood Pressure 128/74 07/10/2017 9:57 AM EDT Pulse 84 07/10/2017 9:57 AM EDT Temperature 36.9 C (98.5 F) 07/10/2017 9 :57 AM EDT Respiratory Rate 18 07/10/2017 9:57 AM EDT Oxygen Saturation - - Inhaled Oxygen Concentration - - Weight 106.1 kg (234 lb) 07/10/2017 9:5 7 AM EDT Height - - Body Mass Index 39.55 07/10/2017 9:57 AM EDT in this encounter Functional Status [...] Progress Notes * Bran Hernandes MD - 07/10/2017 10:54 AM EDT Formatting of this note may be different from the original. Subjective: Kacey Jay is a 47 year old female. Chief Complaint Patient presents with EMERGENCY DEPARTMENT FOLLOW-UP HPI: 47-year-old seen today in follow-up after a fall on July 05. She was at her mother 's housein [place]. She walked down the driveway to put mail in the mail box. Apparently the driveway gets very steep close to the mail box and she fell forward catching herself with her arms but also striking her face. She recalls the event and does not recall any loss of consciousness. She was transp orted by private vehicle to [facility] and evaluated in the emergency room. This evaluation included CT scan of the head which showed no acute intracranial findings. Postsurgical goal changes within the posterior fossa with evidence of midline cerebellar resection and encephalomalacia. Facial bone CT showed nasal septal fracture as well as nasal septal deviation to the right. X-rays of both elbows showed what was felt to be a nondisplaced radial head fracture on the right and a equivocal nondisplaced radial neck impaction fracture on the left. Blood work was unremarkable TSH was normal at 2.87. Blood sugar was 140. She tells me that her blood sugars have been running good although the last hemoglobin A1c that we did earlier this year was elevated some at 7.4. She has been noticing significant increase difficulties with balance over the last couple months. It is felt that this has contributed to not only the fall as noted above but a fall that she had at her house about 2 weeks prior. She was not casted or put into any splints for the elbows. She does have orthopedic appointment this afternoon and ENT appointment tomorrow. 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 She tells me most of what she does is more administrative or of or at least not direct patient care but she does pass meds Patient Active Problem List Diagnosis Code ADVANCE DIRECTIVE INFORMATION Obesity, morbid (more than 100 lbs over ideal weight or BMI > 40) ([facility]) E66.01 Hypothyroidism E03.9 History of brain tumor Z87.898 Type 2 diabetes mellitus with hemoglobin A1c goal of less than 7.0% ([facility]) E11.9 HSV-1 infection B00.9 CVA, old, dysarthria I69.322 Prothrombin gene mutation ([facility]) D68.52 Heterozygous MTHFR mutation C677T ([facility]) E72.12 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[facility]) I63.9 Heterozygous MTHFR mutation T5647W ([facility]) E72.12 HTN, goal below 140/90 I10 Adjustment disorder with depressed mood F43.21 Current Outpatient Prescriptions Medication Sig Dispense Refill [...] allergies indicates: No Known Allergies Objective: BP 128/74 | Pulse 84 | Temp (Src) 98.5 (Tympanic) | Resp 18 | Wt 234 lbs (106.142kg) | BMI 39.55 kg/m | BSA 2.2 m Physical Exam: CONST: alert, pleasant, no acute distress. I had her walk in the exam room. She is very cautious. Her stance is slightly wide-based. I did not appreciate any ataxic movement. HEAD: normocephalic, atraumatic. She has ecchymotic changes under both eyes and across the bridge of her nose. She does not have any open abrasions or lacerations on the face. NECK: supple, soft, no adenopathy EARS: canals normal, TMs normal Eyes - PERRLA, EOM'I OROPHARYNX: clear, no swelling or erythema, moist CV: regular rate and rhythm, no murmur CHEST: clear to auscultation bilaterally, no rales or wheezing EXT: She has a tenderness in the posterior aspect of both elbows but without pinpoint tenderness she has good pronation supination of both forearms although notes discomfort especially on the right. NEURO: AAOx3, no gross focal deficits, cerebellar signs normal, affect appropriate MENTAL STATUS: no evidence of thought disorder, no delusional thought, no evidence of paranoia, thought is non-tangential. SKIN: no rash or significant lesions ASSESSMENT/PLAN: S42.401A Closed fracture of right elbow, initial encounter (primary encounter diagnosis) Follow up with Orthopedics S42.402A Closed fracture of left elbow, initial encounter -follow up with Orthopedics S02.2XXA Nasal septum fracture, closed, initial encounter Follow up with ENT Z87.898 History of brain tumor-unclear but long-term consequences of her surgery may be having a cerebellar affect and Um the us causing balance issues.-refer to neurology. Were going to set that up but [place] as it is likely she would be seen sooner there but she also would have access to the balance clinic and physiatry. E11.9 Type 2 diabetes mellitus with hemoglobin a1c goal of less than 7.0% ([facility])- that was suboptimally controlled over the early winter. Sounds as if it is doing better. Check hemoglobin A1c today E03.8 Other specified hypothyroidism-euthyroid on replacement R26.89 Balance disorder-refer to neurology See again 6 weeks as she has a number of different things going on that I would like the keep track of Um help coordinate. Bran Hernandes MD in this encounter Nursing Notes * Ying Childress LPN - 07/10/2017 9:58 AM EDT Er f/u in this encounter Plan of Treatment Upcoming Encounters Date Type Specialty Care Team Description 07/11/2017 Office Visit Otolaryngology Jana HEREDIA, Brandon Kincaid MD [address] [facility] [place] [address] [phone] 07/31/2017 Office Visit Orthopedics Oswaldo Bradford, [address] [place] [address] [phone] 08/22/2017 Office Visit Family Practice Bran Hernandes MD [address] [place] [address] [phone] 10/08/2017 Office Visit Family Practice Bran Hernandes MD [address] [place] [address] [phone] Scheduled Referrals Name Priority Associated Diagnoses Order S chedule NEUROLOGY REFERRAL OP Within 10 days (routine) History of brain tumor Balance disorder Ordered: 07/10/2017 Health Maintenance Due Date Last [...] of this encounter Visit Diagnoses Diagnosis Closed fracture of right elb ow, initial encounter - Primary Closed fracture of left elbo w, initial encounter Nasal septum fracture, close d, initial encounter History of brain tumor Personal history of other disorders of nervous system and sense organs Type 2 diabetes mellitus wit h hemoglobin A1c goal of less than 7.0% ([facility]) Other specified hypothyroidi sm Balance disorder Other symptoms involving nervous and musculoskeletal systems in this encounter Insurance Payer Benefit Plan / Group Subscriber ID Type Phone Address COMMERCIAL INS COMM[employer]CIAL INS [id number] [place] [address] as of this encounter"
--- OUTSIDE RECORDS SUMMARY | 2022-11-20 09:33 | External Medical Summary | Summary of Care ---
Author Name Unknown Organization [place] [address] Phone Care Team Providers Care Health Commissioner Name Role Phone Bran Hernandes MD Primary Care Provider [phone] Reason for Referral * Precert (Routine) Status Reason Specialty Diagnoses / Procedures Referred By Contact Referred To Contact Pending Review Precert Radiology Diagnoses History of brain tumor Procedures MRI BRAIN W WO CONTRAST Rosy Ley PA-C [address] [place] [address] * Precert (Routine) Status Reason Specialty Diagnoses / Procedures Referred By Contact Referred To Contact Closed Precert Radiology Diagnoses History of brain tumor Procedures MRI BRAIN PERFUSION W/WO CONTRAST Neurology [facility] [place] [address] [id number] Encounter Details Date Type Department Care Team Description 07/22/2017 Orders Only Neurology, [place] [address] [place] [address] Astrid Edmondson RN History of brain tumor* Allergies No Known Allergiesas of this encounter [...] goal of less than 7.0% ([facility]) TAKE Two TABLETs BY MOUTH TWICE DAILY WITH MORNING AND EVENING MEALS 360 Tab 1 06/24/2017 Active as of this encounter Active Problems Problem Noted Date Deviated nasal septum 07/11/2017 Nasal bone fracture 07/11/2017 Adjustment disorder with depressed mood 10/24/2015 HTN, goal below 140/90 04/26/2014 Heterozygous MTHFR mutation [id number] ([facility]) 04/25/2014 Prothrombin gene mutation ([facility]) 03/29/19 15 Heterozygous MTHFR mutation C677T ([facility]) 03/29/2014 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[facility]) 03/29/2014 CVA, old, dysarthria 03/22/2014 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 Type 2 diabetes mellitus with hemoglobin A1c goal of less than 7.0% ([facility]) 05/27/2013 Overview: ICD-10 update of inactive term History of brain tumor 05/19/2013 Hypothyroidism 06/30/2012 Obesity, morbid (more than 100 lbs over ideal weight or BMI > 40) ([facility]) 09/05/2009 Overview: Per Obesity Protocol, [...] Encounters Date Type Specialty Care Team Description 08/04/2017 Office Visit [facility] [address] [facility] [address] 08/22/2017 Office Visit Family Practice Bran Hernandes MD [address] [place] [address] [phone] 08/25/2017 Office Visit Orthopedics Oswaldo Bradford, DO [address] [place] [address] [phone] 10/08/2017 Office Visit Family Practice Bran Hernandes MD [address] [place] [address] [phone] Scheduled Tests Name Priority Associated Diagnoses Order S chedule MRI BRAIN PERFUSION W/WO CONTRAST Routine History of brain tumor Ordered: 07/22/2017 MRI BRAIN W WO CONTRAST Routine History of brain tumor Ordered: 08/01/2017 MRI NEURO 3-D RECONSTRUCTION WO CONTRAST Routine History of brain tumor Ordered: 08/01/2017 Health Maintenance Due Date Last Done Comments [...] Implants Not on fileas of this encounter Results * CREATININE SERUM (08/01/2017 1:11 PM) Component Value Ref Range CREATININE 0.8 Comment: GFR should be used to assess renal function.Plasma/Serum creatinine may not be able to properly reflect renal function in some cases. 0.5 - 1.0 mg/dL E GLOM FILT RATE >60.0Comment:If ladan ent is , multiply estimated GFR by 1.159. >60 Specimen [facility]forming [facility] [address] [place] [address] in this encounter Visit Diagnoses Diagnosis History of brain tumor - Amber bansal Personal history of other disorders of nervous system and sense organs in this encounter
--- OUTSIDE RECORDS SUMMARY | 2022-11-20 09:34 | External Medical Summary | Summary of Care ---
Author Name Unknown Organization [place] [address] Phone Care Team Providers Care Commissioner Of Internal Revenue Name Role Phone Bran Hernandes MD Primary Care Provider [phone] Reason for Visit * Reason Comments APPOINTMENT Encounter Details Date Type Department Care Team Description 07/07/2017 Telephone Otolaryngology [facility] [address] [address] Brandon Bates II, MD [address] [facility] [place] [address] [phone] APPOINTMENT Allergies No Known Allergiesas of this [...] goal of less than 7.0% ([facility]) TAKE Two TABLETs BY MOUTH TWICE DAILY WITH MORNING AND EVENING MEALS 360 Tab 1 06/24/2017 Active as of this encounter Active Problems Problem Noted Date Adjustment disorder with depressed mood 10/24/2015 HTN, goal below 140/90 04/26/2014 Heterozygous MTHFR mutation [id number] ([facility]) 04/25/2014 Prothrombin gene mutation ([facility]) 03/29/19 15 Heterozygous MTHFR mutation C677T ([facility]) 03/29/2014 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[facility]) 03/29/2014 CVA, old, dysarthria 03/22/2014 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 Bates for ED broken nose on 07/05/17. Appointment needed to changed to 07/10/17 at 1pm, per Dr. Bates, due to swelling. in this encounter Plan of Treatment Upcoming Encounters Date Type Specialty Care Team Description 07/10/2017 Office Visit [facility] [address] 07/10/2017 Office Visit Otolaryngology Brandon Bates II, MD [address] [facility] [place] [address] [phone] 10/08/2017 Office Visit Family Practice Bran Hernandes MD [address] [address] [phone] Health Maintenance Due Date Last Done Comments [...] Type Phone Address COMMERCIAL INS COMM[employer]CIAL INS [id number] No Address [place] [address] as of this encounter
--- OUTSIDE RECORDS SUMMARY | 2022-11-20 09:34 | External Medical Summary | Summary of Care ---
Author Name Unknown Organization [place] [address] Phone Care Team Providers Care Medicaid Business Analyst Name Role Phone Bran Hernandes MD Primary Care Provider [phone] Reason for Visit * Reason Comments eRx-Medication Refill Encounter Details Date Type Department Care Team Description 04/23/2017 Refill [address] [place] [place] [address] Trixie Butts PA-C [address] [place] [address] [phone] HTN, goal below 140/90 Allergies No Known Allergiesas of this encounter [...] VITAMIN PO TABS 1 tablet daily Active valACYclovir (VALTREX) 500 MG TabletIndications: Herpes simplex virus infection TAKE ONE TABLET BY MOUTH ONCE DAILY 90 Tab 1 06/07/2016 Active Meloxicam 15 MG TabletIndications: Hip pain, right Take 1 Tab by mouth daily. for pain. 30 Tab 5 06/10/2016 Active metFORMIN (GLUCOPHAGE) 500 MG TabletIndications: Type 2 diabetes mellitus with hemoglobin A1c goal of less than 7.0% ([facility]) TAKE Two TABLETs BY MOUTH TWICE DAILY WITH MORNING AND EVENING MEALS 360 Tab 0 06/13/2016 Active levothyroxine (LEVOXYL) 100 MCG TabletIndications: Hypothyroidism Take 1 tab by mouth once daily at least 30 mins prior to breakfast or other meds. THYROID LABS ORDERED, MUST HAVE DONE BEFORE MORE REFILLS 90 Tab 0 03/04/2017 Active lisinopril (PRINIVIL) 10 MG TabletIndications: HTN, goal below 140/90 take 1 tablet by mouth once daily 60 Tab 5 04/24/2017 Active lisinopril (PRINIVIL) 10 MG TabletIndications: HTN, goal below 140/90 One pill by mouth once a day 90 Tab 1 04/02/2016 8 Discontinued escitalopram (LEXAPRO) 10 MG TabletIndications: Adjustment disorder with depressed mood Take 1 Tab by mouth daily. 90 Tab 1 05/03/2016 8 Discontinued as of this encounter Active Problems Problem Noted Date Adjustment disorder with depressed mood 10/24/2015 HTN, goal below 140/90 04/26/2014 Heterozygous MTHFR mutation [id number] ([facility]) 04/25/2014 Prothrombin gene mutation ([facility]) 03/29/19 15 Heterozygous MTHFR mutation C677T ([facility]) 03/29/2014 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[facility]) 03/29/2014 CVA, old, dysarthria 03/22/2014 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 Type 2 diabetes mellitus with hemoglobin A1c goal of less than 7.0% ([facility]) 05/27/2013 Overview: ICD-10 update of inactive term History of brain tumor 05/19/2013 Hypothyroidism 06/30/2012 Obesity, morbid (more than 100 lbs over ideal weight or BMI > 40) ([facility]) 09/05/2009 Overview: Per Obesity Protocol, [...] encounter Miscellaneous Notes * Telephone Encounter - Trixie Butts PA-C - 04/24/2017 1:49 PM EST Signed Prescriptions: Disp Refills lisinopril (PRINIVIL) 10 MG Tablet 60 Tab 5 Sig: take 1 tablet by mouth once daily Authorizing Provider: TRIXIE BUTTS * Telephone Encounter - Delilah Bruno RN - 04/24/2017 8:51 AM EST Pending Prescriptions: Disp Refills lisinopril (PRINIVIL) 10 MG Tablet [Pharm*60 Tab 0 Sig: take 1 tablet by mouth once daily * Telephone Encounter - Delilah Bruno RN - 04/24/2017 8:50 AM EST Formatting of this note may be different from the original. FAX REFILL PROCESS: Last Office Visit: 04/09/2017 Next Office Visit: 05/13/2017 Scheduled Provider(s): Trixie Butts PA-C Date of last refill for this med: 04/02/16 PCP: Bran Hernandes MD Patient Active Problem List Diagnosis Code ADVANCE DIRECTIVE INFORMATION Obesity, morbid (more than 100 lbs over ideal weight or BMI > 40) ([facility]) E66.01 Irritant hand dermatitis L24.9 Hypothyroidism E03.9 Elevated blood pressure, situational R03.0 History of brain tumor Z87.898 Type 2 diabetes mellitus with hemoglobin A1c goal of less than 7.0% ([facility]) E11.9 HSV-1 infection B00.9 CVA, old, dysarthria I69.322 Prothrombin gene mutation ([facility]) D68.52 Heterozygous MTHFR mutation C677T ([facility]) E72.12 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[facility]) I63.9 Heterozygous MTHFR mutation I6853R ([facility]) E72.12 HTN, goal below 140/90 I10 Adjustment disorder with depressed mood F43.21 LABS: CREATININE(mg/dL) Bruno Dt/Tm Resulted Value Status 04/11/17 8:52A 04/11/17 0.7 FINAL POTASSIUM(mmol/L) Bruno Dt/Tm Resulted Value Status 04/11/17 8:52A 04/11/17 4.1 FINAL TSH(uIU/mL) Bruno Dt/Tm Resulted Value Status 04/11/17 8:52A 04/11/17 4.65* FINAL LDL (CALCULATED)(mg/dL) Bruno Dt/Tm Resulted Value Status 04/11/17 8:52A 04/11/17 136* FINAL LDL DIRECT(REFLEX)(mg/dL) Bruno Dt/Tm Resulted Value Status 04/11/17 8:52A 04/11/17 FINAL Value: NOT APPLICABLE ALT(U/L) Bruno Dt/Tm Resulted Value Status 04/11/17 8:52A 04/11/17 36* FINAL Hemoglobin AIC Results: HEMOGLOBIN, A1C(%) Bruno Dt/Tm Resulted Value Status 04/11/17 8:52A 04/11/17 7.4* FINAL 06/10/16 10:02A 06/10/16 7.0* FINAL 09/18/15 9:24A 09/18/15 6.4 FINAL * Telephone Encounter - Josefa Patel RN - 04/24/2017 8:33 AM EST Pending Prescriptions: Disp Refillslisinopril (PRINIVIL) 10 MG Tablet [Pharm*60 Tab 0Sig: take 1 tablet by mouth once daily in this encounter Plan of Treatment Upcoming Encounters Date Type Specialty Care Team Description 10/08/2017 Office Visit Family Practice Bran Hernandes MD [address] [place] [address] Health Maintenance Due Date Last Done Comments Yearly B-12 1969 DIABETES-EYE EXAM 1987 BREAST CANCER SCREENING DISC USSION YEARLY AGES 40-75 2009 DTaP,Tdap,and Td Vaccines (3 - Td) 05/27/20122011, 02/06/2004 *BASELINE EKG FOR HTN 04/28/2014 *DEPRESSION SCREENING, FRANK Aguila FOR PTS 18 AND OVER 06/03/2014 PAP SMEAR-EVERY 3 YRS,AGES 21-65 04/20/2016 04/20/2013, 12/18/2011 (Done elsewhere), 11/23/2007 DIABETES-HGBA1C EVERY 6 MONTHS 10/09/2017 0 04/11/2017, 06/10/2016, 09/18/2015, Additional history exists DIABETES-FOOT EXAM 04/09/2018 04/09/2017, 0 04/26/2014, 06/29/2013 DIABETES-LDL EVERY 12 MONTHS 04/11/2018, 09/18/2015, 08/30/2014, Additional history exists DIABETES-URINE MICROALBUMIN EVERY 12 MONTHS 04/11/2018 04/11/2017, 09/18/2015, 01/06/2015, Additional history exists Influenza Vaccine (FLU shot) Completed , 01/06/2015, 12/29/2013, Additional history exists PNEUMOCOCCAL 19-64 MEDIUM RISK Completed 04/09/2017 as of this encounter Implants Not on fileas of this encounter Visit Diagnoses Diagnosis HTN, goal below 140/90 Unspecified essential hypertension in this encounter Insurance Payer Benefit Plan / Group Subscriber ID Type Phone Address COMMERCIAL INS COMM[employer]CIAL INS [id number] [place] [address] as of this encounter
--- OUTSIDE RECORDS SUMMARY | 2022-11-20 09:34 | External Medical Summary | Summary of Care ---
Author Name Unknown Organization [place] [address] Phone Care Team Providers Care Industrial Retrofit Designer Name Role Phone Bran Hernandes MD Primary Care Provider [phone] Reason for Visit * Reason Comments APPOINTMENT Encounter Details Date Type Department Care Team Description 07/07/2017 Telephone Otolaryngology [facility] [address] [address] Brandon Bates II, MD [address] [facility] [place] [address] [phone] APPOINTMENT Allergies No Known Allergiesas of this [...] goal below 140/90 04/26/2014 Heterozygous MTHFR mutation [id number] ([facility]) 04/25/2014 Prothrombin gene mutation ([facility]) 03/29/19 15 Heterozygous MTHFR mutation C677T ([facility]) 03/29/2014 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[facility]) 03/29/2014 CVA, old, dysarthria 03/22/2014 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 Type 2 diabetes mellitus with hemoglobin A1c goal of less than 7.0% ([facility]) 05/27/2013 Overview: ICD-10 update of inactive term History of brain tumor 05/19/2013 Hypothyroidism 06/30/2012 Obesity, morbid (more than 100 lbs over ideal weight or BMI > 40) ([facility]) 09/05/2009 Overview: Per Obesity [...] 1pm, per Dr. Bates, due to swelling. LM letting patient know that 07/08/17 appt was changed to 07/10/17 at 1 pm, and asked for her to callme back if needed. Thank natali in this encounter Plan of Treatment Upcoming Encounters Date Type Specialty Care Team Description 07/10/2017 Office Visit [facility] Bran Hernandes MD [address] [place] [address] 07/10/2017 Office Visit Otolaryngology Brandon Bates II, MD [address] [place] [address] [phone] 10/08/2017 Office Visit Family Practice Bran Hernandes MD [address] [facility] [place] [id number] Health Maintenance Due Date Last Done Comments [...] Type Phone Address COMMERCIAL INS COMMERCIAL INS [id number] [place] Address [place] [address] as of this encounter
--- OUTSIDE RECORDS SUMMARY | 2022-11-20 09:34 | External Medical Summary | Summary of Care ---
Author Name Unknown Organization [place] [address] Phone Care Team Providers Care Senior Controls Engineer Name Role Phone Bran Hernandes MD Primary Care Provider [phone] Reason for Visit * Reason Comments eRx-Medication Refill Encounter Details Date Type Department Care Team Description 06/10/2017 Refill [facility] [address] [place] [address] Trixie Butts PA-C [address] [place] [address] [phone] Hip pain, right Allergies No Known Allergiesas of this encounter Medications Prescription Sig. Disp. Refills Start Date End Date Status ISELA CONTOUR NEXT TEST STRP twice daily 60 Strip 11 03/02/2014 Active EASY TOUCH LANCING DEVICE MISC As directed 03/23/2014 Active EASY TOUCH LANCETS 30G/TWIST MISC As directed 03/23/2014 Active ASPIRIN EC LO-DOSE 81 MG PO TBECIndications:Brains tem stroke (HCC) 1 TABLET DAILY 1 Tab 0 03/29/2014 Active MULTIPLE VITAMIN PO TABS 1 tablet daily Active metFORMIN (GLUCOPHAGE) 500 MG TabletIndications:Type 2 diabetes mellitus with hemoglobin A1c goal of less than 7.0% ([facility]) TAKE Two TABLETs BY MOUTH TWICE DAILY WITH MORNING AND EVENING MEALS 360 Tab 0 06/13/2016 Active lisinopril (PRINIVIL) 10 MG TabletIndications:HTN, goal below 140/90 take 1 tablet by mouth once daily 60 Tab 5 04/24/2017 Active escitalopram (LEXAPRO) 10 MG TabletIndications:Adju stment disorder with depressed mood Take 1 Tab by mouth daily. 90 Tab 1 05/05/2017 Active Meloxicam 15 MG TabletIndications:Hip pain, right take 1 tablet by mouth once daily if needed for pain 30 Tab 3 06/11/2017 Active as of this encounter Active Problems Problem Noted Date Adjustment disorder with depressed mood 10/24/2015 HTN, goal below 140/90 04/26/2014 Heterozygous MTHFR mutation [id number] ([facility]) 04/25/2014 Prothrombin gene mutation ([facility]) 03/29/19 15 Heterozygous MTHFR mutation C677T ([facility]) 03/29/2014 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[facility]) 03/29/2014 CVA, old, dysarthria 03/22/2014 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 Type 2 diabetes mellitus with hemoglobin A1c goal of less than 7.0% ([facility]) 05/27/2013 Overview: ICD-10 update of inactive term History of brain tumor 05/19/2013 Hypothyroidism 06/30/2012 Obesity, morbid (more than 100 lbs over ideal weight or BMI > 40) ([facility]) 09/05/2009 Overview: Per Obesity Protocol, [...] t, with Preserve, 3yr & Above, Split 01/05/2017,12/29/2013,12/16/2012,090 08/2011,02/18/2011 TD - Tetanus/Diptheria (ADULT) 02/06/2004 TDAP [...] Telephone Encounter - Trixie Butts PA-C - 06/11/2017 8:22 AM EDT Signed Prescriptions: Disp Refills Meloxicam 15 MG Tablet 30 Tab 3 Sig: take 1 tablet by mouth once daily if needed for pain Authorizing Provider: TRIXIE BUTTS * Telephone Encounter - Kimberly Bruno LPN - 06/10/2017 1:36 PM EDT Pending Prescriptions: Disp Refills Meloxicam 15 MG Tablet [Pharmacy Med Name*30 Tab 3 Sig: take 1 tablet by mouth once daily if needed for pain * Telephone Encounter - Kimberly Bruno, LENA - 06/10/2017 1:35 PM EDT Pending Prescriptions: Disp Refills Meloxicam 15 MG Tablet [Pharmacy Med Name*30 Tab 3 Sig: take 1 tablet by mouth once daily if needed for pain Last Office Visit: 05/13/2017 Next Office Visit: 10/08/2017 Scheduled Provider(s): Bran Hernandes MD If no future appointments scheduled, and last appointment is greater than a year ago, please schedule patient for a follow-up appointment Last date the medication was ordered: 06/10/2016 Phone number(s): There are no phone numbers on file. Labs: ALT(U/L) Bruno Dt/Tm Resulted Value Status 04/11/17 8:52A 04/11/17 36* FINAL CREATININE(mg/dL) Bruno Dt/Tm Resulted Value Status 04/11/17 8:52A 04/11/17 0.7 FINAL LDL (CALCULATED)(mg/dL) Bruno Dt/Tm Resulted Value Status 04/11/17 8:52A 04/11/17 136* FINAL POTASSIUM(mmol/L) Bruno Dt/Tm Resulted Value Status 04/11/17 8:52A 04/11/17 4.1 FINAL TSH(uIU/mL) Bruno Dt/Tm Resulted Value Status 04/11/17 8:52A 04/11/17 4.65* FINAL Hemoglobin AIC Results: HEMOGLOBIN, A1C(%) Bruno Dt/Tm Resulted Value Status 04/11/17 8:52A 04/11/17 7.4* FINAL 06/10/16 10:02A 06/10/16 7.0* FINAL 09/18/15 9:24A 09/18/15 6.4 FINAL * Telephone Encounter - Josefa Patel RN - 06/10/2017 12:55 PM EDT Pending Prescriptions: Disp RefillsMeloxicam 15 MG Tablet [Pharmacy Med Name*30 Tab 3Sig: take 1 tablet by mouth once daily if needed forpain in this encounter Plan of Treatment Upcoming Encounters Date Type Specialty Care Team Description 10/08/2017 Office Visit Family Practice Bran Hernandes MD [address] [place] [address] Health Maintenance Due Date Last [...] fileas of this encounter Visit Diagnoses Diagnosis Hip pain, right Pain in joint, pelvic region and thigh in this encounter Insurance Payer Benefit Plan / Group Subscriber ID Type Phone Address COMMERCIAL INS COMMERCIAL INS [id number] [place] [address] as of this encounter
--- OUTSIDE RECORDS SUMMARY | 2022-11-20 09:34 | External Medical Summary | Summary of Care ---
Author Name Unknown Organization [place] [address] Phone Care Team Providers Care Field Examiner Name Role Phone Bran Hernandes MD Primary Care Provider [phone] Reason for Visit * Reason Comments APPOINTMENT Encounter Details Date Type Department Care Team Description 07/07/2017 Telephone [facility] [address] [place] [address] Bran Hernandes MD [address] [place] [address] [phone] APPOINTMENT Allergies No Known Allergiesas of this [...] goal of less than 7.0% ([facility]) TAKE Two TABLETs BY MOUTH TWICE DAILY WITH MORNING AND EVENING MEALS 360 Tab 1 06/24/2017 Active as of this encounter Active Problems Problem Noted Date Adjustment disorder with depressed mood 10/24/2015 HTN, goal below 140/90 04/26/2014 Heterozygous MTHFR mutation [id number] ([facility]) 04/25/2014 Prothrombin gene mutation ([facility]) 03/29/19 15 Heterozygous MTHFR mutation C677T ([facility]) 03/29/2014 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[facility]) 03/29/2014 CVA, old, dysarthria 03/22/2014 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 Pt was seen at [facility] ER 07/05/17 for fall and she fractured both elbows and broken nose. appt made. * Telephone Encounter - Marco A Rowe OSA - 07/07/2017 11:14 AM EDT Patient called. States she fell on Friday broke her nose and fractured a wrist. Patient was seen 07/05 at [facility]. Please contact patient to schedule ED f/u with Dr. Hernandes in this encounter Plan of Treatment Upcoming Encounters Date Type Specialty Care Team Description 07/08/2017 Office Visit Otolaryngology Brandon Bates II, MD [address] [place] [address] [phone] 07/10/2017 Office Visit [facility] Bran Hernandes MD [address] [facility] [place] [address] [phone] 10/08/2017 Office Visit [facility] Bran Hernandes MD [address] [place] [place] [address] [phone] Health Maintenance Due Date Last Done Comments Yearly B-12 1969 DIABETES-EYE EXAM 1987 BREAST CANCER SCREENING DISC USSION YEARLY AGES 40-75 2009 *BASELINE EKG FOR HTN 04/28/2014 *DEPRESSION SCREENING, ANNUA Mingo FOR PTS 18 AND OVER 06/03/2014 [...] Type Phone Address COMMERCIAL INS COMMERCIAL INS [id number] [place] [address] as of this encounter
--- OUTSIDE RECORDS SUMMARY | 2022-11-20 09:34 | External Medical Summary | Summary of Care ---
Author Name Unknown Organization [place] [address] Phone Care Team Providers Care Community Development Technician Name Role Phone Bran Hernandes MD Primary Care Provider [phone] Encounter Details Date Type Department Care Team Description 07/08/2017 Orders Only [place] [address] [place] [address] Bran Hernandes MD [address] [place], [place] [id number] Allergies No Known Allergiesas of this encounter [...] goal below 140/90 04/26/2014 Heterozygous MTHFR mutation [id number] ([facility]) 04/25/2014 Prothrombin gene mutation ([facility]) 03/29/19 15 Heterozygous MTHFR mutation C677T ([facility]) 03/29/2014 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[facility]) 03/29/2014 CVA, old, dysarthria 03/22/2014 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 Type 2 diabetes mellitus with hemoglobin A1c goal of less than 7.0% ([facility]) 05/27/2013 Overview: ICD-10 update of inactive term History of brain tumor 05/19/2013 Hypothyroidism 06/30/2012 Obesity, morbid (more than 100 lbs over ideal weight or BMI > 40) ([facility]) 09/05/2009 Overview: Per Obesity Protocol, [...] Bran Hernandes MD [address] [place] [id number] 07/10/2017 Office Visit Orthopedics Oswaldo Bradford DO [address] [address] [phone] 07/11/2017 Office Visit Otolaryngology Brandon Bates II, MD [address] [address] [phone] 10/08/2017 Office Visit Family Practice Bran Hernandes MD [address] [place] [address] [phone] Pending Results Name Priority Associated Diagnoses Date/Ti me CHEMISTRY-OUTSIDE Routine 07/05/2017 12:00 AM EDT TSH Routine 07/05/2017 12:0 0 AM EDT Health Maintenance Due Date Last Done [...] Type Phone Address [employer]CIAL INS COMM[employer]CIAL INS [id number] [place] [address] as of this encounter
--- OUTSIDE RECORDS SUMMARY | 2022-11-20 09:34 | External Medical Summary | Summary of Care ---
Author Name Unknown Organization [place] [address] Phone Care Team Providers Care Mailing Manager Name Role Phone Bran Hernandes MD Primary Care Provider Reason for Visit * Reason Comments MEDICATION REFILL Encounter Details Date Type Department Care Team Description 06/24/2017 Refill [place] [address] [place] [address] Bran Hernandes MD [address] [place] [address] [phone] Type 2 diabetes mellitus with hemoglobin A1c goal of less than 7.0% ([facility])* Allergies No Known Allergiesas of this encounter [...] tablet daily Active lisinopril (PRINIVIL) 10 MG TabletIndications: HTN, goal below 140/90 take 1 tablet by mouth once daily 60 Tab 5 04/24/2017 Active escitalopram (LEXAPRO) 10 MG TabletIndications: Adjustment [...] A1c goal of less than 7.0% ([facility]) TAKE Two TABLETs BY MOUTH TWICE DAILY WITH MORNING AND EVENING MEALS 360 Tab 1 06/24/2017 Active metFORMIN (GLUCOPHAGE) 500 MG TabletIndications: Type 2 diabetes mellitus with hemoglobin A1c goal of less than 7.0% ([facility]) TAKE Two TABLETs BY MOUTH TWICE DAILY WITH MORNING AND EVENING MEALS 360 Tab 0 06/13/2016 8 Discontinued as of this encounter Active Problems Problem Noted Date Adjustment disorder with depressed mood 10/24/2015 HTN, goal below 140/90 04/26/2014 Heterozygous MTHFR mutation [id number] ([facility]) 04/25/2014 Prothrombin gene mutation ([facility]) 03/29/19 15 Heterozygous MTHFR mutation C677T ([facility]) 03/29/2014 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[facility]) 03/29/2014 CVA, old, dysarthria 03/22/2014 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 Type 2 diabetes mellitus with hemoglobin A1c goal of less than 7.0% ([facility]) 05/27/2013 Overview: ICD-10 update of inactive term History of brain tumor 05/19/2013 Hypothyroidism 06/30/2012 Obesity, morbid (more than 100 lbs over ideal weight or BMI > 40) ([facility]) 09/05/2009 Overview: Per Obesity Protocol, [...] Telephone Encounter - Trixie Butts PA-C - 06/24/2017 4:48 PM EDT Signed Prescriptions: Disp Refills metFORMIN (GLUCOPHAGE) 500 MG Tablet 360 Tab1 Sig: TAKE Two TABLETs BY MOUTH TWICE DAILY WITH MORNING AND EVENING MEALS Authorizing Provider: TRIXIE BUTTS * Telephone Encounter - Kimberly Bruno LPN - 06/24/2017 1:57 PM EDT Pending Prescriptions: Disp Refills metFORMIN (GLUCOPHAGE) 500 MG Tablet 360 Tab1 Sig: TAKE Two TABLETs BY MOUTH TWICE DAILY WITH MORNING AND EVENING MEALS * Telephone Encounter - Krystle Urena LPN - 06/24/2017 9:51 AM EDT Formatting of this note may be different from the original. Pending Prescriptions: Disp Refills metFORMIN (GLUCOPHAGE) 500 MG Tablet 360 Tab1 Sig: TAKE Two TABLETs BY MOUTH TWICE DAILY WITH MORNING AND EVENING MEALS Last Office Visit: 05/13/2017 Next Office Visit: 10/08/2017 Scheduled Provider(s): Bran Hernandes MD Last date the medication was ordered: 06/13/16 Patient Active Problem List Diagnosis Code ADVANCE DIRECTIVE INFORMATION Obesity, morbid (more than 100 lbs over ideal weight or BMI > 40) ([facility]) E66.01 Hypothyroidism E03.9 History of brain tumor Z87.898 Type 2 diabetes mellitus with hemoglobin A1c goal of less than 7.0% ([facility]) E11.9 HSV-1 infection B00.9 CVA, old, dysarthria I69.322 Prothrombin gene mutation ([facility]) D68.52 Heterozygous MTHFR mutation C677T ([facility]) E72.12 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[facility]) I63.9 Heterozygous MTHFR mutation O1572X ([facility]) E72.12 HTN, goal below 140/90 I10 Adjustment disorder with depressed mood F43.21 Labs: CREATININE(mg/dL) Bruno Dt/Tm Resulted Value Status 04/11/17 8:52A 04/11/17 0.7 FINAL POTASSIUM(mmol/L) Bruno Dt/Tm Resulted Value Status 04/11/17 8:52A 04/11/17 4.1 FINAL TSH(uIU/mL) Bruno Dt/Tm Resulted Value Status 04/11/17 8:52A 04/11/17 4.65* FINAL LDL (CALCULATED)(mg/dL) Bruno Dt/Tm Resulted Value Status 04/11/17 8:52A 04/11/17 136* FINAL LDL DIRECT(REFLEX)(mg/dL) [facility] Dt/Tm Resulted Value Status 04/11/17 8:52A 04/11/17 FINAL Value: NOT APPLICABLE ALT(U/L) Bruno Dt/Tm Resulted Value Status 04/11/17 8:52A 04/11/17 36* FINAL Hemoglobin AIC Results: HEMOGLOBIN, A1C(%) Bruno Dt/Tm Resulted Value Status 04/11/17 8:52A 04/11/17 7.4* FINAL 06/10/16 10:02A 06/10/16 7.0* FINAL 09/18/15 9:24A 09/18/15 6.4 FINAL in this encounter Plan of Treatment Upcoming Encounters Date Type Specialty Care Team Description 10/08/2017 Office Visit Family Practice Bran Hernandes MD [address] [facility] [place] [id number] Health Maintenance Due Date Last Done Comments [...] fileas of this encounter Visit Diagnoses Diagnosis Type 2 diabetes mellitus wit h hemoglobin A1c goal of less than 7.0% ([facility]) - Primary in this encounter Insurance Payer Benefit Plan / Group Subscriber ID Type Phone Address [employer]CIAL INS COMM[employer]CIAL INS [id number] No Address [place] [address] as of this encounter
--- OUTSIDE RECORDS SUMMARY | 2022-11-20 09:34 | External Medical Summary ---
Author Name Unknown Address [address] [facility] [place] [id number] Phone Organization K01:[facility] [address] [facility] [place] [address] Laboratory Report Ordering Provider Test Date Status URMILA BEAVERSALVINO 07/10/2017 11:13:00 Final Observation Date Value Abnormality Reference Status HbA1C 07/10/2017 22:43 6.6 Above high normal 4.0-6 .4 Final Performing Location [facility] [address] [facility] [address]
--- OUTSIDE RECORDS SUMMARY | 2022-11-20 09:34 | External Medical Summary | Summary of Care ---
Author Name Unknown Organization [place] [address] Phone Care Team Providers Care Marine Underwriter Name Role Phone Bran Hernandes MD Primary Care Provider [phone] Reason for Referral * Evaluate & Treat - Unlimited Visits (Within 10 days (routine)) Status Reason Specialty Diagnoses / Procedures Referred By Contact Referred To Contact Pending Review Specialty Services Required Neurology Diagnoses History of brain tumor Balance disorder Bran Hernandes MD [address] [place] [address] Reason for Visit * Reason Comments EMERGENCY DEPARTMENT FOLLOW-UP Encounter Details Date Type Department Care Team Description 07/10/2017 Office Visit [facility] [address] [place] [address] Bran Hernandes MD [address] [place] [address] [phone] Closed fracture of right elbow, initial encounter*;Closed fracture of left elbow, initial encounter;Nasal septum fracture, closed, initial encounter;History of brain tumor;Type 2 diabetes mellitus with hemoglobin A1c goal of less than 7.0% ([facility]);Other specified hypothyroidism;Balance disorder Allergies No Known Allergiesas [...] goal below 140/90 04/26/2014 Heterozygous MTHFR mutation L2438B ([facility]) 04/25/2014 Prothrombin gene mutation ([facility]) 03/29/19 15 Heterozygous MTHFR mutation C677T ([facility]) 03/29/2014 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[facility]) 03/29/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 She walked down the driveway to put mail in the mail box. Apparently the driveway gets very steep close to the mail box and she fell forward catching herself with her arms but also striking her face. She recalls the event and does not recall any loss of consciousness. She was transp orted by private vehicle to [facility] and evaluated in the emergency room. 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 She tells me most of what she does is more administrative or of or at least not direct patient care but she does pass meds Patient Active Problem List Diagnosis Code ADVANCE DIRECTIVE INFORMATION Obesity, morbid (more than 100 lbs over ideal weight or BMI > 40) ([facility]) E66.01 Hypothyroidism E03.9 History of brain tumor Z87.898 Type 2 diabetes mellitus with hemoglobin A1c goal of less than 7.0% ([facility]) E11.9 HSV-1 infection B00.9 CVA, old, dysarthria I69.322 Prothrombin gene mutation ([facility]) D68.52 Heterozygous MTHFR mutation C677T ([facility]) E72.12 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[facility]) I63.9 Heterozygous MTHFR mutation M2354I ([facility]) E72.12 HTN, goal below 140/90 I10 Adjustment [...] Were going to set that up but [place] as it is likely she would be seen sooner there but she also would have access to the balance clinic and physiatry. E11.9 Type 2 diabetes mellitus with hemoglobin a1c goal of less than 7.0% ([facility])- that was suboptimally controlled over the early winter. Sounds as if it is doing better. Check hemoglobin A1c today E03.8 Other specified hypothyroidism-euthyroid on replacement R26.89 Balance disorder-refer to neurology See again 6 weeks as she has a number of different things going on that I would like the keep track of help coordinate. Bran Hernandes MD in this encounter Nursing Notes * Ying Childress LPN - 07/10/2017 9:58 AM EDT Er f/u in this encounter Plan of Treatment Upcoming Encounters Date Type Specialty Care Team Description 07/10/2017 Office Visit Orthopedics Oswaldo Bradford, [address] [facility] [place] [address] [phone] 07/11/2017 Office Visit [facility] Bates II, MD [address] [facility] [place] [address] [phone] 10/08/2017 Office Visit Family Practice Bran Hernandes MD [address] [place], [place] [phone] Scheduled Referrals Name Priority Associated Diagnoses Order [...] Type Phone Address COMMERCIAL INS COMM[employer]CIAL INS [id number] [place] [address] as of this encounter"
--- OUTSIDE RECORDS SUMMARY | 2022-11-20 09:34 | External Medical Summary | Summary of Care ---
Author Name Unknown Organization [place] [address] Phone Care Team Providers Care Laborer [employer] [place] Name Role Phone Elsa Hernandes MD Primary Care Provider [phone] Reason for Visit * Reason Comments eRx-Medication Refill Encounter Details Date Type Department Care Team Description 06/09/2017 Refill [place] [address] [place] [address] Elsa Hernandes MD [address] [place] [address] [phone] Hypothyroidism Allergies No Known Allergiesas of this encounter [...] 0 06/13/2016 Active lisinopril (PRINIVIL) 10 MG TabletIndications: HTN, [...] OTHER MEDICATIONS 90 Tab 1 06/10/2017 Active levothyroxine (LEVOXYL) 100 MCG TabletIndications: Hypothyroidism Take 1 tab by mouth once daily at least 30 mins prior to breakfast or other meds. THYROID LABS ORDERED, MUST HAVE DONE BEFORE MORE REFILLS 90 Tab 0 03/04/2017 8 Discontinued as of this encounter Active Problems Problem Noted Date Adjustment disorder with depressed mood 10/24/2015 HTN, goal below 140/90 04/26/2014 Heterozygous MTHFR mutation [id number] ([facility]) 04/25/2014 Prothrombin [...] encounter Miscellaneous Notes * Telephone Encounter - Elsa Hernandes MD - 06/10/2017 5:41 PM EDT Signed Prescriptions: Disp Refills levothyroxine (LEVOXYL) 100 MCG Tablet 90 Tab 1 Sig: take 1 tablet by mouth once daily AT LEAST 30 MINUTES PRIOR TO BREAKFAST OR OTHER MEDICATIONS Authorizing Provider: ELSA HERNANDES * Telephone Encounter - Damion Kimberly M, MR TEACHER - 06/10/2017 3:54 PM EDT Pending Prescriptions: Disp Refills levothyroxine (LEVOXYL) 100 MCG Tablet [P*90 Tab 0 Sig: take 1 tablet by mouth once daily AT LEAST 30 MINUTES PRIOR TO BREAKFAST OR OTHER MEDICATIONS * Telephone Encounter - Kimberly Bruno, LENA - 06/10/2017 3:53 PM EDT Pending Prescriptions: Disp Refills levothyroxine (LEVOXYL) 100 MCG Tablet [P*90 Tab 0 Sig: take 1 tablet by mouth once daily AT LEAST 30 MINUTES PRIOR TO BREAKFAST OR OTHER MEDICATIONS Last Office Visit: 05/13/2017 Next Office Visit: 10/08/2017 Scheduled Provider(s): Elsa Hernandes MD If no future appointments scheduled, and last appointment is greater than a year ago, please schedule patient for a follow-up appointment Last date the medication was ordered: 03/04/2017 Phone number(s): There are no phone numbers [...] 09/18/15 6.4 FINAL * Telephone Encounter - Delilah Bruno RN - 06/10/2017 8:09 AM EDT Pending Prescriptions: Disp Refillslevothyroxine (LEVOXYL) 100 MCG Tablet [P*90 Tab 0Sig: take 1 tablet by mouth once daily AT LEAST 30MINUTES PRIOR TO BREAKFAST OR OTHER MEDICATIONS in this encounter Plan of Treatment Upcoming Encounters Date Type Specialty Care Team Description 10/08/2017 Office Visit [facility] Elsa Hernandes MD [address] [place] [address] [phone] Health Maintenance Due Date Last Done Comments [...] fileas of this encounter Visit Diagnoses Diagnosis Hypothyroidism Unspecified hypothyroidism in this encounter Insurance Payer Benefit Plan / Group Subscriber ID Type Phone Address COMMERCIAL INS COMM[employer]CIAL INS [id number] [place] [address] as of this encounter
--- OUTSIDE RECORDS SUMMARY | 2022-11-20 09:34 | External Medical Summary | Summary of Care ---
Author Name Unknown Organization [place] [address] Phone Care Team Providers Care Water Quality Technician Name Role Phone Bran Hernandes MD Primary Care Provider [phone] Reason for Visit * Reason Comments eRx-Medication Refill Encounter Details Date Type Department Care Team Description 06/10/[address] [facility] [address] [place] [address] Trixie Butts PA-C [address] [place] [address] [phone] Herpes simplex virus infection Allergies No Known Allergiesas of this encounter [...] VITAMIN PO TABS 1 tablet daily Active Meloxicam 15 MG TabletIndications:Hip pain, right Take 1 Tab by mouth daily. for pain. 30 Tab 5 06/10/2016 Active metFORMIN (GLUCOPHAGE) 500 MG TabletIndications:Type 2 [...] mouth daily. 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, old, dysarthria 03/22/2014 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 Type 2 diabetes mellitus with hemoglobin A1c goal of less than 7.0% ([facility]) 05/27/2013 Overview: ICD-10 update of inactive term History of brain tumor 05/19/2013 Hypothyroidism 06/30/2012 Obesity, morbid (more than 100 lbs over ideal weight or BMI > 40) ([facility]) 09/05/2009 Overview: Per Obesity Protocol, #19 [...] Encounter - Trixie Butts PA-C - 06/11/2017 8:18 AM EDT Signed Prescriptions: Disp Refills valACYclovir (VALTREX) 500 MG Tablet 30 Tab 3 Sig: take 1 tablet by mouth once daily Authorizing Provider: TRIXIE BUTTS * Telephone Encounter - Kimberly Bruno LPN - 06/10/2017 1:38 PM EDT Pending Prescriptions: Disp Refills valACYclovir (VALTREX) 500 MG Tablet [Pha*30 Tab 3 Sig: take 1 tablet by mouth once daily * Telephone Encounter - Kimberly Bruno LPN - 06/10/2017 1:37 PM EDT Pending Prescriptions: Disp Refills valACYclovir (VALTREX) 500 MG Tablet [Pha*30 Tab 3 Sig: take 1 tablet by mouth once daily Last Office Visit: 05/13/2017 Next Office Visit: 10/08/2017 Scheduled Provider(s): Bran Hernandes MD If no future appointments scheduled, and last appointment is greater than a year ago, please schedule patient for a follow-up appointment Last date the medication was ordered: 06/07/2016 Phone number(s): There are no phone numbers [...] 06/10/2017 8:09 AM EDT Pending Prescriptions: Disp RefillsvalACYclovir (VALTREX) 500 MG Tablet [Pha*30 Tab 3Sig: take 1 tablet by mouth once daily in this encounter Plan of Treatment Upcoming Encounters Date Type Specialty Care Team Description 10/08/2017 Office Visit Family [facility] Bran Hernandes MD [address] [place] [address] Health Maintenance Due Date Last [...] fileas of this encounter Visit Diagnoses Diagnosis Herpes simplex virus infecti on Herpes simplex without mention of complication in this encounter Insurance Payer Benefit Plan / Group Subscriber ID Type Phone Address COMMERCIAL INS COMMERCIAL INS [id number] [place] [address] as of this encounter
--- OUTSIDE RECORDS SUMMARY | 2022-11-20 09:34 | External Medical Summary ---
Author Name Unknown Address [facility] [address] [place] [id number] Phone Organization K01:[facility] [address] [facility] [address] Laboratory Report Ordering Provider Test Date Status YONAS BEAVERS 07/10/2017 11:13:00 Final Observation Date Value Abnormality Reference Status Vitamin B12 07/10/2017 23:02 1367 Above high normal 232 -1245 Final Performing Location [facility] [address] [facility] [address]
--- OUTSIDE RECORDS SUMMARY | 2022-11-20 09:34 | External Medical Summary | Summary of Care ---
Author Name Unknown Organization [place] [address] Phone Care Team Providers Care Temp Recruiter Name Role Phone Bran Hernandes MD Primary Care Provider [phone] Reason for Referral * Evaluate & Treat - Unlimited Visits (Within 10 days (routine)) Status Reason Specialty Diagnoses / Procedures Referred By Contact Referred To Contact Pending Review Specialty Services Required Neurology Diagnoses History of brain tumor Balance disorder Bran Hernandes MD [address] [place] [address] Reason for Visit * Reason Comments EMERGENCY DEPARTMENT FOLLOW-UP Encounter Details Date Type Department Care Team Description 07/10/2017 Office Visit [facility] [address] [place] [address] Bran Hernandes MD [address] [place] [address] [phone] Closed fracture of right elbow, initial encounter*;Closed fracture of left elbow, initial encounter;Nasal septum fracture, closed, initial encounter;History of brain tumor;Type 2 diabetes mellitus with hemoglobin A1c goal of less than 7.0% ([facility]);Other specified hypothyroidism;Balance disorder Allergies No Known Allergiesas [...] goal of less than 7.0% ([facility]) TAKE Two TABLETs BY MOUTH TWICE DAILY WITH MORNING AND EVENING MEALS 360 Tab 1 06/24/2017 Active as of this encounter Active Problems Problem Noted Date Adjustment disorder with depressed mood 10/24/2015 HTN, goal below 140/90 04/26/2014 Heterozygous MTHFR mutation V0433R ([facility]) 04/25/2014 Prothrombin gene mutation ([facility]CC) 03/29/19 15 Heterozygous MTHFR mutation C677T ([facility]) 03/29/2014 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[facility]CC) 03/29/2014 CVA, old, dysarthria 03/22/2014 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 She walked down the driveway to put mail in the mail box. Apparently the driveway gets very steep close to the mail box and she fell forward catching herself with her arms but also striking her face. She recalls the event and does not recall any loss of consciousness. She was transp orted by private vehicle to [facility] and evaluated in the emergency room. 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 She tells me most of what she does is more administrative or of or at least not direct patient care but she does pass meds Patient Active Problem List Diagnosis Code ADVANCE DIRECTIVE INFORMATION Obesity, morbid (more than 100 lbs over ideal weight or BMI > 40) ([facility]) E66.01 Hypothyroidism E03.9 History of brain tumor Z87.898 Type 2 diabetes mellitus with hemoglobin A1c goal of less than 7.0% ([facility]) E11.9 HSV-1 infection B00.9 CVA, old, dysarthria I69.322 Prothrombin gene mutation ([facility]) D68.52 Heterozygous MTHFR mutation C677T ([facility]) E72.12 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[facility]) I63.9 Heterozygous MTHFR mutation T9703R ([facility]) E72.12 HTN, goal below 140/90 [...] Were going to set that up but [place] as it is likely she would be seen sooner there but she also would have access to the balance clinic and physiatry. E11.9 Type 2 diabetes mellitus with hemoglobin a1c goal of less than 7.0% ([facility])- that was suboptimally controlled over [...] 07/10/2017 Office Visit Orthopedics Oswaldo Bradford, [address] [facility] [place] [address] [phone] 07/11/2017 Office Visit [facility] Brandon Bates II, MD [address] [facility] [place] [address] [phone] 10/08/2017 Office Visit Family Practice Bran Hernandes MD [address] [place], [place] [address] Scheduled Referrals Name Priority Associated Diagnoses Order [...] Type Phone Address COMMERCIAL INS COMMERCIAL INS [id number] [place] [address] as of this encounter"
--- OUTSIDE RECORDS SUMMARY | 2022-11-20 09:35 | External Medical Summary | Summary of Care ---
Author Name Unknown Organization [place] [address] Phone Care Team Providers Care Organ Builder Name Role Phone Bran Hernandes MD Primary Care Provider [phone] Reason for Visit * Reason Comments ORDER REQUEST Encounter Details Date Type Department Care Team Description 05/13/2017 Telephone [facility] [address] [place] [address] Trixie Butts PA-C [address] [place] [address] [phone] ORDER REQUEST Allergies No Known Allergiesas of this encounter Medications Prescription Sig. Disp. Refills Start Date End Date Status ISELA CONTOUR NEXT TEST STRP twice daily 60 Strip 11 03/02/2014 Active EASY TOUCH LANCING DEVICE MISC As directed 03/23/2014 Active EASY TOUCH LANCETS 30G/TWIST MISC As directed 03/23/2014 Active ASPIRIN EC LO-DOSE 81 MG PO TBECIndications:Brain stem stroke (HCC) 1 TABLET DAILY 1 Tab 0 03/29/2014 Active MULTIPLE VITAMIN PO TABS 1 tablet daily Active valACYclovir (VALTREX) 500 MG TabletIndications:Her pes simplex virus infection TAKE ONE TABLET BY MOUTH ONCE DAILY 90 Tab 1 06/07/2016 Active Meloxicam 15 MG TabletIndications:Hip pain, right Take 1 Tab by mouth daily. for pain. 30 Tab 5 06/10/2016 Active metFORMIN (GLUCOPHAGE) 500 MG TabletIndications:Typ e 2 diabetes mellitus with hemoglobin A1c goal of less than 7.0% ([facility]) TAKE Two TABLETs BY MOUTH TWICE DAILY WITH MORNING AND EVENING MEALS 360 Tab 0 06/13/2016 Active levothyroxine (LEVOXYL) 100 MCG TabletIndications:Hyp othyroidism Take 1 tab by mouth once daily at least 30 mins prior to breakfast or other meds. THYROID LABS ORDERED, MUST HAVE DONE BEFORE MORE REFILLS 90 Tab 0 03/04/2017 Active lisinopril (PRINIVIL) 10 MG TabletIndications:HTN , goal below 140/90 take 1 tablet by mouth once daily 60 Tab 5 04/24/2017 Active escitalopram (LEXAPRO) 10 MG TabletIndications:Adj ustment disorder with depressed mood Take 1 Tab by mouth daily. 90 Tab 1 05/05/2017 Active as of this encounter Active Problems Problem Noted Date Adjustment disorder with depressed mood 10/24/2015 HTN, goal below 140/90 04/26/2014 Heterozygous MTHFR mutation [id number] ([facility]) 04/25/2014 Prothrombin gene mutation ([facility]) 03/29/19 15 Heterozygous MTHFR mutation C677T ([facility]) 03/29/2014 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[facility]) 03/29/2014 CVA, old, dysarthria 03/22/2014 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 Type 2 diabetes mellitus with hemoglobin A1c goal of less than 7.0% ([facility]) 05/27/2013 Overview: ICD-10 update of inactive term History of brain tumor 05/19/2013 Irritant hand dermatitis 06/30/2012 Hypothyroidism 06/30/2012 Elevated blood pressure, situational 11/2012 Obesity, morbid (more than 100 lbs over ideal weight or BMI > 40) ([facility]) 09/05/2009 Overview: Per Obesity Protocol, #19 ICD-10 update of inactive term ADVANCE DIRECTIVE INFORMATION 01/07/2005 Overview: No, Advance Directive brochure given to patient. as of this encounter Resolved Problems Problem Noted Date Resolved Date Obesity, Class II, BMI 35-39.9, isolated (see ac tual BMI) 06/30/2012 12/26/2016 Overview: BMI= 38.27 06/30/12 Hypothyroidism 02/06/2004 06/30/2012 as of this encounter [...] Telephone Encounter - Trixie Butts PA-C - 05/13/2017 12:42 PM EST Lab orders E11.9 Type 2 diabetes mellitus with hemoglobin a1c goal of less than 7.0% ([facility]) (primary encounter diagnosis) Plan: Vitamin b12 Hemoglobin a1c Z79.899 Encounter for long-term (current) use of medications Plan: Vitamin b12 Trixie Butts PA-C 05/13/2017 12:43 PM in this encounter Plan of Treatment Upcoming Encounters Date Type Specialty Care Team Description 10/08/2017 Office Visit Family Practice Bran Hernandes MD [facility] [address] [place], [place] [id number] Scheduled Tests Name Priority Associated Diagnoses Order S chedule VITAMIN B12 Routine Type 2 diabetes mellitus with hemoglobin A1c goal of less than 7.0% (HCC) Encounter for long-term (current) use of medications Expected: 05/13/2017 (Approximate), Expires: 05/13/2018 HEMOGLOBIN A1C Routine Type 2 diabetes mellitus with hemoglobin A1c goal of less than 7.0% (HCC) Expected: 05/13/2017 (Approximate), Expires: 05/13/2018 Health Maintenance Due Date Last Done Comments [...] of less than 7.0% (HCC) - Primary Encounter for long-term (cur rent) use of medications Encounter for long-term (current) use of other medications in this encounter Insurance Payer Benefit Plan / Group Subscriber ID Type Phone Address [employer] [id number] [place] [address] as of this encounter
--- OUTSIDE RECORDS SUMMARY | 2022-11-20 09:35 | External Medical Summary | Summary of Care ---
Author Name Unknown Organization [place] [address] Phone Care Team Providers Care Stenotypist Name Role Phone Bran Hernandes MD Primary Care Provider [phone] Reason for Visit * Reason Comments eRx-Medication Refill Encounter Details Date Type Department Care Team Description 05/05/2017 Refill [facility] [id number] [place] [address] Trixie Butts PA-C [address] [place] [address] [phone] Adjustment disorder with depressed mood;HTN, goal below 140/90 Allergies No Known Allergiesas [...] mouth daily. 90 Tab 1 05/05/2017 Active escitalopram (LEXAPRO) 10 MG TabletIndications: Adjustment disorder with depressed mood Take 1 Tab by mouth daily. 90 Tab 1 05/03/2016 8 Discontinued as of this encounter Active Problems Problem Noted Date Adjustment disorder with depressed mood 10/24/2015 HTN, goal below 140/90 04/26/2014 Heterozygous MTHFR mutation [id number] ([facility]) 04/25/2014 Prothrombin [...] t, with Preserve, 3yr & Above, Split 01/05/2017,12/29/2013,12/16/2012,0 08/2011,02/18/2011 TD - Tetanus/Diptheria (ADULT) 02/06/2004 TDAP [...] Telephone Encounter - Trixie Butts PA-C - 05/05/2017 2:01 PM EST Signed Prescriptions: Disp Refills escitalopram (LEXAPRO) 10 MG Tablet 90 Tab 1 Sig: Take 1 Tab by mouth daily. Authorizing Provider: TRIXIE BUTTS Refused Prescriptions: Disp Refills escitalopram (LEXAPRO) 10 MG Tablet [Pharm*90 Tab 1 Sig: take 1 tablet by mouth once daily Refused By: MIKHAIL BRUNO Reason for Refusal: Other (comment below) lisinopril (PRINIVIL) 10 MG Tablet [Pharma*60 Tab 5 Sig: take 1 tablet by mouth once daily Refused By: MIKHAIL BRUNO Reason for Refusal: Duplicate Request * Telephone Encounter - Mikhail Bruno, LENA - 05/05/2017 10:24 AM EST Pending Prescriptions: Disp Refills escitalopram (LEXAPRO) 10 MG Tablet 90 Tab 1 Sig: Take 1 Tab by mouth daily. Refused Prescriptions: Disp Refills escitalopram (LEXAPRO) 10 MG Tablet [Pharm*90 Tab 1 Sig: take 1 tablet by mouth once daily Refused By: MIKHAIL BRUNO Reason for Refusal: Other (comment below) lisinopril (PRINIVIL) 10 MG Tablet [Pharma*60 Tab 5 Sig: take 1 tablet by mouth once daily Refused By: MIKHAIL BRUNO Reason for Refusal: Duplicate Request * Telephone Encounter - Mikhail Bruno, LENA - 05/05/2017 10:19 AM EST Pending Prescriptions: Disp Refills escitalopram (LEXAPRO) 10 MG Tablet [Phar*60 Tab 0 Sig: take 1 tablet by mouth once daily lisinopril (PRINIVIL) 10 MG Tablet [Pharm*60 Tab 0 Sig: take 1 tablet by mouth once daily Last Office Visit: 04/09/2017 Next Office Visit: 05/13/2017 Scheduled Provider(s): Trixie Butts PA-C If no future appointments scheduled, and last appointment is greater than a year ago, please schedule patient for a follow-up appointment Lexapro 05/03/2016 Lisinopril was sent on 04/24/2017 Phone number(s): There are no phone numbers on file. Labs: ALT(U/L) Bruno Dt/Tm Resulted Value Status 04/11/17 8:52A 04/11/17 36* FINAL CREATININE(mg/dL) [facility] Dt/Tm Resulted Value Status 04/11/17 8:52A 04/11/17 0.7 FINAL LDL (CALCULATED)(mg/dL) [facility] Dt/Tm Resulted Value Status 04/11/17 8:52A 04/11/17 136* FINAL POTASSIUM(mmol/L) [facility] Dt/Tm Resulted Value Status 04/11/17 8:52A 04/11/17 4.1 FINAL TSH(uIU/mL) [facility] Dt/Tm Resulted Value Status 04/11/17 8:52A 04/11/17 4.65* FINAL Hemoglobin AIC Results: HEMOGLOBIN, A1C(%) [facility] Dt/Tm Resulted Value Status 04/11/17 8:52A 04/11/17 7.4* FINAL 06/10/16 10:02A 06/10/16 7.0* FINAL 09/18/15 9:24A 09/18/15 6.4 FINAL * Telephone Encounter - Patel, Josefa J, RN - 05/05/2017 8:47 AM EST Pending Prescriptions: Disp Refillsescitalopram (LEXAPRO) 10 MG Tablet [Phar*60 Tab 0Sig: take 1 tablet by mouth once dailylisinopril (PRINIVIL) 10 MG Tablet [Pharm*60 Tab 0Sig: take 1 tablet by mouth once daily in this encounter Plan of Treatment Upcoming Encounters Date Type Specialty Care Team Description 05/13/2017 Office Visit Family Practice Trixie Butts PA-C [address] [facility] [place] [id number] 10/08/2017 Office Visit Family [facility] Bran Hernandes MD [address] [facility] [place] [id number] Health Maintenance Due Date Last Done Comments Yearly B-12 1969 DIABETES-EYE EXAM 1987 BREAST CANCER SCREENING DISC USSION YEARLY AGES 40-75 2009 *BASELINE EKG FOR HTN 04/28/2014 *DEPRESSION SCREENING, JARETTUA L FOR PTS 18 AND OVER 06/03/2014 PAP SMEAR-EVERY 3 YRS,AGES 21-65 04/20/2016 04/20/2013, 12/18/2011 (Done elsewhere), 11/23/2007 DIABETES-HGBA1C EVERY 6 MONTHS 10/09/2017 0 04/11/2017, 06/10/2016, 09/18/2015, Additional history exists DIABETES-FOOT EXAM 04/09/2018 04/09/2017, 0 04/26/2014, 06/29/2013 DIABETES-LDL EVERY 12 MONTHS 04/11/2018, 09/18/2015, 08/30/2014, Additional history exists DIABETES-URINE MICROALBUMIN EVERY 12 MONTHS 04/11/2018 04/11/2017, 09/18/2015, 01/06/2015, Additional history exists TETANUS EVERY 10 YRS-TDAP (BOOSTRIX/ADACEL) SUGGESTED IF NOT RECEIVED IN PAST 11/27/2021 11/28/2011, 02/06/2004 Influenza Vaccine (FLU shot) Completed , 01/06/2015, 12/29/2013, Additional history exists PNEUMOCOCCAL 19-64 MEDIUM RISK Completed 04/09/2017 as of this encounter Implants Not on fileas of this encounter Visit Diagnoses Diagnosis Adjustment disorder with dep ressed mood HTN, goal below 140/90 Unspecified essential hypertension in this encounter Insurance Payer Benefit Plan / Group Subscriber ID Type Phone Address [employer] [id number] [place] [address] as of this encounter
--- OUTSIDE RECORDS SUMMARY | 2022-11-20 09:35 | External Medical Summary | Summary of Care ---
Author Name Unknown Organization [place] [address] Phone Care Team Providers Care Chemical Worker Name Role Phone Bran Hernandes MD Primary Care Provider [phone] Reason for Visit * Reason Comments PHYSICAL-EXAM Encounter Details Date Type Department Care Team Description 05/13/2017 Office Visit [facility] [address] [place] [address] Trixie Butts PA-C [address] [place] [address] [phone] Encounter for gynecological examination without abnormal finding*;Pap smear for cervical cancer screening;Mammogram declined Allergies No Known Allergiesas of this encounter [...] goal below 140/90 04/26/2014 Heterozygous MTHFR mutation [id number] ([facility]) 04/25/2014 Prothrombin gene mutation ([facility]) 03/29/19 15 Heterozygous MTHFR mutation C677T ([facility]) 03/29/2014 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) 05/27/2013 Overview: ICD-10 update of inactive term History of brain tumor 05/19/2013 Hypothyroidism 06/30/2012 Obesity, morbid (more than 100 lbs over ideal weight or BMI > 40) ([facility]) 09/05/2009 Overview: Per Obesity Protocol, [...] Vital Sign Reading Time Taken Blood Pressure 142/86 05/13/2017 12:33 PM EST Pulse 80 05/13/2017 12:33 PM EST Temperature 37.2 C (98.9 F) 05/13/2017 1 2:33 PM EST Respiratory Rate 20 05/13/2017 12:3 3 PM EST Oxygen Saturation - - Inhaled Oxygen Concentration - - Weight 104.8 kg (231 lb) 05/13/2017 12: 33 PM EST Height 163.8 cm (5' 4.5") 05/13/2017 12 :33 PM EST Body Mass Index 39.04 05/13/2017 12:33 PM EST in this encounter Functional Status Functional Status [...] as of this encounter Progress Notes * Trixie Butts PA-C - 05/13/2017 12:46 PM EST Formatting of this note may be different from the original. Subjective: Kacey Jay is a 47 year old female. Chief Complaint Patient presents with PHYSICAL-EXAM HPI: Here for cpe and pap. Has been a few years since her last pap. No LMP recorded. Patient has had an ablation. No computer systems technology instructor complaints. Does not do mammo historically. Current on labs. PHM: Patient Active Problem List Diagnosis Code ADVANCE DIRECTIVE INFORMATION Obesity, morbid (more than 100 lbs over ideal weight or BMI > 40) ([facility]) E66.01 Hypothyroidism E03.9 History of brain tumor Z87.898 Type 2 diabetes mellitus with hemoglobin A1c goal of less than 7.0% ([facility]) E11.9 HSV-1 infection B00.9 CVA, old, dysarthria I69.322 Prothrombin gene mutation ([facility]) D68.52 Heterozygous MTHFR mutation C677T ([facility]) E72.12 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[facility]) I63.9 Heterozygous MTHFR mutation C6176R ([facility]) E72.12 HTN, goal below 140/90 [...] Tab 1 levothyroxine (LEVOXYL) 100 MCG Tablet Take 1 tab by mouth once daily at least 30 mins prior tobreakfast or other meds. THYROID LABS ORDERED, MUST HAVE DONE BEFORE MORE REFILLS 90 Tab 0 lisinopril (PRINIVIL) 10 MG Tablet take 1 tablet by mouth once daily 60 Tab 5 Meloxicam 15 MG Tablet Take 1 Tab by mouth daily. for pain. 30 Tab 5 metFORMIN (GLUCOPHAGE) 500 MG Tablet TAKE Two TABLETs BY MOUTH TWICE DAILY WITH MORNING AND EVENING MEALS 360 Tab 0 MULTIPLE VITAMIN PO TABS 1 tablet daily valACYclovir (VALTREX) 500 MG Tablet TAKE ONE TABLET BY MOUTH ONCE DAILY 90 Tab 1 Review of patient's allergies indicates: No Known Allergies Extensive ROS Constitutional (f/c/wt/vision/hearing): Negative and wears glasses, eye exam due Resp (cough/sob/clark): Negative CV (cp/palp/fluttering/diaphoresis/clark/pnd):Negative GI (n/v/d/hrtburn): Negative Endo (hair/cold or heat intol/ 3 p's): Negative Neuro (shaking/weak/fatigu/parasthesi/): Negative Skin (rash/easy bruis/xerosis): Negative Psy (si/hi/halluc/): Negative (nocturia/hesit/drib/sexual review): Negative Lymph (swollen glands/b sx's/: Negative Dental exam is past due - has been some time. Objective: BP 142/86 | Pulse 80 | Temp (Src) 98.9 (Tympanic) | Resp 20 | Ht 5' 4.5" (1.638m) | Wt 231 lbs (104.781kg) | BMI 39.04 kg/m | BSA 2.18 m BP Readings from Last 4 Encounters: 05/13/17 142/86 04/09/17 130/88 06/10/16 134/90 10/24/15 138/76 General: alert, healthy, no distress, well nourished and well developed Head: Normocephalic, No masses, lesions, tenderness or abnormalities Eye Exam: PERRLA, EOMI, Conjunctiva are pink and non-injected, sclera clear Ears: External ears normal, Canals clear, TM's Normal Nose: no mucosal erythema, no mucosal edema, no purulent discharge, no septal hematoma Oropharynx: no exudate, no erythema, lips, buccal mucosa, and tongue normal and mucous membranes are moist Neck: supple, no adenopathy, no bruits, thyroid normal size, non-tender, without nodularity Heart: regular rate & rhythm, no murmurs, no gallops, S-1 normal and S-2 normal Lungs: chest symmetric with normal AP diameter, no chest deformities noted, no chest wall tenderness, lungs clear to auscultation Pulses: radial=2/4, carotid=2/4 w/o bruits, posterior tibial=2/4 Abdomen: abdomen soft, non-tender, normal bowel sounds and no masses or organomegaly Back: No CVA tenderness, no tenderness to percussion or palpation Extremities: no joint deformities, effusion, or inflammation, no edema, no clubbing, no cyanosis Neuro Exam: alert & oriented x 3 with fluent speech, no focal motor/sensory deficits, gait normal, reflexes normal and symmetric Breasts: Inspection negative, No nipple retraction or dimpling, No nipple discharge or bleeding, Noaxillary or supraclavicular adenopathy, Normal to palpation without dominant masses Pelvic Exam: External genitalia and vagina anatomy within normal limits, No significant vulvar lesions, No significant vaginal discharge, Cervix normal in appearance without lesions or purulent discharge, Uterus is normal size, shape, and consistency, Adnexea normal bilaterally. No abnormal pelvic masses, Pap obtained with broom Exam (Female): external genitalia and vagina anatomy within normal limits Skin: skin color, texture, turgor are normal, no rashes or significant lesions Rectal: perianal area normal, anus normal, digital rectal exam negative, anal sphincter tone normal Musculoskeletal: FROM UE and LE, normal tone, no gross deformity noted, neg SHARON, no synovitis appreciated in the small joints of the hands' ASSESSMENT/PLAN: Z01.419 Encounter for gynecological examination without abnormal finding (primary encounter diagnosis) Plan: Pap screen Z12.4 Pap smear for cervical cancer screening Plan: Pap screen Z53.20 Mammogram declined Pap today current with pcp She is going to increase her metformin - has plenty at home Orders in for repeat july Dental and eye appt due Trixie Butts PA-C 05/13/2017 12:59 PM in this encounter Nursing Notes * Delilah Bruno RN - 05/13/2017 12:32 PM EST Here for Pap in this encounter Plan of Treatment Upcoming Encounters Date Type Specialty Care Team Description 10/08/2017 Office Visit Family Practice Bran Hernandes MD [address] [place] [address] Scheduled Tests Name Priority Associated Diagnoses Order S chedule PAP SCREEN Routine Encounter for gynecological examination without abnormal finding Pap smear for cervical cancer screening Ordered: 05/13/2017 Health Maintenance Due Date Last Done Comments [...] fileas of this encounter Visit Diagnoses Diagnosis Encounter for gynecological examination without abnormal finding - Primary Routine gynecological examination Pap smear for cervical cance r screening Screening for malignant neoplasm of the cervix Mammogram declined Surgical or other procedure not carried out because of patient's decision in this encounter Insurance Payer Benefit Plan / Group Subscriber ID Type Phone Address [employer] [id number] [place] [address] as of this encounter
--- OUTSIDE RECORDS SUMMARY | 2022-11-20 09:35 | External Medical Summary ---
Author Name Unknown Address Unknown Organization [facility]:Performed at [address] [address] Laboratory Report Ordering Provider Test Date Status ELSAFELIPEALANA 04/11/2017 08:52:00 Final Observation Date Value Abnormality Reference Status BUN 04/11/2017 11:25 8 6-20 Fin al Creatinine 04/11/2017 11:25 0.7 0.5-1.0 Fi nal Performing Location Performed at [address] [address]
--- OUTSIDE RECORDS SUMMARY | 2022-11-20 09:35 | External Medical Summary | Summary of Care ---
Author Name Unknown Organization [place] [address] Phone Care Team Providers Care Reference Services Head Name Role Phone Bran Hernandes MD Primary Care Provider [phone] Reason for Visit * Reason Comments OUTPATIENT TESTING Encounter Details Date Type Department Care Team Description 04/11/2017 Laboratory Patient Service [address] [id number] Type 2 diabetes mellitus with hemoglobin A1c goal of less than 7.0% ([facility]);HTN, goal below 140/90;Other specified hypothyroidism;[employer] Other*[id number] Allergies No Known Allergiesas of this encounter [...] tablet daily Active lisinopril (PRINIVIL) 10 MG TabletIndications:HTN , goal below 140/90 One pill by mouth once a day 90 Tab 1 04/02/2016 Active escitalopram (LEXAPRO) 10 MG TabletIndications:Adj ustment disorder with depressed mood Take 1 Tab by mouth daily. 90 Tab 1 05/03/2016 Active valACYclovir (VALTREX) 500 MG TabletIndications:Her pes simplex virus infection TAKE ONE TABLET BY MOUTH ONCE DAILY 90 Tab 1 06/07/2016 Active Meloxicam 15 MG TabletIndications:Hip pain, right Take 1 Tab by mouth daily. for pain. 30 Tab 5 06/10/2016 Active metFORMIN (GLUCOPHAGE) 500 MG TabletIndications:Typ e 2 diabetes mellitus with hemoglobin A1c goal of less than 7.0% ([facility]) TAKE Two TABLETs BY MOUTH TWICE DAILY WITH MORNING AND EVENING MEALS 360 Tab 0 06/13/2016 Active levothyroxine (LEVOXYL) 100 MCG TabletIndications:Hyp othyroidism Take 1 tab by mouth once daily at least 30 mins prior to breakfast or other meds. 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 Type 2 diabetes mellitus with hemoglobin A1c goal of less than 7.0% ([facility]) 05/27/2013 Overview: ICD-10 update of inactive term History of brain tumor 05/19/2013 Irritant hand dermatitis 06/30/2012 Hypothyroidism 06/30/2012 Elevated blood pressure, situational 11/2012 Obesity, morbid (more than 100 lbs over ideal weight or BMI > 40) ([facility]) 09/05/2009 Overview: Per Obesity Protocol, [...] Office Visit Family Practice Trixie Butts PA-C [address] [place] [address] 10/08/2017 Office Visit Family Practice Bran Hernandes MD [address] [place], [place] [phone] Pending Results Name Priority Associated Diagnoses Date/Ti me COMPR METAB PANEL Routine Type 2 diabetes mellitus with hemoglobin A1c goal of less than 7.0% (HCC) HTN, goal below 140/90 04/11/2017 8:52 AM EST LIPID PANEL WITH DIRECT LDL IF TG ABOVE 400 MG/DL Routine Type 2 diabetes mellitus with hemoglobin A1c goal of less than 7.0% ([facility]) 04/11/2017 8:52 AM EST HEMOGLOBIN A1C Routine Type 2 diabetes mellitus with hemoglobin A1c goal of less than 7.0% ([facility]) 04/11/2017 8:52 AM EST ALBUMIN / CREATININE RATIO, URINE Routine Type 2 diabetes mellitus with hemoglobin A1c goal of less than 7.0% ([facility]) 04/11/2017 8:52 AM EST TSH W/FT4 IF TSH IS INDICATED Routine Other specified hypothyroidism 04/11/2017 8:52 AM EST MYCODE INITIAL ADULT Routine [employer] Other*[id number] 04/11/2017 8:52 AM EST Health Maintenance Due Date Last Done Comments Yearly B-12 1969 DIABETES-EYE EXAM 1987 BREAST CANCER SCREENING DISC USSION YEARLY AGES 40-75 2009 *BASELINE EKG FOR HTN 04/28/2014 *DEPRESSION SCREENING, FRANK Aguila FOR PTS 18 AND OVER 06/03/2014 PAP SMEAR-EVERY 3 YRS,AGES 21-65 04/20/2016 04/20/2013, 12/18/2011 (Done elsewhere), 11/23/2007 DIABETES-LDL EVERY 12 MONTHS 09/17/2016, 08/30/2014, 08/25/2013, Additional history exists DIABETES-URINE MICROALBUMIN EVERY 12 MONTHS 09/17/2016 09/18/2015, 01/06/2015, 08/25/2013 *TSH FOR THYROID MEDICATION MONITORING YEARLY 09/19/2016 DIABETES-HGBA1C EVERY 6 MONTHS 12/11/2016 0 06/10/2016, 09/18/2015, 01/06/2015, Additional history exists DIABETES-FOOT EXAM 04/09/2018 04/09/2017, 0 04/26/2014, 06/29/2013 TETANUS EVERY 10 YRS-TDAP (BOOSTRIX/ADACEL) SUGGESTED IF NOT RECEIVED IN PAST 11/27/2021 11/28/2011, 02/06/2004 Influenza Vaccine (FLU shot) Completed , 01/06/2015, 12/29/2013, Additional history exists PNEUMOCOCCAL 19-64 MEDIUM RISK Completed 04/09/2017 as of this encounter Implants Not on fileas of this encounter Visit Diagnoses Diagnosis Type 2 diabetes mellitus wit h hemoglobin A1c goal of less than 7.0% (HCC) HTN, goal below 140/90 Unspecified essential hypertension Other specified hypothyroidi sm [employer] OTHER*[id number] in this encounter Insurance Payer Benefit Plan / Group Subscriber ID Type Phone Address [employer] [id number] [place] [address] as of this encounter
--- OUTSIDE RECORDS SUMMARY | 2022-11-20 09:35 | External Medical Summary ---
Author Name Unknown Address Unknown Organization [facility]:Performed at [address] [place] [address] Laboratory Report Ordering Provider Test Date Status DEBI HUNTER 04/11/2017 08:52:00 Final Observation Date Value Abnormality Reference Status Fasting status - Reported 04/11/2017 08:55 14 Final Triglyceride 04/11/2017 11:25 217 Above high normal <2 00 Final Performing Location Performed at [address] [address]
--- OUTSIDE RECORDS SUMMARY | 2022-11-20 09:35 | External Medical Summary | Summary of Care ---
Author Name Unknown Organization [place] [address] Phone Care Team Providers Care Senior Education Specialist Name Role Phone Bran Hernandes MD Primary Care Provider [phone] Reason for Visit * Reason Comments ADVICE Encounter Details Date Type Department Care Team Description 04/13/2017 Telephone [facility] [address] [place] [address] Bran Hernandes MD [address] [place] [address] [phone] ADVICE Allergies No Known Allergiesas of this [...] goal below 140/90 04/26/2014 Heterozygous MTHFR mutation [id number] ([facility]) 04/25/2014 Prothrombin gene mutation [...] over ideal weight or BMI > 40) ([facility]) 09/05/2009 Overview: Per Obesity Protocol, [...] encounter Miscellaneous Notes * Telephone Encounter - Ying Childress LPN - 04/16/2017 11:09 AM EST left a message for patient to call the office. * Telephone Encounter - Josefa Patel RN - 04/14/2017 9:45 AM EST Left message for patient to return call to triage see message below * Telephone Encounter - Bran Hernandes MD - 04/13/2017 10:06 AM EST Notify: HGBA1c is above 7 indicating suboptimal DM control. She should continue the Metformin but Isuggest adding another med. I do not know what her formulary might pay for. Can she get copy of formulary coverage for diabetic meds so I can make a choice. The TSH is up just slightly. If she has not been missing doses, then I suggest we increase Levothyroxine to 112mcg daily with repeat TSH in 2 months. I did not send this to pharmacy yet. in this encounter Plan of Treatment Upcoming Encounters Date Type Specialty Care Team Description 05/13/2017 Office Visit Family Practice Trixie Butts PA-C [address] [address] [phone] 10/08/2017 Office Visit Family Practice Bran Hernandes MD [address] [id number] Scheduled Tests Name Priority Associated Diagnoses Order S chedule TSH W/FT4 IF TSH IS INDICATED Routine Other specified hypothyroidism Expected: 04/13/2017 (Approximate), Expires: 04/13/2018 Health Maintenance Due Date Last Done Comments [...] of less than 7.0% (HCC) - Primary Other specified hypothyroidi sm in this encounter Insurance Payer Benefit Plan / Group Subscriber ID Type Phone Address [employer] [id number] [place] [address] as of this encounter
--- OUTSIDE RECORDS SUMMARY | 2022-11-20 09:35 | External Medical Summary ---
Author Name Unknown Address Unknown Organization [facility]:Performed at [address] [place] [address] Laboratory Report Ordering Provider Test Date Status DEBI HUNTER 04/11/2017 08:52:00 Final Observation Date Value Abnormality Reference Status Albumin, Urine 04/11/2017 11:23 1.30 Final Creatinine [Moles/volume] in Urine 04/11/2017 11:23 178 Final Microalbumin / Creatinine Ratio 04/11/2017 11:23 7 <30 Final Performing Location Performed at [address] [place] [address]
--- OUTSIDE RECORDS SUMMARY | 2022-11-20 09:35 | External Medical Summary | Summary of Care ---
Author Name Unknown Organization [place] [address] Phone Care Team Providers Care Rehabilitation Team Lead Name Role Phone Bran Hernandes MD Primary Care Provider [phone] Reason for Visit * Reason Comments ADVICE Encounter Details Date Type Department Care Team Description 04/13/2017 Telephone [facility] [address] [place] [address] Bran Hernandes MD [address] [place] [address] [phone] ADVICE Allergies No Known Allergiesas of this [...] than 7.0% ([facility]) TAKE Two TABLETs BY MOUTH [...] goal below 140/90 04/26/2014 Heterozygous MTHFR mutation [id number] ([facility]) 04/25/2014 Prothrombin gene mutation ([facility]) 03/29/19 15 Heterozygous MTHFR mutation [id number] ([facility]) 03/29/2014 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[facility]) 03/29/2014 CVA, old, dysarthria 03/22/2014 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 She should continue her Metformin but needs additional DM med. I will await her return call with hopefully more info regarding formulary. * Telephone Encounter - Sarah Armas LPN - 04/17/2017 1:15 PM EST Pt aware of below message. Will get info requested below from insurance company concerning diabeticmedication coverage. Pt is taking diabetes medication. Pt states that she is not taking her thyroid medication daily. Pt assures she will start to take medication daily. Thanks. * Telephone Encounter - Ying Childress LPN - 04/17/2017 1:07 PM EST left a message for patient to call the office. Also sent email to pt * Telephone Encounter - Ying Childress LPN [...] Office Visit Family Practice Trixie Butts PA-C [address] [place], [place] [id number] 10/08/2017 Office Visit Family Practice Bran Hernandes MD [address] [place], [place] [id number] Scheduled Tests Name Priority Associated Diagnoses Order S chedule TSH W/FT4 IF TSH IS INDICATED Routine Other specified hypothyroidism Expected: 04/13/2017 (Approximate), Expires: 04/13/2018 Health Maintenance Due Date Last Done Comments Yearly B-12 1969 DIABETES-EYE EXAM 1987 BREAST CANCER SCREENING DISC USSION YEARLY AGES 40-75 2009 *BASELINE EKG FOR HTN 04/28/2014 *DEPRESSION SCREENING, JARETTUA Mingo FOR PTS 18 AND OVER 06/03/2014 PAP [...] Type Phone Address [employer] [id number] [place] [address] as of this encounter
--- OUTSIDE RECORDS SUMMARY | 2022-11-20 09:35 | External Medical Summary ---
Author Name Unknown Address Unknown Organization [facility]:Performed at [address] [place] [address] Laboratory Report Ordering Provider Test Date Status DEBI HUNTER 04/11/2017 08:52:00 Final Observation Date Value Abnormality Reference Status HbA1C 04/11/2017 11:10 7.4 Above high normal 4.0-6 .4 Final Performing Location Performed at [address] [place] [address]
--- OUTSIDE RECORDS SUMMARY | 2022-11-20 09:35 | External Medical Summary ---
Author Name Unknown Address Unknown Organization [facility]:Performed at [address] [address] Laboratory Report Ordering Provider Test Date Status DARRIUS HUNTERREID 04/11/2017 08:52:00 Final Observation Date Value Abnormality Reference Status TSH 04/11/2017 11:25 4.65 Above high normal 0.27- 4.2 Final T4, Free 04/11/2017 11:47 1.31 0.9-1.7 Fin luzmaria Performing Location Performed at [address] [address]
--- OUTSIDE RECORDS SUMMARY | 2022-11-20 09:35 | External Medical Summary | Summary of Care ---
Author Name Unknown Organization [place] [address] Phone Care Team Providers Care Squeegee Tender Name Role Phone Bran Hernandes MD Primary Care Provider [phone] Reason for Visit * Reason Comments PHYSICAL-EXAM Encounter Details Date Type Department Care Team Description 04/09/2017 Office Visit [facility] [id number] [place] [address] Bran Hernandes MD [address] [place] [address] [phone] Routine medical exam*;DM type 2 nursing care encounter ([facility]);Type 2 diabetes mellitus with hemoglobin A1c goal of less than 7.0% ([facility]);Need for pneumococcal vaccination;Other specified hypothyroidism;HTN, goal below 140/90;Heterozygous MTHFR mutation [id number] ([facility]);Prothrombin gene mutation ([facility]) Allergies No Known Allergiesas of this encounter [...] A1c goal of less than 7.0% ([facility]) TAKE Two TABLETs BY [...] goal below 140/90 04/26/2014 Heterozygous MTHFR mutation [id number] ([facility]) 04/25/2014 Prothrombin gene mutation ([facility]) 03/29/19 15 Heterozygous MTHFR mutation C677T ([facility]) 03/29/2014 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[facility]) 03/29/2014 CVA, old, dysarthria 03/22/2014 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 Type 2 diabetes mellitus with hemoglobin A1c goal of less than 7.0% ([facility]) 05/27/2013 Overview: ICD-10 update of inactive term History of brain tumor 05/19/2013 Irritant hand dermatitis 06/30/2012 Hypothyroidism 06/30/2012 Elevated blood pressure, situational 11/2012 Obesity, morbid (more than 100 lbs over ideal weight or BMI > 40) ([facility]) 09/05/2009 Overview: Per Obesity [...] Date Never Smoker Smokeless Tobacco: Never Used Tobacco Cessation:Counseling Given: No Alcohol Use Drinks/Week oz/Week Comments Yes very very rare Sex Assigned at Date Recorded Not on file as of this encounter Last Filed Vital Signs Vital Sign Reading Time Taken Blood Pressure 130/88 04/09/2017 10:44 AM EST Pulse 78 04/09/2017 10:44 AM EST Temperature 37.1 C (98.7 F) 04/09/2017 1 0:44 AM EST Respiratory Rate 16 04/09/2017 10:4 4 AM EST Oxygen Saturation - - Inhaled Oxygen Concentration - - Weight 106.9 kg (235 lb 9.6 oz) 018 10:44 AM EST Height 162.6 cm (5' 4") 04/09/2017 10:4 4 AM EST Body Mass Index 40.44 04/09/2017 10:44 AM EST in this encounter Functional Status Functional [...] this encounter Instructions * Patient Instructions - Aurelia Cote LPN - 04/09/2017 10:48 AM EST Diabetes: Keeping Feet Healthy Inspect your feet every day for signs of a problem. Diabetes can damage nerves in your feet and cause neuropathy. This condition makes it hard for you to feel injuries or sore spots. Diabetes can also change blood flow, making it harder for small problems, like a blister, to heal properly. In fact, minor injuries can quickly become serious infections that send you to the hospital. Practice self-care to protect your feet and keep them healthy. Take Special Care Inspect your feet daily for problems such as redness, blisters, cracks, dry skin, or numbness. Use a mirror to see the bottoms of your feet. Or, ask for help. Manage your diabetes. Monitor and control your blood sugar. Take all your medications as prescribed. Avoid walking barefoot, even indoors. Wash your feet with warm water and mild soap. Dry well, especially between toes. Dont treat corns or calluses yourself. Talk to your doctor or hospice volunteer (a doctor who specializes in foot care) if you need assistance trimming your toenails. Use moisturizing cream or lotion if you have dry skin, but dont use it between toes. Dont use heating pads on your feet. If you have neuropathy, you could get a burn and not feel it. Stop smoking. Smoking restricts blood flow and can make it harder for wounds to heal. Have Regular Checkups Foot problems can develop quickly. So be sure to follow your healthcare teams schedule for regular checkups. During office visits, take off your shoes and socks as soon as you get in the exam room. Ask your healthcare provider to examine your feet for problems. This will make it easier to find and treat small skin irritations before they get worse. Regular checkups can also help keep track of the blood flow and feeling in your feet. If you have neuropathy, you may need to have checkups more often. Wear Proper Footwear Wearing proper footwear is very important. If areas of your feet have been damaged by too much pressure, your healthcare provider may recommend changing your footwear. In some cases, avoiding high heels or tight work boots may be all thats needed. Or, your healthcare provider may recommend special shoes or custom inserts. These help protect your feet and keep existing irritations from getting worse. If you need special footwear, ask your healthcare provider if you qualify for [employer] diabetic shoe program. Make Sure Shoes and Socks Fit Any pair of shoesnew or oldshould feel comfortable as soon as you put them on. There shouldnt be any rubbing when you walk. Wear the right shoe for any activity. For instance, a running shoeis designed to keep your feet injury-free while jogging. Buy shoes at the end of the day, when yourfeet are larger. Make sure they provide support without feeling too loose. Make sure your socks fit, too. Wear soft, seamless, well-padded socks for activity. Cotton or microfiber socks are best to help to absorb sweat. To protect your feet, avoid shoes that are open-toed or open-heeled. If you have questions about what kinds of shoes and socks are best, talk to your healthcare team. Get Regular Exercise Regular exercise improves blood flow in your feet. It also increases foot strength and flexibility.Gentle exercises, like walking or riding a stationary bicycle, are best. You can also do special foot exercises. Just be sure to talk with your healthcare provider before starting any exercise program. Also mention if any exercise causes pain, redness, or other signs of foot problems. Note: If you have any kind of break in the skin of your foot or ankle, keep the area clean. Then call your doctorespecially if the area doesnt appear to be healing. [phone] [employer], [address] [place] [address], [place] [address]. All rights reserved. This information is not intended as a substitute for professional medical care. Always follow your healthcare professional's instructions. in this encounter Progress Notes * Bran Hernandes MD - 04/09/2017 11:24 AM EST Formatting of this note may be different from the original. Subjective: Kacey Jay is a 47 year old female. Chief Complaint Patient presents with PHYSICAL-EXAM HPI: 47-year-old is here for physical examination primarily for pre implement. 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 She is living in [facility]. Her past medical history includes a brainstem stroke about 3 4 years ago. She also has heterozygousMTHFR mutation and prothrombin gene mutation. She has has some chronic dysarthria related to the stroke but that has been stable. She has a history of type 2 diabetes, hypothyroidism, obesity, hypertension. She has not had blood work for some time including thyroid testing in over a year. Last hemoglobin A1c was 7.0. Patient Active Problem List Diagnosis Code ADVANCE DIRECTIVE INFORMATION Obesity, morbid (more than 100 lbs over ideal weight or BMI > 40) ([facility]) E66.01 Irritant hand dermatitis L24.9 Hypothyroidism E03.9 Elevated blood pressure, situational R03.0 History of brain tumor Z87.898 Type 2 diabetes mellitus with hemoglobin A1c goal of less than 7.0% ([facility]) E11.9 HSV-1 infection B00.9 CVA, old, dysarthria I69.322 Prothrombin gene mutation ([facility]) D68.52 Heterozygous MTHFR mutation C677T ([facility]) E72.12 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[facility]) I63.9 Heterozygous MTHFR mutation [id number] ([facility]) E72.12 HTN, goal below 140/90 I10 Adjustment disorder with depressed mood F43.21 Current Outpatient Prescriptions Medication Sig Dispense Refill levothyroxine (LEVOXYL) 100 MCG Tablet Take 1 tab by mouth once daily at least 30 mins prior tobreakfast or other meds. THYROID LABS ORDERED, MUST HAVE DONE BEFORE MORE REFILLS 90 Tab 0 metFORMIN (GLUCOPHAGE) 500 MG Tablet TAKE Two TABLETs BY MOUTH TWICE DAILY WITH MORNING AND EVENING MEALS 360 Tab 0 Meloxicam 15 MG Tablet Take 1 Tab by mouth daily. for pain. 30 Tab 5 valACYclovir (VALTREX) 500 MG Tablet TAKE ONE TABLET BY MOUTH ONCE DAILY 90 Tab 1 escitalopram (LEXAPRO) 10 MG Tablet Take 1 Tab by mouth daily. 90 Tab 1 lisinopril (PRINIVIL) 10 MG Tablet One pill by mouth once a day 90 Tab 1 MULTIPLE VITAMIN PO TABS 1 tablet daily EASY TOUCH LANCING DEVICE MISC As directed EASY TOUCH LANCETS 30G/TWIST MISC As directed ASPIRIN EC LO-DOSE 81 MG PO TBEC 1 TABLET DAILY 1 Tab 0 ISELA CONTOUR NEXT TEST STRP twice daily 60 Strip 11 Review of patient's allergies indicates: No Known Allergies Review of systems: She does get regular eye exams with the last exam being about 9 months ago. She wears corrective lenses. She has no problems with swallowing. She has a slight speech dysarthria butthis is unchanged. She is not bothered with chest pain or shortness of breath or chronic cough. Shedoes not have regular indigestion. She has had endometrial ablation so she does not have any vaginal bleeding. No urinary symptoms. She is not bothered with chronic back pain. Objective: BP 130/88 | Pulse 78 | Temp (Src) 98.7 (Tympanic) | Resp 16 | Ht 5' 4" (1.626m) | Wt 235 lbs 9.6 oz(106.867kg) | BMI 40.44 kg/m | BSA 2.2 m Physical Exam: CONST: alert, pleasant, no acute distress HEAD: normocephalic, atraumatic NECK: supple, soft, no adenopathy EARS: canals normal, TMs normal Eyes - PERRLA, EOM'I NARES: clear OROPHARYNX: clear, no swelling or erythema, moist CV: regular rate and rhythm, no murmur CHEST: clear to auscultation bilaterally, no rales or wheezing ABD: soft, non tender, non distended, no masses or hepatosplenomegaly EXT: no edema, no joint swelling or deformities, NEURO: AAOx3, no gross focal deficits, cerebellar signs normal, affect appropriate SKIN: no rash or significant lesions ASSESSMENT/PLAN: E11.9 Dm type 2 nursing care encounter (formerly [facility]) (primary encounter diagnosis) Plan: Diabetes foot exam E11.9 Type 2 diabetes mellitus with hemoglobin a1c goal of less than 7.0% ([facility]) Hemoglobin A1c, urine for microalbumin, comprehensive metabolic panel, lipid profile Z23 Need for pneumococcal vaccination 23 Valiant pneumococcal vaccine to be given today. She believes that she has had this in the past and I feel a certain that she she has but it very well could have been 10 years or more ago so were going to go ahead and update her. Follow up: Return in about 6 months (around 10/07/2017) to see me Hypothyroidism-she is on thyroid replacement. Check TSH She is going to be scheduled to come back to see Trixie for routine CONCRETE FINISHER exam as it looks like it that is been about 4 years. Her form was completed for pre employ meant. I do not see any reason to restrict her employment. Bran Hernandes MD * Aurelia Cote LPN - 04/09/2017 10:48 AM EST DM Foot Exam completed today. Provider aware. Aurelia Cote LPN Socks and Shoes Removed for Annual Diabetic Foot Screening RIGHT FOOT: No Reddened, Cracking, Or Open Areas Noted. RIGHT Dorsalis Pedis Pulse: Palpable RIGHT Posterior Tibial Pulse: Palpable RIGHT Monofilament:Patient reports feeling monofilament pressure on plantar surface of foot LEFT FOOT: No Reddened, Cracking or Open Areas Noted. LEFT Dorsalis Pedis Pulse: Palpable LEFT Posterior Tibial Pulse: Palpable LEFT Monofilament: Patient reports feeling monofilament pressure on plantar surface of foot in this encounter Nursing Notes * Kimberly Bruno LPN - 04/09/2017 11:38 AM EST Pre-Administration Time Out Procedure Performed: Yes Patient Identified (Ask Name/Date of ): Yes Does the patient have a fever greater than 101 degrees today? No Patient allergic to latex? No Has the patient ever fainted after receiving an injection? No VFC Stock: No Immunization(s) verified: Yes, Immunization Name: Pneumovax (Pneumococcal Adult), VIS Sheet(s) given: Yes Verified Side and Site: Yes Verified Shot(s) with Parent(s)/Patient: Yes * Aurelia Cote LPN - 04/09/2017 10:44 AM EST Patient presents today for CPE. in this encounter Plan of Treatment Upcoming Encounters Date Type Specialty Care Team Description 05/13/2017 Office Visit Family [facility] Trixie Butts PA-C [address] [address] [phone] 10/08/2017 Office Visit Family Practice Bran Hernandes MD [address] [address] [phone] Health Maintenance Due Date Last Done Comments Yearly B-12 1969 DIABETES-EYE EXAM 1987 BREAST CANCER SCREENING DISC USSION YEARLY AGES 40-75 2009 *BASELINE EKG FOR HTN 04/28/2014 *DEPRESSION SCREENING, JARETTUA Mingo FOR PTS 18 AND OVER 06/03/2014 PAP SMEAR-EVERY 3 YRS,AGES 21-65 04/20/2016 04/20/2013, 12/18/2011 (Done elsewhere), 11/23/2007 *TSH FOR THYROID MEDICATION MONITORING YEARLY 09/19/2016 DIABETES-HGBA1C EVERY 6 MONTHS 10/09/2017 0 04/11/2017, [...] on fileas of this encounter Results * TSH W/FT4 IF TSH IS INDICATED (04/11/2017 8:52 AM) Component Value Ref Range TSH 4.65(H) 0.27 - 4.2 uIU/m L FREE T4 REFLEXIVE 1.31 0.9 - 1.7 ng/d L Specimen Performing Laborator y [facility] [address] [address] * ALBUMIN / CREATININE RATIO, URINE (04/11/2017 8:52 AM) Component Value Ref Range ALBUMIN, RD URINE 1.30 mg/dL CREATININE, RD URINE 178 mg/dL MICROALBUMIN RATIO 7 Comment: Normal:<30 mg/g creatinine High:30-300 mg/g creatinine Very High: >300 mg/g creatinine Nephrotic: >2200 mg/g creatinine <30 mg/g creat Specimen Performing Laborator y [facility] [address] [address] * HEMOGLOBIN A1C (04/11/2017 8:52 AM) Component Value Ref Range HEMOGLOBIN, A1C 7.4(H) Comment: The use of HbA1c to monitor glycemic status is based on normal hemoglobin and HbA composition. This test should not be used in patients with abnormal hemoglobin that affects the half life of the red blood cell or the in vivo glycation rates. 4.0 - 6.4 % EST AVG GLUCOSE 166(H) <126 MG/DL Specimen Performing Laborator y [facility] [address] [address] * LIPID PANEL WITH DIRECT LDL IF TG ABOVE 400 MG/DL (04/11/2017 8:52 AM) Component Value Ref Range HOURS FASTING 14 hours TRIGLYCERIDES 217(H) Comment: TRIGLYCERIDE REFERENCE RANGES (mg/dL) <150 NORMAL 150-199BORDERLINE HIGH 200-499HIGH >499 VERY HIGH <200 mg/dL CHOLESTEROL 222(H) Comment: TOTAL CHOLESTEROL REFERENCE RANGES(mg/dL) <200 DESIRABLE 200-239BORDERLINE HIGH >239 HIGH <200 mg/dL HDL 43 Comment: HDL CHOLESTEROL REFERENCE RANGES(mg/dL) <40LOW(UNDESIRABLE) >59HIGH(DESIRABLE) >39 mg/dL CHOL/HDL RATIO 5.2 LDL (CALCULATED) 136(H) Comment: LDL CHOLESTEROL REFERENCE RANGES(mg/dL) <100 OPTIMAL GOAL FOR HIGH RISK PATIENTS 100-129NEAR OR ABOVE NORMAL 130-159BORDERLINE HIGH 160-189HIGH >189 VERY HIGH 0 - 129 mg/dL LDL DIRECT(REFLEX) NOT APPLICABLE 0 - 129 mg/dL Specimen Performing Laborator y [facility] [address] [address] * COMPR METAB PANEL (04/11/2017 8:52 AM) Component Value Ref Range BUN 8 6 - 20 mg/dL CREATININE 0.7 Comment: GFR should be used to assess renal function.Plasma/Serum creatinine may not be able to properly reflect renal function in some cases. 0.5 - 1.0 mg/dL SODIUM 134(L) 135 - 146 mmol/L POTASSIUM 4.1 3.5 - 5.1 mmol/L CHLORIDE 94(L) 98 - 107 mmol/L CO2 26 22 - 32 mmol/L ANION GAP 14 7 - 15 mmol/L GLUCOSE 159(H) 70 - 120 mg/dL ALBUMIN 4.4 3.8 - 5.0 g/dL AST 30 10 - 35 U/L ALKALINE PHOSPHATASE 80 0 - 153 U/L BILIRUBIN, TOTAL 0.5 0 - 1.2 mg/dL CALCIUM 9.4 8.4 - 10.2 mg/dL PROTEIN 7.3 6.0 - 8.3 g/dL ALT 36(H) 10 - 35 U/L E GLOM FILT RATE >60.0Comment:If ladan ent is , multiply estimated GFR by 1.159. >60 Specimen Performing Laborator y [facility] [address] [address] in this encounter Visit Diagnoses Diagnosis Routine medical exam - Prima ry Routine general medical examination at a health care facility DM type 2 nursing care encou nter (HCC) Type II or unspecified type diabetes mellitus without mention of complication, not stated as uncontrolled Type 2 diabetes mellitus wit h hemoglobin A1c goal of less than 7.0% ([facility]) Need for pneumococcal vaccin ation Need for prophylactic vaccination against streptococcus pneumoniae (pneumococcus) Other specified hypothyroidi sm HTN, goal below 140/90 Unspecified essential hypertension Heterozygous MTHFR mutation [id number] ([facility]) Disturbances of sulphur-bearing amino-acid metabolism Prothrombin gene mutation ([facility]) Primary hypercoagulable state in this encounter Insurance Payer Benefit Plan / Group Subscriber ID Type Phone Address COMM[employer]CIAL INS COMM[employer]CIAL INS [id number] [place] [address] as of this encounter
--- OUTSIDE RECORDS SUMMARY | 2022-11-20 09:35 | External Medical Summary | Summary of Care ---
Author Name Unknown Organization [place] [address] Phone Care Team Providers Care Car Tracer Name Role Phone Bran Hernandes MD Primary Care Provider [phone] Reason for Visit * Reason Comments ADVICE Encounter Details Date Type Department Care Team Description 04/13/2017 Telephone [facility] [address] [place] [address] Bran Hernandes MD [address] [place] [address] [phone] ADVICE Allergies No Known Allergiesas of this [...] goal of less than 7.0% ([facility]) TAKE Two TABLETs BY MOUTH TWICE DAILY [...] goal below 140/90 04/26/2014 Heterozygous MTHFR mutation [id number] ([facility]) 04/25/2014 Prothrombin gene mutation ([facility]) 03/29/19 15 Heterozygous MTHFR mutation C677T ([facility]) 03/29/2014 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[facility]) 03/29/2014 CVA, old, dysarthria 03/22/2014 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 Type 2 diabetes mellitus with hemoglobin A1c goal of less than 7.0% ([facility]) 05/27/2013 Overview: ICD-10 update of inactive term History of brain tumor 05/19/2013 Irritant hand dermatitis 06/30/2012 Hypothyroidism 06/30/2012 Elevated blood pressure, situational 11/2012 Obesity, morbid (more than 100 lbs over ideal weight or BMI > 40) ([facility]) 09/05/2009 Overview: Per Obesity Protocol, #19 ICD-10 [...] encounter Miscellaneous Notes * Telephone Encounter - Sarah Armas LPN [...] Office Visit Family Practice Trixie Butts PA-C [address] [facility] [place] [address] 10/08/2017 Office Visit Family Practice Bran Hernandes MD [address] [place] [address] Scheduled Tests Name Priority Associated Diagnoses [...] Type Phone Address [employer]CIAL INS COMM[employer]CIAL INS [id number] [place] [address] as of this encounter
--- OUTSIDE RECORDS SUMMARY | 2022-11-20 09:35 | External Medical Summary | Summary of Care ---
Author Name Unknown Organization [place] [address] Phone Care Team Providers Care Welding Instructor Name Role Phone Bran Hernandes MD Primary Care Provider [phone] Reason for Visit * Reason Comments ADVICE Encounter Details Date Type Department Care Team Description 04/13/2017 Telephone [facility] [address] [place] [address] Bran Hernandes MD [address] [place] [address] [phone] ADVICE Allergies No Known Allergiesas of this [...] goal below 140/90 04/26/2014 Heterozygous MTHFR mutation [id number] ([facility]) 04/25/2014 Prothrombin gene mutation ([facility]) 03/29/19 15 Heterozygous MTHFR mutation C677T ([facility]) 03/29/2014 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[facility]) 03/29/2014 CVA, old, dysarthria 03/22/2014 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 Type 2 diabetes mellitus with hemoglobin A1c goal of less than 7.0% ([facility]) 05/27/2013 Overview: ICD-10 update of inactive term History of brain tumor 05/19/2013 Irritant hand dermatitis 06/30/2012 Hypothyroidism 06/30/2012 Elevated blood pressure, situational 11/2012 Obesity, morbid (more than 100 lbs over ideal weight or BMI > 40) ([facility]) 09/05/2009 Overview: Per Obesity Protocol, [...] Office Visit Family Practice Trixie Butts PA-C [address] [place], [place] [id number] 10/08/2017 Office Visit Family Practice Bran Hernandes MD [address] [place], [place] [id number] Scheduled Tests Name Priority Associated Diagnoses Order [...] Type Phone Address [employer] INS COMM[employer] INS [id number] [place] [address] as of this encounter
--- OUTSIDE RECORDS SUMMARY | 2022-11-20 09:35 | External Medical Summary | Summary of Care ---
Author Name Unknown Organization [place] [address] Phone Care Team Providers Care Truck Operator Name Role Phone Bran Hernandes MD Primary Care Provider [phone] Reason for Visit * Reason Comments ADVICE Encounter Details Date Type Department Care Team Description 04/13/2017 Telephone [facility] [address] [place] [address] Bran Hernandes MD [address] [place] [address] [phone] ADVICE Allergies No Known Allergiesas of this [...] than 7.0% ([facility]) TAKE Two TABLETs BY MOUTH TWICE [...] goal below 140/90 04/26/2014 Heterozygous MTHFR mutation T2761E ([facility]) 04/25/2014 Prothrombin gene mutation ([facility]) 03/29/19 15 Heterozygous MTHFR mutation C677T ([facility]) 03/29/2014 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[facility]) 03/29/2014 CVA, old, dysarthria 03/22/2014 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 Type 2 diabetes mellitus with hemoglobin A1c goal of less than 7.0% ([facility]) 05/27/2013 Overview: ICD-10 update of inactive term History of brain tumor 05/19/2013 Irritant hand dermatitis 06/30/2012 Hypothyroidism 06/30/2012 Elevated blood pressure, situational 11/2012 Obesity, morbid (more than 100 lbs over ideal weight or BMI > 40) ([facility]) 09/05/2009 Overview: Per Obesity Protocol, #19 ICD-10 [...] Office Visit Family Practice Trixie Butts PA-C [address] [id number] 10/08/2017 Office Visit Family Practice Bran Hernandes MD [address] [id number] Scheduled Tests Name Priority Associated Diagnoses Order [...] Type Phone Address [employer]CIAL INS COMM[employer] INS [id number] [place] [address] as of this encounter
--- OUTSIDE RECORDS SUMMARY | 2022-11-20 09:35 | External Medical Summary | Summary of Care ---
Author Name Unknown Organization [place] [address] Phone Care Team Providers Care Mixing Machine Tender Cork Gasket Name Role Phone Bran Hernandes MD Primary Care Provider [phone] Encounter Details Date Type Department Care Team Description 04/14/2017 Orders Only Outcomes Research Department [address] [facility] [place] [id number] [facility] [address] [place] [id number] [employer] Other*[id number] Allergies No Known Allergiesas of this encounter [...] hemoglobin A1c goal of less than 7.0% ([facility]) TAKE Two TABLETs BY MOUTH TWICE [...] goal below 140/90 04/26/2014 Heterozygous MTHFR mutation [id number] ([facility]) 04/25/2014 Prothrombin gene mutation ([facility]) 03/29/19 15 Heterozygous MTHFR mutation C677T (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) 05/27/2013 Overview: ICD-10 update of inactive term History of brain tumor 05/19/2013 Irritant hand dermatitis 06/30/2012 Hypothyroidism 06/30/2012 Elevated blood pressure, situational 11/2012 Obesity, morbid (more than 100 lbs over ideal weight or BMI > 40) ([facility]) 09/05/2009 Overview: Per Obesity Protocol, #19 [...] Office Visit Family Practice Trixie Butts PA-C [address] [place] [address] [phone] 10/08/2017 Office Visit Family Practice Bran Hernandes MD [address] [facility] [place] [id number] Scheduled Tests Name Priority Associated Diagnoses Order S chedule MYCODE SUBSEQUENT ADULT Routine [employer] Research Other*[id number] Every 6 Months for 2 Occurrences starting 04/14/2017 until 05/04/2018 Health Maintenance Due Date Last Done Comments [...] fileas of this encounter Visit Diagnoses Diagnosis MYCODE RESEARCH OTHER*[id number] in this encounter Insurance Payer Benefit Plan / Group Subscriber ID Type Phone Address [employer] [id number] [place] [address] as of this encounter
--- OUTSIDE RECORDS SUMMARY | 2022-11-20 09:36 | External Medical Summary ---
Author Name Unknown Address [address] [place] [address] Phone Organization K01:[facility] [address] [facility] [address] Laboratory Report Ordering Provider Test Date Status DEBI HUNTER MD 09/18/2015 09:24:00 Final Obs # Observation Date Value Abnormality Reference Status Performing Location 0 25-OH Vitamin D total 09/18/2015 14:51 35 >19 Final [facility] [address] [facility] [address]
--- OUTSIDE RECORDS SUMMARY | 2022-11-20 09:36 | External Medical Summary ---
Author Name Unknown Organization [id number] Laboratory Report Ordering Provider Test Date Status ELSA CARRERA MD 08/30/2014 11:16:00-0400 Final Obs # Observation Date Value ABNL Reference Status Pe rforming Location 1 hours fasting 08/30/2014 11:18-0400 12 hours Final 2 Triglyceride 08/30/2014 22:44-0400 102 <200 mg/dL Final TRIGLYCERIDE REFERENCE RANGES (mg/dL) <150 NORMAL 150-199 BORDERLINE HIGH 200-499 HIGH >499 VERY HIGH TOTAL CHOLESTEROL REFERENCE RANGES(mg/dL) <200 DESIRABLE 200-239 BORDERLINE HIGH >239 HIGH HDL CHOLESTEROL REFERENCE RANGES(mg/dL) <40 LOW(UNDESIRABLE) >59 HIGH(DESIRABLE) LDL CHOLESTEROL REFERENCE RANGES(mg/dL) <100 OPTIMAL GOAL FOR HIGH RISK PATIENTS 100-129 NEAR OR ABOVE NORMAL 130-159 BORDERLINE HIGH 160-189 HIGH >189 VERY HIGH
--- OUTSIDE RECORDS SUMMARY | 2022-11-20 09:36 | External Medical Summary ---
Author Name Unknown Address [address] [facility] Phone Organization K01:[facility] [address] [place] [id number] Laboratory Report Ordering Provider Test Date Status YONAS BEAVERS 06/10/2016 10:02:00 Final Observation Date Value Abnormality Reference Status BUN 06/10/2016 17:00 10 6-20 Fin al Creatinine 06/10/2016 17:00 0.8 0.5-1.0 Fi nal Performing Location [facility] [address] [facility] [address]
--- OUTSIDE RECORDS SUMMARY | 2022-11-20 09:36 | External Medical Summary ---
Author Name Unknown Address [address] [phone] Phone Organization K01:[facility] [address] [id number] Laboratory Report Ordering Provider Test Date Status DEBI HUNTER MD 09/18/2015 09:24:00 Final Obs # Observation Date Value Abnormality Reference Status Performing Location 0 TSH 09/18/2015 14:51 1.87 0.27-4.2 Final [facility] [address] [facility] [address]
--- OUTSIDE RECORDS SUMMARY | 2022-11-20 09:36 | External Medical Summary ---
Author Name Unknown Organization K01:[facility], [address] [address] Laboratory Report Ordering Provider Test Date Status ELSA CARRERA MD 08/30/2014 11:16:00-0400 Final Obs # Observation Date Value ABNL Reference Status Pe rforming Location 1 TSH 5 22:56-040 0 2.14 0.27-4.2 uIU/mL Final 2 FREE T4 REFLEXIVE 5 22:56-040 0 NOT APPLICABLE 0.7-1.7 ng/dL Final
--- OUTSIDE RECORDS SUMMARY | 2022-11-20 09:36 | External Medical Summary ---
Author Name Unknown Organization K01:[facility], [address] [id number] Laboratory Report Ordering Provider Test Date Status ELSA CARRERA MD 05/24/2014 12:40:00-0500 Final Obs # Observation Date Value ABNL Reference Status Pe rforming Location 1 HbA1C 05/25/2014 09:37-0500 6.0 4.0-6.4 % Final 2 Glucose, estimated average 05/25/2014 09:37-0500 126 H <126 MG/DL Final
--- OUTSIDE RECORDS SUMMARY | 2022-11-20 09:36 | External Medical Summary ---
Author Name Unknown Organization K01:[facility], [address] [address] Laboratory Report Ordering Provider Test Date Status ELSA CARRERA MD 09/07/2014 15:16:00-0400 Final Obs # Observation Date Value ABNL Reference Status Pe rforming Location 1 Varicella Zoster IgG interpretation 09/08/2014 11:01-0400 POSITIVE A NEG Final 2 Varicella Zoster, IgG 09/08/2014 11:01-0400 1446 H <135.1 INDEX Final
--- OUTSIDE RECORDS SUMMARY | 2022-11-20 09:36 | External Medical Summary ---
Author Name Unknown Organization K01:[facility], [address] [address] Laboratory Report Ordering Provider Test Date Status ELSA CARRERA MD 08/30/2014 11:16:00-0400 Final Obs # Observation Date Value ABNL Reference Status Pe rforming Location 1 25OH VITAMIN D TOTAL 08/30/2014 22:56-0400 32 >19 ng/mL Final Deficient: <20 ng/mL Insufficient: 20-29 ng/mL Recommended/Optimum:30-50 ng/mL Vitamin D intoxication is rare. If suspicious of Vitamin D toxicity, evaluation of serum Calcium and PTH is recommended.
--- OUTSIDE RECORDS SUMMARY | 2022-11-20 09:36 | External Medical Summary ---
Author Name Unknown Address [address] [id number] Phone Organization K01:[facility] [address] [id number] Laboratory Report Ordering Provider Test Date Status DEBI HUNTER MD [id number] Final Obs # Observation Date Value Abnormality Reference Status Performing Location 0 HbA1C [id number] 6.4 4.0-6.4 Final [facility] [address] [facility] [address]
--- OUTSIDE RECORDS SUMMARY | 2022-11-20 09:36 | External Medical Summary ---
Author Name Unknown Address [address] [id number] Phone Organization K01:[facility] [address] [facility] [address] Laboratory Report Ordering Provider Test Date Status DEBI HUNTER MD 09/18/2015 09:24:00 Final Obs # Observation Date Value Abnormality Reference Status Performing Location 0 HbA1C 09/18/2015 14:19 6.4 4.0-6.4 Final [facility] [address] [facility] [address]
--- OUTSIDE RECORDS SUMMARY | 2022-11-20 09:36 | External Medical Summary ---
Author Name Unknown Address [address] [id number] Phone Organization K01:[facility] [address] [facility] [address] Laboratory Report Ordering Provider Test Date Status DEBI HUNTER MD 09/18/2015 09:24:00 Final Obs # Observation Date Value Abnormality Reference Status Performing Location 0 BUN 09/18/2015 14:17 9 6-20 Final [facility] [address] [facility] [address] 1 Creatinine 09/18/2015 14:17 0.8 0.5-1.0 Final
--- OUTSIDE RECORDS SUMMARY | 2022-11-20 09:36 | External Medical Summary ---
Author Name Unknown Organization K01:[facility], [address] [id number] Laboratory Report Ordering Provider Test Date Status ELSA CARRERA MD 08/30/2014 11:16:00-0400 Final Obs # Observation Date Value ABNL Reference Status Pe rforming Location 1 HbA1C 08/30/2014 23:23-0400 6.3 4.0-6.4 % Final 2 Glucose, estimated average 08/30/2014 23:23-0400 134 H <126 MG/DL Final
--- OUTSIDE RECORDS SUMMARY | 2022-11-20 09:36 | External Medical Summary ---
Author Name Unknown Organization K01:[facility], [address] [address] Laboratory Report Ordering Provider Test Date Status ELSA CARRERA MD 08/30/2014 11:16:00-0400 Final Obs # Observation Date Value ABNL Reference Status Pe rforming Location 1 BUN 08/30/2014 22:44-0400 12 6-20 mg/dL Final 2 Creatinine 08/30/2014 22:44-0400 0.8 0.5-1.1 mg/dL Final GFR should be used to assess renal function. Plasma/Serum creatinine may not be able to properly reflect renal function in some cases. If patient is , multiply estimated GFR by 1.159.
--- OUTSIDE RECORDS SUMMARY | 2022-11-20 09:36 | External Medical Summary ---
Author Name Unknown Address Unknown Organization : Laboratory Report Ordering Provider Test Date Status DEBI HUNTER MD 09/18/2015 09:24:00 Final Obs # Observation Date Value Abnormality Reference Status Performing Location 0 Fasting status - Reported 09/18/2015 09:25 12 Final 1 Triglyceride 09/18/2015 14:17 193 <200 Final
--- OUTSIDE RECORDS SUMMARY | 2022-11-20 09:36 | External Medical Summary ---
Author Name Unknown Organization K01[facility], [address] [facility] [address] Laboratory Report Ordering Provider Test Date Status RUTHANN BRANHAM PAC 11/26/2013 10:27:00-0400 Fin al Obs # Observation Date Value ABNL Reference Status Pe rforming Location 1 source 4 10:27-040 0 URINE Final 2 Chlamydia, DNA 4 13:58-040 0 NO CHLAMYDIA TRACHOMATIS DETECTED BY GRINDER SET UP OPERATOR THREAD TOOL-MEDIA ANNE MARIE NUCLEIC ACID AMPLIFICATION. NCTA Final 3 comment 4 13:58-040 0 APTIMA COMBO2 (AC2) UNISEX SWAB COLLECTION KIT IS FDA APPROVED FOR FEMALE ENDOCERVICAL AND MALE URETHRAL SPECIMENS. AC2 VAGINAL SWAB COLLECTION KIT IS FDA APPROVED FOR FEMALE VAGINAL SPECIMENS. Final 4 COMMENT 4 13:58-040 0 The validation of this specimen type for this assay was developed and performance characteristics determined by [employer]. It has not been cleared or approved by the U.S. Food and Drug Administration (FDA). The FDA has determined that such clearance or approval is not necessary. Final
--- OUTSIDE RECORDS SUMMARY | 2022-11-20 09:36 | External Medical Summary | Summary of Care ---
Author Name Unknown Organization [place] [address] Phone Care Team Providers Care Health Insurance Sales Agent Name Role Phone Bran Hernadnes MD Primary Care Provider [phone] Reason for Visit * Reason Comments MyCode Consent Encounter Details Date Type Department Care Team Description 04/09/2017 Orders Only Outcomes Research Department [address] [place], [place] [id number] Blanka Petersen CHRA [employer] Research Other*[id number]* Allergies No Known Allergiesas of this encounter [...] goal below 140/90 04/26/2014 Heterozygous MTHFR mutation G8065E ([facility]) 04/25/2014 Prothrombin gene mutation ([facility]) 03/29/19 15 Heterozygous MTHFR mutation C677T ([facility]) 03/29/2014 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) 05/27/2013 Overview: ICD-10 update of inactive term History of brain tumor 05/19/2013 Irritant hand dermatitis 06/30/2012 Hypothyroidism 06/30/2012 Elevated blood pressure, situational 11/2012 Obesity, morbid (more than 100 lbs over ideal weight or BMI > 40) ([facility]) 09/05/2009 Overview: Per Obesity Protocol, #19 [...] as of this encounter Progress Notes * Blanka Petersen CHRA - 04/09/2017 11:49 AM EST MyCode Consent Documentation Kacey Jay provided consent/authorization to participate in the MyCode Project. in this encounter Plan of Treatment Upcoming Encounters Date Type Specialty Care Team Description 05/13/2017 Office Visit Family Practice Trixie Butts PA-C [address] [place] [address] [phone] 10/08/2017 Office Visit Family Practice Bran Hernandes MD [address] [facility] [address] [phone] Scheduled Tests Name Priority Associated Diagnoses Order S chedule MyCode Initial Adult Routine My[employer] Research Other*[id number] Expected: 04/09/2017 (Approximate), Expires: 04/29/2018 Health Maintenance Due Date Last Done Comments Yearly B-12 1970 DIABETES-EYE EXAM 1987 PNEUMOCOCCAL 19-64 MEDIUM RI SK (1 of 1 - PPSV23) 1988 BREAST CANCER SCREENING DISC USSION YEARLY AGES 40-75 2009 *BASELINE EKG FOR HTN 04/28/2014 *DEPRESSION SCREENING, ANNUA L FOR PTS 18 AND OVER 06/03/2014 DIABETES-FOOT EXAM 04/26/2015 04/26/2014, 06/29/2013 PAP SMEAR-EVERY 3 YRS,AGES 21-65 04/20/2016 04/20/2013, 12/18/2011 (Done elsewhere), 11/23/2007 DIABETES-LDL EVERY 12 MONTHS 09/17/2016, 08/30/2014, 08/25/2013, Additional history exists DIABETES-URINE MICROALBUMIN EVERY 12 MONTHS 09/17/2016 09/18/2015, 01/06/2015, 08/25/2013 *TSH FOR THYROID MEDICATION MONITORING YEARLY 09/19/2016 Influenza Vaccine (FLU shot) (#1) 2016 01/06/2015, 12/29/2013, 12/16/2012, Additional history exists DIABETES-HGBA1C EVERY 6 MONTHS 12/11/2016 0 06/10/2016, 09/18/2015, 01/06/2015, Additional history exists TETANUS EVERY 10 YRS-TDAP (BOOSTRIX/ADACEL) SUGGESTED IF NOT RECEIVED IN PAST 11/27/2021 11/28/2011, 02/06/2004 as of this encounter Implants Not on fileas of this encounter Visit Diagnoses Diagnosis MYCODE RESEARCH OTHER*[id number] - Primary in this encounter
--- OUTSIDE RECORDS SUMMARY | 2022-11-20 09:36 | External Medical Summary ---
Author Name Unknown Organization K01:[facility], [address] [address] Laboratory Report Ordering Provider Test Date Status ELSA CARRERA MD 09/07/2014 15:16:00-0400 Final Obs # Observation Date Value ABNL Reference Status Pe rforming Location 1 HEP B SURFACE AB 09/08/2014 09:17-0400 25.36 mIU/mL Final REFERENCE RANGE <10 mIU/ml QUALITATIVE TEST RESULT = POSITIVE Patient IS considered to have protective immunity to Hepatitis B Virus.
--- OUTSIDE RECORDS SUMMARY | 2022-11-20 09:36 | External Medical Summary ---
Author Name Unknown Organization K01[facility], [address] [id number] Laboratory Report Ordering Provider Test Date Status RUTHANN BRANHAM PAC 11/26/2013 10:27:00-0400 Fin al Obs # Observation Date Value ABNL Reference Status Pe rforming Location 1 Source 11/26/2013 10:27-040 URINE Final 2 result 11/29/2013 13:58-0400 NO NEISSERIA GONORRHOEAE DETECTED BY SLEEVE SETTER LOCKSTITCH-MEDIAT ED NUCLEIC ACID AMPLIFICATION. NGCTMA Final 3 comment 11/29/2013 13:58-0400 APTIMA COMBO2 (AC2) UNISEX SWAB COLLECTION KIT IS FDA APPROVED FOR FEMALE ENDOCERVICAL AND MALE URETHRAL SPECIMENS. AC2 VAGINAL SWAB COLLECTION KIT IS FDA APPROVED FOR FEMALE VAGINAL SPECIMENS. Final 4 COMMENT 11/29/2013 13:58-0400 The validation of this specimen type for this assay was developed and performance characteristics determined by [employer]. It has not been cleared or approved by the U.S. Food and Drug Administration (FDA). The FDA has determined that such clearance or approval is not necessary. Final
--- OUTSIDE RECORDS SUMMARY | 2022-11-20 09:36 | External Medical Summary | Summary of Care ---
Author Name Unknown Organization [place] [address] Phone Care Team Providers Care Linux Network Systems Administrator Name Role Phone Elsa Hernandes MD Primary Care Provider [phone] Reason for Visit * Reason Comments MEDICATION REFILL Encounter Details Date Type Department Care Team Description 03/04/2017 Refill [facility] [address] [place] [address] Trixie Butts PA-C [address] [place] [address] [phone] Hypothyroidism Allergies No Known Allergiesas of this [...] 1 04/02/2016 Active escitalopram (LEXAPRO) 10 MG TabletIndications: Adjustment disorder with depressed mood Take 1 Tab by mouth daily. 90 Tab 1 05/03/2016 Active valACYclovir (VALTREX) 500 MG TabletIndications: Herpes simplex virus infection TAKE ONE TABLET BY MOUTH ONCE DAILY 90 Tab 1 06/07/2016 Active Meloxicam 15 MG TabletIndications: Hip pain, right Take 1 Tab by mouth daily. for pain. 30 Tab 5 06/10/2016 Active metFORMIN (GLUCOPHAGE) 500 MG TabletIndications: Type 2 diabetes mellitus with hemoglobin A1c goal of less than 7.0% ([facility]) TAKE Two TABLETs BY MOUTH TWICE DAILY WITH MORNING AND EVENING MEALS 360 Tab 0 06/13/2016 Active levothyroxine (LEVOXYL) 100 MCG TabletIndications: Hypothyroidism Take 1 tab by mouth once daily at least 30 mins prior to breakfast or other meds. THYROID LABS ORDERED, MUST HAVE DONE BEFORE MORE REFILLS 90 Tab 0 03/04/2017 Active levothyroxine (LEVOXYL) 100 MCG TabletIndications: Hypothyroidism TAKE ONE TABLET BY MOUTH ONCE DAILY (AT LEAST 30 MINUTES PRIOR TO BREAKFAST OR OTHER MEDS) 90 Tab 0 11/05/2016 7 Discontinued as of this encounter Active Problems Problem Noted Date Adjustment disorder with depressed mood 10/24/2015 HTN, goal below 140/90 04/26/2014 Heterozygous MTHFR mutation W5781S ([facility]) 04/25/2014 Prothrombin gene mutation ([facility]) 03/29/19 15 Heterozygous MTHFR mutation C677T ([facility]) 03/29/2014 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[facility]) 03/29/2014 CVA, old, dysarthria 03/22/2014 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 Type 2 diabetes mellitus with hemoglobin A1c goal of less than 7.0% ([facility]) 05/27/2013 Overview: ICD-10 update of inactive term History of brain tumor 05/19/2013 Irritant hand dermatitis 06/30/2012 Hypothyroidism 06/30/2012 Elevated blood pressure, situational 11/2012 Obesity, morbid (more than 100 lbs over ideal weight or BMI > 40) ([facility]) 09/05/2009 Overview: Per Obesity Protocol, #19 [...] Immunizations Name Dates Previously Given Next Due Seasonal Influenza, Quadriva lent, No Preserve, IM 01/06/2015 Seasonal Influenza, Trivalen t, with Preserve, 3yr & Above, Split 12/29/2013,12/16/2012,11/28/2011,2010 TD - Tetanus/Diptheria (ADULT) 02/06/2004 TDAP (age [...] encounter Miscellaneous Notes * Telephone Encounter - Hali Adkins, [facility] - 03/04/2017 1:26 PM EST Signed Prescriptions: Disp Refills levothyroxine (LEVOXYL) 100 MCG Tablet 90 Tab 0 Sig: Take 1 tab by mouth once daily at least 30 mins prior to breakfast or other meds. THYROID LABS ORDERED, MUST HAVE DONE BEFORE MORE REFILLS Authorizing Provider: ELSA HERNANDES Ordering User: HALI ADKINS * Telephone Encounter - Jessica Cooper CPhT - 03/04/2017 12:48 PM EST Pending Prescriptions: Disp Refills levothyroxine (LEVOXYL) 100 MCG Tablet 90 Tab 0 Sig: (at least 30 min prior to breakfast or other meds) Last Office Visit: 06/10/2016 Next Office Visit: No Future Appointments If no future appointments scheduled, and last appointment is greater than a year ago, please schedule patient for a follow-up appointment Last date the medication was ordered: 11/05/16 Phone number(s): [phone] (work) Labs: CREATININE(mg/dL) Bruno Dt/Tm Resulted Value Status 06/10/16 10:02A 06/10/16 0.8 FINAL POTASSIUM(mmol/L) Bruno Dt/Tm Resulted Value Status 06/10/16 10:02A 06/10/16 5.0 FINAL ALT(U/L) Bruno Dt/Tm Resulted Value Status 09/18/15 9:24A 09/18/15 25 FINAL LDL (CALCULATED)(mg/dL) Bruno Dt/Tm Resulted Value Status 09/18/15 9:24A 09/18/15 126 FINAL TSH(uIU/mL) Bruno Dt/Tm Resulted Value Status 09/18/15 9:24A 09/18/15 1.87 FINAL Hemoglobin AIC Results: HEMOGLOBIN, A1C(%) Bruno Dt/Tm Resulted Value Status 06/10/16 10:02A 06/10/16 7.0* FINAL 09/18/15 9:24A 09/18/15 6.4 FINAL 01/06/15 3:18P 01/06/15 6.4 FINAL in this encounter Plan of Treatment Health [...] / Group Subscriber ID Type Phone Address [facility] [id number] [facility] [id number] as of this encounter
--- OUTSIDE RECORDS SUMMARY | 2022-11-20 09:36 | External Medical Summary ---
Author Name Unknown Organization K01:[facility], [address] [address] Laboratory Report Ordering Provider Test Date Status RUTHANN LIMON 11/26/2013 10:24:00-0400 Fin al Obs # Observation Date Value ABNL Reference Status Pe rforming Location 1 HIV-1 and HIV-2 Ab 11/29/2013 11:57-0400 NEGATIVE NEG Final
--- OUTSIDE RECORDS SUMMARY | 2022-11-20 09:36 | External Medical Summary ---
Author Name Unknown Address [address] [phone] Phone Organization K01:[facility] [address] [facility] [address] Laboratory Report Ordering Provider Test Date Status DEBI HUNTER MD 09/18/2015 09:24:00 Final Obs # Observation Date Value Abnormality Reference Status Performing Location 0 Albumin, Urine 09/18/2015 14:21 <1.20 Final [facility] [address] [facility] [address] 1 Creatinine [Moles/volume] in Urine 09/18/2015 14:21 172 Final 2 Microalbumin / Creatinine Ratio 09/18/2015 14:21 <7 <30 Final
--- OUTSIDE RECORDS SUMMARY | 2022-11-20 09:36 | External Medical Summary ---
Author Name Unknown Address [facility] [address] [place] [phone] Phone Organization K01:[facility] [address] [address] Laboratory Report Ordering Provider Test Date Status DEBI HUNTER MD [id number] Final Obs # Observation Date Value Abnormality Reference Status Perfor zak Location 0 Albumin, Urine [id number] <1.20 Final [facility] [address] [facility] [address] 1 Creatinine, Urine [id number] [address] [address] 2 Microalbumin / Creatinine Ratio [id number] Uninterpretable Albumin/Creatin ine Ratio due to very low albumin and creatinine values. <30 Final [place] [address] [address] [place] [id number]
--- OUTSIDE RECORDS SUMMARY | 2022-11-20 09:36 | External Medical Summary ---
Author Name Unknown Address [facility] [address] [phone] Phone Organization K01:[place] [address] [facility] [address] Laboratory Report Ordering Provider Test Date Status YONAS BEAVERS 06/10/2016 10:02:00 Final Observation Date Value Abnormality Reference Status HbA1C 06/10/2016 16:54 7.0 Above high normal 4.0-6 .4 Final Performing Location [place] [address] [facility] [address]
--- OUTSIDE RECORDS SUMMARY | 2022-11-20 09:37 | External Medical Summary ---
Author Name Unknown Organization K01:[facility], [address] [id number] Laboratory Report Ordering Provider Test Date Status ELSA CARRERA MD 12/16/2012 11:57:00-0400 Final Obs # Observation Date Value ABNL Reference Status Pe rforming Location 1 BUN 12/16/2012 21:20-0400 10 6-20 mg/dL Final 2 Creatinine 12/16/2012 21:20-0400 0.8 0.5-1.1 mg/dL Final GFR should be used to assess renal function. Plasma/Serum creatinine may not be able to properly reflect renal function in some cases.
--- OUTSIDE RECORDS SUMMARY | 2022-11-20 09:37 | External Medical Summary ---
Author Name Unknown Organization K01:[facility], [address] [address] Laboratory Report Ordering Provider Test Date Status ELSA CARRERA MD 10/09/2012 13:43:00-0400 Final Obs # Observation Date Value ABNL Reference Status Pe rforming Location 1 LYME G/M AB 10/12/2012 11:58-0400 POSITIVE A NEG Final 2 B. burgdorferi IgG / IgM Index (Lyme Dz) 10/12/2012 11:58-0400 7.9 H <0.91 INDEX Final 3 LYME G/M COMMENT 10/12/2012 11:58-0400 TEST RESULTS REPORTED TO [place] DEPT OF HE[facility]. Final 4 B. burgdorferi 18 kD IgG 10/14/2012 14:37-0400 NOT DETECTED XDET Final 5 B. burgdorferi 23 kD IgG 10/14/2012 14:37-0400 PRESENT A XDET Final 6 B. burgdorferi 28 kD IgG 10/14/2012 14:37-0400 NOT DETECTED XDET Final 7 B. burgdorferi 30 kD IgG 10/14/2012 14:37-0400 NOT DETECTED XDET Final 8 B. burgdorferi 39 kD IgG 10/14/2012 14:37-0400 NOT DETECTED XDET Final 9 B. burgdorferi 41kD IgG 10/14/2012 14:37-0400 PRESENT A XDET Final 10 B. burgdorferi 45kD IgG 10/14/2012 14:37-0400 NOT DETECTED XDET Final 11 B. burgdorferi 58kD IgG 10/14/2012 14:37-0400 PRESENT A XDET Final 12 B. burgdorferi 66kD IgG 10/14/2012 14:37-0400 NOT DETECTED XDET Final 13 B. burgdorferi 93kD IgG 10/14/2012 14:37-0400 NOT DETECTED XDET Final 14 B. burgdorferi IgG band pattern 10/14/2012 14:37-0400 SEE COMMENT Final NEGATIVE: IGG ANTIBODIES NOT DETECTED OR PRESENT TO FEWER THAN THE REQUIRED 5 OF 10 SIGNIFICANT BANDS PRESUMPTIVELY POSITIVE: IGM ANTIBODIES PRESENT TO AT LEAST 2 OF THE FOLLOWING 3 SIGNIFICANT BANDS: 23,39,41 kD TEST RESULTS REPORTED TO [place] DEPT OF HE[facility].
--- OUTSIDE RECORDS SUMMARY | 2022-11-20 09:37 | External Medical Summary ---
Author Name Unknown Organization K01:[facility], [address] [id number] Laboratory Report Ordering Provider Test Date Status RUTHANN KEARNSALVINO LIMON 05/19/2013 14:29:00-0500 Fin al Obs # Observation Date Value ABNL Reference Status Pe rforming Location 1 Insulin level 05/19/2013 23:40-0500 42.4 H 3-17 uU/ml Final
--- OUTSIDE RECORDS SUMMARY | 2022-11-20 09:37 | External Medical Summary ---
Author Name Unknown Organization K01:[facility], [address] [address] Laboratory Report Ordering Provider Test Date Status DEAN NATALYSHANIQUE PAC 07/20/2013 08:17:00-0400 Fin al Obs # Observation Date Value ABNL Reference Status Pe rforming Location 1 specimen 4 13:56-040 0 CLEAN CATCH URINE Final 2 result 4 08:27-040 0 >100,000 COLONIES/ML ESCHERICHIA COLI Final 3 result 4 08:27-040 0 LESS THAN 10,000 COLONIES/ML ONE OTHER SPECIES Final 4 report status 4 07:50-040 0 07/22/2013 FINAL Final 5 Bacterial Culture 4 23:16-040 0 ESCHERICHIA COLI A Final >100,000 COLONIES/ML ESCHERICHIA COLI
--- OUTSIDE RECORDS SUMMARY | 2022-11-20 09:37 | External Medical Summary ---
Author Name DEBI TORRES Organization K01:[facility], [address] [address] Support Name Relationship Address Phone DEBI TORRES, ELSA BURCIAGA Unknown Unavailable Laboratory Report Ordering Provider Test Date Status ELSA CARRERA MD 11/28/2011 10:11:00-0400 Final Obs # Observation Date Value ABNL Reference Status Pe rforming Location 1 LDL, (direct) 11/28/2011 22:26-0400 128 0-129 mg/dL Final LDL CHOLESTEROL REFERENCE RANGES(mg/dL) <100 OPTIMAL GOAL FOR HIGH RISK PATIENTS 100-129 NEAR OR ABOVE NORMAL 130-159 BORDERLINE HIGH 160-189 HIGH >189 VERY HIGH
--- OUTSIDE RECORDS SUMMARY | 2022-11-20 09:37 | External Medical Summary ---
Author Name Unknown Organization K01:[facility], [address] [address] Laboratory Report Ordering Provider Test Date Status DIANNE BARROS PAC 11/04/2013 10:25:00-0400 Fin al Obs # Observation Date Value ABNL Reference Status Pe rforming Location 1 specimen 4 14:03-040 0 CLEAN CATCH URINE Final 2 result 4 23:29-040 0 >100,000 COLONIES/ML ESCHERICHIA COLI Final 3 report status 4 06:29-040 0 11/06/2013 FINAL Final 4 Bacterial Culture 4 23:29-040 0 ESCHERICHIA COLI A Final >100,000 COLONIES/ML ESCHERICHIA COLI
--- OUTSIDE RECORDS SUMMARY | 2022-11-20 09:37 | External Medical Summary ---
Author Name Unknown Organization K01:[facility], [address] [id number] Laboratory Report Ordering Provider Test Date Status RUTHANN KEARNSALVINO LIMON 08/25/2013 09:53:00-0400 Fin al Obs # Observation Date Value ABNL Reference Status Pe rforming Location 1 HbA1C 08/25/2013 19:110 6.3 3.4-6.4 % Final 2 Glucose, estimated average 08/25/2013 19:110400 134 H <126 MG/DL Final
--- OUTSIDE RECORDS SUMMARY | 2022-11-20 09:37 | External Medical Summary ---
Author Name Unknown Organization K01:[facility], [address] [facility] [address] Laboratory Report Ordering Provider Test Date Status RUTHANN CHANELLESANDRINE PAC 11/26/2013 10:24:00-0400 Fin al Obs # Observation Date Value ABNL Reference Status Pe rforming Location 1 RPR 11/29/2013 10:51-0400 NONREACTIVE NR DILUTIONS Final
--- OUTSIDE RECORDS SUMMARY | 2022-11-20 09:37 | External Medical Summary ---
Author Name Unknown Organization K01:[place] [address] [id number] Support Name Relationship Address Phone ELSA CARRERA MD PROV Unknown Unavailable Laboratory Report Ordering Provider Test Date Status ELSA CARRERA MD 11/19/2010 15:44-0400 Final Obs # Observation Date Value ABNL Reference Status Pe rforming Location 1 TSH 11/19/2010 23:02-0400 2.54 0.27-4.2 uIU/mL Final
--- OUTSIDE RECORDS SUMMARY | 2022-11-20 09:37 | External Medical Summary ---
Author Name DEBI TORRES Organization K01:[facility], [address] [address] Support Name Relationship Address Phone DEBI TORRES, ELSA PROV Unknown Unavailable Laboratory Report Ordering Provider Test Date Status ELSA CARRERA MD 11/28/2011 10:11:00-0400 Final Obs # Observation Date Value ABNL Reference Status Pe rforming Location 1 TSH 11/28/2011 23:38-0400 2.52 0.27-4.2 uIU/mL Final
--- OUTSIDE RECORDS SUMMARY | 2022-11-20 09:37 | External Medical Summary ---
Author Name Unknown Organization K01:[facility], [address] [id number] Laboratory Report Ordering Provider Test Date Status RUTHANN BRANHAM BRAXTON 05/19/2013 14:29:00-0500 Fin al Obs # Observation Date Value ABNL Reference Status Pe rforming Location 1 HbA1C 05/19/2013 23:13-0500 6.7 H 3.4-6.4 % Final 2 Glucose, estimated average 05/19/2013 23:13-0500 146 H <126 MG/DL Final
--- OUTSIDE RECORDS SUMMARY | 2022-11-20 09:37 | External Medical Summary ---
Author Name Unknown Organization [id number] Laboratory Report Ordering Provider Test Date Status RUTHANN BRANHAM PAC 08/25/2013 09:53:00-0400 Fin al Obs # Observation Date Value ABNL Reference Status Pe rforming Location 1 hours fasting 08/25/2013 09:54-0400 12 hours Final 2 Triglyceride 08/25/2013 14:56-0400 136 <200 mg/dL Final TRIGLYCERIDE REFERENCE RANGES (mg/dL) [...]
--- OUTSIDE RECORDS SUMMARY | 2022-11-20 09:37 | External Medical Summary ---
Author Name Unknown Organization K01:[facility], [address] [address] Laboratory Report Ordering Provider Test Date Status RUTHANN KEARNSALVINO PAC 05/19/2013 14:29:00-0500 Fin al Obs # Observation Date Value ABNL Reference Status Pe rforming Location 1 BUN 05/19/2013 22:48-0500 12 6-20 mg/dL Final 2 Creatinine 05/19/2013 22:48-0500 0.8 0.5-1.1 mg/dL Final GFR should be used to assess renal function. Plasma/Serum creatinine may not be able to properly reflect renal function in some cases.
--- OUTSIDE RECORDS SUMMARY | 2022-11-20 09:37 | External Medical Summary ---
Author Name Unknown Organization K01:[facility], [address] [address] Laboratory Report Ordering Provider Test Date Status RUTHANN BRANHAM PAC 08/25/2013 09:58:00-0400 Fin al Obs # Observation Date Value ABNL Reference Status Pe rforming Location 1 Albumin, Urine 08/25/2013 16:07-0400 1.80 0-2 mg/dL Final 2 Creatinine, Random Urine 08/25/2013 16:07-0400 111 mg/dL Final 3 Microalbumin / Creatinine Ratio 08/25/2013 16:07-0400 16 <31 mg/g creat Final Normal: 0- 29 mg/g creatinine High: 30-300 mg/g creatinine Very High and Nephrotic: >300 mg/g creatinine
--- OUTSIDE RECORDS SUMMARY | 2022-11-20 09:37 | External Medical Summary ---
Author Name Unknown Organization K01:[facility], [address] [address] Laboratory Report Ordering Provider Test Date Status RUTHANN BRANHAM PAC 05/19/2013 14:29:00-0500 Fin al Obs # Observation Date Value ABNL Reference Status Pe rforming Location 1 TSH 4 22:48-050 0 2.09 0.27-4.2 uIU/mL Final 2 FREE T4 REFLEXIVE 4 22:48-050 0 NOT APPLICABLE 0.7-1.7 Final
--- OUTSIDE RECORDS SUMMARY | 2022-11-20 09:37 | External Medical Summary ---
Author Name Unknown Organization [facility] tem Support Name Relationship Address Phone Unavailable PROV Unknown Unavailable Laboratory Report Ordering Provider Test Date Status 12/06/2009 14:54-0400 F Obs # Observation Date Value ABNL Reference Status Pe rforming Location 1 [facility] 12/06/2009 23:24-0400 1.39 0.27-4.2 uIU/mL Final
--- OUTSIDE RECORDS SUMMARY | 2022-11-20 09:37 | External Medical Summary ---
Author Name Unknown Organization K01:[facility], [address] [address] Laboratory Report Ordering Provider Test Date Status RUTHANN BRANHAM BRAXTON 11/26/2013 10:24:00-0400 Fin al Obs # Observation Date Value ABNL Reference Status Pe rforming Location 1 HSV-1 IgG, qual. 11/29/2013 11:53-0400 POSITIVE A NEG Final 2 HSV-1 IgG, Quant. 11/29/2013 11:53-0400 50.1 H <0.90 INDEX Final 3 HSV-2 IgG, qual. 11/29/2013 11:54-0400 NEGATIVE NEG Final 4 HSV-2 IgG, Quant. 11/29/2013 11:54-0400 0.05 <0.90 INDEX Final 5 comment 11/29/2013 11:53-0400 This assay is type specific for HSV1 and HSV2 IgG. Final
--- NOTE | 2022-11-20 13:03 | Electroencephalogram ---
EEG Procedure Note Date of Service November 20, 2022 Start / End Times Start Time: 943 End Time: [address] Jensen History 52-year-old with history of brain tumor and episodic speech and confusion issues Home Medication List Medication Instructions Recorded Confirmed Type valacyclovir 500 mg tablet 500 mg PO DAILY 07/30/18 11/19/22 History aspirin 81 mg tablet,delayed 81 mg PO DAILY 11/19/22 11/19/22 History release atorvastatin 40 mg tablet 40 mg PO DAILY 11/19/22 11/19/22 History donepezil 10 mg tablet 10 mg PO DAILY 11/19/22 11/19/22 History dulaglutide 4.5 mg/0.5 mL 3 mg subcut WK 11/19/22 11/19/22 History subcutaneous pen injector (Trulicity) empagliflozin 10 mg tablet 10 mg PO DAILY 11/19/22 11/19/22 History (Jardiance) escitalopram oxalate 20 mg tablet 20 mg PO DAILY 11/19/22 11/19/22 History levothyroxine 112 mcg tablet 112 mcg PO DAILYBB 11/19/22 11/19/22 History multivitamin 1 tab PO DAILY 11/19/22 11/19/22 History Inpatient Medication List Aspirin (Aspirin 81 Mg Ectab) 81 mg PO DAILY QUITA Stop: 12/20/22 08:59 Last Admin: 11/20/22 07:49 Dose: 81 mg Documented By: TETE Atorvastatin Calcium (Atorvastatin 40 Mg Tab) 40 mg PO DAILY QUTIA Stop: 12/20/22 08:59 Last Admin: 11/20/22 07:49 Dose: 40 mg Documented By: TETE Donepezil HCl (Donepezil Hcl 10 Mg Tab) 10 mg PO DAILY QUITA Stop: 12/20/22 08:59 Last Admin: 11/20/22 08:00 Dose: 10 mg Documented By: TETE Escitalopram Oxalate (Escitalopram Oxalate 20 Mg Tab) 20 mg PO DAILY QUITA Stop: 12/20/22 08:59 Last Admin: 11/20/22 07:49 Dose: 20 mg Documented By: TETE Insulin Aspart (Insulin Aspart Per Unit Charge) 0 units SC ACHS QUITA Stop: 12/20/22 07:29 Last Admin: 11/20/22 12:49 Dose: Not Given Documented By: Admin: 11/20/22 07:46 Dose: 5 units Documented By: TETE Co-signed By: CHARLETTE Insulin Glargine (Lantus Per Unit Charge) 15 units SQ BID QUITA Stop: 12/20/22 08:59 Last Admin: 11/20/22 08:04 Dose: 15 units Documented By: TETE Co-signed By: CHARLETTE Levothyroxine Sodium (Levothyroxine Sodium 112 Mcg Tablet) 112 mcg PO DAILYBB [facility] Stop: 12/20/22 06:29 Last Admin: 11/20/22 07:48 Dose: 112 mcg Documented By: TETE Valacyclovir HCl (Valacyclovir Hcl 500 Mg Tablet) 500 mg PO DAILY QUITA Stop: 12/20/22 08:59 Last Admin: 11/20/22 07:49 Dose: 500 mg Documented By: TETE Discontinued Medications Gadobutrol (Gadobutrol 65ml Vial) 9 ml IV ONCE ONE Stop: 11/20/22 00:17 Last Admin: 11/20/22 00:16 Dose: 9 ml Documented By: ED Sodium Chloride (Nss 1000ml) 1,000 mls @ 999 mls/hr IV .Q1H1M QUITA Stop: 11/20/22 00:00 Last Infusion: 11/20/22 01:33 Dose: 0 mls/hr Documented By: Admin: 11/19/22 22:59 Dose: 999 mls/hr Documented By: NEGRO Lorazepam (Lorazepam 2 Mg/1 Ml Vial) 1 mg IV NOW STA Stop: 11/19/22 23:34 Last Admin: 11/19/22 23:46 Dose: 1 mg Documented By: NEGRO Description This is a 21 electrode EEG with a single channel dedicated to limited EKG. The electrodes were placed in accordance with the International 10-20 system. Interpretation The predominant background activity consists of a somewhat irregular 10 Hz activity, of up to 30 mV in amplitude,seen symmetrically distributed over the posterior head regions bilaterally, spreading anteriorly. This activity attenuates some with eye-opening and other alerting procedures. Photic stimulation was performed and elicited no change in the background activity and no abnormal responses were seen. Hyperventilation was not performed. A mild to moderate amount of muscle and movement artifact activity contaminated the recording, especially in the bifrontal head regions, yet did not hinder interpretation to any significant degree. Throughout the waking portion of the recording, no focal abnormalities, abnormal slow activity, or potentially epileptogenic discharges are seen. The patient entered the drowsy state with no further activation. In summary, this EEG was normal during wakefulness and drowsiness. No focal abnormalities, potentially epileptogenic discharges, or abnormal slow activity was seen. Clinical Correlation The abscence of potentially epileptogenic activity does not exclude a seizure disorder, since interictally, EEGs can be normal. Clinical correlation is required. Despite the history no focal abnormalities were noted
--- OUTSIDE RECORDS SUMMARY | 2022-11-20 16:31 | External Medical Summary | Summary of Care ---
Author Name Unknown Organization [place] [address] Phone Care Team Providers Care Health Technical Writer Name Role Phone Bran Hernandes MD Primary Care Provider [phone] Reason for Visit * Reason Comments APPOINTMENT Encounter Details Date Type Department Care Team Description 07/18/2017 Telephone [facility] [address] [place] [address] Bran Hernandes MD [address] [place] [address] [phone] APPOINTMENT Allergies No Known Allergiesas of this [...] goal below 140/90 04/26/2014 Heterozygous MTHFR mutation C5592N ([facility]) 04/25/2014 Prothrombin gene mutation ([facility]) 03/29/19 15 Heterozygous MTHFR mutation C677T ([facility]) 03/29/2014 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, old, dysarthria 03/22/2014 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 Type 2 diabetes mellitus with hemoglobin A1c goal of less than 7.0% ([facility]) 05/27/2013 Overview: ICD-10 update of inactive term History of brain tumor 05/19/2013 Hypothyroidism 06/30/2012 Obesity, morbid (more than 100 lbs over ideal weight or BMI > 40) ([facility]) 09/05/2009 Overview: Per Obesity Protocol, [...] encounter Miscellaneous Notes * Telephone Encounter - Beatrice Houston OSA - 07/19/2017 12:39 PM EDT Please review advise on scheduling,Ty * Telephone Encounter - Rachel Mackay OSA - 07/18/2017 3:34 PM EDT Pt needs to schedule with Neurology in [facility] of surgical resection benign brain tumor (1979). Having increased difficulties with balance . Recent fall Please contact pt to schedule appointment Thank You in this encounter Plan of Treatment Upcoming Encounters Date Type Specialty Care Team Description 07/31/2017 Office Visit Orthopedics Oswaldo Bradford, [address] [place] [address] [phone] 08/22/2017 Office Visit Family Practice Bran Hernandes MD [address] [id number] 10/08/2017 Office Visit Family Practice Bran Hernandes MD [address] [place] [address] [phone] Health Maintenance Due Date Last Done Comments [...] Type Phone Address [employer] [id number] [place] [address] as of this encounter
[2022-11-20] MEDS: SODIUM CHLORIDE 0.9% 1000ML 1,000 ML IV SCH (17:34)
--- NOTE | 2022-11-20 22:24 | Billing Data ---
Date of Service November 20, 2022 Coding Level of Care Code 43641 INT INP/OBS CARE
[2022-11-20] MEDS: NYSTATIN POWDER 15GM BTL EXT SCH (23:57)
--- NOTE | 2022-11-21 00:59 | Communication Note ---
Date of Service: November 20, 2022 Saw patient mid-afternoon. She reported that she has had multiple falls at home including 1 in which she struck the back of her head. She has had progressive gait issues for a few years. Has walker but does not use it consistently. Dizziness/lightheadedness is improved today. Denies true vertigo. Her balance has worsened since her prior CVA. NO fevers, chills or other infectious symptoms although she was tired earlier this week. 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 dizziness/lightheadedness - due to volume contraction? SG on admission u/a was quite high suggesting volume contraction. She received IV fluids in ER and symptoms are indeed better this afternoon. Will resume fluids. Check an echo to be complete. follow telemetry. 2. h/o brain tumor resection as child - MRI brain with unchanged chronic findings; EEG neg seizure focus. 3. falls - due to #1?? due to cerebellar damage from prior brain tumor resection? will need PT/OT evals to ensure safe for home. Check a B1 and B12 level to be complete. Joe Gamble MD
[2022-11-21] MEDS: LEVOTHYROXINE SODIUM 112 MCG TABLET PO SCH (06:22)
[2022-11-21] MEDS: SODIUM CHLORIDE 0.9% 1000ML 1,000 ML IV SCH (10:05)
[2022-11-21 10:06] LABS: BUN Creatinine Ratio 19.2 (10-20); Calcium 8.9 mg/dl (8.6-10.3); Creatinine Clr Calc Pharmacy 92.6 ml/min; Est GFR (African American) 100.6 ml/min; Est GFR (Non-African American) 86.8 ml/min; Potassium 3.6 mmol/L (3.5-5.1)
[2022-11-21] MEDS: valACYclovir HCL 500 MG TABLET PO SCH (10:10)
[2022-11-21] MEDS: DONEPEZIL HCL 10 MG TAB PO SCH (10:11)
[2022-11-21] MEDS: ESCITALOPRAM OXALATE 20 MG TAB PO SCH (10:11)
[2022-11-21] MEDS: INSULIN ASPART PER UNIT CHARGE SC SCH ×3 (10:12→18:17)
[2022-11-21] MEDS: ATORVASTATIN 40 MG TAB PO SCH (10:12)
[2022-11-21] MEDS: ASPIRIN 81 MG ECTAB PO SCH (10:12)
[2022-11-21] MEDS: LANTUS PER UNIT CHARGE SQ SCH (10:13)
[2022-11-21] MEDS: NYSTATIN POWDER 15GM BTL EXT SCH (10:14)
[2022-11-21] MEDS ORDERED: DOXYCYCLINE HYCLATE 100 MG CAP PO STA (17:24)
--- NOTE | 2022-11-21 17:54 | XCELERA ---
[id number] \\[email or web address]\[id number]
--- NOTE | 2022-11-21 18:41 | Discharge Summary ---
Date of Service November 21, 2022 Admission HPI Per Admitting Provider Kacey is a 52 year old female w/ PmHx brain tumor at age 9 s/p resection and radiation, CVA in 2016, T2DM, depression coming in to the ED for dizziness and lightheadedness for a few days. Patient states that on Friday she started to get dizzy and lightheaded out of no where. She was not doing anything in particular when it occurred. Friday she was okay but this morning she started feeling the dizziness and lightheadedness onset again. It has been constant for her since the recent onset. She denies fevers, chills, shortness of breath, chest pain, cough, congestion, diarrhea, nausea, vomiting, headaches, dysuria. She states that the dizziness and lightheadedness has caused her to fall a few times over the past few days however she did not lose consciousness or hit her head. In the ED she had a CT of the head which was negative for acute processes. Brain MRI was negative for any acute processes. WBC 11.42, otherwise unremarkable blood work. She was given 1mg ativan, 1L NSS in the ED. Discharge Data Allergies Allergy/AdvReac Type Severity Reaction Status Date / Time No Known Allergies Allergy Verified 11/19/22 23:51 Consultations 11/20/22 01:39 ED Decision to Admit Stat Ordered Studies 11/19/22 21:24 CT head/brain wo con Stat 11/19/22 23:03 MR brain wo/w con Stat Discharge Plan Discharge Items Patient Disposition: Home - Self-Care Reason For Visit: DIZZINESS Discharge Diagnosis: 1. dizziness/lightheadedness - resolved with IV fluids. Due to mild dehydration? Borderline low blood sugars? Combination of factors? 2. "equivocal" lyme screening test - confirmatory testing is pending - may pillowcase turner to be a false positive. 3. 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 4. history of stroke. 5. depression. 6. difficulty with walking/gait disturbance - likely due to the effects from #3. Activity: Resume your previous activity Non-emergency contact: Primary Care Provider and Specialist Call non-emergency contact if: you have any medication questions and your symptoms worsen Follow-up/Referrals: [facility] [Provider Group] (we will help you get a follow-up appointment with [facility]) Aurelia Espino PA-C [Primary Care Provider] - 12/18/22 10:50 am ([facility]) Diet: Carb Consistent or DM2 Addtl Attending Provider Instructions: Mrs Jay, You were hospitalized due to dizziness/lightheadedness. It was uncertain if the dizziness was due to mild dehydration, borderline low blood sugar, or some other process. Your symptoms resolved with receiving IV fluids. MRI brain was done - this was UNCHANGED from your 2014 MRI. The MRI shows where the tumor was removed in your childhood as well as the old stroke you experienced in the past. We did not see any tumor, new stroke, etc. Echocardiogram showed normal heart function. Telemetry heart monitoring was normal. Your blood work was generally normal with the exception of an "equivocal" lyme screening test. Many of the equivocal lyme tests ultimately pillowcase turner to be of no significance. Your vitamin B12 level was normal, but you may want to take a B12 supplement as sometimes this helps with gait and balance. A vitamin B1 level was sent and is pending at this time. B1 deficiency can lead to problems with the nerves in your legs leading to neuropathy. Recommendations - 1. While awaiting confirmatory Lyme testing take doxycycline 100mg twice daily. Start this tomorrow, 11/22/22. Take with food. Doxycycline can occasionally cause heartburn. It can rarely cause a rash if you have a lot of sun exposure while taking the drug. Simply cover up/use sunscreen consistently while on the doxycycline. When the confirmatory Lyme test returns we will call you with those results. 2. Please consider outpatient Physical therapy for balance & gait training. A good option is [facility] located in [place]. There are other outpatient PT locations as well. [facility] has a PT gym at the [employer] near the hospital. 3. Take [id number] vitamin B12 1000mcg (1mg) daily for about 4-6 months. 4. Please check your blood sugar at least twice daily. Also, if you feel dizzy or lightheaded again, check your blood sugar at that time. If you have blood sugars that are consistently less than 80 please let your family doctor know. You can start back your Jardiance tomorrow and your Trulicity any time the next few days. 5. Please consider counseling for your depression. It will help to talk with someone about everything you are going through (recent move, your walking troubles, etc). One group in [facility] is [facility]. They offer virtual appointments. Their number is - [phone]. 6. Try to stay well-hydrated each day. Shoot for at least 2000ml of liquids/day. 7. We will help you get an appointment with [facility] to follow your walking problems, the prior stroke, etc. Return to [facility] if - * you become severely dizzy or lightheaded * you have any symptoms of stroke (new difficulty speaking, difficulty swallowing, double vision, severe vertigo (spinning), weakness in an arm and/or leg, etc) * any other concerns It was our pleasure to care for you! -Dr Gamble Pending Studies at Discharge: Yes Studies:: vitamin B1 level Stand-Alone Forms: My [facility], Smoking Cessation Medications and DC Order Prescriptions: New doxycycline monohydrate 100 mg tablet 100 mg PO BID 7 Days Qty: 14 0RF Rx Instructions: start 11/22/22 Continued valacyclovir 500 mg tablet 500 mg PO DAILY multivitamin Tablet 1 tab PO DAILY atorvastatin 40 mg tablet 40 mg PO DAILY donepezil 10 mg tablet 10 mg PO DAILY aspirin 81 mg Tablet,Delayed Release (Dr/Ec) 81 mg PO DAILY levothyroxine 112 mcg tablet 112 mcg PO DAILYBB escitalopram oxalate 20 mg tablet 20 mg PO DAILY Jardiance 10 mg tablet 10 mg PO DAILY Trulicity 4.5 mg/0.5 mL pen injector 3 mg SUBCUT WK Rx Instructions: SUNDAYS Discharge Orders: Discharge Order (Routine); Ordered 11/21/22 Ordered By: Joe Fan/Other Patient Handouts: Managing Type 2 Diabetes Admission Data Admit Date/Time: 11/20/22 03:16 Attending Provider: Joe Gamble Admit Provider: Mikey Huerta Primary Care Provider: Aurelia Espino Other Providers: Fabiano Funk Coding Diagnoses
[2022-11-23 05:17] LABS: Babesia microti DNA Not Detected (Not Detected)
--- NOTE | 2022-11-23 22:02 | Electrocardiogram Report ---
Test Reason : Blood Pressure : / mmHG Vent. Rate : 073 BPM Atrial Rate : 073 BPM P-R Int : 172 ms QRS Dur : 086 ms QT Int : 400 ms P-R-T Axes : 061 129 053 degrees QTc Int : 440 ms Normal sinus rhythm Right axis deviation Septal infarct Abnormal ECG When compared with ECG of 30-JUL-2018 20:34, Septal infarct is now Present Confirmed by Faizan Keys ([id number]) on 11/23/2022 10:02:21 PM Referred By: REFERRED SELF Confirmed By:Faizan Keys
[2022-11-26 14:17] LABS: 18KDIGG Band REACTIVE; 23KDIGG Band REACTIVE; 23KDIGM Band REACTIVE; 28KDIGG Band NON-REACTIVE; 30KDIGG Band NON-REACTIVE; 39KDIGG Band NON-REACTIVE; 39KDIGM Band NON-REACTIVE; 41KDIGG Band REACTIVE; 41KDIGM Band NON-REACTIVE; 45KDIGG Band NON-REACTIVE; 58KDIGG Band NON-REACTIVE; 66KDIGG Band NON-REACTIVE; 93KDIGG Band NON-REACTIVE; Lyme Antibodies, WB IgG NEGATIVE (NEGATIVE); Lyme Antibodies, WB IgM NEGATIVE (NEGATIVE)
== END 2022-11-21 19:21 | disposition home or self-care (01) | DRG 149 ==
LOC: ED 21:18 → SUATTDRO 11-20 03:16 → EDINP 11-20 03:16 → 2N 11-20 04:04